=== PATIENT | male | born 1960 ===

== ENCOUNTER 2020-02-25 09:11 | Outpatient (REF) | payer MEDICARE, SELFPAY ==
[2020-02-25 11:54] LABS: Alanine Aminotransferase 30 U/L (0-40); Albumin Level 4.5 g/dL (3.5-5.0); Alkaline Phosphatase 77 U/L (39-117); Anion Gap 12 (12-20); Aspartate Amino Transferase 28 U/L (5-37); Bilirubin Total 1.5 mg/dL (0.0-1.0); Blood Urea Nitrogen 15 mg/dL (9-16); Calcium 9.4 mg/dL (8.4-10.2); Carbon Dioxide 33 mmol/L (22-29); Chloride 100 mmol/L (96-108); Cholesterol 175 mg/dL; Estimated Glomerular Filt Rate 57; Glucose Fasting 87 mg/dL (60-99); HDL Cholesterol 39 mg/dL; LDL Cholesterol Calculated 95 mg/dl; Potassium 4.2 mmol/l (3.3-5.1); Sodium 141 mmol/L (135-145); Total Protein 7.5 g/dL (6.5-8.0); Triglycerides 205 mg/dL
[2020-02-25 12:05] LABS: Thyroid Stimulating Hormone 1.49 uIU/mL (0.32-4.0)
== END 2020-02-25 09:12 | disposition home or self-care (01) ==
LOC: HO.HMGCLDS 09:11
PROVIDERS: PCP Internal Medicine; Visit Provider Internal Medicine
DX: E78.2 Mixed hyperlipidemia (principal); I10 Essential (primary) hypertension; N40.0 Benign prostatic hyperplasia without lower urinary tract symptoms
CPT/HCPCS: 36415; 80053; 80061; 84443

== ENCOUNTER 2020-08-13 06:52 | Outpatient (REF) | payer MEDICARE, SELFPAY ==
[2020-08-13 11:52] LABS: Alanine Aminotransferase 20 U/L (0-40); Albumin Level 4.6 g/dL (3.5-5.0); Alkaline Phosphatase 73 U/L (39-117); Anion Gap 12 (12-20); Aspartate Amino Transferase 22 U/L (5-37); Bilirubin Total 1.4 mg/dL (0.0-1.0); Blood Urea Nitrogen 11 mg/dL (9-16); Calcium 9.5 mg/dL (8.4-10.2); Carbon Dioxide 33 mmol/L (22-29); Chloride 102 mmol/L (96-108); Estimated Glomerular Filt Rate > 60; Glucose Random 90 mg/dL (60-115); Potassium 4.5 mmol/L (3.3-5.1); Sodium 142 mmol/L (135-145); Total Protein 7.3 g/dL (6.5-8.0)
[2020-08-13 12:05] LABS: Prostate Specific Antigen 0.52 ng/mL (<0.05-4.0)
== END 2020-08-13 06:53 | disposition home or self-care (01) ==
LOC: HO.HMGCLDS 06:52
PROVIDERS: PCP Internal Medicine; Visit Provider Internal Medicine
DX: E78.2 Mixed hyperlipidemia (principal); I10 Essential (primary) hypertension; N40.0 Benign prostatic hyperplasia without lower urinary tract symptoms; Z00.00 Encounter for general adult medical examination without abnormal findings
CPT/HCPCS: 36415; 80053; 84153

== ENCOUNTER 2020-12-07 10:43 | Emergency (ER) | payer MEDICARE, SELFPAY ==
--- NOTE | ~2020-12-07 | XR_ITS ---
EXAMINATION: XR LUMBOSACRAL SPINE CLINICAL INFORMATION: Atraumatic low back pain. COMPARISON: 11/02/2017. TECHNIQUE: Three views of the lumbosacral spine. FINDINGS: Moderate to severe degenerative disc disease is seen at L5-S1. Mild degenerative disc disease is seen at the remainder of the lumbar levels with marginal osteophyte formation. There is no acute fracture. The soft tissues are unremarkable. XR/XR lumbar spine 2-3V IMPRESSION: Multilevel spondylosis, most pronounced at L5-S1 without significant interval change.
[2020-12-07 11:37] VITALS: BP 167/107; PULSE 89; RESP 16; TEMP 36.6; O2SAT 96; BMI 26.6
--- NOTE | 2020-12-07 11:56 | ED_ITS ---
HPI - Back Pain/Injury General Chief Complaint: Back Pain/Injury Stated Complaint: left side pain Time Seen by Provider: 12/07/20 11:46 Source: patient Mode of arrival: ambulatory Limitations: no limitations History of Present Illness HPI Narrative: 60-year-old male with a past medical history of hypertension, hyperlipidemia, BPH, RA on enbrel here with complaints of left leg pain and numbness for 2 weeks. Patient tells me he has pain which radiates from his back down his leg. It is worsened with ambulation. There is no saddle anesthesia, bowel or bladder incontinence, fevers, chills, injury or trauma. Related Data Previous Rx's Medication Instructions Recorded cyclobenzaprine 10 mg tablet 10 mg PO TID PRN #10 tab 12/07/20 lidocaine 5 % topical patch 1 patch TOPICAL DAILY #15 ea 12/07/20 (Lidoderm) naproxen 500 mg tablet,delayed 500 mg PO BID PRN #15 tab 12/07/20 release Allergies Allergy/AdvReac Type Severity Reaction Status Date / Time No Known Allergies Allergy Unverified 11/07/19 17:05 [No Known Allergies*] Review of Systems Review of Systems: Yes all other systems are reviewed and are negative Constitutional: Constitutional: Reports no additional constitutional complaints, Denies body ache(s), Denies chills, Denies fever(s), Denies headache(s) and Denies weakness Eyes: Eyes: Reports no additional eye complaints and Denies change in vision ENT: Reports system reviewed and no additional complaints, except as documented, Denies dizziness, Denies headache(s), Denies nasal congestion, Denies nasal discharge and Denies neck pain Cardiovascular: Cardiovascular: Reports no additional cardiovascular compl aints, Denies chest pain, Denies leg edema and Denies dyspnea Respiratory: Respiratory: Reports no additional respiratory complaints, Denies cough and Denies dyspnea Gastrointestinal: Gastrointestinal: Reports no additional gastrointestinal complaints, Denies abdominal pain, Denies diarrhea, Denies nausea and Denies vomiting Genitourinary: Genitourinary: Denies urinary incontinence Musculoskeletal: Musculoskeletal: Reports no additional musculoskeletal complaints, Reports back pain, Denies arthralgias, Denies joint swelling, Denies neck pain, Reports numbness and Denies tingling Integumentary/Breasts: Skin/Breast: Reports system reviewed and no additional complaints, except as docu and Denies rash Neurologic: Reports system reviewed and no additional complaints, except as documented, Denies Abnormal speech present, Denies dizziness, Denies headache(s), Reports numbness, Denies tingling and Denies weakness PMFSH Past Medical History Attestation statement: The following information was validated with the patient. Source: old records reviewed and nursing notes reviewed Medical History HTN (hypertension) Social History Social History Advance Directives: No Advance Directives Information Provided: No Physical Exam Vital Signs: Vital Signs: Last Vital Signs Temp 97.8 F 12/07/20 11:37 Pulse 89 12/07/20 11:37 Resp 16 12/07/20 11:37 BP 167/107 H 12/07/20 11:37 Pulse Ox 96 12/07/20 11:37 Body Mass Index 26.6 Const: General: cooperative, healthy appearing, comfortable and no acute distress Orientation/consciousness: patient oriented x3 Limitations: no limitations HENMT: Head: Yes normal to inspection Ears: hearing grossly normal bilaterally General nose exam: Normal external nose present Face and sinus: Yes normal facial exam Mouth: Normal oral and palatal mucosa present Throat: Yes posterior oropharynx normal Eyes: General: appearance normal, both eyes and all related structures Pup ils: Equal, round and reactive pupils present Neck: Neck: Yes normal visual inspection Chest: Chest palpation & inspection: normal inspection of the chest Resp: Effort & Inspection: normal respiratory effort Auscultation: clear to auscultation bilaterally Cardio: Rate: regular rate Rhythm: regular rhythm Peripheral pulses: Peripheral pulses 2+ throughout GI: Inspection: Yes normal to inspection Palpation (GI): Soft to palpation and nontender Auscultation: normal bowel sounds Back/Spine/Pelvis: Other: Midline lumbar tenderness No step-offs deformities Tenderness in the left buttocks and down the posterior left leg Thoracic/Lumbar Spine: thoracic and lumbar spine normal to inspection Skin: General skin exam: no rashes or lesions noted Neuro: General: patient oriented x3, no focal motor deficits and normal sensation to monofilament Cranial nerves: Yes CN's II-XII intact bilaterally, Yes Equal, round and reactive pupils present, Yes Bilaterally intact EOM present, Yes Nystagmus not present, Yes Normal facial strength present and Yes Midline tongue present Cognition (Neuro): normal cognition Speech: No Abnormal speech present Gait exam (Neuro): Normal gait present Motor exam (neuro): 5/5 motor strength present throughout Sensory Exam: Normal double simultaneous stimulation for sensation Deep tendon reflexes (DTR's): Right patellar reflex intensity grade: 2+ and Left patellar reflex intensity grade: 2+ Extrem: General: Yes normal to inspection Course Course Course Narrative: Exam is consistent with sciatica Patient does have midline tenderness and so I will check a lumbar x-ray. Give Toradol and reassess 1300-Xray shows some spondylosis of the lumbar/sacral spine. Patient imroved after toradol. No neuro deficits or red flag symptoms,. Reviewed worrisome signs.symptoms with patient and when to retutn to ED. Com fortable with discharge home. MDM - Back Pain/Injury Medical Records Attestation: I reviewed the patient's medical records. Lab Data Attestation: I reviewed the patient's lab results. Discharge Plan Discharge Clinical Impression: Sciatica Patient Disposition: Home, Self-Care Instructions: Sciatica (ED) Additional Instructions: heat or ice Gentle stretching follow-up with pcp Prescriptions: New naproxen 500 mg tablet,delayed release (DR/EC) 500 mg PO BID PRN (Reason: pain) Qty: 15 RF: 0 cyclobenzaprine 10 mg tablet 10 mg PO TID PRN (Reason: muscle spasm) Qty: 10 RF: 0 lidocaine [Lidoderm] 5 % adhesive patch,medicated 1 patch topical DAILY Qty: 15 RF: 0 Referrals: Alivia Pat MD [Primary Care Provider] - 2 days
[2020-12-07] MEDS: Ketorolac Tromethamine 60 MG/2 ML VIAL IM (12:03)
== END 2020-12-07 13:18 | disposition home or self-care (01) ==
PROVIDERS: Emergency Provider Student in an Organized Health Care Education/Training Program; PCP Internal Medicine
DX: M54.42 Lumbago with sciatica, left side (principal); M54.41 Lumbago with sciatica, right side; Z79.899 Other long term (current) drug therapy
CPT/HCPCS: 72100; 96372; 99284; J1885

== ENCOUNTER 2021-04-21 08:17 | Outpatient (REF) | payer MEDICARE, SELFPAY ==
[2021-04-21 11:03] LABS: MANUAL DIFF FLAG NO
[2021-04-21 11:10] LABS: Basophils Absolute Auto 0.1 X10*3/uL (0.0-0.2); Basophils Percent Auto 0.6 % (0-2); Eosinophils Absolute Auto 0.1 X10*3/uL (0.0-0.4); Eosinophils Percent Auto 1.6 % (0-4); Hematocrit 46.8 % (42.0-52.0); Hemoglobin 16.2 g/dl (14.0-18.0); Imm Gran Abs Auto 0.03 X10*3/uL (0.00-0.03); Imm Gran Pct Auto 0.4 % (0.0-0.4); Lymphocytes Absolute Auto 3.1 X10*3/uL (1.2-4.9); Lymphocytes Percent Auto 36.6 % (20-40); Mean Corpuscular HGB Conc 34.6 g/dl (31.0-36.0); Mean Corpuscular Hemoglobin 34.8 pg (27.0-33.0); Mean Corpuscular Volume 100.6 fL (80.0-98.0); Monocytes Absolute Auto 0.8 X10*3/uL (0.1-1.2); Monocytes Percent Auto 9.1 % (2-11); Neutrophils Absolute Auto 4.3 x10*3/uL (2.0-8.3); Neutrophils Percent Auto 51.7 % (45-73); Platelet Count 170 X10*3/uL (160-400); Red Blood Count 4.65 X10*6/uL (4.60-5.80); Red Cell Distribution Width 13.2 % (11.0-16.0); White Blood Count 8.3 X10*3/uL (4.8-10.8)
[2021-04-21 12:08] LABS: Alanine Aminotransferase 25 U/L (0-40); Albumin Level 4.2 g/dL (3.5-5.0); Alkaline Phosphatase 72 U/L (39-117); Anion Gap 10 (12-20); Aspartate Amino Transferase 25 U/L (5-37); Bilirubin Total 1.7 mg/dL (0.0-1.0); Blood Urea Nitrogen 11 mg/dL (9-16); Calcium 9.2 mg/dL (8.4-10.2); Carbon Dioxide 32 mmol/L (22-29); Chloride 103 mmol/L (96-108); Cholesterol 207 mg/dL; Estimated Glomerular Filt Rate > 60; Glucose Random 103 mg/dL (60-115); HDL Cholesterol 41 mg/dL; LDL Cholesterol Calculated 120 mg/dl; Potassium 3.7 mmol/L (3.3-5.1); Sodium 141 mmol/L (135-145); Total Protein 7.2 g/dL (6.5-8.0); Triglycerides 234 mg/dL
== END 2021-04-21 08:18 | disposition home or self-care (01) ==
LOC: HO.HMGCLDS 08:17
PROVIDERS: Visit Provider Internal Medicine
DX: E78.2 Mixed hyperlipidemia (principal); I10 Essential (primary) hypertension; M79.652 Pain in left thigh
CPT/HCPCS: 36415; 80053; 80061; 85025

== ENCOUNTER 2021-08-24 08:43 | Outpatient (REF) | payer MEDICARE, SELFPAY ==
[2021-08-24 12:15] LABS: Alanine Aminotransferase 24 U/L (0-40); Albumin Level 4.4 g/dL (3.5-5.0); Alkaline Phosphatase 84 U/L (39-117); Anion Gap 13 (12-20); Aspartate Amino Transferase 24 U/L (5-37); Bilirubin Total 1.9 mg/dL (0.0-1.0); Blood Urea Nitrogen 12 mg/dL (9-16); Calcium 8.9 mg/dL (8.4-10.2); Carbon Dioxide 29 mmol/L (22-29); Chloride 102 mmol/L (96-108); Cholesterol 205 mg/dL; Estimated Glomerular Filt Rate > 60; Glucose Random 104 mg/dL (60-115); HDL Cholesterol 44 mg/dL; LDL Cholesterol Calculated 119 mg/dl; Potassium 3.7 mmol/L (3.3-5.1); Sodium 140 mmol/L (135-145); Total Protein 7.4 g/dL (6.5-8.0); Triglycerides 213 mg/dL
[2021-08-24 12:39] LABS: Vitamin B12 666 pg/mL (200-900)
[2021-08-24 14:24] LABS: Creatinine Urine 84.22 mg/dL; Microalbum/Creatinine Ratio Ur 64.1 ug/mg cr
== END 2021-08-24 08:44 | disposition home or self-care (01) ==
LOC: HO.HMGCLDS 08:43
PROVIDERS: PCP Internal Medicine; Visit Provider Internal Medicine
DX: Z00.00 Encounter for general adult medical examination without abnormal findings (principal); E78.2 Mixed hyperlipidemia; I10 Essential (primary) hypertension; N40.1 Benign prostatic hyperplasia with lower urinary tract symptoms
CPT/HCPCS: 36415; 80053; 80061; 82043; 82607

== ENCOUNTER 2021-11-02 08:11 | Day surgery (SDC) | payer MEDICARE, SELFPAY ==
[2021-10-28 10:06] VITALS: BMI 26.9
--- NOTE | 2021-11-01 09:09 | HO.ANESPROP2 ---
Documented by User: Dayan Downing NP 11/01/21 09:09 HPI - Anesthesia Eval Consult details Narrative: 61yo M for Colonoscopy FORMERLY [facility], 1928–1983 Past Medical History Medical History BPH (benign prostatic hyperplasia) Depression Elevated cholesterol HTN (hypertension) Psoriatic arthritis Surgical History Surgical History H/O colonoscopy Hx of hernia repair Social History Social History Patient Tobacco Use Status: Former Tobacco user Quit Date: >10 years ago Tobacco use type: Cigarette Are you DNR?: No Advance Directives: No Advance Directives Information Provided: Yes Meds Allergies Allergy/AdvReac Type Severity Reaction Status Date / Time No Known Allergies Allergy Unverified 11/07/19 17:05 [No Known Allergies*] Home Medications Medication Instructions Recorded Confirmed Last Taken Type amlodipine 10 mg tablet 1 tab PO DAILY 10/28/21 10/28/21 11/02/21 History aspirin 81 mg tablet,delayed 81 mg PO DAILY 10/28/21 10/28/21 10/26/21 History release atorvastatin 80 mg tablet 1 tab PO BEDTIME 10/28/21 10/28/21 10/30/21 History chlorthalidone 50 mg tablet 1 tab PO DAILY 10/28/21 10/28/21 10/30/21 History etanercept 50 mg/mL (1 mL) 50 mg subcut QWEEK 10/28/21 10/28/21 10/27/21 History subcutaneous pen injector (Enbrel SureSantiagoick) finasteride 5 mg tablet 1 tab PO DAILY 10/28/21 10/28/21 10/30/21 History metoprolol succinate 100 mg 1 tab PO DAILY 10/28/21 10/28/21 11/02/21 History tablet,extended release 24 hr sertraline 100 mg tablet 100 mg PO DAILY 10/28/21 10/28/21 11/02/21 History tamsulosin 0.4 mg capsule 1 cap PO DAILY 10/28/21 10/28/21 10/30/21 History Exam Exam Date and Time: November 01, [id number] Height,Weight and Vital Signs: Height 5 ft 9 in Weight 82.554 kg Pertinent Lab Results Pertinent Lab Results: Laboratory Tests 04/21/21 08/24/21 08:26 08:57 WBC 8.3 Hgb 16.2 Hct 46.8 Plt Count 170 Sodium 140 Potassium 3.7 Chloride 102 Carbon Dioxide 29 BUN 12 Creatinine 1.11 Assessment and Plan Assessment Anesthesia Assessment: Chart Reviewed Documented by User: Malou Norwood MD 11/02/21 10:00 PMFSH Active Problems Active Problems: Denies DEA Past Medical History Medical History BPH (benign prostatic hyperplasia) Depression Elevated cholesterol HTN (hypertension) Psoriatic arthritis Family History Family history of problems with anesthesia: No Surgical History Surgical History H/O colonoscopy Hx of hernia repair History of Problems with Anesthesia: No Social History Social History Patient Tobacco Use Status: Former Tobacco user Quit Date: >10 years ago Tobacco use type: Cigarette Are you DNR?: No Advance Directives: No Advance Directives Information Provided: Yes Meds Allergies Allergy/AdvReac Type Severity Reaction Status Date / Time No Known Allergies Allergy Unverified 11/07/19 17:05 [No Known Allergies*] Home Medications Medication Instructions Recorded Confirmed Last Taken Type amlodipine 10 mg tablet 1 tab PO DAILY 10/28/21 10/28/21 11/02/21 History aspirin 81 mg tablet,delayed 81 mg PO DAILY 10/28/21 10/28/21 10/26/21 History release atorvastatin 80 mg tablet 1 tab PO BEDTIME 10/28/21 10/28/21 10/30/21 History chlorthalidone 50 mg tablet 1 tab PO DAILY 10/28/21 10/28/21 10/30/21 History etanercept 50 mg/mL (1 mL) 50 mg subcut QWEEK 10/28/21 10/28/21 10/27/21 History subcutaneous pen injector (Enbrel SureClick) finasteride 5 mg tablet 1 tab PO DAILY 10/28/21 10/28/21 10/30/21 History metoprolol succinate 100 mg 1 tab PO DAILY 10/28/21 10/28/21 11/02/21 History tablet,extended release 24 hr sertraline 100 mg tablet 100 mg PO DAILY 10/28/21 10/28/21 11/02/21 History tamsulosin 0.4 mg capsule 1 cap PO DAILY 10/28/21 10/28/21 10/30/21 History Exam Height,Weight and Vital Signs: Height 5 ft 9 in Weight 82.554 kg Vital Signs Temp Pulse Resp BP Pulse Ox O2 Del Method 11/02/21 08:34 97.5 F 79 16 169/70 H 99 Room Air Airway Mallampati Class: II TM Dist: >3cm Neck ROM: Full Loose/Missing/Broken Teeth: No Heart: RRR Lungs: CTAB Assessment and Plan Assessment Anesthesia Assessment: Anesthesia Plan Discussed Final Anesthetic Review Family History of Problems with Anesthesia: No History of Problems with Anesthesia: No NPO: Yes ASA Class: II Final Preanesthetic Review: No Changes in Pt Med Stat, Meds/Allgs Chart Reviewed, Consent Obtained/Reviewed and Anes Risks/Benef Reviewed Patient Risk: Low Procedure Risk: Low Assessment/Block/Sedation in SS: Assess/Block/Sedation-SS Anesthetic Plan Anesthetic Plan: MAC:
[2021-11-02 08:34] VITALS: BP 169/70; PULSE 79; RESP 16; TEMP 36.4; O2SAT 99
[2021-11-02] MEDS: Lactated Ringers 1,000 ML 100 ML IVCONT (08:46)
--- NOTE | 2021-11-02 09:59 | MHC.SHP ---
Pre-Procedural Eval Section A Date of Service: 11/02/21 Section B Chief Complaint: screening,hx colonic polyps Details of Present Illness: see H&P no changes Relevant Family History (Specify if Yes): No Relevant Social History: None Present Medications: see Short Stay Collaborative assessment Medical History: No relevant PMH History of Previous Operations: No relevant previous surgery Allergies: Allergies Allergy/AdvReac Type Severity Reaction Status Date / Time No Known Allergies Allergy Unverified 11/07/19 17:05 [No Known Allergies*] Review of Systems Sugical H&P ROS: Negative: Constitution, Cardiovascular, Respiratory, Neurological, Psychiatric, Hem-Onc, Allergic/Immunologic, Gastrointestinal, Genitourinary, Musculoskeletal, Integumentary, Endocrine and Eyes/Ears/Nose/Throat Exam Surgical H&P Exam: Normal: HEENT, Normal: Heart, Normal: Lungs, Normal: Extremities, Normal: Abdomen, Normal: Skin and Normal: Neurological Plan Diagnosis/Plan: Unchanged I have reviewed the history and physical and performed a pertinent physical examination on my patient. No changes have occurred unless specified.
--- NOTE | 2021-11-02 10:26 | PM.OP ---
Brief Operative Note Date of Service: 11/02/21 Pre-op diagnosis: colonoscopy Post-op diagnosis: same Procedure: colon polyps Surgeon: Bob Markham Anesthesia: MAC Was an Executive [employer] Workshop used for this Procedure?: No Estimated blood loss (mL): 0 Pathology: other Condition: stable Disposition: PACU
[2021-11-02 10:30] VITALS: BP 110/60; PULSE 69; RESP 14; TEMP 36.5; O2SAT 96
[2021-11-02 10:45] VITALS: BP 121/67; PULSE 67; RESP 20; TEMP 36.5; O2SAT 97
--- NOTE | 2021-11-02 21:19 | OP_ITS ---
SURGEON: Bob Markham MD INDICATIONS: Colon cancer screening and prior history of colon polyps. PREOPERATIVE DIAGNOSIS: POSTOPERATIVE DIAGNOSIS: PROCEDURE PERFORMED: ESTIMATED BLOOD LOSS: COMPLICATIONS: ANESTHESIA: ASSISTANTS: SPECIMENS: PROCEDURES: Colonoscopy to the terminal ileum with snare polypectomy and biopsy as well as cauterization of colon polyp on 11/02/21. MEDICATIONS: Monitored anesthesia care. DESCRIPTION OF PROCEDURE: History and physical performed. The risks and benefits of the procedure were explained to the patient. Informed consent was obtained. The patient was placed in the left lateral decubitus position. A digital rectal exam was performed and was found to be normal. The Olympus pediatric video colonoscope was introduced in the rectum and advanced to the cecum without difficulty. The cecum was identified by transillumination, palpation, and identification of ileocecal valve. Examination was performed and the scope was removed. He tolerated the procedure well, returned to recovery in stable condition. FINDINGS: The terminal ileum was normal. The visualized colonic mucosa was normal. In the cecum, was less than 5 mm polyp, which was removed with biopsy forceps. There was some stool coating mucosa which was washed and suctioned. In the rectum, 8 mm polyp, which was removed with a snare and recovered via suction. A 2nd polyp in the rectum measuring less than 5 mm was cauterized using the tip of the snare. Retroflexed examination showed small internal hemorrhoids. IMPRESSION: Colon polyps. RECOMMENDATION: Follow up the biopsy results. MD FANY Berry/PADMINI / [id number] MTDD
== END 2021-11-02 11:13 | disposition home or self-care (01) ==
PROVIDERS: PCP Internal Medicine; Visit Provider Internal Medicine Gastroenterology
PROC: 0DJD8ZZ Inspection of Lower Intestinal Tract, Via Natural or Artificial Opening Endoscopic (ICD-10-PCS; CPT 45378; principal; 2021-11-02 09:50)
DX: Z12.11 Encounter for screening for malignant neoplasm of colon (principal); Z83.71 Family history of colonic polyps; D12.0 Benign neoplasm of cecum; D12.8 Benign neoplasm of rectum; N40.0 Benign prostatic hyperplasia without lower urinary tract symptoms; I10 Essential (primary) hypertension; E78.5 Hyperlipidemia, unspecified; L40.50 Arthropathic psoriasis, unspecified; F32.A Depression, unspecified; Z79.82 Long term (current) use of aspirin; Z79.899 Other long term (current) drug therapy; Z87.891 Personal history of nicotine dependence
CPT/HCPCS: 45385; 45380; 88305

== ENCOUNTER 2021-12-21 08:27 | Outpatient (REF) | payer MEDICARE, SELFPAY ==
[2021-12-21 12:22] LABS: Alanine Aminotransferase 25 U/L (0-40); Albumin Level 4.3 g/dL (3.5-5.0); Alkaline Phosphatase 86 U/L (39-117); Anion Gap 13 (12-20); Aspartate Amino Transferase 27 U/L (5-37); Bilirubin Total 2.1 mg/dL (0.0-1.0); Blood Urea Nitrogen 10 mg/dL (9-16); Calcium 9.3 mg/dL (8.4-10.2); Carbon Dioxide 32 mmol/L (22-29); Chloride 101 mmol/L (96-108); Estimated Glomerular Filt Rate > 60; Glucose Random 107 mg/dL (60-115); Potassium 3.6 mmol/L (3.3-5.1); Sodium 142 mmol/L (135-145); Total Protein 7.2 g/dL (6.5-8.0)
== END 2021-12-21 08:28 | disposition home or self-care (01) ==
LOC: HO.HMGCLDS 08:27
PROVIDERS: PCP Internal Medicine; Visit Provider Internal Medicine
DX: E78.2 Mixed hyperlipidemia (principal); I10 Essential (primary) hypertension; R80.8 Other proteinuria
CPT/HCPCS: 36415; 80053

== ENCOUNTER → 2022-02-17 13:47 | Outpatient (BNVA) | payer MEDICARE, SELFPAY | PROVIDERS: PCP Internal Medicine; Visit Provider Urology | DX: Z13.9 Encounter for screening, unspecified (principal); N40.1 Benign prostatic hyperplasia with lower urinary tract symptoms; R31.9 Hematuria, unspecified; N28.89 Other specified disorders of kidney and ureter | CPT/HCPCS: 51798; 99202 ==

== ENCOUNTER 2022-03-07 09:33 | Outpatient (REF) | payer MEDICARE, MEDICAID, SELFPAY ==
--- NOTE | ~2022-03-07 | CT_ITS ---
EXAMINATION: CT ABDOMEN WITHOUT AND WITH CONTRAST CLINICAL INFORMATION: Solid upper pole right renal mass seen on prior CT. COMPARISON: 01/05/2022 TECHNIQUE: Contiguous axial thin section helical images of the abdomen were performed before and after the administration of 85 mL of Omnipaque 350 intravenous contrast. The data set was reformatted in the coronal and sagittal planes and reviewed on an independent workstation. This CT examination was performed using dose optimization techniques as appropriate, variously including the following: *Automated exposure control *Adjustment of mA and/or kV according to patient size (this includes techniques or standardized protocols for targeted exams where dose is matched to indication/reason for exam; i.e. extremities or head) *Use of iterative reconstruction technique DLP: 484 mGy-cm FINDINGS: LUNG BASES: Multiple pulmonary nodules, solid in appearance measuring up to 1.0 cm in the right lung and 1.2 cm in the left lung. LIVER, GALLBLADDER, AND BILIARY TREE: Unremarkable. PANCREAS: Unremarkable. SPLEEN: Unremarkable. ADRENAL GLANDS AND KIDNEYS: Heterogeneously enhancing right adrenal gland 1.7 x 1.9 cm nodule (8:65). Left adrenal gland 1.3 x 1.6 cm homogenously enhancing nodule. Again seen arising from the right kidney is a heterogeneously enhancing upper pole renal mass extending to and possibly invading the right ureteropelvic junction measuring 5.8 x 4.5 cm (4:58). Left kidney is unremarkable. BOWEL LOOPS: Visualized portions of the small and large bowel are unremarkable. LYMPH NODES: Normal. VASCULAR: There is heterogeneously enhancing material within the IVC with an associated filling defect at the right renal vein concerning for extension and invasion of the right renal vein into the IVC. BONES: Degenerative changes of the spine. CT/CT abdomen wo/w IV con IMPRESSION: 1. Heterogeneously enhancing right upper pole renal mass extending to and possibly invading the right ureteropelvic junction measuring up to 5.8 cm. This is concerning for renal cell carcinoma. Recommend urology consult. 2. There is heterogeneously enhancing material within the IVC with an associated filling defect at the right renal vein concerning for extension and invasion of the right renal vein into the IVC. 3. Multiple pulmonary nodules measuring up to 1.2 cm in the visualized lung bases, concerning for metastatic disease. Recommend further evaluation with chest CT with contrast. 4. Bilateral adrenal gland nodules measuring up to 1.9 cm, concerning for metastatic disease. The report will be called to the ordering clinician by a [facility] Physician Private Advisor.
[2022-03-07] MEDS: iohexoL 350 MG/ML 100 ML INFUS..BTL IV (10:55)
[2022-03-07 13:29] LABS: Creatinine POC 0.8 mg/dL (0.5-1.4); GFR POC > 60
== END 2022-03-07 09:34 | disposition home or self-care (01) ==
LOC: HO.CT 09:33
PROVIDERS: PCP Internal Medicine; Visit Provider Urology
DX: N28.89 Other specified disorders of kidney and ureter (principal)
CPT/HCPCS: 74170; 82565; Q9967

== ENCOUNTER → 2022-03-17 11:14 | Outpatient (BNVA) | payer MEDICARE, MEDICAID, SELFPAY | PROVIDERS: PCP Internal Medicine; Visit Provider Urology | DX: C64.9 Malignant neoplasm of unspecified kidney, except renal pelvis (principal) | CPT/HCPCS: 99212 ==

== ENCOUNTER → 2022-03-23 08:42 | Outpatient (BNV) | payer MEDICARE, MEDICAID, SELFPAY | PROVIDERS: PCP Internal Medicine; Visit Provider Internal Medicine | DX: C64.1 Malignant neoplasm of right kidney, except renal pelvis (principal) | CPT/HCPCS: 99204; 99212; 99213; 99214; 99215; G2211 ==

== ENCOUNTER → 2022-03-25 10:39 | Outpatient (REF) | payer MEDICARE, MEDICAID, SELFPAY ==
--- NOTE | ~2022-03-25 | NM_ITS ---
EXAMINATION: NM BONE SCAN OF THE WHOLE BODY CLINICAL INFORMATION: Malignant neoplasm of unspecified kidney. Staging. COMPARISON: No previous bone scan or recent radiographs are available for comparison. CT scan of the abdomen and pelvis dated 03/07/[address] scan of the chest dated 03/30/2022, subsequent to this current study, are available for comparison. TECHNIQUE: Multiple gamma scintillation camera images of the whole body were performed 2.75 hours following the intravenous administration of 27 mCi Tc-99m MDP. FINDINGS: In the head, no significant abnormalities are present. In the thoracic cage and upper extremities, there is minimally increased activity in the acromioclavicular and sternoclavicular joints bilaterally and along the inferior margins of the sternum. The sternal and sternoclavicular joint abnormalities correspond to degenerative changes on the 03/30/2022 CT scan but the acromioclavicular joints are outside the [id number] of that CT but the latter bone scan abnormalities are also likely due to mild degenerative changes. In the spine, mild foci are present in the left side of the mid cervical spine and the right side of the lower cervical spine, both in the posterior elements and likely due to facet arthropathy. In the pelvis, no significant abnormalities are present. In the lower extremities, there is a small focus of mildly increased activity present in the medial aspect of the intercondylar notch region or possibly the overlying patella. Very faint foci of increased activity just barely perceptible are present in the mid feet bilaterally. No other definite bony abnormalities are noted. The urinary bladder and faint visualization of both kidneys are noted. There is some blunting of the superior pole of the right kidney in the region of the mass visualized on 03/07/2022 CT scan. NM/NM bone scan whole body IMPRESSION: A few mild nonspecific abnormalities are noted as described above and these are all likely arthritic or traumatic in etiology. None of these abnormalities is strongly suspicious for metastatic disease.
== END ==
LOC: HO.NUCMED 10:39
PROVIDERS: PCP Internal Medicine; Visit Provider Internal Medicine
DX: C64.9 Malignant neoplasm of unspecified kidney, except renal pelvis (principal)
CPT/HCPCS: 78306; A9503

== ENCOUNTER 2022-03-30 13:41 | Outpatient (REF) | payer MEDICARE, MEDICAID, SELFPAY ==
--- NOTE | ~2022-03-30 | CT_ITS ---
EXAMINATION: CT CHEST WITH CONTRAST CLINICAL INFORMATION: Kidney cancer. COMPARISON: CT abdomen and pelvis February 2022. TECHNIQUE: Multidetector volumetric CT imaging of the chest was obtained after the administration of 85 mL of Omnipaque 350 intravenous contrast without immediate adverse reactions. Axial MIP volume rendering provided. Sagittal and coronal reformatted images were obtained. This CT examination was performed using dose optimization techniques as appropriate, variously including the following: *Automated exposure control *Adjustment of mA and/or kV according to patient size (this includes techniques or standardized protocols for targeted exams where dose is matched to indication/reason for exam; i.e. extremities or head) *Use of iterative reconstruction technique DLP: 158 mGy-cm. FINDINGS: LUNGS: There are multiple bilateral pulmonary nodules. Largest right pulmonary nodule measures 1.1 cm in the right lower lobe axial image 113 and 118 series 5. Largest left pulmonary nodule measures 1.2 cm in the left lower lobe axial image 118 series 5. MEDIASTINUM: Moderate coronary artery calcification. The mediastinum is otherwise normal. PLEURA: There is no pleural effusion. No pleural mass or thickening. AXILLA: Small bilateral axillary lymph nodes. UPPER ABDOMEN: Stable right adrenal nodule. Renal mass not visualized. There is heterogeneous enhancement of the IVC. Appearance is questionable for thrombus. OSSEOUS STRUCTURES: Unremarkable. CT/CT chest w IV con IMPRESSION: Multiple bilateral pulmonary nodules worrisome for metastatic disease. Stable right adrenal nodule. Right renal mass not clearly visualized. Heterogeneous enhancement of the IVC questionable for thrombus. Fleischner guidelines were followed.
[2022-03-30] MEDS: iohexoL 350 MG/ML 100 ML INFUS..BTL 65 ML IV (14:24)
== END 2022-03-30 13:42 | disposition home or self-care (01) ==
LOC: HO.CT 13:41
PROVIDERS: PCP Internal Medicine; Visit Provider Internal Medicine
DX: C64.9 Malignant neoplasm of unspecified kidney, except renal pelvis (principal)
CPT/HCPCS: 71260; Q9967

== ENCOUNTER 2022-04-21 11:54 | Day surgery (SDC) | payer MEDICARE, MEDICAID, SELFPAY ==
[2022-04-21] VITALS (9 sets, daily range): BP systolic 129–152; BP diastolic 67–88; PULSE 61–75; RESP 14–18; TEMP 36.5–36.6; O2SAT 96–99; BMI 27.3
--- NOTE | ~2022-04-21 | CT_ITS ---
PROCEDURE: CT-GUIDED BIOPSY, KIDNEY CLINICAL INFORMATION: Right renal mass. COMPARISON: CT scan of 03/07/2022 TECHNIQUE: CT fluoroscopic-guided right renal upper pole mass. CONSCIOUS SEDATION: The patient received intravenous conscious sedation under my direct supervision. A registered nurse monitored the patient and the patient's vital signs throughout the procedure. The total sedation time was 30 minutes. A total of 1 mg of Versed and 50 mcg fentanyl was given for good effect. This CT examination was performed using dose optimization techniques as appropriate, variously including the following: *Automated exposure control *Adjustment of mA and/or kV according to patient size (this includes techniques or standardized protocols for targeted exams where dose is matched to indication/reason for exam; i.e. extremities or head) *Use of iterative reconstruction technique DLP: 397 mGy-cm FINDINGS: Informed consent was obtained from the patient prior to the procedure. During this process, the procedure and potential alternatives were explained, along with the intended outcome and benefits. The risks of the procedure, as well as the risk of not doing the procedure, were discussed. The patient was given the opportunity to ask questions regarding the procedure and appeared competent to make medical decisions. A signed consent form which documents this discussion was placed in the medical record. Using CT fluoroscopic guidance and sterile technique a 17-gauge guiding needle was placed via a right posterolateral approach into the upper pole mass with three 18-gauge core samples being obtained. Preliminary cytology report is of an adequate specimen. Patient tolerated the procedure without difficulty. No significant bleeding or pneumothorax identified. CT/CT biopsy renal RT IMPRESSION: Successful right renal core biopsy.
[2022-04-21 13:06] LABS: MANUAL DIFF FLAG NO
[2022-04-21 13:10] LABS: Basophils Absolute Auto 0.1 X10*3/uL (0.0-0.2); Basophils Percent Auto 0.6 % (0-2); Eosinophils Percent Auto 0.5 % (0-4); Hematocrit 46.8 % (42.0-52.0); Hemoglobin 15.9 g/dl (14.0-18.0); Imm Gran Abs Auto 0.03 X10*3/uL (0.00-0.03); Imm Gran Pct Auto 0.4 % (0.0-0.4); Lymphocytes Percent Auto 24.3 % (20-40); Mean Corpuscular Hemoglobin 33.9 pg (27.0-33.0); Mean Corpuscular Volume 99.8 fL (80.0-98.0); Mean Platelet Volume 12.3 fL (9.4-12.4); Monocytes Absolute Auto 0.8 X10*3/uL (0.1-1.2); Neutrophils Absolute Auto 5.5 x10*3/uL (2.0-8.3); Neutrophils Percent Auto 65.2 % (45-73); Platelet Count 155 X10*3/uL (160-400); Red Blood Count 4.69 X10*6/uL (4.60-5.80); Red Cell Distribution Width 13.1 % (11.0-16.0); White Blood Count 8.4 X10*3/uL (4.8-10.8)
[2022-04-21 13:16] LABS: Prothrombin Time 11.6 SEC (10.0-13.1)
[2022-04-21 13:19] LABS: Partial Thromboplastin Time 34.3 SEC (26.0-36.4)
[2022-04-21 13:26] LABS: Anion Gap 11 (12-20); Blood Urea Nitrogen 14 mg/dL (9-16); Carbon Dioxide 30 mmol/L (22-29); Chloride 105 mmol/L (96-108); Estimated Glomerular Filt Rate > 60; Potassium 4.3 mmol/L (3.3-5.1); Sodium 142 mmol/L (135-145)
== END 2022-04-21 18:28 | disposition home or self-care (01) ==
PROVIDERS: Radiology Diagnostic Radiology; PCP Internal Medicine; Visit Provider Internal Medicine
DX: C64.1 Malignant neoplasm of right kidney, except renal pelvis (principal); N40.0 Benign prostatic hyperplasia without lower urinary tract symptoms; I10 Essential (primary) hypertension; E78.00 Pure hypercholesterolemia, unspecified; L40.50 Arthropathic psoriasis, unspecified; Z79.82 Long term (current) use of aspirin; Z79.899 Other long term (current) drug therapy; Z80.42 Family history of malignant neoplasm of prostate; Z80.0 Family history of malignant neoplasm of digestive organs; Z87.891 Personal history of nicotine dependence
CPT/HCPCS: 36415; 50200; 77012; 80051; 82565; 84520; 85025; 85610; 85730; 88305; 88333; 99152; 99153; J2250; J3010

== ENCOUNTER → 2022-04-27 10:44 | Outpatient (BNVA) | payer MEDICARE, SELFPAY | PROVIDERS: PCP Internal Medicine; Visit Provider Urology | DX: C64.9 Malignant neoplasm of unspecified kidney, except renal pelvis (principal) | CPT/HCPCS: 51798; 99212 ==

== ENCOUNTER 2022-05-24 08:17 | Outpatient (REF) | payer MEDICARE, MEDICAID, SELFPAY ==
[2022-05-24 09:32] LABS: Prostate Specific Antigen 0.91 ng/mL (<0.05-4.0)
== END 2022-05-24 08:18 | disposition home or self-care (01) ==
LOC: HO.LAB 08:17
PROVIDERS: Urology; Visit Provider Internal Medicine
DX: N40.1 Benign prostatic hyperplasia with lower urinary tract symptoms (principal); C64.9 Malignant neoplasm of unspecified kidney, except renal pelvis; Z12.5 Encounter for screening for malignant neoplasm of prostate
CPT/HCPCS: 36415; 84153

== ENCOUNTER 2022-06-07 08:33 | Outpatient (REF) | payer MEDICARE, MEDICAID, SELFPAY ==
[2022-06-07 09:21] LABS: Cholesterol 173 mg/dL; HDL Cholesterol 30 mg/dL; LDL Cholesterol Calculated 108 mg/dl; Triglycerides 178 mg/dL
[2022-06-07 09:35] LABS: Prostate Specific Antigen Scr 1.59 ng/mL (<0.05-4.0)
== END 2022-06-07 08:34 | disposition home or self-care (01) ==
LOC: HO.LAB 08:33
PROVIDERS: PCP Internal Medicine; Visit Provider Internal Medicine
DX: Z00.01 Encounter for general adult medical examination with abnormal findings (principal); Z12.5 Encounter for screening for malignant neoplasm of prostate; C64.1 Malignant neoplasm of right kidney, except renal pelvis; C79.89 Secondary malignant neoplasm of other specified sites; E78.00 Pure hypercholesterolemia, unspecified; I10 Essential (primary) hypertension; N40.1 Benign prostatic hyperplasia with lower urinary tract symptoms
CPT/HCPCS: 36415; 80061; 84153

== ENCOUNTER 2022-06-15 09:07 | Outpatient (REF) | payer MEDICARE, MEDICAID, SELFPAY ==
[2022-06-15 16:33] LABS: Urine Cytology See Pathology rpt
== END 2022-06-15 09:08 | disposition home or self-care (01) ==
LOC: HO.LNP 09:07
PROVIDERS: PCP Internal Medicine; Visit Provider Urology
DX: C64.9 Malignant neoplasm of unspecified kidney, except renal pelvis (principal); N40.1 Benign prostatic hyperplasia with lower urinary tract symptoms
CPT/HCPCS: 88112; 99212

== ENCOUNTER 2022-08-05 09:07 | Outpatient (REF) | payer MEDICARE, MEDICAID, SELFPAY ==
--- NOTE | ~2022-08-05 | CT_ITS ---
EXAMINATION: CT chest, abdomen and pelvis with IV contrast CLINICAL INFORMATION: Renal cell cancer. Check response to treatment. COMPARISON: Previous chest CT most recent March 2022 and abdominal and pelvic CT most recent February 2022 TECHNIQUE: Axial images through the chest, abdomen and pelvis following oral and 85 mL Omnipaque 350 intravenous contrast. Sagittal and coronal reconstructions on the technologist workstation were performed. This CT examination was performed using dose optimization techniques as appropriate, variously including the following: *Automated exposure control *Adjustment of mA and/or kV according to patient size (this includes techniques or standardized protocols for targeted exams where dose is matched to indication/reason for exam; i.e. extremities or head) *Use of iterative reconstruction technique DLP 514+1 2 5 mg/cm. FINDINGS: Chest: There is interval decrease in size and number of bilateral pulmonary nodules. Largest right pulmonary nodule measures 5 x 6 mm axial image 30 series 3 compared to 9 x 10 mm March 2022. Largest left pulmonary nodule measures 4 x 6 mm axial image 34 compared to 8 x 10 mm on previous exam. No new pulmonary nodule. The mediastinum is normal. There is mild coronary artery calcification. No pleural effusion or pleural thickening. No chest wall mass or enlarged axillary lymph nodes. Degenerative changes of the spine. No fracture or bone lesion. Abdomen and pelvis: The liver is an gallbladder are normal. The spleen and pancreas are normal. There is interval decrease in size in the right adrenal nodule. This measures 1.2 x 1.8 cm compared to 1.6 x 2.8 cm February 2022. There is interval decrease in size in the right renal mass in the upper pole. Exophytic component measures 2.6 cm compared to 3 cm on previous exam. There is a more ill-defined central component extending toward the right renal hilum. Some of this may represent thrombus in the right renal vein. This appears decreased in size and enhancement as well. There is residual thrombus seen in the IVC. This appears slightly decreased in size and enhancement. The left kidney is normal. The bladder is normal. The prostate gland is slightly enlarged. Small and large bowel is unremarkable. The appendix is unremarkable. The stomach is unremarkable. There is a small left inguinal hernia containing fat. There is evidence of atherosclerotic disease. There aren't no enlarged lymph nodes. There is no ascites. There are degenerative changes of the spine. Small sclerotic focus in the right sacrum. No previous pelvic CT available for comparison. CT/CT abdomen pelvis w IV con IMPRESSION: Chest: Interval decrease in size and number of pulmonary nodules. Abdomen and pelvis: Interval decrease in right adrenal mass and right renal mass. Interval decrease in right renal vein and IVC thrombus in and enhancement.
[2022-08-05] MEDS: iohexoL 350 MG/ML 100 ML INFUS..BTL IV (11:00)
== END 2022-08-05 09:08 | disposition home or self-care (01) ==
LOC: HO.CT 09:07
PROVIDERS: PCP Internal Medicine; Visit Provider Internal Medicine
DX: C64.9 Malignant neoplasm of unspecified kidney, except renal pelvis (principal)
CPT/HCPCS: 71260; 74177; Q9967

== ENCOUNTER 2022-08-10 10:13 | Outpatient (REF) | payer MEDICARE, MEDICAID, SELFPAY ==
--- NOTE | ~2022-08-10 | XR_ITS ---
EXAMINATION: XR ABDOMEN COMPLETE CLINICAL INDICATION: Abdominal distention and diarrhea. COMPARISON: Previous CT of the abdomen and pelvis from earlier this month TECHNIQUE: 2 views of the abdomen. FINDINGS: There are no dilated loops of bowel or air-fluid levels. There is a small amount of stool in the colon. No free air. No calcifications. Mild degenerative changes of the spine. XR/XR abdomen 3V IMPRESSION: No evidence of obstruction or free air.
== END 2022-08-10 10:14 | disposition home or self-care (01) ==
LOC: HO.XRAY 10:13
PROVIDERS: PCP Internal Medicine; Visit Provider Internal Medicine
DX: R14.0 Abdominal distension (gaseous) (principal); R19.7 Diarrhea, unspecified
CPT/HCPCS: 74021

== ENCOUNTER 2022-09-01 09:01 | Outpatient (AMB) | payer MEDICARE, MEDICAID, SELFPAY ==
--- NOTE | 2022-09-01 09:01 | A.OFFVIS_ITS ---
Intake Intake Visit Reasons: Follow up Intake Note: Patient is present for Telephone Follow up Urology Med: Finasteride, Tamsulosin Antibiotic Allergy: None Blood Thinner: Aspirin Allergies No Known Allergies [No Known Allergies*] Allergy (Verified 09/01/22 09:02) HPI HPI Comments History of Present Illness Details Dick is a pleasant male. He is a patient of Dr. Pat. He seen for the following urologic conditions - hematuria - renal cancer Telemedicine Evaluation 15 min Consultation [employer] Video attempted 09/11 - good response to chemotherapy on initial restaging Chest: Interval decrease in size and number of pulmonary nodules. - Abdomen and pelvis: Interval decrease in right adrenal mass and right renal mass. Interval decrease in right renal vein and IVC thrombus in and enhancement. Continue chemotherapy for 3 months with repeat staging and may be able to reassess for debulking nephrectomy Renal cancer with IVC extension Initial presentation with gross hematuria to primary care Imaging - 03/13 CT right kidney is a heterogeneously enhancing upper pole renal mass extending to and possibly invading the right ureteropelvic junction measuring 5.8 x 4.5 cm heterogeneously enhancing material within the IVC with an associated filling defect at the right renal vein concerning for extension and invasion of the right renal vein into the IVC Staging 05/12 Right kidney biopsy - clear cell carcinoma, WHO grade 1-2. 04/14 CT chest - bilateral multiple pulmonary nodules largest measuring 1.1 cm in the right lower lobe, suspicious for metastatic disease.? Heterogenous enhancement of IVC, questionable for thrombus.? 04/14 Bone scan negative for metastatic disease. Chemotherapy initiated with Dr. Acosta - 06/12 - on combination regimen with cabozantinib and nivolumab Background of immune disease of psoriasis in had been on immune modifying med ications [facility] Medical History BPH (benign prostatic hyperplasia) Depression Elevated cholesterol HTN (hypertension) Psoriatic arthritis Surgical History H/O colonoscopy Hx of hernia repair Family History Mother Colon cancer Father Prostate cancer Social History Household Members: Spouse and Family Housing: House Are you a primary interior plant caretaker to a significant other at home: No Do you presently have visiting nurse or other home services: No Patient Tobacco Use Status: Former Tobacco user Quit Date: >10 years ago Tobacco use type: Cigarette service: No Current occupational status: retired Assessment & Plan Assessment & Plan (1) Kidney cancer, primary, with metastasis from kidney to other site: Code(s): C64.9 - Malignant neoplasm of unspecified kidney, except renal pelvis Plan Continue chemotherapy with Dr. Acosta Restaging 3 months for possible debulking nephrectomy Orders: Orders Creatinine 3 Months C64.9 - Malignant neoplasm of unspecified kidney, except renal pelvis CT abdomen wo/w IV con 3 Months C64.9 - Malignant neoplasm of unspecified kidney, except renal pelvis CT chest wo/w IV con 3 Months C64.9 - Malignant neoplasm of unspecified kidney, except renal pelvis Complete Blood Count no Diff 3 Months C64.9 - Malignant neoplasm of unspecified kidney, except renal pelvis Medications: Discontinued prednisone take 3 tabs daily for 1 week, then 2 tabs for 1 week, 1 tab for 1 week, half tab for 1 week 20 mg PO DAILY 100 tabs 3RF Patient Instructions: Imaging studies, laboratory and physical exam results were discussed and reviewed in detail. No major barriers to patient understanding were identified. An opportunity to ask questions regarding the treatment plan was provided. All questions were answered. The patient expressed understanding and agreement with the above treatment plan. The patient is aware they should contact our office by phone for worsening of their current condition or the appearance of new urologic symptoms. Compliance is encouraged with any medications and followup testing that is ordered. It is a privilege to participate in the urologic care of your patient. If you have any questions or concerns regarding treatment for the above conditions, or other urologic issues, please do not hesitate to contact me. The office telephone contact is [phone]. This note is constructed using voice recognition software. While every effort has been made to ensure accuracy weight loss consultant errors may have been included. Yours sincerely, Dr Darius Mccartney MD, [facility] - Urology Providers of Expert, Compassionate Care for the Genitourinary System Telehealth Telehealth Location of provider rendering services: practice address Location of patient: address on file Patient Identification confirmed using: Name, : Yes Telehealth method: video Patient verbally consented to treatment: Yes Patient verbally consented to billing insurance company: Yes Patient informed of any privacy concerns related to visit: Yes Coding Level of Care Code Tele Est Pt Level 3 (34776) Diagnoses Kidney cancer, primary, with metastasis from kidney to other site C64.9
== END 2022-09-01 09:59 | disposition home or self-care (01) ==
LOC: HO.HUSH 09:01
PROVIDERS: PCP Internal Medicine; Visit Provider Urology
DX: C64.1 Malignant neoplasm of right kidney, except renal pelvis (principal)
CPT/HCPCS: 99213

== ENCOUNTER → 2022-09-01 09:01 | Outpatient (BNVA) | payer MEDICARE, MEDICAID, SELFPAY | PROVIDERS: PCP Internal Medicine; Visit Provider Urology | DX: C64.9 Malignant neoplasm of unspecified kidney, except renal pelvis (principal) | CPT/HCPCS: Q3014 ==

== ENCOUNTER 2022-11-08 11:34 | Outpatient (REF) | payer MEDICARE, MEDICAID, SELFPAY ==
--- NOTE | ~2022-11-08 | PE_ITS ---
EXAMINATION: Fluorine-18 FDG PET/CT Scan CLINICAL INDICATION: Subsequent treatment management. Right-sided renal stent cancer. Restaging. To assess response to therapy. PROCEDURE: 60 minutes following the intravenous administration of 16.2 mCi of fluorine 18 FDG, images from the base of the skull to the mid thighs were obtained using a combined PET/CT scanner with CT scan based attenuation correction. No intravenous contrast was administered. Transverse, coronal, sagittal, and volume reconstruction projections were obtained. The patient's blood glucose as determined by a finger stick, was 88 mg/dl immediately prior to injection. The radiotracer was injected intravenously through the left antecubital superficial vein, without any complications. Total CT exam dose-length product 793.94 mGy-cm * These CT images were obtained using dose optimization techniques as appropriate, variously including the following: Automated exposure control * Adjustment of mA and/or kV according to patient size (this includes techniques or standardized protocols for targeted exams where dose is matched to indication/reason for exam; i.e. extremities or head) * Use of iterative reconstruction technique COMPARISON: CT of the abdomen and pelvis done on 01/05/2022, 03/07/2022, CT-guided biopsy done on 04/21/2022 and most recent prior CT of the chest abdomen and pelvis done on 08/05/2022. CT of the chest done on 03/30/2022 is also reviewed during interpretation of the current study. Please note that there are no prior baseline pretreatment PET CT study available for comparison. FINDINGS: SUV max REFERENCE: Blood: 2.7. Liver: 2.9. NECK AND VISUALIZED HEAD: No tracer avid cervical lymphadenopathy or soft tissue mass. THORAX: No tracer avid lung nodule on either side. Note is made of a subcentimeter noncalcified subpleural nodule at right lower lobe of the lung laterally (124:349), appear decreased in size since the prior study dated 08/05/2022. No evidence of tracer avid mediastinal, hilar or axillary or internal mammary lymphadenopathy or pleural or pericardial effusion. ABDOMEN AND PELVIS: No tracer avid focal disease within the liver, spleen or within the adrenal glands. The gallbladder, pancreas appear unremarkable. Previously documented right renal mass as well as local disease extension into the right renal vein and inferior vena cava shows interval improvement on this nondiagnostic noncontrast CT study. There is no evidence of any tracer avid disease identified within the right kidney. The left kidney appears unremarkable, unchanged. There are no tracer avid retroperitoneal, mesenteric, pelvic and/or inguinal/groin lymphadenopathy. Note is made of heterogeneous abnormal enlarged prostate, without any radiotracer avidity, measures 4.2 x 5.0 cm (303/349). MUSCULOSKELETAL: Subcentimeter focal area of sclerosis involving the right-sided S2 vertebral body (273/349) without any tracer avidity is indeterminate, unchanged. VASCULAR: Calcific atherosclerotic disease of the aorta including coronary arterial calcifications. THE SITE(S) OF MOST INTENSE FDG AVIDITY AND SUV MAX: No focal tracer avid disease. PET/PET CT fusion skull to thigh IMPRESSION: 1. No tracer avid focal disease is identified. There are no prior baseline pretreatment PET CT study available for comparison. 2. Specifically, no tracer avid disease is identified involving the right kidney. Residual soft tissue thickening however is present at the site of the previously documented biopsy proved malignancy. Follow-up diagnostic CT scan with intravenous contrast may be considered for further clarification, if clinically appropriate. 3. Solitary subcentimeter non-tracer avid right lower lobar subpleural lung nodule. 4. Abnormal heterogeneous enlarged prostate.
== END 2022-11-08 11:35 | disposition home or self-care (01) ==
LOC: HO.PET 11:34
PROVIDERS: PCP Internal Medicine; Visit Provider Internal Medicine
DX: Z13.89 Encounter for screening for other disorder (principal)

== ENCOUNTER 2022-11-23 08:46 | Outpatient (REF) | payer MEDICARE, MEDICAID, SELFPAY ==
[2022-11-23] MEDS: iohexoL 350 MG/ML 100 ML INFUS..BTL IV (09:32)
[2022-11-23 10:03] LABS: Creatinine POC 0.7 mg/dL (0.5-1.4); GFR POC > 60
== END 2022-11-23 08:47 | disposition home or self-care (01) ==
LOC: HO.CT 08:46
PROVIDERS: PCP Internal Medicine; Visit Provider Urology
DX: C64.9 Malignant neoplasm of unspecified kidney, except renal pelvis (principal)
CPT/HCPCS: 74170; 82565; Q9967

== ENCOUNTER 2022-12-01 10:43 | Outpatient (AMB) | payer MEDICARE, MEDICAID, SELFPAY ==
--- NOTE | 2022-12-01 11:23 | MHC.OFFVIS ---
Intake Intake Visit Reasons: 3m/labs/CT(PET CT Done) Intake Note: Patient is Present for Follow Up Urology Medication: Finasteride, Tamuslosin Antibiotic Allergies: None Blood Thinners: Aspirin Pharmacy: [facility] PVR: Allergies No Known Allergies [No Known Allergies*] Allergy (Verified 12/01/22 11:29) HPI HPI Comments History of Present Illness Details Dick is a pleasant male. He is a patient of Dr. Pat. 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 Significant improvement on chemotherapy IVC thrombus below liver Chest nodules have significantly decreased by over 50% Is feeling moderately functional Recommend assessment with Dr. Ortiz for debulking Renal cancer restaging 12/12: CT ADRENAL GLANDS AND KIDNEYS: There is interval decrease in size in the right adrenal nodule. This measures 5 x 10 mm axial image 70 series 4 compared to 1.2 x 1.8 cm most recent July 2022 exam. Low-attenuation or cystic mass in the upper pole of the right kidney not appreciably changed in size measuring 2.5 cm. This extends centrally into the right renal collecting system which does not appear appreciably changed. There is still of thrombus in the right renal vein extending into the IVC 11/[address] : THORAX: No tracer avid lung nodule on either side, Previously documented right renal mass as well as local disease extension into the right renal vein and inferior vena cava shows interval improvement on this nondiagnostic noncontrast CT study 08/12 - good response to chemotherapy on initial restaging Chest: Interval decrease in size and number of pulmonary nodules 50% reduction. - Abdomen and pelvis: Interval decrease in right adrenal mass and right renal mass. Interval decrease in right renal vein and IVC thrombus in and enhancement. 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 04/14 CT chest - bilateral multiple pulmonary nodules largest measuring 1.1 cm in the right lower lobe, suspicious for metastatic disease.? Heterogenous enhancement of IVC, questionable for thrombus.? 04/14 Bone scan negative for metastatic disease. Chemotherapy initiated with Dr. Acosta - 06/12 - on combination regimen with cabozantinib and nivolumab Background of immune disease of psoriasis in had been on immune modifying medications PFSH Medical History Depression Psoriatic arthritis BPH (benign prostatic hyperplasia) Elevated cholesterol HTN (hypertension) Surgical History H/O colonoscopy Hx of hernia repair Family History Mother Colon cancer Father Prostate cancer Social History Household Members: Spouse and Family Housing: House Are you a primary home care manager to a significant other at home: No Do you presently have visiting nurse or other home services: No Patient Tobacco Use Status: Former Tobacco user Quit Date: >10 years ago Tobacco use type: Cigarette service: No Current occupational status: retired Review of Systems Const Denies chills and Denies fever(s) Card Reports no additional complaints and Denies syncope Resp Denies cough GI Denies abdominal pain and Denies heartburn Reports as per HPI and Denies change in libido Neuro Denies syncope Psych Denies change in libido Endo Denies change in libido Physical Exam Const General: cooperative, healthy appearing, comfortable and no acute distress Orientation/consciousness: patient oriented x3 HEENT Face and sinus: Yes normal facial exam Mouth: moist mucous membranes Neck Neck: Yes normal visual inspection, Yes full ROM and Yes trachea midline Chest Chest palpation & inspection: normal inspection of the chest Resp Effort & Inspection: normal respiratory effort, able to speak in complete sentences and no respiratory distress GI Inspection: Yes normal to inspection Back/Spine/Pelvis Cervical Spine: normal cervical lordosis Thoracic/Lumbar Spine: thoracic and lumbar spine normal to inspection Skin General skin exam: no rashes or lesions noted Neuro General: patient oriented x3, gait normal, tone normal and moves all extremities Extrem General: Yes normal to inspection and Yes capillary refill normal Assessment & Plan Assessment & Plan (1) Renal cancer: Comment: Right upper pole extension into IVC Code(s): C64.9 - Malignant neoplasm of unspecified kidney, except renal pelvis Plan Referral to Dr. Ortiz for evaluation debulking nephrectomy Orders: Referrals Urology Referral C64.9 - Malignant neoplasm of unspecified kidney, except renal pelvis Patient Instructions: Imaging studies, laboratory and physical exam results were discussed and reviewed in detail. No major barriers to patient understanding were identified. An opportunity to ask questions regarding the treatment plan was provided. All questions were answered. The patient expressed understanding and agreement with the above treatment plan. The patient is aware they should contact our office by phone for worsening of their current condition or the appearance of new urologic symptoms. Compliance is encouraged with any medications and followup testing that is ordered. It is a privilege to participate in the urologic care of your patient. If you have any questions or concerns regarding treatment for the above conditions, or other urologic issues, please do not hesitate to contact me. The office telephone contact is [phone]. This note is constructed using voice recognition software. While every effort has been made to ensure accuracy enterprise application architect errors may have been included. Yours sincerely, Dr Darius Mccartney MD, [facility] - Urology Providers of Expert, Compassionate Care for the Genitourinary System Coding Level of Care Code Est Pt Level 3 (68791) Diagnoses Renal cancer C64.9
== END 2022-12-01 11:52 | disposition home or self-care (01) ==
PROVIDERS: PCP Internal Medicine; Visit Provider Urology
DX: C64.9 Malignant neoplasm of unspecified kidney, except renal pelvis (principal)
CPT/HCPCS: 99213

== ENCOUNTER → 2022-12-01 10:43 | Outpatient (BNVA) | payer MEDICARE, MEDICAID, SELFPAY | PROVIDERS: PCP Internal Medicine; Visit Provider Urology | DX: C64.1 Malignant neoplasm of right kidney, except renal pelvis (principal) | CPT/HCPCS: 99212 ==

== ENCOUNTER 2023-01-06 11:15 | Outpatient (REF) | payer MEDICARE, MEDICAID, SELFPAY ==
[2023-01-06 11:24] LABS: MANUAL DIFF FLAG NO
[2023-01-06 11:28] LABS: Basophils Percent Auto 0.4 % (0-2); Eosinophils Absolute Auto 0.1 X10*3/uL (0.0-0.4); Eosinophils Percent Auto 0.4 % (0-4); Hematocrit 40.7 % (42.0-52.0); Hemoglobin 14.2 g/dl (14.0-18.0); Imm Gran Abs Auto 0.05 X10*3/uL (0.00-0.03); Imm Gran Pct Auto 0.4 % (0.0-0.4); Lymphocytes Absolute Auto 1.4 X10*3/uL (1.2-4.9); Lymphocytes Percent Auto 12.8 % (20-40); Mean Corpuscular HGB Conc 34.9 g/dl (31.0-36.0); Mean Corpuscular Hemoglobin 37.3 pg (27.0-33.0); Mean Corpuscular Volume 106.8 fL (80.0-98.0); Mean Platelet Volume 11.4 fL (9.4-12.4); Monocytes Absolute Auto 1.1 X10*3/uL (0.1-1.2); Neutrophils Absolute Auto 8.5 x10*3/uL (2.0-8.3); Platelet Count 236 X10*3/uL (160-400); Red Blood Count 3.81 X10*6/uL (4.60-5.80); Red Cell Distribution Width 12.3 % (11.0-16.0); White Blood Count 11.1 X10*3/uL (4.8-10.8)
[2023-01-06 12:00] LABS: Alanine Aminotransferase 13 U/L (0-40); Alkaline Phosphatase 73 U/L (39-117); Anion Gap 11 (12-20); Aspartate Amino Transferase 19 U/L (5-37); Bilirubin Total 0.6 mg/dL (0.0-1.0); Blood Urea Nitrogen 13 mg/dL (9-16); Calcium 9.6 mg/dL (8.4-10.2); Carbon Dioxide 29 mmol/L (22-29); Chloride 101 mmol/L (96-108); Estimated Glomerular Filt Rate > 60; Glucose Random 251 mg/dL (60-115); Potassium 3.8 mmol/L (3.3-5.1); Sodium 137 mmol/L (135-145); Total Protein 7.2 g/dL (6.5-8.0)
[2023-01-06 12:11] LABS: Thyroid Stimulating Hormone 0.87 uIU/mL (0.32-4.0)
== END 2023-01-06 11:16 | disposition home or self-care (01) ==
LOC: HO.LAB 11:15
PROVIDERS: PCP Internal Medicine; Visit Provider Internal Medicine
DX: C64.9 Malignant neoplasm of unspecified kidney, except renal pelvis (principal); R31.9 Hematuria, unspecified; E03.9 Hypothyroidism, unspecified
CPT/HCPCS: 36415; 80053; 84443; 85025

== ENCOUNTER 2023-01-07 14:08 | Inpatient (IN) | payer MEDICARE, MEDICAID, SELFPAY ==
--- NOTE | ~2023-01-07 | CT_ITS ---
EXAMINATION: CT ABDOMEN AND PELVIS WITH CONTRAST CLINICAL INFORMATION: Right-sided pain, known renal mass COMPARISON: CT abdomen 11/23/2022, CT abdomen and pelvis 08/05/2022 TECHNIQUE: Multidetector volumetric images were obtained from the superior aspect of the liver through the pubic symphysis following administration 85 mL of Omnipaque 350 intravenous contrast. Sagittal and coronal reformatted images were obtained on the technologist's workstation. Oral contrast: No This CT examination was performed using dose optimization techniques as appropriate, variously including the following: *Automated exposure control *Adjustment of mA and/or kV according to patient size (this includes techniques or standardized protocols for targeted exams where dose is matched to indication/reason for exam; i.e. extremities or head) *Use of iterative reconstruction technique DLP: 593 mGy-cm FINDINGS: LUNG BASES: Evaluation of the lung bases is limited despite repeat attempts due to motion. Multiple solid pulmonary nodules in the bilateral lung bases appear similar to recent prior for example measuring up to 6 cm in the right lower lobe, 10:26 previously 6 mm. ABDOMINAL AND PELVIC WALL: Unremarkable. LIVER AND BILIARY TREE: Unremarkable. GALLBLADDER: The evaluation of the gallbladder is limited by motion there may be some equivocal mild pericholecystic fat stranding versus motion artifact. No radiopaque cholelithiasis. PANCREAS: Unremarkable. SPLEEN: Unremarkable. ADRENAL GLANDS: Evaluation of the previously seen small right adrenal nodule is limited by motion on today's exam and difficult to accurately measure. KIDNEYS AND URETERS: Heterogeneous right upper pole renal mass measuring 3 cm, not significantly changed from prior is again seen extending into the renal sinus with thrombus within the right renal vein and inferior vena cava, grossly similar to prior. GASTROINTESTINAL TRACT: Small hiatal hernia. Colonic diverticulosis without evidence of diverticulitis. Normal appendix. VASCULAR: Unremarkable. LYMPH NODES/PERITONEUM: No lymphadenopathy. FREE FLUID: None. BLADDER: Unremarkable. PELVIC VISCERA: Unremarkable. OSSEOUS STRUCTURES: Stable dense sclerotic lesion in the pelvis with some solid units suggesting a bone island. Multilevel Schmorl's nodes unchanged. CT/CT abdomen pelvis w IV con IMPRESSION: 1. The evaluation of the gallbladder is limited by motion there may be some equivocal mild pericholecystic fat stranding versus motion artifact. No radiopaque cholelithiasis. Recommend correlation with right upper quadrant ultrasound if any clinical concern for acute cholecystitis. 2. Heterogeneous right upper pole renal mass measuring 3 cm, not significantly changed from prior is again seen extending into the renal sinus with thrombus within the right renal vein and inferior vena cava, grossly similar to prior. 3. Evaluation of the previously seen small right adrenal nodule is limited by motion on today's exam and difficult to accurately measure. 4. Multiple solid pulmonary nodules in the bilateral lung bases appear similar to recent prior.
--- NOTE | ~2023-01-07 | US_ITS ---
EXAMINATION: US ABDOMEN LIMITED CLINICAL INFORMATION: Right upper quadrant pain. COMPARISON: CT scan today TECHNIQUE: Real-time imaging of the right upper quadrant abdominal viscera. FINDINGS: PANCREAS: Obscured by overlying bowel gas LIVER: Normal. The liver is normal in size. The liver contour is normal. Parenchymal echogenicity is normal. No focal hepatic lesion. There is no intrahepatic biliary duct dilatation seen. GALLBLADDER: Echogenic bile seen within the gallbladder. No gallbladder wall thickening. Trace pericholecystic fluid. Patient was tender on scanning of the gallbladder COMMON BILE DUCT: Not able to be visualized RIGHT KIDNEY: The upper pole mass was much better delineated on the CT scan this mass measures approximately 3.2 cm maximally by ultrasound. The renal vein and inferior vena caval thrombus is not able to be delineated on this ultrasound. No hydronephrosis. No renal calculi. The kidney measures 10.9 cm in maximum dimension. FREE FLUID: None. US/US abdomen limited IMPRESSION: 1. Echogenic bile seen within the gallbladder. Patient was tender on scanning of the gallbladder but there is no significant gallbladder wall thickening. There is trace pericholecystic fluid. 2. The right upper pole renal mass was much better delineated on the CT scan this mass measures approximately 3.2 cm maximally by ultrasound. The renal vein and inferior vena caval thrombus is not able to be delineated on this ultrasound.
[2023-01-07 14:52] VITALS: BP 170/88; PULSE 93; RESP 20; TEMP 37; O2SAT 98; BMI 24.5
--- NOTE | 2023-01-07 14:52 | ED_ITS ---
HPI - General Adult General Chief complaint: Abdominal Pain Stated complaint: abd pain/ back pain, cancer pt Time Seen by Provider: 01/07/23 15:54 Source: patient and family Mode of arrival: ambulatory History of Present Illness HPI narrative: 62-year-old male who is currently undergoing chemotherapy for renal cancer that also involves lungs and presents with 1 week of worsening right upper quadrant pain with nausea but no vomiting and also reports chills but denies any dysuria. Patient states that he did have diarrhea earlier in the 1st part of the week but now is had constipation and now has been experiencing blood with defecation for the past 3 days. Related Data Home Medications Medication Instructions Recorded Confirmed amlodipine 10 mg tablet 1 tab PO DAILY 10/28/21 09/01/22 aspirin 81 mg tablet,delayed 81 mg PO DAILY 10/28/21 09/01/22 release chlorthalidone 50 mg tablet 1 tab PO DAILY 10/28/21 09/01/22 finasteride 5 mg tablet 1 tab PO DAILY 10/28/21 09/01/22 metoprolol succinate 100 mg 1 tab PO DAILY 10/28/21 09/01/22 tablet,extended release 24 hr tamsulosin 0.4 mg capsule 1 cap PO DAILY 10/28/21 09/01/22 lisinopril 40 mg tablet 40 mg PO DAILY 02/17/22 09/01/22 rosuvastatin 40 mg tablet 40 mg PO DAILY 02/17/22 09/01/22 benzonatate 100 mg capsule 100 mg PO TID 03/17/22 09/01/22 Previous Rx's Medication Instructions Recorded ondansetron 8 mg disintegrating 8 mg PO Q8H PRN Nausea #30 tabs 04/29/22 tablet prednisone 20 mg tablet 20 mg PO DAILY #100 tabs 07/26/22 nystatin 100,000 unit/gram topical 1 appl topical BID #200 grams 08/03/22 powder (Nystop) zinc oxide 13 % topical cream 1 appl topical QID #60 grams 08/10/22 (Desitin Rapid Relief) cabozantinib 20 mg tablet 40 mg (2 x 20 mg) PO DAILY #60 tabs 09/19/22 prednisone 10 mg tablet 10 mg PO DIRECTED #100 tabs 10/19/22 loperamide 2 mg capsule (Imodium 2 mg PO Q4H PRN Diarrhea #30 caps 11/11/22 A-D) food supplemt, lactose-reduced 60 ea PO 4-5XD #60 kits 11/30/22 0.04 gram-1 kcal/mL oral liquid (Boost) cephalexin 500 mg tablet 500 mg PO Q12H #20 tabs 01/06/23 metformin 500 mg tablet 500 mg PO BID #60 tabs 01/06/23 Allergies Allergy/AdvReac Type Severity Reaction Status Date / Time No Known Allergies Allergy Verified 01/07/23 14:56 [No Known Allergies*] Review of Systems 2 Review of Systems: Pertinent positives and negatives as stated in [facility] [place] Past Medical History Source: nursing notes reviewed Medical History Depression Psoriatic arthritis BPH (benign prostatic hyperplasia) Elevated cholesterol HTN (hypertension) Surgical History H/O colonoscopy Hx of hernia repair Family History Family History Mother Colon cancer Father Prostate cancer Social History Social History Household Members: Spouse and Family Housing: House Are you a primary rn home care to a significant other at home: No Do you presently have visiting nurse or other home services: No Alcohol intake: former Patient Tobacco Use Status: Former Tobacco user Quit Date: >10 years ago Tobacco use type: Cigarette Smoked in Last 30 Days: No Use of substances other than those prescribed or required for medical reasons: No Advance Directives: No Advance Directives Information Provided: No service: No Current occupational status: retired Physical Exam ED Vital Signs: Vital Signs - 24 hr 01/07/23 14:52 01/07/23 15:31 01/07/23 18:52 Temperature 98.6 F 98.6 F 99.3 F Pulse Rate 93 85 89 Respiratory Rate 20 15 18 Blood Pressure 170/88 H 163/92 H 195/100 H Pulse Oximetry 98 98 98 Oxygen Delivery Method Room Air Room Air Room Air 01/07/23 19:09 Temperature 98.7 F Pulse Rate 90 Respiratory Rate 15 Blood Pressure 162/100 H Pulse Oximetry 98 Oxygen Delivery Method Room Air BMI result Body Mass Index 24.5 VITAL SIGNS: Reviewed. GENERAL: Well developed, well nourished, in no acute distress. HEAD: Normocephalic/atraumatic EYES: PERRLA, EOMI EARS: Ext canals without abnormality NOSE: Nares patent bilateral OROPHARYNX: no oral lesions noted, posterior pharynx clear NECK: Supple, no adenopathy LUNGS: Normal breath sounds. No adventitious sounds or accessory muscle use. SpO2<98> CARDIOVASCULAR: Regular rate and rhythm without noted murmurs ABDOMEN: Soft, significant tenderness from the right periumbilical extending right word without rebound, non-distended with bowel sounds. 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 EXTREMITIES: No cyanosis, clubbing or edema. SKIN: Inspection of the skin reveals as chronic rash from the chemotherapy NEUROLOGIC: Alert and oriented x 4. Strength and sensation to light touch were grossly intact x 4. Course Course Course Narrative: This is an RME: Additional HPI, ROS, PE not included below will be deferred to primary provider. This is a [id number]-male, with a history of renal cancer, arthritis, BPH, HTN, HLD, presenting to the ER with complaints of right sided abdominal pain x 2 weeks. Patient reports that he has had mid right-sided abdominal pain. Patient also was seen by primary care was started on antibiotics for urinary tract infection. Endorses nausea. Has been constipated, but also endorses rectal bleeding for the last week. Patient mildly hypertensive at 170/88, other vitals within normal limits. He is not on blood thinners Plan: Further ER evaluation needed Medications Administered Discontinued Medications Generic Name Dose Route Start Last Admin Trade Name Freq PRN Reason Stop Dose Admin Piperacillin Sod/Tazobactam 50 mls @ 100 mls/hr 01/07/23 17:30 01/07/23 19:22 Sod 3.375 gm/ Sodium Chloride IV 01/07/23 17:59 Infused ONCE ONE Infusion Iohexol 100 ml 01/07/23 17:45 01/07/23 17:46 Iohexol 350 Mg/Ml 100 Ml Infus..Btl IV 01/07/23 17:46 85 ml ONCE ONE Administration Medical Decision Making Medical Decision Making [facility] Narrative: 1645: 62-year-old male with history and clinical presentation of apparent renal cancer and I did review the CT scan from November of this year which identifies reduction in size of adrenal mass but no change in renal mass or 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 DDX: IVC thrombus, cholecystitis, increasing right renal mass. 1653: No intervening for thrombus because suspected to be tumor and not acute thrombus 1729: I reviewed all investigations and I suspect infection and gave patient a dose of Zosyn. Review of hematologic indices demonstrates a leukocytosis with a left shift, there is no anemia or thrombocytopenia. Chemistry indices are negative for ALIYA and there is no electrolyte abnormalities and transaminases are within normal limits but there is a noted elevation of T bili. Urinalysis demonstrates some hematuria but otherwise no evidence to suggest infection. Performed a fecal occult study due to patient reports blood in his stool but guaiac is negative. CT scan does not show any acute changes when compared to prior from 11/2022 again, radiology reading equivocal findings. So pursued ultrasound which did not show any gallbladder wall thickening but states that there is trace pericholecystic fluid. 2116: I discussed with on-call general surgeon, Dr. Gayle who recommends medical management with continued antibiotics, consultation for IR drain on Monday morning, he will see the patient. 2133: I discussed case with inpatient hospitalist who accepts admission. Differential Diagnosis Differential Diagnoses: The differential diagnosis associated with the presentation includes Please see the discussion above Admission/Observation Consideration of admission/observation: Escalation of care including admission/observation considered Please see the discussion above Consult Healthcare Provider Management of the patient was discussed with: Table Setter Lab Data [facility] Lab Attestation statement: I reviewed the patient's lab results. Please see the discussion above 01/07/23 15:11 01/07/23 15:11 Labs: Lab Results 01/07/23 01/07/23 Range/Units 15:11 16:25 WBC 14.6 H (4.8-10.8) X10*3/uL RBC 4.00 L (4.60-5.80) X10*6/uL Hgb 14.5 (14.0-18.0) g/dl Hct 42.4 (42.0-52.0) % MCV 106.0 H (80.0-98.0) fL MCH 36.3 H (27.0-33.0) pg MCHC 34.2 (31.0-36.0) g/dl RDW 12.4 (11.0-16.0) % Plt Count 244 (160-400) X10*3/uL MPV 11.6 (9.4-12.4) fL Immature Gran % (Auto) 0.5 H (0.0-0.4) % Neut % (Auto) 78.5 H (45-73) % Lymph % (Auto) 8.8 L (20-40) % [place] % (Auto) 11.8 H (2-11) % Eos % (Auto) 0.1 (0-4) % Baso % (Auto) 0.3 (0-2) % Lymph # (Auto) 1.3 (1.2-4.9) X10*3/uL [place] # (Auto) 1.7 H (0.1-1.2) X10*3/uL Eos # (Auto) 0.0 (0.0-0.4) X10*3/uL Baso # (Auto) 0.0 (0.0-0.2) X10*3/uL Abs Immat Gran (auto) 0.07 H (0.00-0.03) X10*3/uL Absolute Neuts (auto) 11.5 H (2.0-8.3) x10*3/uL Absolute Nucleated RBC 0.000 (0.0-0.012) X10*3/uL Nucleated RBC % (auto) 0.0 (0.0-0.2) /100WBC Smear Tech's Comments VERIFIED Sodium 135 (135-145) mmol/L Potassium 3.7 (3.3-5.1) mmol/L Chloride 100 (96-108) mmol/L Carbon Dioxide 27 (22-29) mmol/L Anion Gap 12 (12-20) BUN 17 H (9-16) mg/dL Creatinine 0.96 (0.5-1.4) mg/dL Estim Creat Clear Calc 77.7 Estimated GFR > 60 Random Glucose 277 H (60-115) mg/dL Calcium 9.8 (8.4-10.2) mg/dL Total Bilirubin 1.4 H (0.0-1.0) mg/dL Direct Bilirubin 0.4 (0.0-0.5) mg/dL AST 16 (5-37) U/L ALT 12 (0-40) U/L Alkaline Phosphatase 75 (39-117) U/L Total Protein 7.7 (6.5-8.0) g/dL Albumin 4.2 (3.5-5.0) g/dL Lipase 27 (8-78) U/L Urine Color Yellow Urine Appearance Clear Urine pH 5.5 (5.0-9.0) Ur Specific [place] 1.025 (1.005-1.025) Urine Protein Trace (Neg-Trace) mg/dL Urine Glucose (UA) >=1000 H (Negative) mg/dL Urine Ketones Trace (Negative) mg/dL Urine Blood Trace H (Negative) Urine Nitrite Negative (Negative) Ur Leukocyte Esterase Negative (Negative) Urine RBC 3-5 H (0-2) /HPF Urine WBC 0-5 (0-5) /HPF Ur Squamous Epith Cells 0-2 (0-2) /HPF Urine Bacteria None Seen (None Seen) Hyaline Casts 0-2 (0-2) /LPF Stool Occult Blood NEGATIVE (NEGATIVE) Radiology Impression Discussion of test interpretation with radiology: I have reviewed the radiologist's reading. Radiologist Impression: Please see the discussion above External Record Review External record reviewed: Office record, Outpatient record, Prior outpatient labs and Prior outpatient radiology Chronic Conditions Patient?s care impacted by: Diabetes, Hypertension and Other Renal cell cancer Critical Care Time Critical Care Time Critical Care Time: Yes Total Critical Care Time: 45 Attestation: I personally attest to this time spent taking care of the patient. Discharge Plan Discharge Clinical Impression: Acute cholecystitis Patient Disposition: Admitted As Inpatient Prescriptions: No Action ondansetron 8 mg Tablet,Disintegrating 8 mg PO Q8H PRN (Reason: Nausea) Qty: 30 2RF prednisone 20 mg Tablet 20 mg PO DAILY Qty: 100 3RF Rx Instructions: take 3 tabs daily for 1 week, then 2 tabs for 1 week, 1 tab for 1 week, half tab for 1 week nystatin [Nystop] 100,000 unit/gram Powder 1 appl TOPICAL BID Qty: 200 0RF Desitin Rapid Relief 13 % Cream 1 appl TOPICAL QID Qty: 60 2RF cabozantinib 20 mg Tablet 40 mg PO DAILY Qty: 60 3RF prednisone 10 mg Tablet 10 mg PO DIRECTED Qty: 100 3RF Rx Instructions: Take 4 tablets for 1 week, 3 tablets for 5 days, 2 tablets for 5 days, 1 tablets for 5 days and stop. loperamide [Imodium A-D] 2 mg Capsule 2 mg PO Q4H PRN (Reason: Diarrhea) Qty: 30 2RF Rx Instructions: administer after each loose stool until symptoms controlled; do not exceed 8 mg per 24 hrs Boost 0.04 gram- 1 kcal/mL Liquid 60 ea PO 4-5XD Qty: 60 3RF cephalexin 500 mg Tablet 500 mg PO Q12H Qty: 20 0RF metformin 500 mg Tablet 500 mg PO BID Qty: 60 2RF metoprolol succinate 100 mg tablet extended release 24 hr 1 tab PO DAILY chlorthalidone 50 mg tablet 1 tab PO DAILY aspirin [Aspirin Low-Strength] 81 mg Tablet,Delayed Release (Dr/Ec) 81 mg PO DAILY tamsulosin 0.4 mg capsule 1 cap PO DAILY amlodipine 10 mg tablet 1 tab PO DAILY finasteride 5 mg tablet 1 tab PO DAILY rosuvastatin 40 mg tablet 40 mg PO DAILY lisinopril 40 mg tablet 40 mg PO DAILY lidocaine HCl 2 % jelly in applicator 10 ml intra-urethral ONCE Qty: 10 0RF benzonatate 100 mg capsule 100 mg PO TID
[2023-01-07 15:18] LABS: Appearance Urine Clear; Color Urine Yellow; Glucose Urine UA >=1000 mg/dL (Negative); Leukocyte Esterase Urine Negative (Negative); Nitrite Urine Negative (Negative); PH 5.5 (5.0-9.0); Specific Gravity - Urine 1.025 (1.005-1.025); UMIC TRIGGER UACC YES; Urine Blood Trace (Negative); Urine Ketones Trace mg/dL (Negative); Urine Protein Trace mg/dL (Neg-Trace)
[2023-01-07 15:19] LABS: Basophils Percent Auto 0.3 % (0-2); Eosinophils Percent Auto 0.1 % (0-4); Hematocrit 42.4 % (42.0-52.0); Hemoglobin 14.5 g/dl (14.0-18.0); Imm Gran Abs Auto 0.07 X10*3/uL (0.00-0.03); Imm Gran Pct Auto 0.5 % (0.0-0.4); Lymphocytes Absolute Auto 1.3 X10*3/uL (1.2-4.9); Lymphocytes Percent Auto 8.8 % (20-40); MANUAL DIFF FLAG SCAN; Mean Corpuscular HGB Conc 34.2 g/dl (31.0-36.0); Mean Corpuscular Hemoglobin 36.3 pg (27.0-33.0); Mean Platelet Volume 11.6 fL (9.4-12.4); Monocytes Absolute Auto 1.7 X10*3/uL (0.1-1.2); Monocytes Percent Auto 11.8 % (2-11); Neutrophils Absolute Auto 11.5 x10*3/uL (2.0-8.3); Neutrophils Percent Auto 78.5 % (45-73); Platelet Count 244 X10*3/uL (160-400); Red Cell Distribution Width 12.4 % (11.0-16.0); SCAN SMEAR FLAG 1; White Blood Count 14.6 X10*3/uL (4.8-10.8)
[2023-01-07 15:21] LABS: Bacteria Urine None Seen (None Seen); Hyaline Casts Urine 0-2 /LPF (0-2); Squamous Epithelial Cell Urine 0-2 /HPF (0-2); WBC Urine 0-5 /HPF (0-5)
--- NOTE | 2023-01-07 15:26 | PC.NURSE ---
Patient reports right sided abdominal, flank and back pain that started on . Reports pain has gotten worse and is a 8/10. Patient reports has been constipated but was able to go a small amount this morning. Patient reports was straning and noticied bleeding after having a small BM. Denies vomiting, but states has felt nasous. Denies chest pain but reports headache and sob.
[2023-01-07 15:31] VITALS: BP 163/92; PULSE 85; RESP 15; TEMP 37; O2SAT 98
[2023-01-07 15:32] LABS: Alanine Aminotransferase 12 U/L (0-40); Albumin Level 4.2 g/dL (3.5-5.0); Alkaline Phosphatase 75 U/L (39-117); Anion Gap 12 (12-20); Aspartate Amino Transferase 16 U/L (5-37); Bilirubin Direct 0.4 mg/dL (0.0-0.5); Bilirubin Total 1.4 mg/dL (0.0-1.0); Blood Urea Nitrogen 17 mg/dL (9-16); Calcium 9.8 mg/dL (8.4-10.2); Carbon Dioxide 27 mmol/L (22-29); Chloride 100 mmol/L (96-108); Creatinine Clr Calc Pharmacy 77.7; Estimated Glomerular Filt Rate > 60; Glucose Random 277 mg/dL (60-115); Lipase 27 U/L (8-78); Potassium 3.7 mmol/L (3.3-5.1); Sodium 135 mmol/L (135-145); Total Protein 7.7 g/dL (6.5-8.0)
[2023-01-07 15:51] LABS: SLIDE REVIEW VERIFIED
[2023-01-07 16:31] LABS: OBS1 NEGATIVE (NEGATIVE)
[2023-01-07 16:32] LABS: OBS Int Ctl Valid YES
[2023-01-07] MEDS: iohexoL 350 MG/ML 100 ML INFUS..BTL IV (17:46)
[2023-01-07] MEDS: Piperacillin Sodium/Tazobactam 3.375 GM in 0.9 % Sodium Chloride 50 ML IV (18:51)
[2023-01-07 18:52] VITALS: BP 195/100; PULSE 89; RESP 18; TEMP 37.4; O2SAT 98
[2023-01-07 19:09] VITALS: BP 162/100; PULSE 90; RESP 15; TEMP 37.1; O2SAT 98
--- NOTE | 2023-01-07 22:13 | PM.IMHP ---
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 Patient states it started about 4 days prior to presentation. It has been intermittent, progressive over the last 4 days, without any relieving factors. No change of pain with p.o. intake. Admits nausea but denies vomiting. No fever but has chills. States he has been having minimal blood in stools and constipation over the last 3 days. No chest discomfort, palpitations, shortness of breath, changes in urinary habits. In the emergency department, imaging with trace pericholecystic fluid. General surgery was consulted who requested admission. Review of Systems Constitutional: Constitutional: Reports chills Cardiovascular: Cardiovascular: Reports no additional cardiovascular complaints Respiratory: Respiratory: Reports no additional respiratory complaints Gastrointestinal: Gastrointestinal: Reports abdominal pain and Reports nausea Genitourinary: Genitourinary: Reports no additional male genitourinary complaints [facility] Medical History Depression Psoriatic arthritis BPH (benign prostatic hyperplasia) Elevated cholesterol HTN (hypertension) Family History Mother Colon cancer Father Prostate cancer Surgical History H/O colonoscopy Hx of hernia repair Social History Household Members: Spouse and Family Housing: House Are you a primary memory care program resident to a significant other at home: No Do you presently have visiting nurse or other home services: No Alcohol intake: former Patient Tobacco Use Status: Former Tobacco user Quit Date: >10 years ago Tobacco use type: Cigarette Smoked in Last 30 Days: No Use of substances other than those prescribed or required for medical reasons: No Advance Directives: No Advance Directives Information Provided: No service: No Current occupational status: retired Meds Allergies Allergy/AdvReac Type Severity Reaction Status Date / Time No Known Allergies Allergy Verified 01/07/23 14:56 [No Known Allergies*] Home Medications Medication Instructions Recorded Confirmed Last Taken Type amlodipine 10 mg tablet 1 tab PO DAILY 10/28/21 01/07/23 01/07/23 History 10 aspirin 81 mg tablet,delayed 81 mg PO DAILY 10/28/21 01/07/23 10/26/21 History release chlorthalidone 50 mg tablet 1 tab PO DAILY 10/28/21 01/07/23 10/30/21 History finasteride 5 mg tablet 1 tab PO DAILY 10/28/21 01/07/23 10/30/21 History metoprolol succinate 100 mg 1 tab PO DAILY 10/28/21 01/07/23 11/02/21 History tablet,extended release 24 hr tamsulosin 0.4 mg capsule 1 cap PO DAILY 10/28/21 01/07/23 10/30/21 History lisinopril 40 mg tablet 40 mg PO DAILY 02/17/22 01/07/23 Unknown History rosuvastatin 40 mg tablet 40 mg PO DAILY 02/17/22 01/07/23 Unknown History Physical Exam Vital Signs and Narrative: Vital Signs: Last Vital Signs Temp 98.7 F 01/07/23 19:09 Pulse 90 01/07/23 19:09 Resp 15 01/07/23 19:09 BP 162/100 H 01/07/23 19:09 Pulse Ox 98 01/07/23 19:09 O2 Del Method Room Air 01/07/23 19:09 BMI result Body Mass Index 24.5 Middle-aged male lying in bed in no distress Neck supple, no JVD Regular rate and rhythm, S1-S2 heard Regular breath sounds bilaterally, no wheezing or crackles appreciated Abdomen with right upper quadrant tenderness, no guarding, no rigidity, no rebound tenderness Patient is awake, alert and oriented to self, place, time and person ; no focal motor deficit Psych: Normal mood No pedal edema Results Labs 01/07/23 15:11 01/07/23 15:11 Labs: Laboratory Results - last 24 hr 01/07/23 01/07/23 15:11 16:25 MCV 106.0 H MCH 36.3 H MCHC 34.2 RDW 12.4 Plt Count 244 MPV 11.6 Immature Gran % (Auto) 0.5 H Neut % (Auto) 78.5 H Lymph % (Auto) 8.8 L [place] % (Auto) 11.8 H Eos % (Auto) 0.1 Baso % (Auto) 0.3 Lymph # (Auto) 1.3 [place] # (Auto) 1.7 H Eos # (Auto) 0.0 Baso # (Auto) 0.0 Abs Immat Gran (auto) 0.07 H Absolute Neuts (auto) 11.5 H Absolute Nucleated RBC 0.000 Nucleated RBC % (auto) 0.0 Smear Tech's Comments VERIFIED Anion Gap 12 Estim Creat Clear Calc 77.7 Estimated GFR > 60 Random Glucose 277 H Calcium 9.8 Total Bilirubin 1.4 H Direct Bilirubin 0.4 AST 16 ALT 12 Alkaline Phosphatase 75 Total Protein 7.7 Albumin 4.2 Lipase 27 Urine Color Yellow Urine Appearance Clear Urine pH 5.5 Ur Specific [place] 1.025 Urine Protein Trace Urine Glucose (UA) >=1000 H Urine Ketones Trace Urine Blood Trace H Urine Nitrite Negative Ur Leukocyte Esterase Negative Urine RBC 3-5 H Urine WBC 0-5 Ur Squamous Epith Cells 0-2 Urine Bacteria None Seen Hyaline Casts 0-2 Stool Occult Blood NEGATIVE Imaging Radiologist's Impressions: Impressions Abdomen/Pelvis CT 01/07/23 17:46 IMPRESSION: 1. The evaluation of the gallbladder is limited by motion there may be some equivocal mild pericholecystic fat stranding versus motion artifact. No radiopaque cholelithiasis. Recommend correlation with right upper quadrant ultrasound if any clinical concern for acute cholecystitis. 2. Heterogeneous right upper pole renal mass measuring 3 cm, not significantly changed from prior is again seen extending into the renal sinus with thrombus within the right renal vein and inferior vena cava, grossly similar to prior. 3. Evaluation of the previously seen small right adrenal nodule is limited by motion on today's exam and difficult to accurately measure. 4. Multiple solid pulmonary nodules in the bilateral lung bases appear similar to recent prior. Abdomen Ultrasound 01/07/23 20:09 IMPRESSION: 1. Echogenic bile seen within the gallbladder. Patient was tender on scanning of the gallbladder but there is no significant gallbladder wall thickening. There is trace pericholecystic fluid. 2. The right upper pole renal mass was much better delineated on the CT scan this mass measures approximately 3.2 cm maximally by ultrasound. The renal vein and inferior vena caval thrombus is not able to be delineated on this ultrasound. 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 #. Right upper quadrant abdominal pain: Concerning for acute cholecystitis. Imaging with trace pericholecystic fluid. General surgery was consulted who requested admission for IR drain of gallbladder on Monday(01/09). Will continue empiric IV antibiotics. #. Sepsis due to above: Resuscitated with IV crystalloids. Empiric antibiotics as above. Lactic acid and blood culture obtained #. Hyperglycemia: Initiating Accu-Cheks with sliding scale insulin. Obtaining A1c #. ?Hematochezia: Consider GI consult if additional blood through stools. Follow H&H #. Essential hypertension: Hold MATTHIEU-inhibitor for possible surgery #. BPH: Flomax and finasteride #. Metastatic right renal clear cell carcinoma: On chemotherapy. Followed by Dr. Acosta as an outpatient DVT prophylaxis: Mechanical Admit as inpatient and will require two night minimum hospital stay for IV antibiotics (as above), which is not possible in a lesser acute setting. Specialist consult pending Quality Stroke Does the patient have a stroke diagnosis?: No VTE Prior VTE?: No VTE Risk Level:: Medical - moderate - high VTE Device Contraindication: N/A - Device Ordered VTE Drug Contraindication: Treatment Not Indicated
[2023-01-07 22:51] VITALS: BP 146/90; PULSE 85; RESP 15; TEMP 37.1; O2SAT 97
[2023-01-07] MEDS: Acetaminophen 325 MG TABLET 650 MG PO (23:41)
[2023-01-07] MEDS: Melatonin 3 MG TABLET 6 MG PO (23:41)
[2023-01-07] MEDS: Piperacillin Sodium/Tazobactam 4.5 GM in 0.9 % Sodium Chloride 100 ML IV (23:42)
[2023-01-07] MEDS: 0.9 % Sodium Chloride 1,000 ML 999 ML IV (23:42)
[2023-01-07 23:58] LABS: Lactic Acid 0.8 mmol/L (0.5-2.0)
[2023-01-08] VITALS: BP 179/81; PULSE 86; RESP 18; TEMP 37.6; O2SAT 98
[2023-01-08] MEDS: Morphine Sulfate 4 MG/ML CARTRIDGE 2 MG IVPUSH (03:17)
[2023-01-08 03:58] VITALS: BP 168/76; PULSE 81; RESP 18; TEMP 37.5; O2SAT 96
[2023-01-08 05:35] LABS: Basophils Absolute Auto 0.1 X10*3/uL (0.0-0.2); Basophils Percent Auto 0.3 % (0-2); Eosinophils Percent Auto 0.2 % (0-4); Hematocrit 41.3 % (42.0-52.0); Hemoglobin 14.3 g/dl (14.0-18.0); Imm Gran Abs Auto 0.07 X10*3/uL (0.00-0.03); Imm Gran Pct Auto 0.4 % (0.0-0.4); Lymphocytes Absolute Auto 1.6 X10*3/uL (1.2-4.9); Lymphocytes Percent Auto 9.9 % (20-40); MANUAL DIFF FLAG SCAN; Mean Corpuscular HGB Conc 34.6 g/dl (31.0-36.0); Mean Corpuscular Hemoglobin 36.8 pg (27.0-33.0); Mean Corpuscular Volume 106.2 fL (80.0-98.0); Mean Platelet Volume 11.2 fL (9.4-12.4); Monocytes Absolute Auto 2.1 X10*3/uL (0.1-1.2); Monocytes Percent Auto 12.6 % (2-11); Neutrophils Absolute Auto 12.6 x10*3/uL (2.0-8.3); Neutrophils Percent Auto 76.6 % (45-73); Platelet Count 226 X10*3/uL (160-400); Red Blood Count 3.89 X10*6/uL (4.60-5.80); Red Cell Distribution Width 12.4 % (11.0-16.0); SCAN SMEAR FLAG 1; White Blood Count 16.4 X10*3/uL (4.8-10.8)
[2023-01-08 05:46] LABS: Anion Gap 13 (12-20); Blood Urea Nitrogen 11 mg/dL (9-16); Calcium 9.5 mg/dL (8.4-10.2); Carbon Dioxide 27 mmol/L (22-29); Chloride 102 mmol/L (96-108); Estimated Glomerular Filt Rate > 60; Glucose Random 126 mg/dL (60-115); Potassium 3.9 mmol/L (3.3-5.1); Sodium 138 mmol/L (135-145)
[2023-01-08] MEDS: amLODIPine Besylate 10 MG TABLET PO ×2 (05:51→09:05)
[2023-01-08] MEDS: Piperacillin Sodium/Tazobactam 4.5 GM in 0.9 % Sodium Chloride 100 ML IV ×3 (06:11→17:33)
[2023-01-08 06:15] LABS: SLIDE REVIEW VERIFIED
[2023-01-08 06:56] LABS: Estimated Average Glucose 100 mg/dL; Hemoglobin A1c % 5.1 % (<6.0)
[2023-01-08 07:12] VITALS: BP 147/87; PULSE 90; RESP 18; TEMP 37.6; O2SAT 98
[2023-01-08 07:28] LABS: Glucose, Whole Blood 113 mg/dL (60-115)
[2023-01-08 07:35] LABS: Alanine Aminotransferase 14 U/L (0-40); Alkaline Phosphatase 64 U/L (39-117); Aspartate Amino Transferase 18 U/L (5-37); Bilirubin Direct 0.7 mg/dL (0.0-0.5); Bilirubin Total 1.7 mg/dL (0.0-1.0); Total Protein 7.3 g/dL (6.5-8.0)
--- NOTE | 2023-01-08 08:32 | PHA.MEDREC ---
Pharmacy Consult ? Medication Reconciliation Pharmacy has completed the medication reconciliation. Spoke to patient to confirm meds. Speaks belarusian.
[2023-01-08 08:55] VITALS: TEMP 37.3
[2023-01-08] MEDS: 0.9 % Sodium Chloride Flush 3 ML SYRINGE IVFLUSH ×2 (09:04→17:33)
[2023-01-08] MEDS: Tamsulosin HCL 0.4 MG CAPSULE PO (09:04)
[2023-01-08] MEDS: Finasteride 5 MG TABLET PO (09:05)
[2023-01-08] MEDS: Metoprolol Succinate ER 100 MG TAB.ER.24H PO (09:05)
[2023-01-08] MEDS: lisinopriL 40 MG TABLET PO (09:05)
[2023-01-08] MEDS: Aspirin Enteric Coated 81 MG TABLET.DR PO (09:05)
--- NOTE | 2023-01-08 09:37 | MHC.CM.PN ---
PT REPORTS HE LIVES AT HOME WITH HIS AND IS INDEPENDENT WITH CARE HE DENIES USE OF DME OR HOME SERVICES PT SAYS HE HAS A HCP NAMING HIS HIS AGENT, COPY REQUESTED PCP: TRUONG SMITH IMM DELIVERED DCP: HOME NO SERVICES TO TRANSPORT
--- NOTE | 2023-01-08 10:25 | HO.PM.IMPN ---
Subjective Subjective Date of Service: 01/08/23 Interval History: Seen and evaluated this morning Feels little better RUQ pain tolerating diet No fever or chills Review of Systems Review of Systems: Yes all other systems are reviewed and are negative Physical Exam Vital Signs: Vital Signs: Last Vital Signs Temp 99.2 F 01/08/23 08:55 Pulse 90 01/08/23 07:12 Resp 18 01/08/23 07:12 BP 147/87 H 01/08/23 07:12 Pulse Ox 98 01/08/23 07:12 O2 Del Method Room Air 01/08/23 07:12 BMI result Body Mass Index 24.5 Const: Other: Constitutional : Awake, interactive, not in distress Neck : Normal inspection, Supple Cardiovascular : RRR, no JVP, no lower extremity edema Respiratory : good bilateral air entry, no crackles, wheezes or rhonchi Gastrointestinal: soft, lax, Normal bowel sounds, mild RUQ tenderness Skin : Warm, Dry Neurological : Alert & oriented x3, No focal deficit Objective Data Active Medications Acetaminophen (Acetaminophen 325 Mg Tablet) 650 mg PO Q6H PRN PRN Reason: Pain, Mild (Pain Scale 1-3) Last Admin: 01/07/23 23:41 Dose: 650 mg Documented By: SAGAR Amlodipine Besylate (Amlodipine Besylate 10 Mg Tablet) 10 mg PO DAILY [facility]; Protocol Last Admin: 01/08/23 09:05 Dose: 10 mg Documented By: KALPANA Aspirin (Aspirin Enteric Coated 81 Mg Tablet.) 81 mg PO DAILY [facility] Last Admin: 01/08/23 09:05 Dose: 81 mg Documented By: KALPANA Atorvastatin Calcium (Atorvastatin Calcium 80 Mg Tablet) 80 mg PO BEDTIME [facility] Dextrose (Dextrose 50 % 25 Gm/50 Ml Syringe) 25 gm IVPUSH Q15M PRN; Protocol PRN Reason: per Hypoglycemia Standing Ord. Finasteride (Finasteride 5 Mg Tablet) 5 mg PO DAILY [facility] Last Admin: 01/08/23 09:05 Dose: 5 mg Documented By: KALPANA Glucose (Glucose Gel 15 Gm Gel..Gram.) 15 gm PO Q15M PRN; Protocol PRN Reason: per Hypoglycemia Standing Ord. Piperacillin Sod/Tazobactam (Sod 4.5 gm/ Sodium Chloride) 100 mls @ 200 mls/hr IV Q6H [facility] Last Infusion: 01/08/23 07:17 Dose: Infused Documented By: TIMMY Insulin Human Lispro (Insulin Lispro 100 Unit/Ml 3 Ml Vial) 0 unit SUBCUT QIDACHS [facility]; Protocol Last Admin: 01/08/23 08:08 Dose: Not Given Documented By: TIMMY Non-Admin Reason: No Insulin Coverage Lisinopril (Lisinopril 40 Mg Tablet) 40 mg PO DAILY [facility]; Protocol Last Admin: 01/08/23 09:05 Dose: 40 mg Documented By: KALPANA Melatonin (Melatonin 3 Mg Tablet) 6 mg PO BEDTIME PRN PRN Reason: Insomnia Last Admin: 01/07/23 23:41 Dose: 6 mg Documented By: SAGAR Metoprolol Succinate (Metoprolol Succinate Er 100 Mg Tab.Er.24h) 100 mg PO DAILY [facility]; Protocol Last Admin: 01/08/23 09:05 Dose: 100 mg Documented By: KALPANA Morphine Sulfate (Morphine Sulfate 4 Mg/Ml Cartridge) 2 mg IVPUSH Q4H PRN; Protocol PRN Reason: Pain, Severe (Pain Scale 7-10) Last Admin: 01/08/23 03:17 Dose: 2 mg Documented By: SHAKA Non-Formulary Medication (Cabozantinib [Cabometyx]) 40 mg PO DAILY [facility] Ondansetron HCl (Ondansetron Hcl 4 Mg/2 Ml Vial) 4 mg IVPUSH Q8H PRN PRN Reason: Nausea and Vomiting Sodium Chloride (0.9 % Sodium Chloride Flush 3 Ml Syringe) 3 ml IVFLUSH QSHIFT [facility] Last Admin: 01/08/23 09:04 Dose: 3 ml Documented By: KALPANA Tamsulosin HCl (Tamsulosin Hcl 0.4 Mg Capsule) 0.4 mg PO DAILY [facility] Last Admin: 01/08/23 09:04 Dose: 0.4 mg Documented By: KALPANA Labs 01/08/23 05:24 01/08/23 05:24 Labs: Laboratory Results - last 24 hr 01/07/23 01/07/23 01/07/23 15:11 16:25 23:33 MCV 106.0 H MCH 36.3 H MCHC 34.2 RDW 12.4 Plt Count 244 MPV 11.6 Immature Gran % (Auto) 0.5 H Neut % (Auto) 78.5 H Lymph % (Auto) 8.8 L [place] % (Auto) 11.8 H Eos % (Auto) 0.1 Baso % (Auto) 0.3 Lymph # (Auto) 1.3 [place] # (Auto) 1.7 H Eos # (Auto) 0.0 Baso # (Auto) 0.0 Abs Immat Gran (auto) 0.07 H Absolute Neuts (auto) 11.5 H Absolute Nucleated RBC 0.000 Nucleated RBC % (auto) 0.0 Smear Tech's Comments VERIFIED Anion Gap 12 Estim Creat Clear Calc 77.7 Estimated GFR > 60 POC Glucose Random Glucose 277 H Estimat Average Glucose Hemoglobin A1c % Lactic Acid 0.8 Calcium 9.8 Total Bilirubin 1.4 H Direct Bilirubin 0.4 AST 16 ALT 12 Alkaline Phosphatase 75 Total Protein 7.7 Albumin 4.2 Lipase 27 Urine Color Yellow Urine Appearance Clear Urine pH 5.5 Ur Specific [place] 1.025 Urine Protein Trace Urine Glucose (UA) >=1000 H Urine Ketones Trace Urine Blood Trace H Urine Nitrite Negative Ur Leukocyte Esterase Negative Urine RBC 3-5 H Urine WBC 0-5 Ur Squamous Epith Cells 0-2 Urine Bacteria None Seen Hyaline Casts 0-2 Stool Occult Blood NEGATIVE 01/07/23 01/08/23 01/08/23 Unknown 05:24 07:14 MCV 106.2 H MCH 36.8 H MCHC 34.6 RDW 12.4 Plt Count 226 MPV 11.2 Immature Gran % (Auto) 0.4 Neut % (Auto) 76.6 H Lymph % (Auto) 9.9 L [place] % (Auto) 12.6 H Eos % (Auto) 0.2 Baso % (Auto) 0.3 Lymph # (Auto) 1.6 [place] # (Auto) 2.1 H Eos # (Auto) 0.0 Baso # (Auto) 0.1 Abs Immat Gran (auto) 0.07 H Absolute Neuts (auto) 12.6 H Absolute Nucleated RBC 0.000 Nucleated RBC % (auto) 0.0 Smear Tech's Comments VERIFIED Anion Gap 13 Estim Creat Clear Calc 91.0 Estimated GFR > 60 POC Glucose 113 Random Glucose 126 H Estimat Average Glucose 100 Hemoglobin A1c % 5.1 Lactic Acid Calcium 9.5 Total Bilirubin 1.7 H Direct Bilirubin 0.7 H AST 18 ALT 14 Alkaline Phosphatase 64 Total Protein 7.3 Albumin 4.0 Lipase Urine Color Urine Appearance Urine pH Ur Specific [place] Urine Protein Urine Glucose (UA) Urine Ketones Urine Blood Urine Nitrite Ur Leukocyte Esterase Urine RBC Urine WBC Ur Squamous Epith Cells Urine Bacteria Hyaline Casts Stool Occult Blood Assessment and Plan (1) Acute cholecystitis: Status: Acute (2) Sepsis: Status: Acute (3) Kidney cancer, primary, with metastasis from kidney to other site: Status: Acute (4) Renal cancer: Status: Chronic Plan This is a 62-year-old male with pertinent history of 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 # Sepsis 2/2 acute cholecystitis Imaging with trace pericholecystic fluid General surgery requested IR drain of gallbladder on Monday continue empiric IV antibiotics. Pending blood cultures # Hyperglycemia: HbA1c of 5.1, no diabetes DC insulin # Hematochezia Stable H&H outpatient eval, if bleeds consider GI eval # Essential hypertension Hold Amlodipine, continue rest of home meds # BPH Flomax and finasteride # Metastatic right renal clear cell carcinoma On chemotherapy. Followed by Dr. Acosta as an outpatient DVT prophylaxis: Mechanical Admit as inpatient and will require overnight hospital stay for IV antibiotics (as above), which is not possible in a lesser acute setting. Quality Stroke Does the patient have a stroke diagnosis?: No VTE Prior VTE?: No VTE Risk Level:: Medical - moderate - high VTE Device Contraindication: N/A - Device Ordered VTE Drug Contraindication: Treatment Not Indicated
--- NOTE | 2023-01-08 10:53 | PM.CNGS ---
History of Present Illness Consult details Consult date: 01/08/23 Narrative: Patient is unfortunate very pleasant 62-year-old male with a plethora of medical problems including metastatic renal cell carcinoma. He presents with a several-day history of progressive worsening right upper quadrant abdominal pain. Workup in the ER demonstrated findings clinically as well as radiographically consistent with acute cholecystitis. Patient also significant CT scan findings of widespread metastatic renal cell carcinoma. Chart was reviewed and patient evaluated PMF Past Medical History Medical History Depression Psoriatic arthritis BPH (benign prostatic hyperplasia) Elevated cholesterol HTN (hypertension) Family History Family History Mother Colon cancer Father Prostate cancer Surgical History Surgical History H/O colonoscopy Hx of hernia repair Social History Social History Household Members: Family Housing: House Are you a primary rn complex care to a significant other at home: No Do you presently have visiting nurse or other home services: No Alcohol intake: former Patient Tobacco Use Status: Former Tobacco user Quit Date: >10 years ago Tobacco use type: Cigarette service: Yes Current occupational status: retired [employer] Allergies Allergy/AdvReac Type Severity Reaction Status Date / Time No Known Allergies Allergy Verified 01/07/23 14:56 [No Known Allergies*] Active Medications: Current Medications Acetaminophen (Acetaminophen 325 Mg Tablet) 650 mg PO Q6H PRN PRN Reason: Pain, Mild (Pain Scale 1-3) Last Admin: 01/07/23 23:41 Dose: 650 mg Amlodipine Besylate (Amlodipine Besylate 10 Mg Tablet) 10 mg PO DAILY [facility]; Protocol Last Admin: 01/08/23 09:05 Dose: 10 mg Aspirin (Aspirin Enteric Coated 81 Mg Tablet.) 81 mg PO DAILY [facility] Last Admin: 01/08/23 09:05 Dose: 81 mg Atorvastatin Calcium (Atorvastatin Calcium 80 Mg Tablet) 80 mg PO BEDTIME RADU Finasteride (Finasteride 5 Mg Tablet) 5 mg PO DAILY [facility] Last Admin: 01/08/23 09:05 Dose: 5 mg Piperacillin Sod/Tazobactam (Sod 4.5 gm/ Sodium Chloride) 100 mls @ 200 mls/hr IV Q6H [facility] Last Infusion: 01/08/23 07:17 Dose: Infused Lisinopril (Lisinopril 40 Mg Tablet) 40 mg PO DAILY [facility]; Protocol Last Admin: 01/08/23 09:05 Dose: 40 mg Melatonin (Melatonin 3 Mg Tablet) 6 mg PO BEDTIME PRN PRN Reason: Insomnia Last Admin: 01/07/23 23:41 Dose: 6 mg Metoprolol Succinate (Metoprolol Succinate Er 100 Mg Tab.Er.24h) 100 mg PO DAILY [facility]; Protocol Last Admin: 01/08/23 09:05 Dose: 100 mg Morphine Sulfate (Morphine Sulfate 4 Mg/Ml Cartridge) 2 mg IVPUSH Q4H PRN; Protocol PRN Reason: Pain, Severe (Pain Scale 7-10) Last Admin: 01/08/23 03:17 Dose: 2 mg Non-Formulary Medication (Cabozantinib [Cabometyx]) 40 mg PO DAILY [facility] Ondansetron HCl (Ondansetron Hcl 4 Mg/2 Ml Vial) 4 mg IVPUSH Q8H PRN PRN Reason: Nausea and Vomiting Sodium Chloride (0.9 % Sodium Chloride Flush 3 Ml Syringe) 3 ml IVFLUSH QSHIFT [facility] Last Admin: 01/08/23 09:04 Dose: 3 ml Tamsulosin HCl (Tamsulosin Hcl 0.4 Mg Capsule) 0.4 mg PO DAILY [facility] Last Admin: 01/08/23 09:04 Dose: 0.4 mg Home Medications Medication Instructions Recorded Confirmed Last Taken Type amlodipine 10 mg tablet 1 tab PO DAILY 10/28/21 01/08/23 01/07/23 History 10 chlorthalidone 50 mg tablet 1 tab PO DAILY 10/28/21 01/08/23 01/07/23 History finasteride 5 mg tablet 1 tab PO DAILY 10/28/21 01/08/23 01/07/23 History metoprolol succinate 100 mg 1 tab PO DAILY 10/28/21 01/08/23 01/07/23 History tablet,extended release 24 hr tamsulosin 0.4 mg capsule 1 cap PO DAILY 10/28/21 01/08/23 01/07/23 History lisinopril 40 mg tablet 40 mg PO DAILY 02/17/22 01/08/23 01/07/23 History rosuvastatin 40 mg tablet 40 mg PO DAILY 02/17/22 01/08/23 01/07/23 History cabozantinib 20 mg tablet 40 mg PO DAILY 01/08/23 01/08/23 01/07/23 History (Cabometyx) cephalexin 500 mg tablet See Rx Instructions .Route .COMPLEX 01/08/23 01/08/23 01/07/23 History multivitamin 1 tab PO DAILY 01/08/23 01/08/23 01/07/23 History Physical Exam Vital Signs: Vital Signs: Last Vital Signs Temp 99.2 F 01/08/23 08:55 Pulse 90 01/08/23 07:12 Resp 18 01/08/23 07:12 BP 147/87 H 01/08/23 07:12 Pulse Ox 98 01/08/23 07:12 O2 Del Method Room Air 01/08/23 07:12 BMI result Body Mass Index 24.5 GI: Other: Modestly corpulent abdomen. Marked right upper quadrant localized rebound tenderness, and positive Handley sign. Results Labs 01/08/23 05:24 01/08/23 05:24 Labs: Abnormal lab results 01/07/23 01/08/23 Range/Units 15:11 05:24 WBC 14.6 H 16.4 H (4.8-10.8) X10*3/uL RBC 4.00 L 3.89 L (4.60-5.80) X10*6/uL Hct 41.3 L (42.0-52.0) % MCV 106.0 H 106.2 H (80.0-98.0) fL MCH 36.3 H 36.8 H (27.0-33.0) pg Immature Gran % (Auto) 0.5 H (0.0-0.4) % Neut % (Auto) 78.5 H 76.6 H (45-73) % Lymph % (Auto) 8.8 L 9.9 L (20-40) % [place] % (Auto) 11.8 H 12.6 H (2-11) % [place] # (Auto) 1.7 H 2.1 H (0.1-1.2) X10*3/uL Abs Immat Gran (auto) 0.07 H 0.07 H (0.00-0.03) X10*3/uL Absolute Neuts (auto) 11.5 H 12.6 H (2.0-8.3) x10*3/uL BUN 17 H (9-16) mg/dL Random Glucose 277 H 126 H (60-115) mg/dL Total Bilirubin 1.4 H 1.7 H (0.0-1.0) mg/dL Direct Bilirubin 0.7 H (0.0-0.5) mg/dL Urine Glucose (UA) >=1000 H (Negative) mg/dL Urine Blood Trace H (Negative) Urine RBC 3-5 H (0-2) /HPF Short CBC 01/07/23 01/08/23 Range/Units 15:11 05:24 WBC 14.6 H 16.4 H (4.8-10.8) X10*3/uL Hgb 14.5 14.3 (14.0-18.0) g/dl Hct 42.4 41.3 L (42.0-52.0) % Plt Count 244 226 (160-400) X10*3/uL BMP 01/07/23 01/08/23 15:11 05:24 Sodium 135 138 Potassium 3.7 3.9 Chloride 100 102 Carbon Dioxide 27 27 BUN 17 H 11 Creatinine 0.96 0.82 Calcium 9.8 9.5 Liver Function 01/07/23 01/08/23 Range/Units 15:11 05:24 Total Bilirubin 1.4 H 1.7 H (0.0-1.0) mg/dL Direct Bilirubin 0.4 0.7 H (0.0-0.5) mg/dL AST 16 18 (5-37) U/L ALT 12 14 (0-40) U/L Alkaline Phosphatase 75 64 (39-117) U/L Albumin 4.2 4.0 (3.5-5.0) g/dL Urine 01/07/23 Range/Units 15:11 Urine Color Yellow Urine Appearance Clear Urine pH 5.5 (5.0-9.0) Ur Specific [place] 1.025 (1.005-1.025) Urine Protein Trace (Neg-Trace) mg/dL Urine Glucose (UA) >=1000 H (Negative) mg/dL All other labs normal. Assessment and Plan (1) Acute cholecystitis: Status: Acute (2) Sepsis: Status: Acute Plan Patient is a very suboptimal surgical candidate. Current plan is to arrange for IR gallbladder drainage tentatively for tomorrow/Monday. In the meantime, continue IV antibiotics Procedures Date of Service Date of Service: 01/08/23
[2023-01-08 11:20] LABS: Glucose, Whole Blood 138 mg/dL (60-115)
[2023-01-08 15:29] VITALS: BP 94/55; PULSE 80; RESP 18; TEMP 36.6; O2SAT 98
--- NOTE | 2023-01-08 18:34 | PC.NURSE ---
Patient reports voiding bloody urine on and off,urinated jasper color urine without difficulty,Dr. Mcdonald made aware
[2023-01-08 19:18] VITALS: BP 120/68; PULSE 83; RESP 16; TEMP 37; O2SAT 96
[2023-01-08] MEDS: Atorvastatin Calcium 80 MG TABLET PO (19:45)
[2023-01-09] VITALS (15 sets, daily range): BP systolic 114–143; BP diastolic 71–87; PULSE 67–90; RESP 12–20; TEMP 36.2–37.4; O2SAT 92–99; BMI 24.5
[2023-01-09] MEDS: Piperacillin Sodium/Tazobactam 4.5 GM in 0.9 % Sodium Chloride 100 ML IV ×3 (00:22→18:36)
[2023-01-09] MEDS: 0.9 % Sodium Chloride Flush 3 ML SYRINGE IVFLUSH ×3 (00:22→16:11)
[2023-01-09 07:43] LABS: Anion Gap 12 (12-20); Blood Urea Nitrogen 13 mg/dL (9-16); Calcium 8.9 mg/dL (8.4-10.2); Carbon Dioxide 28 mmol/L (22-29); Chloride 101 mmol/L (96-108); Creatinine Clr Calc Pharmacy 84.8; Estimated Glomerular Filt Rate > 60; Glucose Random 124 mg/dL (60-115); Potassium 3.6 mmol/L (3.3-5.1); Sodium 137 mmol/L (135-145)
[2023-01-09] MEDS: Finasteride 5 MG TABLET PO (07:51)
[2023-01-09] MEDS: Metoprolol Succinate ER 100 MG TAB.ER.24H PO (07:51)
[2023-01-09] MEDS: Acetaminophen 325 MG TABLET 650 MG PO (07:51)
[2023-01-09] MEDS: Tamsulosin HCL 0.4 MG CAPSULE PO (07:51)
[2023-01-09] MEDS: lisinopriL 40 MG TABLET PO (07:51)
[2023-01-09 09:54] LABS: INTERNATIONAL NORM RATIO 1.1 (0.9-1.1); Prothrombin Time 13.7 SEC (11.1-13.3)
--- NOTE | 2023-01-09 10:17 | P.PNIM_ITS ---
Subjective Subjective Date of Service: 01/09/23 Interval History: Seen and evaluated this morning Feels little better still reporting RUQ pain npo No fever or chills Review of Systems Review of Systems: Yes all other systems are reviewed and are negative Physical Exam 2 Vital Signs: Vital Signs: Last Vital Signs Temp 99.3 F 01/09/23 07:31 Pulse 84 01/09/23 07:31 Resp 18 01/09/23 07:31 BP 127/77 01/09/23 07:31 Pulse Ox 95 01/09/23 07:31 O2 Del Method Room Air 01/09/23 07:31 BMI result Body Mass Index 24.5 Const: Other: Constitutional : Awake, interactive, not in distress Neck : Normal inspection, Supple Cardiovascular : RRR, no JVP, no lower extremity edema Respiratory : good bilateral air entry, no crackles, wheezes or rhonchi Gastrointestinal: soft, lax, Normal bowel sounds, mild RUQ tenderness Skin : Warm, Dry Neurological : Alert & oriented x3, No focal deficit Objective Data Active Medications Acetaminophen (Acetaminophen 325 Mg Tablet) 650 mg PO Q6H PRN PRN Reason: Pain, Mild (Pain Scale 1-3) Last Admin: 01/09/23 07:51 Dose: 650 mg Documented By: SERGIO Amlodipine Besylate (Amlodipine Besylate 10 Mg Tablet) 10 mg PO DAILY [facility]; Protocol Last Admin: 01/08/23 09:05 Dose: 10 mg Documented By: KALPANA Aspirin (Aspirin Enteric Coated 81 Mg Tablet.) 81 mg PO DAILY [facility] Last Admin: 01/08/23 09:05 Dose: 81 mg Documented By: KALPANA Atorvastatin Calcium (Atorvastatin Calcium 80 Mg Tablet) 80 mg PO BEDTIME [facility] Last Admin: 01/08/23 19:45 Dose: 80 mg Documented By: PHUONG Finasteride (Finasteride 5 Mg Tablet) 5 mg PO DAILY [facility] Last Admin: 01/09/23 07:51 Dose: 5 mg Documented By: SERGIO Piperacillin Sod/Tazobactam (Sod 4.5 gm/ Sodium Chloride) 100 mls @ 200 mls/hr IV Q6H [facility] Last Infusion: 01/09/23 06:44 Dose: Infused Documented By: DIONNA Lisinopril (Lisinopril 40 Mg Tablet) 40 mg PO DAILY [facility]; Protocol Last Admin: 01/09/23 07:51 Dose: 40 mg Documented By: SERGIO Melatonin (Melatonin 3 Mg Tablet) 6 mg PO BEDTIME PRN PRN Reason: Insomnia Last Admin: 01/07/23 23:41 Dose: 6 mg Documented By: SAGAR Metoprolol Succinate (Metoprolol Succinate Er 100 Mg Tab.Er.24h) 100 mg PO DAILY [facility]; Protocol Last Admin: 01/09/23 07:51 Dose: 100 mg Documented By: SERGIO Morphine Sulfate (Morphine Sulfate 4 Mg/Ml Cartridge) 2 mg IVPUSH Q4H PRN; Protocol PRN Reason: Pain, Severe (Pain Scale 7-10) Last Admin: 01/08/23 03:17 Dose: 2 mg Documented By: SHAKA Pt Own (Cabozantinib [Cabometyx] 20 Mg Tablet) 40 mg PO BEDTIME [facility] Ondansetron HCl (Ondansetron Hcl 4 Mg/2 Ml Vial) 4 mg IVPUSH Q8H PRN PRN Reason: Nausea and Vomiting Sodium Chloride (0.9 % Sodium Chloride Flush 3 Ml Syringe) 3 ml IVFLUSH QSHIFT [facility] Last Admin: 01/09/23 07:51 Dose: 3 ml Documented By: SERGIO Tamsulosin HCl (Tamsulosin Hcl 0.4 Mg Capsule) 0.4 mg PO DAILY [facility] Last Admin: 01/09/23 07:51 Dose: 0.4 mg Documented By: SERGIO Labs 01/08/23 05:24 01/09/23 05:54 Labs: Laboratory Results - last 24 hr 01/08/23 01/09/23 01/09/23 11:14 05:54 06:28 Hold Purple Top SEE NOTE PT INR Anion Gap 12 Estim Creat Clear Calc 84.8 Estimated GFR > 60 POC Glucose 138 H Random Glucose 124 H Calcium 8.9 D 01/09/23 08:55 Hold Purple Top PT 13.7 H INR 1.1 Anion Gap Estim Creat Clear Calc Estimated GFR POC Glucose Random Glucose Calcium Microbiology Microbiology Results: Microbiology 01/07/23 23:33 Blood Culture - Preliminary Blood - Venous No growth after 24 hours. 01/07/23 23:33 Blood Culture - Preliminary Blood - Venous No growth after 24 hours. 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 # Sepsis 2/2 acute cholecystitis Imaging with trace pericholecystic fluid General surgery to do CCY continue IV antibiotics. Pending blood cultures # Hyperglycemia: HbA1c of 5.1, no diabetes DC insulin # Hematochezia Stable H&H outpatient eval, if bleeds consider GI eval # Essential hypertension Hold Amlodipine, continue rest of home meds # BPH Flomax and finasteride # Metastatic right renal clear cell carcinoma On chemotherapy. Followed by Dr. Acosta as an outpatient DVT prophylaxis: Mechanical Admit as inpatient and will require overnight hospital stay for IV antibiotics (as above) and surgical intervention which is not possible in a lesser acute setting. Quality Stroke Does the patient have a stroke diagnosis?: No VTE Prior VTE?: No VTE Risk Level:: Medical - moderate - high VTE Device Contraindication: N/A - Device Ordered VTE Drug Contraindication: Treatment Not Indicated
--- NOTE | 2023-01-09 11:27 | HO.ANESPROP2 ---
HPI - Anesthesia Eval Consult details Narrative: for melissa sanchez , full code , metastatic cancer kidney PMFSH Active Problems All Active Problems Sepsis (Acute) Acute cholecystitis (Acute) Kidney cancer, primary, with metastasis from kidney to other site (Acute) Renal cancer (Chronic) Hematuria (Acute) Renal mass (Acute) BPH loc w urin obs/LUTS (Acute) Past Medical History Medical History Depression Psoriatic arthritis BPH (benign prostatic hyperplasia) Elevated cholesterol HTN (hypertension) Family History Family History Mother Colon cancer Father Prostate cancer Family history of problems with anesthesia: No Surgical History Surgical History H/O colonoscopy Hx of hernia repair History of Problems with Anesthesia: No Social History Social History Household Members: Family Housing: House Are you a primary careers counsellor to a significant other at home: No Do you presently have visiting nurse or other home services: No Alcohol intake: former Patient Tobacco Use Status: Former Tobacco user Quit Date: 40 years ago Tobacco use type: Cigarette service: Yes Current occupational status: retired Meds Allergies Allergy/AdvReac Type Severity Reaction Status Date / Time No Known Allergies Allergy Verified 01/07/23 14:56 [No Known Allergies*] Active Medications: Current Medications Acetaminophen (Acetaminophen 325 Mg Tablet) 650 mg PO Q6H PRN PRN Reason: Pain, Mild (Pain Scale 1-3) Last Admin: 01/09/23 07:51 Dose: 650 mg Amlodipine Besylate (Amlodipine Besylate 10 Mg Tablet) 10 mg PO DAILY [facility]; Protocol Last Admin: 01/08/23 09:05 Dose: 10 mg Aspirin (Aspirin Enteric Coated 81 Mg Tablet.) 81 mg PO DAILY [facility] Last Admin: 01/08/23 09:05 Dose: 81 mg Atorvastatin Calcium (Atorvastatin Calcium 80 Mg Tablet) 80 mg PO BEDTIME [facility] Last Admin: 01/08/23 19:45 Dose: 80 mg Finasteride (Finasteride 5 Mg Tablet) 5 mg PO DAILY [facility] Last Admin: 01/09/23 07:51 Dose: 5 mg Piperacillin Sod/Tazobactam (Sod 4.5 gm/ Sodium Chloride) 100 mls @ 200 mls/hr IV Q6H [facility] Last Infusion: 01/09/23 06:44 Dose: Infused Lisinopril (Lisinopril 40 Mg Tablet) 40 mg PO DAILY [facility]; Protocol Last Admin: 01/09/23 07:51 Dose: 40 mg Melatonin (Melatonin 3 Mg Tablet) 6 mg PO BEDTIME PRN PRN Reason: Insomnia Last Admin: 01/07/23 23:41 Dose: 6 mg Metoprolol Succinate (Metoprolol Succinate Er 100 Mg Tab.Er.24h) 100 mg PO DAILY [facility]; Protocol Last Admin: 01/09/23 07:51 Dose: 100 mg Morphine Sulfate (Morphine Sulfate 4 Mg/Ml Cartridge) 2 mg IVPUSH Q4H PRN; Protocol PRN Reason: Pain, Severe (Pain Scale 7-10) Last Admin: 01/08/23 03:17 Dose: 2 mg Pt Own (Cabozantinib [Cabometyx] 20 Mg Tablet) 40 mg PO BEDTIME [facility] Ondansetron HCl (Ondansetron Hcl 4 Mg/2 Ml Vial) 4 mg IVPUSH Q8H PRN PRN Reason: Nausea and Vomiting Sodium Chloride (0.9 % Sodium Chloride Flush 3 Ml Syringe) 3 ml IVFLUSH QSHIFT [facility] Last Admin: 01/09/23 07:51 Dose: 3 ml Tamsulosin HCl (Tamsulosin Hcl 0.4 Mg Capsule) 0.4 mg PO DAILY [facility] Last Admin: 01/09/23 07:51 Dose: 0.4 mg Home Medications Medication Instructions Recorded Confirmed Last Taken Type amlodipine 10 mg tablet 1 tab PO DAILY 10/28/21 01/08/23 01/07/23 History 10 chlorthalidone 50 mg tablet 1 tab PO DAILY 10/28/21 01/08/23 01/07/23 History finasteride 5 mg tablet 1 tab PO DAILY 10/28/21 01/08/23 01/07/23 History metoprolol succinate 100 mg 1 tab PO DAILY 10/28/21 01/08/23 01/07/23 History tablet,extended release 24 hr tamsulosin 0.4 mg capsule 1 cap PO DAILY 10/28/21 01/08/23 01/07/23 History lisinopril 40 mg tablet 40 mg PO DAILY 02/17/22 01/08/23 01/07/23 History rosuvastatin 40 mg tablet 40 mg PO DAILY 02/17/22 01/08/23 01/07/23 History cabozantinib 20 mg tablet 40 mg PO DAILY 01/08/23 01/08/23 01/07/23 History (Cabometyx) cephalexin 500 mg tablet See Rx Instructions .Route .COMPLEX 01/08/23 01/08/23 01/07/23 History multivitamin 1 tab PO DAILY 01/08/23 01/08/23 01/07/23 History Exam Height,Weight and Vital Signs: Height 5 ft 9 in Weight 75.4 kg Last Vital Signs Temp 97.2 F 01/09/23 10:32 Pulse 67 01/09/23 10:32 Resp 16 01/09/23 10:32 BP 121/72 01/09/23 10:32 Pulse Ox 96 01/09/23 10:32 O2 Del Method Room Air 01/09/23 10:32 Pertinent Lab Results Pertinent Lab Results: Laboratory Tests 01/07/23 01/07/23 01/07/23 15:11 16:25 23:33 WBC 14.6 H RBC 4.00 L Hgb 14.5 Hct 42.4 MCV 106.0 H MCH 36.3 H MCHC 34.2 RDW 12.4 Plt Count 244 MPV 11.6 Immature Gran % (Auto) 0.5 H Neut % (Auto) 78.5 H Lymph % (Auto) 8.8 L [place] % (Auto) 11.8 H Eos % (Auto) 0.1 Baso % (Auto) 0.3 Lymph # (Auto) 1.3 [place] # (Auto) 1.7 H Eos # (Auto) 0.0 Baso # (Auto) 0.0 Abs Immat Gran (auto) 0.07 H Absolute Neuts (auto) 11.5 H Absolute Nucleated RBC 0.000 Nucleated RBC % (auto) 0.0 Smear Tech's Comments VERIFIED Hold Purple Top PT INR Sodium 135 Potassium 3.7 Chloride 100 Carbon Dioxide 27 Anion Gap 12 BUN 17 H Creatinine 0.96 Estim Creat Clear Calc 77.7 Estimated GFR > 60 POC Glucose Random Glucose 277 H Estimat Average Glucose Hemoglobin A1c % Lactic Acid 0.8 Calcium 9.8 Total Bilirubin 1.4 H Direct Bilirubin 0.4 AST 16 ALT 12 Alkaline Phosphatase 75 Total Protein 7.7 Albumin 4.2 Lipase 27 Urine Color Yellow Urine Appearance Clear Urine pH 5.5 Ur Specific [place] 1.025 Urine Protein Trace Urine Glucose (UA) >=1000 H Urine Ketones Trace Urine Blood Trace H Urine Nitrite Negative Ur Leukocyte Esterase Negative Urine RBC 3-5 H Urine WBC 0-5 Ur Squamous Epith Cells 0-2 Urine Bacteria None Seen Hyaline Casts 0-2 Stool Occult Blood NEGATIVE 01/07/23 01/08/23 01/08/23 Unknown 05:24 07:14 WBC 16.4 H RBC 3.89 L Hgb 14.3 Hct 41.3 L MCV 106.2 H MCH 36.8 H MCHC 34.6 RDW 12.4 Plt Count 226 MPV 11.2 Immature Gran % (Auto) 0.4 Neut % (Auto) 76.6 H Lymph % (Auto) 9.9 L [place] % (Auto) 12.6 H Eos % (Auto) 0.2 Baso % (Auto) 0.3 Lymph # (Auto) 1.6 [place] # (Auto) 2.1 H Eos # (Auto) 0.0 Baso # (Auto) 0.1 Abs Immat Gran (auto) 0.07 H Absolute Neuts (auto) 12.6 H Absolute Nucleated RBC 0.000 Nucleated RBC % (auto) 0.0 Smear Tech's Comments VERIFIED Hold Purple Top PT INR Sodium 138 Potassium 3.9 Chloride 102 Carbon Dioxide 27 Anion Gap 13 BUN 11 Creatinine 0.82 Estim Creat Clear Calc 91.0 Estimated GFR > 60 POC Glucose 113 Random Glucose 126 H Estimat Average Glucose 100 Hemoglobin A1c % 5.1 Lactic Acid Calcium 9.5 Total Bilirubin 1.7 H Direct Bilirubin 0.7 H AST 18 ALT 14 Alkaline Phosphatase 64 Total Protein 7.3 Albumin 4.0 Lipase Urine Color Urine Appearance Urine pH Ur Specific [place] Urine Protein Urine Glucose (UA) Urine Ketones Urine Blood Urine Nitrite Ur Leukocyte Esterase Urine RBC Urine WBC Ur Squamous Epith Cells Urine Bacteria Hyaline Casts Stool Occult Blood 01/08/23 01/09/23 01/09/23 11:14 05:54 06:28 WBC RBC Hgb Hct MCV MCH MCHC RDW Plt Count MPV Immature Gran % (Auto) Neut % (Auto) Lymph % (Auto) [place] % (Auto) Eos % (Auto) Baso % (Auto) Lymph # (Auto) [place] # (Auto) Eos # (Auto) Baso # (Auto) Abs Immat Gran (auto) Absolute Neuts (auto) Absolute Nucleated RBC Nucleated RBC % (auto) Smear Tech's Comments Hold Purple Top SEE NOTE PT INR Sodium 137 Potassium 3.6 Chloride 101 Carbon Dioxide 28 Anion Gap 12 BUN 13 Creatinine 0.88 Estim Creat Clear Calc 84.8 Estimated GFR > 60 POC Glucose 138 H Random Glucose 124 H Estimat Average Glucose Hemoglobin A1c % Lactic Acid Calcium 8.9 D Total Bilirubin Direct Bilirubin AST ALT Alkaline Phosphatase Total Protein Albumin Lipase Urine Color Urine Appearance Urine pH Ur Specific [place] Urine Protein Urine Glucose (UA) Urine Ketones Urine Blood Urine Nitrite Ur Leukocyte Esterase Urine RBC Urine WBC Ur Squamous Epith Cells Urine Bacteria Hyaline Casts Stool Occult Blood 01/09/23 08:55 WBC RBC Hgb Hct MCV MCH MCHC RDW Plt Count MPV Immature Gran % (Auto) Neut % (Auto) Lymph % (Auto) [place] % (Auto) Eos % (Auto) Baso % (Auto) Lymph # (Auto) [place] # (Auto) Eos # (Auto) Baso # (Auto) Abs Immat Gran (auto) Absolute Neuts (auto) Absolute Nucleated RBC Nucleated RBC % (auto) Smear Tech's Comments Hold Purple Top PT 13.7 H INR 1.1 Sodium Potassium Chloride Carbon Dioxide Anion Gap BUN Creatinine Estim Creat Clear Calc Estimated GFR POC Glucose Random Glucose Estimat Average Glucose Hemoglobin A1c % Lactic Acid Calcium Total Bilirubin Direct Bilirubin AST ALT Alkaline Phosphatase Total Protein Albumin Lipase Urine Color Urine Appearance Urine pH Ur Specific [place] Urine Protein Urine Glucose (UA) Urine Ketones Urine Blood Urine Nitrite Ur Leukocyte Esterase Urine RBC Urine WBC Ur Squamous Epith Cells Urine Bacteria Hyaline Casts Stool Occult Blood Airway Mallampati Class: II TM Dist: >3cm Neck ROM: Full Heart: rrr Lungs: cta Assessment and Plan Assessment Anesthesia Assessment: Anesthesia Plan Discussed, Smoking Cess. Discussed and Chart Reviewed Final Anesthetic Review Family History of Problems with Anesthesia: No History of Problems with Anesthesia: No NPO: Yes ASA Class: III and Emergency Final Preanesthetic Review: No Changes in Pt Med Stat, Meds/Allgs Chart Reviewed, Consent Obtained/Reviewed and Anes Risks/Benef Reviewed Patient Risk: Intermediate Procedure Risk: Intermediate Anesthetic Plan Anesthetic Plan: GA Disposition: Standard PACU
--- NOTE | 2023-01-09 12:23 | MHC.CM.PN ---
per rounds pt not medically clear for dc plan remains home no servies
--- NOTE | 2023-01-09 13:22 | P.OP_ITS ---
Operative Note Operative Note Date of Service: 01/09/23 Narrative: Preoperative diagnosis: [] Acute cholecystitis, incarcerated umbilical hernia Postop diagnosis: [] Acute phlegmonous cholecystitis, incarcerated umbilical hernia Procedure [] laparoscopic cholecystectomy, primary repair incarcerated umbilical hernia approximately 2 cm in size Surgeon: [] Irwin Brine Tank Separator Operator: [] Héctor Type of Anesthesia: [] General Indication for surgery: [] A markedly edematous phlegmonous intrahepatic gallbladder with dense omental and colon adhesions to it.Incidental 2cm incarcerated umbilical hernia Findings: [] Patient brought to the operating room, placed on operative table in supine position, after adequate level of general anesthesia was induced, the patient's abdomen which was moderately corpulent and had an incarcerated umbilical hernia which served as the umbilical port site ,was prepped and draped in usual sterile fashion. Using a supraumbilical curvilinear incision, Noel technique through the incarcerated umbilical hernia which measured approximately 2 cm with incarcerated omentum which was reduced , and the abdominal cavity insufflated to 15 mm of CO2. Upper midline and right subcostal ports were placed under direct laparoscopic view, and the patient placed in reverse Trendelenburg position, and tilted to the left. Findings were as noted above. Initially, meticulous dissection was undertaken of the intimately adhered omentum and colon,which were swept off the gallbladder. Because of its marked turgidity, gallbladder was decompressed with an aspirating device, and then grasped with laparoscopic graspers, and retracted superiorly and the laterally. Hilum was approached where both the cystic artery and cystic duct were each identified, circumferentially skeletonized, traced directly into the gallbladder, and critical view obtained. Each was clipped proximally x2, distally x1, and transected. Gallbladder which was markedly intrahepatic was then cauterized from the gallbladder fossa using Bovie. Specimen was placed in an Endo-Catch bag, and retrieved through the umbilical port. The abdominal cavity was very copiously irrigated and secured hemostasis. All ports were removed under direct laparoscopic view. Wounds were closed in the following manner; umbilical wound , which was the site of the umbilical hernia, was closed primarily using interrupted 0 Vicryl sutures. Skin wounds were all closed using running subcuticular 4-0 Vicryl sutures followed by Steri-Strips and sterile dressings. Wounds were infiltrated 0.5% Marcaine at completion. Sponge, needle, and instrument counts reported correct. Patient tolerated the procedure well and emerged anesthesia in stable condition. EBL minimal
[2023-01-09] MEDS: Albuterol/Iprat 2.5/0.5MG 3 ML AMPUL.NEB INHALE (14:46)
[2023-01-09] MEDS: Lactated Ringers 1,000 ML 80 ML IVCONT (17:07)
[2023-01-09] MEDS: oxyCODONE HCl Immed Release 5 MG TABLET PO (17:55)
[2023-01-09] MEDS: Atorvastatin Calcium 80 MG TABLET PO (19:25)
[2023-01-09] MEDS: Morphine Sulfate 4 MG/ML CARTRIDGE 2 MG IVPUSH (21:39)
--- NOTE | 2023-01-09 23:07 | PC.NURSE ---
14 beats of VTach noticed by [facility]MO[facility] MACHINE TENDER,Dr. Fontana notified,patient has no complaints,comfortable
[2023-01-10] MEDS: Piperacillin Sodium/Tazobactam 4.5 GM in 0.9 % Sodium Chloride 100 ML IV ×4 (01:00→17:28)
[2023-01-10] MEDS: 0.9 % Sodium Chloride Flush 3 ML SYRINGE IVFLUSH ×2 (01:01→09:19)
[2023-01-10] MEDS: Morphine Sulfate 4 MG/ML CARTRIDGE 2 MG IVPUSH ×3 (01:39→17:27)
[2023-01-10 03:39] VITALS: BP 130/93; PULSE 90; RESP 17; TEMP 36.8; O2SAT 93
[2023-01-10] MEDS: Lactated Ringers 1,000 ML 80 ML IVCONT ×2 (05:05→16:08)
[2023-01-10 06:45] LABS: Hemoglobin 11.7 g/dl (14.0-18.0); Mean Corpuscular HGB Conc 33.4 g/dl (31.0-36.0); Mean Corpuscular Hemoglobin 36.6 pg (27.0-33.0); Mean Corpuscular Volume 109.4 fL (80.0-98.0); Mean Platelet Volume 11.8 fL (9.4-12.4); Platelet Count 214 X10*3/uL (160-400); Red Cell Distribution Width 12.1 % (11.0-16.0); White Blood Count 13.5 X10*3/uL (4.8-10.8)
[2023-01-10 06:57] LABS: Alanine Aminotransferase 54 U/L (0-40); Albumin Level 3.4 g/dL (3.5-5.0); Alkaline Phosphatase 66 U/L (39-117); Anion Gap 11 (12-20); Aspartate Amino Transferase 77 U/L (5-37); Bilirubin Direct 0.4 mg/dL (0.0-0.5); Bilirubin Total 0.8 mg/dL (0.0-1.0); Blood Urea Nitrogen 13 mg/dL (9-16); Calcium 9.1 mg/dL (8.4-10.2); Carbon Dioxide 29 mmol/L (22-29); Chloride 103 mmol/L (96-108); Creatinine Clr Calc Pharmacy 96.9; Estimated Glomerular Filt Rate > 60; Glucose Random 144 mg/dL (60-115); Potassium 4.2 mmol/L (3.3-5.1); Sodium 139 mmol/L (135-145); Total Protein 6.5 g/dL (6.5-8.0)
--- NOTE | 2023-01-10 07:31 | HO.POSTANES ---
Post Anesthesia Evaluation Post Anesthesia Evaluation Date of Service: 01/10/23 Vital Signs: Vital Signs Temp Pulse Resp BP Pulse Ox O2 Del Method O2 Flow Rate 01/10/23 03:39 98.2 F 90 17 130/93 H 93 Nasal Cannula 2 01/09/23 23:10 98.3 F 88 18 129/73 97 Nasal Cannula 2 01/09/23 21:47 97.6 F 89 20 143/87 H 94 Nasal Cannula 2 Anesthesia: General Endotracheal-GETA and General Mental Status: Awake Pain Control: Satisfactory Nausea/Vomiting: None Hydration: Adequate Anesthesia-Related Issues: No Anes. Related Issues Comments: on 2L NC , wean as tolerated as per primary team .
[2023-01-10 07:35] VITALS: BP 149/89; PULSE 92; RESP 20; TEMP 37.1; O2SAT 91
[2023-01-10 07:51] LABS: Glucose, Whole Blood 139 mg/dL (60-115)
--- NOTE | 2023-01-10 08:06 | P.PNGS_ITS ---
Subjective Subjective Date of Service: 01/10/23 Interval history: C/o incisional pain but overall better. Having difficulty taking deep breaths due to pain. Was not given dinner last night. Physical Exam 2 Vital Signs: Vital Signs: Last Vital Signs Temp 98.8 F 01/10/23 07:35 Pulse 92 01/10/23 07:35 Resp 20 01/10/23 07:35 BP 149/89 H 01/10/23 07:35 Pulse Ox 91 L 01/10/23 07:35 O2 Del Method Room Air 01/10/23 07:35 O2 Flow Rate 2 01/10/23 03:39 BMI result Body Mass Index 24.5 Const: General: comfortable, no acute distress and alert O rientation/consciousness: patient oriented x3 Resp: Effort & Inspection: normal respiratory effort Cardio: Rate: regular rate GI: Inspection: Yes distended and Yes incision (dressings c/d/i) Palpation (GI): Soft to palpation, Tenderness to palpation present (GI) (mild incisional), no guarding and not rigid Percussion: Yes tympanic to percussion Skin: General skin exam: no rashes or lesions noted Neuro: General: patient oriented x3 and moves all extremities Objective Data Active Medications Acetaminophen (Acetaminophen 325 Mg Tablet) 650 mg PO Q6H PRN PRN Reason: Pain, Mild (Pain Scale 1-3) Last Admin: 01/09/23 07:51 Dose: 650 mg Documented By: SERGIO Amlodipine Besylate (Amlodipine Besylate 10 Mg Tablet) 10 mg PO DAILY [facility]; Protocol Last Admin: 01/08/23 09:05 Dose: 10 mg Documented By: KALPANA Aspirin (Aspirin Enteric Coated 81 Mg Tablet.) 81 mg PO DAILY [facility] Last Admin: 01/08/23 09:05 Dose: 81 mg Documented By: KALPANA Atorvastatin Calcium (Atorvastatin Calcium 80 Mg Tablet) 80 mg PO BEDTIME [facility] Last Admin: 01/09/23 19:25 Dose: 80 mg Documented By: PHUONG Finasteride (Finasteride 5 Mg Tablet) 5 mg PO DAILY [facility] Last Admin: 01/09/23 07:51 Dose: 5 mg Documented By: SERGIO Piperacillin Sod/Tazobactam (Sod 4.5 gm/ Sodium Chloride) 100 mls @ 200 mls/hr IV Q6H [facility] Last Infusion: 01/10/23 06:34 Dose: Infused Documented By: DIONNA Lactated Ringer's (Lr) 1,000 mls @ 80 mls/hr IVCONT .[id number] [facility] Last Admin: 01/10/23 05:05 Dose: 80 mls/hr Documented By: DIONNA Lisinopril (Lisinopril 40 Mg Tablet) 40 mg PO DAILY [facility]; Protocol Last Admin: 01/09/23 07:51 Dose: 40 mg Documented By: SERGIO Melatonin (Melatonin 3 Mg Tablet) 6 mg PO BEDTIME PRN PRN Reason: Insomnia Last Admin: 01/07/23 23:41 Dose: 6 mg Documented By: SAGAR Metoprolol Succinate (Metoprolol Succinate Er 100 Mg Tab.Er.24h) 100 mg PO DAILY [facility]; Protocol Last Admin: 01/09/23 07:51 Dose: 100 mg Documented By: SERGIO Morphine Sulfate (Morphine Sulfate 4 Mg/Ml Cartridge) 2 mg IVPUSH Q4H PRN; Protocol PRN Reason: Pain, Severe (Pain Scale 7-10) Last Admin: 01/10/23 01:39 Dose: 2 mg Documented By: DIONNA Pt Own (Cabozantinib [Cabometyx] 20 Mg Tablet) 40 mg PO BEDTIME [facility] Last Admin: 01/09/23 19:25 Dose: 40 mg Documented By: PHUONG Ondansetron HCl (Ondansetron Hcl 4 Mg/2 Ml Vial) 4 mg IVPUSH Q8H PRN PRN Reason: Nausea and Vomiting Oxycodone HCl (Oxycodone Hcl Immed Release 5 Mg Tablet) 5 mg PO Q4H PRN PRN Reason: Pain, Moderate(Pain Scale 4-6) Last Admin: 01/09/23 17:55 Dose: 5 mg Documented By: PHUONG Sodium Chloride (0.9 % Sodium Chloride Flush 3 Ml Syringe) 3 ml IVFLUSH QSHIFT [facility] Last Admin: 01/10/23 01:01 Dose: 3 ml Documented By: DIONNA Tamsulosin HCl (Tamsulosin Hcl 0.4 Mg Capsule) 0.4 mg PO DAILY [facility] Last Admin: 01/09/23 07:51 Dose: 0.4 mg Documented By: SERGIO Labs 01/10/23 06:29 01/10/23 06:29 Labs: Laboratory Results - last 24 hr 01/09/23 01/10/23 01/10/23 08:55 06:29 07:40 MCV 109.4 H MCH 36.6 H MCHC 33.4 RDW 12.1 Plt Count 214 MPV 11.8 Absolute Nucleated RBC 0.000 Nucleated RBC % (auto) 0.0 PT 13.7 H INR 1.1 Anion Gap 11 L Estim Creat Clear Calc 96.9 Estimated GFR > 60 POC Glucose 139 H Random Glucose 144 H Calcium 9.1 Total Bilirubin 0.8 Direct Bilirubin 0.4 AST 77 H ALT 54 H Alkaline Phosphatase 66 Total Protein 6.5 Albumin 3.4 L Microbiology Microbiology Results: Microbiology 01/07/23 23:33 Blood Culture - Preliminary Blood - Venous No growth after 48 hours. 01/07/23 23:33 Blood Culture - Preliminary Blood - Venous No growth after 48 hours. Procedures Date of Service Date of Service: 01/10/23 Progress Note: A&P Assessment and plan (1) Acute cholecystitis: Status: Acute (2) S/P laparoscopic cholecystectomy: Status: Acute Plan 62 year old male admitted with acute cholecystitis now POD #1 s/p lap CCY. Gallbladder gangrenous and phlegmonous intra op. Doing fairly well post op, hemodynamically stable. Abd benign with clean dressings. Solid diet as tolerated. Encouraged OOB/ambulation of halls today and incentive spirometer 10x/hr. Will add bowel regimen. Time Spent With Patient Time: Total time managing care of this patient today ____ minutes. Quality Stroke Does the patient have a stroke diagnosis?: No VTE Prior VTE?: No VTE Risk Level:: Medical - moderate - high VTE Device Contraindication: N/A - Device Ordered VTE Drug Contraindication: Treatment Not Indicated
[2023-01-10] MEDS: Sennosides/Docusate Sodium TABLET 1 TAB PO ×2 (09:18→19:49)
[2023-01-10] MEDS: Tamsulosin HCL 0.4 MG CAPSULE PO (09:18)
[2023-01-10] MEDS: Metoprolol Succinate ER 100 MG TAB.ER.24H PO (09:18)
[2023-01-10] MEDS: Finasteride 5 MG TABLET PO (09:18)
[2023-01-10] MEDS: lisinopriL 40 MG TABLET PO (09:19)
--- NOTE | 2023-01-10 11:06 | P.PNIM_ITS ---
Subjective Subjective Date of Service: 01/10/23 Interval History: Seen and evaluated this morning Feels little better after surgery yesterday tolerating diet No fever or chills Review of Systems Review of Systems: Yes all other systems are reviewed and are negative Physical Exam 2 Vital Signs: Vital Signs: Last Vital Signs Temp 98.8 F 01/10/23 07:35 Pulse 92 01/10/23 07:35 Resp 20 01/10/23 07:35 BP 149/89 H 01/10/23 07:35 Pulse Ox 91 L 01/10/23 07:35 O2 Del Method Room Air 01/10/23 07:35 O2 Flow Rate 2 01/10/23 03:39 BMI result Body Mass Index 24.5 Const: Other: Constitutional : Awake, interactive, not in distress Neck : Normal inspection, Supple Cardiovascular : RRR, no JVP, no lower extremity edema Respiratory : good bilateral air entry, no crackles, wheezes or rhonchi Gastrointestinal: soft, lax, Normal bowel sounds, no significant tenderness Skin : Warm, Dry Neurological : Alert & oriented x3, No focal deficit Objective Data Active Medications Acetaminophen (Acetaminophen 325 Mg Tablet) 650 mg PO Q6H PRN PRN Reason: Pain, Mild (Pain Scale 1-3) Last Admin: 01/09/23 07:51 Dose: 650 mg Documented By: SERGIO Amlodipine Besylate (Amlodipine Besylate 10 Mg Tablet) 10 mg PO DAILY [facility]; Protocol Last Admin: 01/08/23 09:05 Dose: 10 mg Documented By: KALPANA Aspirin (Aspirin Enteric Coated 81 Mg Tablet.) 81 mg PO DAILY [facility] Last Admin: 01/08/23 09:05 Dose: 81 mg Documented By: KALPANA Atorvastatin Calcium (Atorvastatin Calcium 80 Mg Tablet) 80 mg PO BEDTIME [facility] Last Admin: 01/09/23 19:25 Dose: 80 mg Documented By: PHUONG Finasteride (Finasteride 5 Mg Tablet) 5 mg PO DAILY [facility] Last Admin: 01/10/23 09:18 Dose: 5 mg Documented By: HOLLY Piperacillin Sod/Tazobactam (Sod 4.5 gm/ Sodium Chloride) 100 mls @ 200 mls/hr IV Q6H [facility] Last Infusion: 01/10/23 06:34 Dose: Infused Documented By: DIONNA Lactated Ringer's (Lr) 1,000 mls @ 80 mls/hr IVCONT .[id number] [facility] Last Admin: 01/10/23 05:05 Dose: 80 mls/hr Documented By: DIONNA Lisinopril (Lisinopril 40 Mg Tablet) 40 mg PO DAILY [facility]; Protocol Last Admin: 01/10/23 09:19 Dose: 40 mg Documented By: HOLLY Melatonin (Melatonin 3 Mg Tablet) 6 mg PO BEDTIME PRN PRN Reason: Insomnia Last Admin: 01/07/23 23:41 Dose: 6 mg Documented By: SAGAR Metoprolol Succinate (Metoprolol Succinate Er 100 Mg Tab.Er.24h) 100 mg PO DAILY [facility]; Protocol Last Admin: 01/10/23 09:18 Dose: 100 mg Documented By: HOLLY Morphine Sulfate (Morphine Sulfate 4 Mg/Ml Cartridge) 2 mg IVPUSH Q4H PRN; Protocol PRN Reason: Pain, Severe (Pain Scale 7-10) Last Admin: 01/10/23 09:18 Dose: 2 mg Documented By: HOLLY Pt Own (Cabozantinib [Cabometyx] 20 Mg Tablet) 40 mg PO BEDTIME [facility] Last Admin: 01/09/23 19:25 Dose: 40 mg Documented By: PHUONG Ondansetron HCl (Ondansetron Hcl 4 Mg/2 Ml Vial) 4 mg IVPUSH Q8H PRN PRN Reason: Nausea and Vomiting Oxycodone HCl (Oxycodone Hcl Immed Release 5 Mg Tablet) 5 mg PO Q4H PRN PRN Reason: Pain, Moderate(Pain Scale 4-6) Last Admin: 01/09/23 17:55 Dose: 5 mg Documented By: PHUONG Senna/Docusate Sodium (Sennosides/Docusate Sodium Tablet) 1 tab PO BID [facility] Last Admin: 01/10/23 09:18 Dose: 1 tab Documented By: HOLLY Sodium Chloride (0.9 % Sodium Chloride Flush 3 Ml Syringe) 3 ml IVFLUSH QSHIFT [facility] Last Admin: 01/10/23 09:19 Dose: 3 ml Documented By: HOLLY Tamsulosin HCl (Tamsulosin Hcl 0.4 Mg Capsule) 0.4 mg PO DAILY [facility] Last Admin: 01/10/23 09:18 Dose: 0.4 mg Documented By: HOLLY Labs 01/10/23 06:29 01/10/23 06:29 Labs: Laboratory Results - last 24 hr 01/10/23 01/10/23 06:29 07:40 MCV 109.4 H MCH 36.6 H MCHC 33.4 RDW 12.1 Plt Count 214 MPV 11.8 Absolute Nucleated RBC 0.000 Nucleated RBC % (auto) 0.0 Anion Gap 11 L Estim Creat Clear Calc 96.9 Estimated GFR > 60 POC Glucose 139 H Random Glucose 144 H Calcium 9.1 Total Bilirubin 0.8 Direct Bilirubin 0.4 AST 77 H ALT 54 H Alkaline Phosphatase 66 Total Protein 6.5 Albumin 3.4 L Microbiology Microbiology Results: Microbiology 01/07/23 23:33 Blood Culture - Preliminary Blood - Venous No growth after 48 hours. 01/07/23 23:33 Blood Culture - Preliminary Blood - Venous No growth after 48 hours. 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 # Sepsis 2/2 acute cholecystitis POC 1 General surgery following continue IV antibiotics. Negative blood cultures # Hyperglycemia: HbA1c of 5.1, no diabetes DC insulin # Hematochezia Stable H&H outpatient eval, if bleeds consider GI eval # Essential hypertension Hold Amlodipine, continue rest of home meds # BPH Flomax and finasteride # Metastatic right renal clear cell carcinoma On chemotherapy. Followed by Dr. Acosta as an outpatient DVT prophylaxis Mechanical Admit as inpatient and will require overnight hospital stay for IV antibiotics (as above) and surgical intervention which is not possible in a lesser acute setting Quality Stroke Does the patient have a stroke diagnosis?: No VTE Prior VTE?: No VTE Risk Level:: Medical - moderate - high VTE Device Contraindication: N/A - Device Ordered VTE Drug Contraindication: Treatment Not Indicated
[2023-01-10] MEDS: oxyCODONE HCl Immed Release 5 MG TABLET PO (11:58)
[2023-01-10 15:43] VITALS: BP 168/91; PULSE 90; RESP 20; TEMP 36.7; O2SAT 93
[2023-01-10] MEDS: Atorvastatin Calcium 80 MG TABLET PO (19:49)
[2023-01-10 20:00] VITALS: BP 141/88; PULSE 82; RESP 18; TEMP 36.7; O2SAT 94
[2023-01-10 23:56] VITALS: BP 155/88; PULSE 90; RESP 16; TEMP 36.4; O2SAT 92
[2023-01-11] MEDS: Piperacillin Sodium/Tazobactam 4.5 GM in 0.9 % Sodium Chloride 100 ML IV ×2 (00:36→05:47)
[2023-01-11] MEDS: Morphine Sulfate 4 MG/ML CARTRIDGE 2 MG IVPUSH ×2 (00:42→06:30)
[2023-01-11 04:00] VITALS: BP 173/89; PULSE 89; RESP 16; TEMP 36.7; O2SAT 93
[2023-01-11] MEDS: Lactated Ringers 1,000 ML 80 ML IVCONT (05:47)
[2023-01-11 07:56] VITALS: BP 150/88; PULSE 88; RESP 18; TEMP 36.3; O2SAT 93
--- NOTE | 2023-01-11 09:09 | PM.PNGS ---
Subjective Subjective Date of Service: 01/11/23 Interval history: PT in seeing patient this morning, OOB to recliner. Reports improvement in incisional abd pain. Feels bloated and has not passed flatus or BM in multiple days. Tolerating solid diet without N/V. Physical Exam Vital Signs: Vital Signs: Last Vital Signs Temp 97.4 F 01/11/23 07:56 Pulse 88 01/11/23 07:56 Resp 18 01/11/23 07:56 BP 150/88 H 01/11/23 07:56 Pulse Ox 93 01/11/23 07:56 O2 Del Method Nasal Cannula 01/11/23 07:56 O2 Flow Rate 2 01/11/23 07:56 BMI result Body Mass Index 24.5 Const: General: comfortable, no acute distress and alert Orientation/consciousness: patient oriented x3 Resp: Effort & Inspection: normal respiratory effort GI: Inspection: Yes distended and Yes incision (clean) Palpation (GI): Soft to palpation, Tenderness to palpation present (GI) (mild incisional), no guarding and not rigid Percussion: Yes normal to percussion Skin: General skin exam: no rashes or lesions noted Neuro: General: patient oriented x3 and moves all extremities Objective Data Active Medications Acetaminophen (Acetaminophen 325 Mg Tablet) 650 mg PO Q6H PRN PRN Reason: Pain, Mild (Pain Scale 1-3) Last Admin: 01/09/23 07:51 Dose: 650 mg Documented By: SERGIO Amlodipine Besylate (Amlodipine Besylate 10 Mg Tablet) 10 mg PO DAILY [facility]; Protocol Last Admin: 01/08/23 09:05 Dose: 10 mg Documented By: KALPANA Aspirin (Aspirin Enteric Coated 81 Mg Tablet.) 81 mg PO DAILY [facility] Last Admin: 01/08/23 09:05 Dose: 81 mg Documented By: KALPANA Atorvastatin Calcium (Atorvastatin Calcium 80 Mg Tablet) 80 mg PO BEDTIME [facility] Last Admin: 01/10/23 19:49 Dose: 80 mg Documented By: MELISSA Finasteride (Finasteride 5 Mg Tablet) 5 mg PO DAILY [facility] Last Admin: 01/10/23 09:18 Dose: 5 mg Documented By: HOLLY Piperacillin Sod/Tazobactam (Sod 4.5 gm/ Sodium Chloride) 100 mls @ 200 mls/hr IV Q6H [facility] Last Infusion: 01/11/23 06:34 Dose: Infused Documented By: SHAKA Lisinopril (Lisinopril 40 Mg Tablet) 40 mg PO DAILY [facility]; Protocol Last Admin: 01/10/23 09:19 Dose: 40 mg Documented By: HOLLY Melatonin (Melatonin 3 Mg Tablet) 6 mg PO BEDTIME PRN PRN Reason: Insomnia Last Admin: 01/07/23 23:41 Dose: 6 mg Documented By: SAGAR Metoprolol Succinate (Metoprolol Succinate Er 100 Mg Tab.Er.24h) 100 mg PO DAILY [facility]; Protocol Last Admin: 01/10/23 09:18 Dose: 100 mg Documented By: HOLLY Morphine Sulfate (Morphine Sulfate 4 Mg/Ml Cartridge) 2 mg IVPUSH Q4H PRN; Protocol PRN Reason: Pain, Severe (Pain Scale 7-10) Last Admin: 01/11/23 06:30 Dose: 2 mg Documented By: SHAKA Pt Own (Cabozantinib [Cabometyx] 20 Mg Tablet) 40 mg PO BEDTIME [facility] Last Admin: 01/10/23 19:49 Dose: 40 mg Documented By: MELISSA Ondansetron HCl (Ondansetron Hcl 4 Mg/2 Ml Vial) 4 mg IVPUSH Q8H PRN PRN Reason: Nausea and Vomiting Oxycodone HCl (Oxycodone Hcl Immed Release 5 Mg Tablet) 5 mg PO Q4H PRN PRN Reason: Pain, Moderate(Pain Scale 4-6) Last Admin: 01/10/23 11:58 Dose: 5 mg Documented By: HOLLY Senna/Docusate Sodium (Sennosides/Docusate Sodium Tablet) 1 tab PO BID [facility] Last Admin: 01/10/23 19:49 Dose: 1 tab Documented By: MELISSA Sodium Chloride (0.9 % Sodium Chloride Flush 3 Ml Syringe) 3 ml IVFLUSH QSHIFT [facility] Last Admin: 01/11/23 00:44 Dose: Not Given Documented By: SHAKA Non-Admin Reason: IV Running Tamsulosin HCl (Tamsulosin Hcl 0.4 Mg Capsule) 0.4 mg PO DAILY [facility] Last Admin: 01/10/23 09:18 Dose: 0.4 mg Documented By: HOLLY Labs 01/10/23 06:29 01/10/23 06:29 Procedures Date of Service Date of Service: 01/11/23 Progress Note: A&P Assessment and plan (1) S/P laparoscopic cholecystectomy: Status: Acute (2) Acute cholecystitis: Status: Acute Plan 62 year old male admitted with acute cholecystitis now POD #2 s/p lap CCY. Gallbladder gangrenous and phlegmonous intra op. Doing fairly well post op, hemodynamically stable. Incisions clean- remains distended this am. Increase activity, bowel regimen- added miralax. Time Spent With Patient Time: Total time managing care of this patient today ____ minutes. Quality Stroke Does the patient have a stroke diagnosis?: No VTE Prior VTE?: No VTE Risk Level:: Medical - moderate - high VTE Device Contraindication: N/A - Device Ordered VTE Drug Contraindication: Treatment Not Indicated
[2023-01-11] MEDS: lisinopriL 40 MG TABLET PO (09:17)
[2023-01-11] MEDS: Finasteride 5 MG TABLET PO (09:17)
[2023-01-11] MEDS: 0.9 % Sodium Chloride Flush 3 ML SYRINGE IVFLUSH (09:18)
[2023-01-11] MEDS: Tamsulosin HCL 0.4 MG CAPSULE PO (09:18)
[2023-01-11] MEDS: polyethylene glycoL 3350 17 GM POWD.PACK PO (09:18)
[2023-01-11] MEDS: Sennosides/Docusate Sodium TABLET 1 TAB PO (09:18)
[2023-01-11] MEDS: Metoprolol Succinate ER 100 MG TAB.ER.24H PO (09:18)
[2023-01-11 10:15] LABS: COVID-19 Test Negative (Negative); IDNOW Serial# 08D9AD1C
[2023-01-11 12:00] VITALS: BP 131/84; PULSE 85; RESP 18; TEMP 36.2; O2SAT 93
--- NOTE | 2023-01-11 12:02 | P.DS_ITS ---
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 Patient states it started about 4 days prior to presentation. It has been intermittent, progressive over the last 4 days, without any relieving factors. No change of pain with p.o. intake. Admits nausea but denies vomiting. No fever but has chills. States he has been having minimal blood in stools and constipation over the last 3 days. No chest d iscomfort, palpitations, shortness of breath, changes in urinary habits. In the emergency department, imaging with trace pericholecystic fluid. General surgery was consulted who requested admission. Hospital course The paitent was admitted for acute cholecystitis complicated by sepsis. treated with IV antibiotics as blood cultures remained negative. Seen by surgery team who did a Lap Cholecystectomy withh good response as he was able to tolerate diet. will follow up as outpatient with surgery. Continue Antibiotic as prescribed Oxycodone for pain as needed Follow with surgery as outpatient Time Attestation Discharge coordination time: Greater than 30 minutes Quality: Safe Use of Opioids Does Pt have an Active Cancer Diagnosis on the Problem List?: Yes Opioid Measure Date for [facility] Report: 12/13/22 Opioid Measure Time for [facility] Report: 12:12 Quality: Stroke Does the patient have a stroke diagnosis?: No Physical Exam Vital Signs: Vital Signs: Last Vital Signs Temp 97.4 F 01/11/23 07:56 Pulse 88 01/11/23 07:56 Resp 18 01/11/23 07:56 BP 150/88 H 01/11/23 07:56 Pulse Ox 93 01/11/23 07:56 O2 Del Method Nasal Cannula 01/11/23 07:56 O2 Flow Rate 2 01/11/23 07:56 BMI result Body Mass Index 24.5 Const: Other: Constitutional : Awake, interactive, not in distress Neck : Normal inspection, Supple Cardiovascular : RRR, no JVP, no lower extremity edema Respiratory : good bilateral air entry, no crackles, wheezes or rhonchi Gastrointestinal: soft, lax, Normal bowel sounds, no significant tenderness Skin : Warm, Dry Neurological : Alert & oriented x3, No focal deficit DS: Data Data Completed and Pending Completed studies during hospitalization [Text1]: Pending at discharge 01/09/23 12:18 Surgical [PTH] Routine Labs on day of discharge: Laboratory Results - last 24 hr 01/11/23 09:50 COVID-19 ([facility]) Negative COVID-19 Clin Com See Note Preliminary micro results at discharge 01/07/23 23:33 Blood Culture - Preliminary Blood - Venous No growth after 48 hours. 01/07/23 23:33 Blood Culture - Preliminary Blood - Venous No growth after 48 hours. Imaging Chest x-ray: Radiologist's impression: ITS Impressions Abdomen/Pelvis CT 01/07/23 17:46 IMPRESSION: 1. The evaluation of the gallbladder is limited by motion there may be some equivocal mild pericholecystic fat stranding versus motion artifact. No radiopaque cholelithiasis. Recommend correlation with right upper quadrant ultrasound if any clinical concern for acute cholecystitis. 2. Heterogeneous right upper pole renal mass measuring 3 cm, not significantly changed from prior is again seen extending into the renal sinus with thrombus within the right renal vein and inferior vena cava, grossly similar to prior. 3. Evaluation of the previously seen small right adrenal nodule is limited by motion on today's exam and difficult to accurately measure. 4. Multiple solid pulmonary nodules in the bilateral lung bases appear similar to recent prior. Abdomen Ultrasound 01/07/23 20:09 IMPRESSION: 1. Echogenic bile seen within the gallbladder. Patient was tender on scanning of the gallbladder but there is no significant gallbladder wall thickening. There is trace pericholecystic fluid. 2. The right upper pole renal mass was much better delineated on the CT scan this mass measures approximately 3.2 cm maximally by ultrasound. The renal vein and inferior vena caval thrombus is not able to be delineated on this ultrasound. Discharge Plan Discharge Anticipated Discharge Date/Time: 01/11/23 11:59 Patient Disposition: Home, Self-Care Discharge Diagnosis: Acute cholecystitis Referrals: Alivia Pat MD [Primary Care Provider] - 1 Week Filiberto Gayle MD [Physician] - 1 Week Discharge Medications: New oxycodone 5 mg Tablet 5 mg PO Q4H PRN (Reason: Pain, Moderate(Pain Scale 4-6)) Qty: 12 0RF Rx Instructions: Partial Fill upon patient request. amoxicillin-pot clavulanate 875-125 mg tablet 1 tab PO BID Qty: 14 0RF Continued metoprolol succinate 100 mg tablet extended release 24 hr 1 tab PO DAILY chlorthalidone 50 mg tablet 1 tab PO DAILY tamsulosin 0.4 mg capsule 1 cap PO DAILY amlodipine 10 mg tablet 1 tab PO DAILY finasteride 5 mg tablet 1 tab PO DAILY Cabometyx 20 mg tablet 40 mg PO DAILY multivitamin Tablet 1 tab PO DAILY rosuvastatin 40 mg tablet 40 mg PO DAILY lisinopril 40 mg tablet 40 mg PO DAILY Discontinued cephalexin 500 mg tablet See Rx Instructions .ROUTE .COMPLEX Rx Instructions: 500 mg orally Q12H ; END DATE: 01/15/23 Discharge Orders: Discharge Order (Routine); Ordered 01/11/23 Ordered By: Halima Mcdonald Diet: Advance to usual diet Activity on Discharge: No heavy lifting Stand Alone Forms: Patient Portal Discharge page Activity Restrictions/Additional Instructions: Apply an ice pack for short intervals (20 minutes on, followed by at least 20 minutes off) for the first 2 days. Do not apply heat. Do not use creams, lotions, or topical antibiotics. These can cause infection or allergic reaction. Ok to shower 48 hours after your surgery. You have steri strips (small white cloth strips) covering your incision- these will fall off ~1 week. Follow up in office with Dr. Gayle in 1 week. ([phone]) No heavy lifting (>10lbs) or strenuous activity! Call Your Doctor If: -Your temperature exceeds 101.5? F -You experience excessive pain or swelling -You have an unexpected reaction to medication -You have excessive bleeding -You experience continued vomiting/nausea -Your incision begins to separate -Your incision shows signs of infection such as increased redness, swelling, excessive pain, drainage (light blood or clear fluid is normal) or heat Care Plan Goals: Read below Health Concerns: Read below Plan of Treatment: Read below Assessment: Continue Antibiotic as prescribed Oxycodone for pain as needed Follow with surgery as outpatient Discharge Date/Time: 01/11/23 12:59
--- NOTE | 2023-01-11 12:55 | MHC.CM.PN ---
PT MEDICALLY CLEARED FOR DC HOME SELF-CARE, FAMILY FOR TRANSPORT
== END 2023-01-11 12:59 | disposition home or self-care (01) | DRG 854 ==
LOC: HO.ED 21:38 → HO.EDOVER 22:16 → HO.S3 23:30
PROVIDERS: Physician Assistant Medical; Physician Assistant Surgical; Surgery; Admitting Provider Student in an Organized Health Care Education/Training Program; Emergency Provider Student in an Organized Health Care Education/Training Program; PCP Internal Medicine; Visit Provider Student in an Organized Health Care Education/Training Program
PROC: 0FT44ZZ Resection of Gallbladder, Percutaneous Endoscopic Approach (ICD-10-PCS; CPT 47562; principal; 2023-01-09 11:00)
DX: A41.9 Sepsis, unspecified organism (principal); C64.1 Malignant neoplasm of right kidney, except renal pelvis; K81.0 Acute cholecystitis; K92.1 Melena; C78.00 Secondary malignant neoplasm of unspecified lung; K42.0 Umbilical hernia with obstruction, without gangrene; K82.A1 Gangrene of gallbladder in cholecystitis; K82.8 Other specified diseases of gallbladder; R73.9 Hyperglycemia, unspecified; I10 Essential (primary) hypertension; N40.0 Benign prostatic hyperplasia without lower urinary tract symptoms; Z20.822 Contact with and (suspected) exposure to COVID-19; Z87.891 Personal history of nicotine dependence; Z79.899 Other long term (current) drug therapy
CPT/HCPCS: 36415; 74177; 76705; 80048; 80076; 81001; 82272; 82947; 83036; 83605; 83690; 85025; 85027; 85610; 87040; 87635; 88304; 94640; 97161; 99285; J0131; J0665; J1170; J2250; J2270; J2543; J2704; J3010; J7120; Q9967

== ENCOUNTER → 2023-01-07 22:12 | Outpatient (BNV) | payer MEDICARE, MEDICAID, SELFPAY | PROVIDERS: Admitting Provider Student in an Organized Health Care Education/Training Program; Emergency Provider Student in an Organized Health Care Education/Training Program; PCP Internal Medicine; Visit Provider Surgery | DX: Z90.49 Acquired absence of other specified parts of digestive tract (principal); K81.0 Acute cholecystitis | CPT/HCPCS: 47562; 99024; 99222 ==

== ENCOUNTER → 2023-01-07 22:12 | Outpatient (BNV) | payer MEDICARE, MEDICAID, SELFPAY | PROVIDERS: Admitting Provider Student in an Organized Health Care Education/Training Program; Emergency Provider Student in an Organized Health Care Education/Training Program; PCP Internal Medicine; Visit Provider Student in an Organized Health Care Education/Training Program | DX: A41.9 Sepsis, unspecified organism (principal); K81.0 Acute cholecystitis; Z90.49 Acquired absence of other specified parts of digestive tract | CPT/HCPCS: 99223; 99232; 99233; 99239 ==

== ENCOUNTER 2023-01-17 14:17 | Outpatient (AMB) | payer MEDICARE, MEDICAID, SELFPAY ==
--- NOTE | 2023-01-17 14:19 | A.OFFVIS_ITS ---
Intake Vital Signs 01/17/23 14:24 Weight 165 lb BP 145/78 H Blood Pressure Location Rt brachial Position Sitting Pulse 80 Intake Visit Reasons: s/p lap daniel, repair incarc umbilical hernia Intake Note: Patient here s/p lap daniel, incarcerated umbilical hernia repair. Reports incisions healing well. Taking rx pain meds. 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 He has no incisional issues or complaints. He is slowly but steadily increase his activity level. He is having bowel movements. Appetite is somewhat marginal secondary to his chemotherapy. [facility] Medical History Incarcerated umbilical hernia (01/09/23) Kidney cancer, primary, with metastasis from kidney to other site Renal cancer Depression Psoriatic arthritis BPH (benign prostatic hyperplasia) Elevated cholesterol HTN (hypertension) Surgical History (Updated 01/17/23 @ 14:32 by Filiberto Gayle MD) S/P laparoscopic cholecystectomy History of laparoscopic cholecystectomy (01/09/23) H/O colonoscopy Hx of hernia repair Family History Mother Colon cancer Father Prostate cancer Social History Household Members: Family Housing: House Are you a primary rn intensive care unit to a significant other at home: No Do you presently have visiting nurse or other home services: No Alcohol intake: former Patient Tobacco Use Status: Former Tobacco user Quit Date: 40 years ago Tobacco use type: Cigarette service: Yes Current occupational status: retired Physical Exam Vital Signs: Last Vital Signs Pulse 80 01/17/23 14:24 BP 145/78 H 01/17/23 14:24 Eyes Other: Anicteric GI Other: Abdomen soft. All wounds clean dry and intact. Assessment & Plan Assessment & Plan (1) S/P laparoscopic cholecystectomy: Code(s): Z90.49 - Acquired absence of other specified parts of digestive tract Plan Patient has been given local instructions, 40 strenuous activities for next 2 weeks time, and will follow-up p.r.n.. Coding Level of Care Code Global (57261) Diagnoses S/P laparoscopic cholecystectomy Z90.49
[2023-01-17 14:24] VITALS: BP 145/78; PULSE 80
== END 2023-01-17 14:31 | disposition home or self-care (01) ==
PROVIDERS: PCP Internal Medicine; Visit Provider Surgery
DX: Z90.49 Acquired absence of other specified parts of digestive tract (principal)
CPT/HCPCS: 99024

== ENCOUNTER → 2023-01-17 14:17 | Outpatient (BNVA) | payer MEDICARE, MEDICAID, SELFPAY | PROVIDERS: PCP Internal Medicine; Visit Provider Surgery ==

== ENCOUNTER 2023-02-28 08:15 | Outpatient (AMB) | payer MEDICARE, MEDICAID, SELFPAY ==
--- NOTE | 2023-02-28 08:15 | A.OFFVIS_ITS ---
Intake Intake Visit Reasons: 6w follow up(Dr Ortiz) Intake Note: Patient is Present via telephone for Follow Up Urology Medication: Finasteride, Tamuslosin Antibiotic Allergies: None Blood Thinners: Aspirin Pharmacy: [facility] Required: No Accompanied by: Self / Same As Patient Allergies No Known Allergies [No Known Allergies*] Allergy (Verified 02/28/23 08:16) Medication List - Last Reconciled 02/28/23 by Darius Mccartney MD amlodipine 1 tab PO DAILY cabozantinib (Cabometyx) 40 mg (2 x 20 mg) PO DAILY chlorthalidone 1 tab PO DAILY finasteride 1 tab PO DAILY lisinopril 40 mg PO DAILY metoprolol succinate ER 1 tab PO DAILY multivitamin 1 tab PO DAILY oxycodone 5 mg PO Q4H PRN rosuvastatin 40 mg PO DAILY tamsulosin 1 cap PO DAILY HPI HPI Comments History of Present Illness Details Dick is a pleasant male. He is a patient of Dr. Pat. 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 Ortiz Ordered MRI Renal, and chest CT in order to re-stage They will call by end of week if not organized Significant improvement on chemotherapy IVC thrombus below liver Chest nodules have significantly decreased by over 50% Recommend assessment with Dr. Ortiz for debulking Renal cancer restaging 12/12: CT ADRENAL GLANDS AND KIDNEYS: Th ere is interval decrease in size in the right adrenal nodule. This measures 5 x 10 mm axial image 70 series 4 compared to 1.2 x 1.8 cm most recent July 2022 exam. Low-attenuation or cystic mass in the upper pole of the right kidney not appreciably changed in size measuring 2.5 cm. This extends centrally into the right renal collecting system which does not appear appreciably changed. There is still of thrombus in the right renal vein extending into the IVC 11/[address] : THORAX: No tracer avid onel g nodule on either side, Previously documented right renal mass as well as local disease extension into the right renal vein and inferior vena cava shows interval improvement on this nondiagnostic noncontrast CT study 08/12 - good response to chemotherapy on initial restaging Chest: Interval decrease in size and number of pulmonary nodules 50% reduction. - Abdomen and pelvis: Interval decrease in right adrenal mass and right renal mass. Interval decrease in right renal vein and IVC thrombus in and enhancement. 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 04/14 CT chest - bilateral multiple pulm onary nodules largest measuring 1.1 cm in the right lower lobe, suspicious for metastatic disease.? Heterogenous enhancement of IVC, questionable for thrombus.? 04/14 Bone scan negative for metastatic d isease. Chemotherapy initiated with Dr. Acosta - 06/12 - on combination regimen with cabozantinib and nivolumab Background of immune disease of psoriasis in had been on immune modifying medications [facility] Medical History (Updated 02/28/23 @ 08:56 by Darius Mccartney MD) Renal cancer Incarcerated umbilical hernia (01/09/23) Kidney cancer, primary, with metastasis from kidney to other site Depression Psoriatic arthritis BPH (benign prostatic hyperplasia) Elevated cholesterol HTN (hypertension) Surgical History S/P laparoscopic cholecystectomy History of laparoscopic cholecystectomy (01/09/23) H/O colonoscopy Hx of hernia repair Family History Mother Colon cancer Father Prostate cancer Social History Household Members: Family Housing: House Are you a primary primary care nurse to a significant other at home: No Do you presently have visiting nurse or other home services: No Alcohol intake: former Patient Tobacco Use Status: Former Tobacco user Quit Date: 40 years ago Tobacco use type: Cigarette service: Yes Current occupational status: retired Review of Systems Const All systems reviewed & are unremarkable except as noted in HPI and below Reports no additional complaints Resp Reports no additional complaints GI Reports no additional complaints Reports as per HPI Musc Reports no additional complaints Physical Exam Telemedicine evaluation Appropriate responses Regular breathing rate and rhythm HEENT Head: Yes normal to inspection Ears: hearing grossly normal bilaterally Eyes General: appearance normal, both eyes and all related structures Neck Neck: Yes normal visual inspection Chest Chest palpation & inspection: normal inspection of the chest Resp Effort & Inspection: normal respiratory effort and able to speak in complete sentences Assessment & Plan Assessment & Plan (1) Renal cancer: Comment: Right upper pole extension into IVC Code(s): C64.9 - Malignant neoplasm of unspecified kidney, except renal pelvis (2) Lesion of lung: Code(s): R91.1 - Solitary pulmonary nodule Plan Chest CT, MRI kidney now Six week follow-up Orders: Orders MR kidney wo/w con Today C64.9 - Malignant neoplasm of unspecified kidney, except renal pelvis CT chest wo/w IV con Today R91.1 - Solitary pulmonary nodule Patient Instructions: Imaging studies, laboratory and physical exam results were discussed and reviewed in detail. No major barriers to patient understanding were identified. An opportunity to ask questions regarding the treatment plan was provided. All questions were answered. The patient expressed understanding and agreement with the above treatment plan. The patient is aware they should contact our office by phone for worsening of their current condition or the appearance of new urologic symptoms. Compliance is encouraged with any medications and followup testing that is ordered. It is a privilege to participate in the urologic care of your patient. If you have any questions or concerns regarding treatment for the above conditions, or other urologic issues, please do not hesitate to contact me. The office telephone contact is [phone]. This note is constructed using voice recognition software. While every effort has been made to ensure accuracy sash maker errors may have been included. Yours sincerely, Dr Darius Mccartney MD, [facility] - Urology Providers of Expert, Compassionate Care for the Genitourinary System Telehealth Telehealth Location of provider rendering services: practice address Location of patient: address on file Patient Identification confirmed using: Name, : Yes Telehealth method: video Patient verbally consented to treatment: Yes Patient verbally consented to billing insurance company: Yes Patient informed of any privacy concerns related to visit: Yes Coding Level of Care Code Tele Est Pt Level 4 (26127) Diagnoses Renal cancer C64.9 Lesion of lung R91.1
== END 2023-02-28 09:26 | disposition home or self-care (01) ==
LOC: HO.HUSH 08:15
PROVIDERS: PCP Internal Medicine; Visit Provider Urology
DX: C64.9 Malignant neoplasm of unspecified kidney, except renal pelvis (principal); R91.1 Solitary pulmonary nodule
CPT/HCPCS: 99214

== ENCOUNTER → 2023-02-28 08:15 | Outpatient (BNVA) | payer MEDICARE, MEDICAID, SELFPAY | PROVIDERS: PCP Internal Medicine; Visit Provider Urology ==

== ENCOUNTER 2023-03-02 13:23 | Outpatient (REF) | payer MEDICARE, MEDICAID, SELFPAY ==
--- NOTE | ~2023-03-02 | CT_ITS ---
EXAMINATION: CT CHEST WITHOUT AND WITH CONTRAST CLINICAL INFORMATION: Solitary pulmonary nodule. COMPARISON: 08/05/2022 TECHNIQUE: Multidetector volumetric CT imaging of the chest was obtained before and after the administration of 85 mL of Omnipaque 350 intravenous contrast without immediate adverse reactions. Axial MIP volume rendering provided. Sagittal and coronal reformatted images were obtained. This CT examination was performed using dose optimization techniques as appropriate, variously including the following: *Automated exposure control *Adjustment of mA and/or kV according to patient size (this includes techniques or standardized protocols for targeted exams where dose is matched to indication/reason for exam; i.e. extremities or head) *Use of iterative reconstruction technique DLP: 235 mGy-cm FINDINGS: LUNGS: 2 mm nodule in the lingula on image 268 of series 10. 5 mm subpleural nodules right lower lobe on images 334 and 335 of series 10. 4 mm nodule right lower lobe on image 371 of series 10. No new or enlarging pulmonary nodules. No focal consolidation. Central airways are patent. MEDIASTINUM: No bulky axillary, hilar or mediastinal lymphadenopathy. Ascending thoracic aorta measures 3.9 x 4.0 cm in transverse dimension. Heart is enlarged. No pericardial effusion. CORONARY ARTERY CALCIFICATION: Marked. PLEURA: There is no pleural effusion. No pleural mass or thickening. UPPER ABDOMEN: Small hiatal hernia. There is a collection measuring 6.9 x 3.9 x 3.9 cm surrounding surgical clips in the gallbladder fossa. No internal foci of gas. The liver is diffusely decreased in attenuation. OSSEOUS STRUCTURES: No destructive bone lesions. CT/CT chest wo/w IV con IMPRESSION: Somewhat ill-defined collection surrounding surgical clips in the gallbladder fossa. This collection measures 6.9 x 3.9 x 3.9 cm. No internal foci of gas. Advise correlation with recent surgical history. Scattered pulmonary nodules measuring up to 5 mm. These nodules are stable relative to 08/05/2022.
[2023-03-02] MEDS: iohexoL 350 MG/ML 100 ML INFUS..BTL 85 ML IV (14:14)
== END 2023-03-02 13:24 | disposition home or self-care (01) ==
LOC: HO.CT 13:23
PROVIDERS: PCP Internal Medicine; Visit Provider Urology
DX: R91.1 Solitary pulmonary nodule (principal)
CPT/HCPCS: 71270; Q9967

== ENCOUNTER 2023-03-21 11:05 | Day surgery (SDC) | payer MEDICARE, MEDICAID, SELFPAY ==
--- NOTE | ~2023-03-21 | IR_ITS ---
CLINICAL HISTORY: Metastatic renal cell carcinoma. The patient presents to interventional radiology for placement of a port for chemotherapy. PROCEDURES: 1. Real-time ultrasound-guided access into the right internal jugular vein after documentation of selected vessel patency, and permanent image storing in the patient records. 2. Placement of a 6.6 Bhutanese single-lumen power port. CLINICIAN: Abhay Martinez PA-C MEDICATIONS: - Versed 1 mg, Fentanyl 50mcg, Lidocaine 1% 10 mL SQ -Antibiotics: Ancef 2g -For additional details, please see nursing flowsheet. Complications: None. Estimated blood loss: <5 ml Specimens: None. Contrast: None. Fluoroscopy time: 0.9in MODERATE SEDATION TIME: 27min PROCEDURE NOTE: The procedure, risks, benefits, and alternatives were carefully explained to the patient and written informed consent was obtained. The patient was placed supine on the fluoroscopy table. A timeout was performed. The right neck and chest was prepped and draped in usual sterile fashion. Maximum barrier technique was utilized. Local anesthesia was administered to the access site with 1% lidocaine. Under ultrasound guidance, the right internal jugular vein was accessed with a 5 fr micropuncture set. A 0.035 in wire was advanced into the IVC. A peel-away sheath was advanced over the wire and into the SVC, and the wire was removed. Next, subcutaneous lidocaine was administered to the chest. The port pocket was created after the skin incision, utilizing blunt dissection. Using blunt dissection, a subcutaneous tunnel was created that connects from the port pocket to the venotomy site. Through the peel-away sheath, the 6.6 Bhutanese port catheter was placed. The catheter position was verified with fluoroscopy to be at the superior vena cava/right atrial junction. The port was connected to the catheter and was placed in the pocket. The venotomy site was closed with a 3-0 Vicryl subcutaneous suture. The port incision site was closed with interrupted 3-0 Vicryl subcutaneous sutures and surgical glue. Prior to closing the skin, 1 g of Ancef solution was placed in the pocket. The port was tested, flushed, and packed with heparin per routine protocol. The patient tolerated the procedure well. The patient was stable after the procedure and was transferred to the PACU. The procedure was performed under moderate sedation and with a dedicated nurse with continuous monitoring of vital signs. A permanent image of the ultrasound the neck and fluoroscopic image of the chest was saved and sent to PACS. FINDINGS: 1. Patent right internal jugular vein 2. Placement of a 6.6 Bhutanese single lumen power port. 3. Port flushes and aspirates very well with a 10 mL syringe. No pneumothorax. IR/IR cvc insert tunnel w prt/consumer safety inspector IMPRESSION: Placement of a 6.6 Bhutanese single-lumen power port. PLAN: - The patient will be discharged home when stable by sedation protocol. - Port may be used immediately. This procedure was performed by Abhay Martinez PA-C, and directly supervised by Dr. Pleitez
[2023-03-21 12:18] VITALS: BMI 24.9
[2023-03-21 12:19] VITALS: BP 132/83; PULSE 72; RESP 16; TEMP 36.2; O2SAT 99
[2023-03-21 14:10] VITALS: BP 131/75; PULSE 72; RESP 16; TEMP 36.6; O2SAT 97
--- NOTE | 2023-03-21 14:23 | PM.EVENT ---
Event Note Date of Service: 03/21/23 Event Note: Procedure Note: Right SL Port Needs access for chemotherapy, RCC Right IJ SL Port placed using US and Fluoro. Tip at cavoatrial junction. Ok for immediate use. Galindo MARTINEZ Interventional Radiology Time Spent With Patient Time: Total time managing care of this patient today ____ minutes.
[2023-03-21 14:25] VITALS: BP 137/82; PULSE 75; RESP 14; O2SAT 98
[2023-03-21 14:40] VITALS: BP 136/82; PULSE 43; RESP 16; TEMP 36.3; O2SAT 99
== END 2023-03-21 14:45 | disposition home or self-care (01) ==
PROVIDERS: Radiology Vascular & Interventional Radiology; PCP Internal Medicine; Visit Provider Internal Medicine
DX: Z45.2 Encounter for adjustment and management of vascular access device (principal); C64.1 Malignant neoplasm of right kidney, except renal pelvis; N40.0 Benign prostatic hyperplasia without lower urinary tract symptoms; I10 Essential (primary) hypertension; E78.00 Pure hypercholesterolemia, unspecified; Z79.899 Other long term (current) drug therapy; Z98.890 Other specified postprocedural states; Z87.891 Personal history of nicotine dependence
CPT/HCPCS: 36561; 99152; 99153; C1769; C1788; J0690; J1642; J1644; J2250; J2310; J3010

== ENCOUNTER → 2023-03-21 11:05 | Outpatient (BNV) | payer MEDICARE, MEDICAID, SELFPAY | PROVIDERS: PCP Internal Medicine; Visit Provider Physician Assistant Surgical | DX: C64.9 Malignant neoplasm of unspecified kidney, except renal pelvis (principal) | CPT/HCPCS: 36561; 77001; 99499 ==

== ENCOUNTER 2023-04-13 10:13 | Outpatient (AMB) | payer MEDICARE, MEDICAID, SELFPAY ==
--- NOTE | 2023-04-13 10:14 | A.OFFVIS_ITS ---
Intake Intake Visit Reasons: 6w/CT Chest(Set) Intake Note: Patient presents today for a follow-up Meds- Finasteride, Tamsulosin Allergies to Antibiotic- No Known Allergies Blood Thinner- None Farmworker Fur Required: Yes Allergies No Known Allergies [No Known Allergies*] Allergy (Verified 04/13/23 10:16) Medication List - Last Reconciled 04/13/23 by Darius Mccartney MD amlodipine 1 tab PO DAILY cabozantinib (Cabometyx) 40 mg (2 x 20 mg) PO DAILY chlorthalidone 1 tab PO DAILY diphenhydramine HCl 25 mg PO TID PRN finasteride 1 tab PO DAILY lisinopril 40 mg PO DAILY metoprolol succinate ER 1 tab PO DAILY multivitamin 1 tab PO DAILY rosuvastatin 40 mg PO DAILY tamsulosin 1 cap PO DAILY HPI HPI Comments History of Present Illness Details Dick is a pleasant male. He is a patient of Dr. Pat. 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 Telemedicine Evaluation 15 min Consultation [employer] Video attempted Had episode of acute cholecystitis Underwent laparoscopic cholecystectomy in December Follow-up chest CT did show resolving collection in gallbladder fossa Discussed with general surgery who recommended waiting for approximately 3 months before attempting debulking nephrectomy Has continued to have good response to chemotherapy Has plan to see [facility] coming up this month for anesthesia assessment We can do lab work here at [facility] however will need to have type and screen done through [facility] Significant improvement on chemotherapy IVC thrombus below liver Chest nodules have significantly decreased by over 50% Recommend assessment with Dr. Ortiz for debulking Renal cancer restaging 12/12: CT ADRENAL GLANDS AND KIDNEYS: ere is interval decrease in size in the right adrenal nodule. This measures 5 x 10 mm axial image 70 series 4 compared to 1.2 x 1.8 cm most recent July 2022 exam. Low-attenuation or cystic mass in the upper pole of the right kidney not appreciably changed in size measuring 2.5 cm. This extends centrally into the right renal collecting system which does not appear appreciably changed. There is still of thrombus in the right renal vein extending into the IVC 11/[address] : THORAX: No tracer avid onel g nodule on either side, Previously documented right renal mass as well as local disease extension into the right renal vein and inferior vena cava shows interval improvement on this nondiagnostic noncontrast CT study 08/12 - good response to chemotherapy on initial restaging Chest: Interval decrease in size and number of pulmonary nodules 50% reduction. - Abdomen and pelvis: Interval decrease in right adrenal mass and right renal mass. Interval decrease in right renal vein and IVC thrombus in and enhancement. 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 04/14 CT chest - bilateral multiple pulm onary nodules largest measuring 1.1 cm in the right lower lobe, suspicious for metastatic disease.? Heterogenous enhancement of IVC, questionable for thrombus.? 04/14 Bone scan negative for metastatic d isease. Chemotherapy initiated with Dr. Acosta - 06/12 - on combination regimen with cabozantinib and nivolumab Background of immune disease of psoriasis in had been on immune modifying medications PFSH Medical History Renal cancer Incarcerated umbilical hernia (01/09/23) Kidney cancer, primary, with metastasis from kidney to other site Depression Psoriatic arthritis BPH (benign prostatic hyperplasia) Elevated cholesterol HTN (hypertension) Surgical History S/P laparoscopic cholecystectomy History of laparoscopic cholecystectomy (01/09/23) H/O colonoscopy Hx of hernia repair Family History Mother Colon cancer Father Prostate cancer Social History (Reviewed 04/13/23 @ 10:17 by TIFFANIE De La O Household Members: Family Housing: House Are you a primary hospice home care coordinator to a significant other at home: No Do you presently have visiting nurse or other home services: No Alcohol intake: former Patient Tobacco Use Status: Former Tobacco user Quit Date: 40 years ago Tobacco use type: Cigarette service: Yes Current occupational status: retired Review of Systems Const All systems reviewed & are unremarkable except as noted in HPI and below Reports no additional complaints Resp Reports no additional complaints GI Reports no additional complaints Reports as per HPI Musc Reports no additional complaints Physical Exam Telemedicine evaluation Appropriate responses Regular breathing rate and rhythm HEENT Head: Yes normal to inspection Ears: hearing grossly normal bilaterally Eyes General: appearance normal, both eyes and all related structures Neck Neck: Yes normal visual inspection Chest Chest palpation & inspection: normal inspection of the chest Resp Effort & Inspection: normal respiratory effort and able to speak in complete sentences Assessment & Plan Assessment & Plan (1) Renal cancer: Comment: Right upper pole extension into IVC Code(s): C64.9 - Malignant neoplasm of unspecified kidney, except renal pelvis Plan Three-month follow-up Orders: Orders UA CC w/rflx Micro + Cult 04/13/23 C64.9 - Malignant neoplasm of unspecified kidney, except renal pelvis Patient Instructions: Imaging studies, laboratory and physical exam results were discussed and reviewed in detail. No major barriers to patient understanding were identified. An opportunity to ask questions regarding the treatment plan was provided. All questions were answered. The patient expressed understanding and agreement with the above treatment plan. The patient is aware they should contact our office by phone for worsening of their current condition or the appearance of new urologic symptoms. Compliance is encouraged with any medications and followup testing that is ordered. It is a privilege to participate in the urologic care of your patient. If you have any questions or concerns regarding treatment for the above conditions, or other urologic issues, please do not hesitate to contact me. The office telephone contact is [phone]. This note is constructed using voice recognition software. While every effort has been made to ensure accuracy primary care provider errors may have been included. Yours sincerely, Dr Darius Mccartney MD, [facility] - Urology Providers of Expert, Compassionate Care for the Genitourinary System Telehealth Telehealth Location of provider rendering services: practice address Location of patient: address on file Patient Identification confirmed using: Name, : Yes Telehealth method: video Patient verbally consented to treatment: Yes Patient verbally consented to billing insurance company: Yes Patient informed of any privacy concerns related to visit: Yes Coding Level of Care Code Tele Est Pt Level 3 (98188) Diagnoses Renal cancer C64.9
== END 2023-04-13 13:08 | disposition home or self-care (01) ==
LOC: HO.HUSH 10:13
PROVIDERS: PCP Internal Medicine; Visit Provider Urology
DX: C64.9 Malignant neoplasm of unspecified kidney, except renal pelvis (principal)
CPT/HCPCS: 99213

== ENCOUNTER → 2023-04-13 10:13 | Outpatient (BNVA) | payer MEDICARE, MEDICAID, SELFPAY | PROVIDERS: PCP Internal Medicine; Visit Provider Urology ==

== ENCOUNTER 2023-04-27 16:49 | Outpatient (REF) | payer MEDICARE, MEDICAID, SELFPAY | END 2023-04-27 16:50 | disposition home or self-care (01) | LOC: HO.LAB 16:49 | PROVIDERS: PCP Internal Medicine; Visit Provider Internal Medicine | DX: Z13.89 Encounter for screening for other disorder (principal) ==

== ENCOUNTER 2023-05-01 08:39 | Outpatient (REF) | payer MEDICARE, MEDICAID, SELFPAY ==
[2023-05-01 09:39] LABS: Appearance Urine Clear; Color Urine Yellow; Glucose Urine UA Negative (Negative); Leukocyte Esterase Urine Small (1+) (Negative); Nitrite Urine Negative (Negative); UMIC TRIGGER UA YES; Urine Blood Moderate (2+) (Negative); Urine Ketones Trace mg/dL (Negative); Urine Protein Trace mg/dL (Neg-Trace)
[2023-05-01 09:41] LABS: Bacteria Urine None Seen (None Seen); Hyaline Casts Urine 0-2 /LPF (0-2); RBC Urine >20 /HPF (0-2); Squamous Epithelial Cell Urine 0-2 /HPF (0-2)
[2023-05-01 09:57] LABS: Cholesterol 195 mg/dL (<200); HDL Cholesterol 40 mg/dL (>40); LDL Cholesterol Calculated 112 mg/dL (<100); Triglycerides 216 mg/dL (<150)
== END 2023-05-01 08:40 | disposition home or self-care (01) ==
LOC: HO.LAB 08:39
PROVIDERS: PCP Internal Medicine; Visit Provider Internal Medicine
DX: C64.1 Malignant neoplasm of right kidney, except renal pelvis (principal); I10 Essential (primary) hypertension; R94.31 Abnormal electrocardiogram [ECG] [EKG]; E78.00 Pure hypercholesterolemia, unspecified
CPT/HCPCS: 36415; 80061; 81001; 87086

== ENCOUNTER 2023-07-14 08:53 | Outpatient (AMB) | payer MEDICARE, MEDICAID, SELFPAY ==
--- NOTE | 2023-07-14 09:18 | MHC.OFFVIS ---
Intake Visit Reasons: 2m/Follow up Intake Note: Patient is Present for Follow Up Urology Medication: Finasteride, Tamsulosin Antibiotic Allergies:None Blood Thinners:None Allergies No Known Allergies [No Known Allergies*] Allergy (Verified 04/13/23 10:16) HPI Comments Details: Dick is a pleasant male. He is a patient of Dr. Pat. 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 Acosta Plan for repeat staging CT chest and abdomen in 2 months Recommend use of binder during activity 05/13 Debulking nephrectomy Renal cancer restaging 12/12: CT ADRENAL GLANDS AND KIDNEYS: There is interval decrease in size in the right adrenal nodule. This measures 5 x 10 mm axial image 70 series 4 compared to 1.2 x 1.8 cm most recent July 2022 exam. Low-attenuation or cystic mass in the upper pole of the right kidney not appreciably changed in size measuring 2.5 cm. This extends centrally into the right renal collecting system which does not appear appreciably changed. There is still of thrombus in the right renal vein extending into the IVC 11/[address] : THORAX: No tracer avid lung nodule on either side, Previously documented right renal mass as well as local disease extension into the right renal vein and inferior vena cava shows interval improvement on this nondiagnostic noncontrast CT study 08/12 - good response to chemotherapy on initial restaging Chest: Interval decrease in size and number of pulmonary nodules 50% reduction. - Abdomen and pelvis: Interval decrease in right adrenal mass and right renal mass. Interval decrease in right renal vein and IVC thrombus in and enhancement. 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 04/14 CT chest - bilateral multiple pulmonary nodules largest measuring 1.1 cm in the right lower lobe, suspicious for metastatic disease.? Heterogenous enhancement of IVC, questionable for thrombus.? 04/14 Bone scan negative for metastatic disease. Chemotherapy initiated with Dr. Acosta - 06/12 - on combination regimen with cabozantinib and nivolumab Background of immune disease of psoriasis in had been on immune modifying medications PFSH Medical History Renal cancer Incarcerated umbilical hernia (01/09/23) Kidney cancer, primary, with metastasis from kidney to other site Depression Psoriatic arthritis BPH (benign prostatic hyperplasia) Elevated cholesterol HTN (hypertension) Surgical History S/P laparoscopic cholecystectomy History of laparoscopic cholecystectomy (01/09/23) H/O colonoscopy Hx of hernia repair Family History Mother Colon cancer Father Prostate cancer Social History Household Members: Family Housing: House Are you a primary progressive care manager to a significant other at home: No Do you presently have visiting nurse or other home services: No Alcohol intake: former Patient Tobacco Use Status: Former Tobacco user Quit Date: 40 years ago Tobacco use type: Cigarette service: Yes Current occupational status: retired Review of Systems Const Denies chills and Denies fever(s) Card Reports no additional complaints and Denies syncope Resp Denies cough GI Denies abdominal pain and Denies heartburn Reports as per HPI and Denies change in libido Neuro Denies syncope Psych Denies change in libido Endo Denies change in libido Physical Exam Const General: cooperative, healthy appearing, comfortable and no acute distress Orientation/consciousness: patient oriented x3 HEENT Face and sinus: Yes normal facial exam Mouth: moist mucous membranes Neck Neck: Yes normal visual inspection, Yes full ROM and Yes trachea midline Chest Chest palpation & inspection: normal inspection of the chest Resp Effort & Inspection: normal respiratory effort, able to speak in complete sentences and no respiratory distress GI Inspection: Yes normal to inspection Back/Spine/Pelvis Cervical Spine: normal cervical lordosis Thoracic/Lumbar Spine: thoracic and lumbar spine normal to inspection Skin General skin exam: no rashes or lesions noted Neuro General: patient oriented x3, gait normal, tone normal and moves all extremities Extrem General: Yes normal to inspection and Yes capillary refill normal Assessment & Plan Assessment & Plan (1) Renal cancer: Comment: Right upper pole extension into IVC Code(s): C64.9 - Malignant neoplasm of unspecified kidney, except renal pelvis Category: Medical Plan Two month follow-up imaging Orders: Orders CT abdomen wo/w IV con 2 Months C64.9 - Malignant neoplasm of unspecified kidney, except renal pelvis Basic Metabolic Panel 2 Months C64.9 - Malignant neoplasm of unspecified kidney, except renal pelvis, N20.0 - Calculus of kidney CT chest wo IV con 2 Months C64.9 - Malignant neoplasm of unspecified kidney, except renal pelvis Patient Instructions: Imaging studies, laboratory and physical exam results were discussed and reviewed in detail. No major barriers to patient understanding were identified. An opportunity to ask questions regarding the treatment plan was provided. All questions were answered. The patient expressed understanding and agreement with the above treatment plan. The patient is aware they should contact our office by phone for worsening of their current condition or the appearance of new urologic symptoms. Compliance is encouraged with any medications and followup testing that is ordered. It is a privilege to participate in the urologic care of your patient. If you have any questions or concerns regarding treatment for the above conditions, or other urologic issues, please do not hesitate to contact me. The office telephone contact is [phone]. This note is constructed using voice recognition software. While every effort has been made to ensure accuracy hardware supplies sales representative errors may have been included. Yours sincerely, Dr Darius Mccartney MD, [facility] - Urology Providers of Expert, Compassionate Care for the Genitourinary System Coding Level of Care Code Est Pt Level 3 (60836) Complex EM visit Add On G2211 Diagnoses Renal cancer C64.9
== END 2023-07-14 09:36 | disposition home or self-care (01) ==
PROVIDERS: PCP Internal Medicine; Visit Provider Urology
DX: C64.9 Malignant neoplasm of unspecified kidney, except renal pelvis (principal)
CPT/HCPCS: 99213; G2211

== ENCOUNTER → 2023-07-14 08:53 | Outpatient (BNVA) | payer MEDICARE, MEDICAID, SELFPAY | PROVIDERS: PCP Internal Medicine; Visit Provider Urology | DX: C64.9 Malignant neoplasm of unspecified kidney, except renal pelvis (principal) | CPT/HCPCS: 99212 ==

== ENCOUNTER 2023-08-07 09:34 | Outpatient (REF) | payer MEDICARE, MEDICAID, SELFPAY | END 2023-08-07 09:35 | disposition home or self-care (01) | LOC: HO.SH 09:34 | PROVIDERS: Visit Provider Internal Medicine | DX: Z01.118 Encounter for examination of ears and hearing with other abnormal findings (principal); H90.3 Sensorineural hearing loss, bilateral | CPT/HCPCS: 92557 ==

== ENCOUNTER 2023-09-02 08:25 | Outpatient (REF) | payer MEDICARE, SELFPAY ==
[2023-09-02 08:41] LABS: MANUAL DIFF FLAG NO
[2023-09-02 09:13] LABS: Basophils Percent Auto 0.4 % (0-2); Eosinophils Absolute Auto 0.1 X10*3/uL (0.0-0.4); Eosinophils Percent Auto 2.2 % (0-4); Hematocrit 43.2 % (42.0-52.0); Hemoglobin 14.6 g/dl (14.0-18.0); Imm Gran Abs Auto 0.01 X10*3/uL (0.00-0.03); Imm Gran Pct Auto 0.2 % (0.0-0.4); Lymphocytes Absolute Auto 1.5 X10*3/uL (1.2-4.9); Lymphocytes Percent Auto 29.9 % (20-40); Mean Corpuscular HGB Conc 33.8 g/dl (31.0-36.0); Mean Corpuscular Hemoglobin 33.5 pg (27.0-33.0); Mean Corpuscular Volume 99.1 fL (80.0-98.0); Monocytes Absolute Auto 0.5 X10*3/uL (0.1-1.2); Monocytes Percent Auto 9.4 % (2-11); Neutrophils Absolute Auto 2.8 x10*3/uL (2.0-8.3); Neutrophils Percent Auto 57.9 % (45-73); Platelet Count 141 X10*3/uL (160-400); Red Blood Count 4.36 X10*6/uL (4.60-5.80); White Blood Count 4.9 X10*3/uL (4.8-10.8)
[2023-09-02 10:26] LABS: Alanine Aminotransferase 29 U/L (0-40); Albumin Level 4.2 g/dL (3.5-5.0); Alkaline Phosphatase 84 U/L (39-117); Anion Gap 13 (12-20); Aspartate Amino Transferase 25 U/L (5-37); Bilirubin Total 1.5 mg/dL (0.0-1.0); Blood Urea Nitrogen 21 mg/dL (9-16); Calcium 9.2 mg/dL (8.4-10.2); Carbon Dioxide 27 mmol/L (22-29); Chloride 103 mmol/L (96-108); Estimated Glomerular Filt Rate 50; Glucose Random 102 mg/dL (60-115); Potassium 4.1 mmol/L (3.3-5.1); Sodium 139 mmol/L (135-145); Total Protein 7.3 g/dL (6.5-8.0)
== END 2023-09-02 08:26 | disposition home or self-care (01) ==
LOC: HO.LAB 08:25
PROVIDERS: PCP Internal Medicine; Visit Provider Internal Medicine
DX: C64.1 Malignant neoplasm of right kidney, except renal pelvis (principal); E78.00 Pure hypercholesterolemia, unspecified; I10 Essential (primary) hypertension; R63.4 Abnormal weight loss
CPT/HCPCS: 36415; 80053; 85025

== ENCOUNTER 2023-09-12 08:43 | Outpatient (REF) | payer MEDICARE, MEDICAID, SELFPAY ==
--- NOTE | ~2023-09-12 | CT_ITS ---
EXAMINATION: CT CHEST WITHOUT CONTRAST CT ABDOMEN WITH AND WITHOUT CONTRAST CLINICAL INFORMATION: Malignant neoplasm of the kidney, worsening respiratory symptoms. COMPARISON: CT chest 03/02/2023. CT abdomen/pelvis 01/07/2023. TECHNIQUE: Multidetector volumetric imaging was performed of the chest and abdomen without intravenous contrast. Followed by images of the abdomen after the intravenous administration of 85 cc of Omnipaque 350. Sagittal and coronal reformatted images were obtained on the technologist's workstation. This CT examination was performed using dose optimization techniques as appropriate, variously including the following: *Automated exposure control *Adjustment of mA and/or kV according to patient size (this includes techniques or standardized protocols for targeted exams where dose is matched to indication/reason for exam; i.e. extremities or head) *Use of iterative reconstruction technique DLP: 601 mGy-cm FINDINGS: CHEST: Limited noncontrast examination. Lung: No focal consolidation or significant ground-glass disease. Central airways are patent. Multiple bilateral solid pulmonary nodules are increased in size, for example a 0.7 cm nodule in the right lung base (5:338), previously 0.4 cm and a 1 cm nodule in the right lower lobe (5:298), previously 0.7 cm. Mediastinum: Stable cardiomegaly. Unchanged aneurysmal dilatation of the ascending thoracic aorta measuring 4.3 cm in diameter. Severe multivessel coronary artery calcifications. No mediastinal lymphadenopathy. Limited evaluation of the hilar structures in the absence of intravenous contrast. Stable coarse calcification in the right lobe of the thyroid. Pleura: No pleural effusion or pneumothorax. Chest Wall/Axilla: Right-sided chest port tip terminates at the level of the superior cavoatrial junction. No axillary lymphadenopathy. Stable nonaggressive-appearing focal sclerosis on the left lateral third rib (5:88). ABDOMEN: Liver, Gallbladder, Biliary Tree: The liver is normal in size, shape, and attenuation. No focal hepatic lesion or biliary ductal dilatation is present. Cholecystectomy. A previously described collection surrounding surgical clips in the gallbladder fossa is decreased in size now measuring 3.6 x 1.4 cm (3:36), previously 6.9 x 3.9 cm. This collection measures simple fluid in attenuation. Pancreas: Limited noncontrast examination. No main ductal dilatation. No peripancreatic inflammatory changes. Spleen: Unremarkable. Adrenal Glands: The right adrenal gland is not seen, possibly surgically removed. Normal appearance of the left adrenal gland. Kidneys and Ureters: Baseline postoperative examination following total right-sided nephrectomy. There is an intermediate density collection in the postsurgical space abutting the right posterior hepatic surface and paraspinal space measuring 4.2 x 1.9 cm, and up to 40 Hounsfield units (3:56). There are new coarse calcifications associated with endoscopic surgical clips posterior to the inferior vena cava (3:70). There is a flattened 0.7 x 0.2 cm calcification in the anterior interpolar left kidney (3:63), most likely a nonobstructive calculus. Otherwise, normal left kidney. Gastrointestinal Tract: Included portions of the bowel without significant abnormality. No evidence of bowel obstruction. No significant pericolonic inflammatory changes. Abdominal Wall: Tiny fat-containing periumbilical hernia (8:60). Lymphovascular Structures: Stable prominent periportal lymph node measuring 0.9 cm in short axis (3:49). Scattered atherosclerotic disease. Normal caliber of the abdominal aorta. Osseous Structures: No acute or aggressive osseous findings. Degenerative changes of the spine. CT/CT abdomen wo/w IV con IMPRESSION: 1. Increased size of multiple bilateral pulmonary nodules, concerning for metastatic disease. 2. Intermediate density collection in the postsurgical space abutting the right posterior hepatic surface and paraspinal space measuring up to 4.2 cm, possibly representing a hematoma. Recommend clinical correlation and short-term follow-up. 3. New coarse calcifications associated with endoscopic surgical clips posterior to the inferior vena cava, most likely postoperative in etiology. 4. Decreased size of a simple fluid collection in the gallbladder fossa, suggestive of a postoperative seroma. 5. Nonobstructive left renal calculus. 6. Stable aneurysmal dilatation of the ascending thoracic aorta measuring 4.3 cm in diameter. Based on published guidelines in J Am Magi Radiol 2013; 10(10):789-794 and J Vasc Surg. 2018; 67:2-77, the recommendation for an abdominal aortic aneurysm with diameter 4.0-4.4 cm is vascular consultation and subsequent follow-up every 12 months.
[2023-09-12] MEDS: iohexoL 350 MG/ML 100 ML INFUS..BTL 85 ML IV (09:46)
== END 2023-09-12 08:44 | disposition home or self-care (01) ==
LOC: HO.CT 08:43
PROVIDERS: PCP Internal Medicine; Visit Provider Urology
DX: C64.9 Malignant neoplasm of unspecified kidney, except renal pelvis (principal)
CPT/HCPCS: 71250; 74170; Q9967

== ENCOUNTER 2023-09-15 13:00 | Outpatient (AMB) | payer MEDICARE, MEDICAID, SELFPAY ==
--- NOTE | 2023-09-15 12:56 | MHC.OFFVIS ---
Intake Visit Reasons: 2m/CT Intake Note: Patient is Present for 2m Follow Up/CT Urology Medication: Finasteride, Tamsulosin, SILDENAFIL Antibiotic Allergies:None Blood Thinners:None [employer]der Required: No Allergies No Known Allergies [No Known Allergies*] Allergy (Verified 09/15/23 12:57) Medication List - Last Reconciled 09/15/23 by Darius Mccartney MD amlodipine 1 tab PO DAILY cabozantinib (Cabometyx) 20 mg PO DAILY chlorthalidone 1 tab PO DAILY clotrimazole-betamethasone 1-0.05 % 1 appl topical BID 4 weeks diphenhydramine HCl 25 mg PO TID PRN finasteride 1 tab PO DAILY lisinopril 40 mg PO DAILY metoprolol succinate ER 1 tab PO DAILY multivitamin 1 tab PO DAILY rosuvastatin 40 mg PO DAILY sildenafil 50 mg PO 2XW tamsulosin 1 cap PO DAILY HPI Comments Details: Dick is a pleasant male. He is a patient of Dr. Pat. 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 Initial evaluation of imaging normal Six month follow-up repeat imaging 07/13 continues with adjuvant chemotherapy with Dr. Acosta Plan for repeat staging CT chest and abdomen in 2 months Recommend use of binder during activity 05/13 Debulking nephrectomy - after neoadjuvant chemotherapy and down staging Renal cancer restaging 12/12: CT ADRENAL GLANDS AND KIDNEYS: There is interval decrease in size in the right adrenal nodule. This measures 5 x 10 mm axial image 70 series 4 compared to 1.2 x 1.8 cm most recent July 2022 exam. Low-attenuation or cystic mass in the upper pole of the right kidney not appreciably changed in size measuring 2.5 cm. This extends centrally into the right renal collecting system which does not appear appreciably changed. There is still of thrombus in the right renal vein extending into the IVC 11/[address] : THORAX: No tracer avid lung nodule on either side, Previously documented right renal mass as well as local disease extension into the right renal vein and inferior vena cava shows interval improvement on this nondiagnostic noncontrast CT study 08/12 - good response to chemotherapy on initial restaging Chest: Interval decrease in size and number of pulmonary nodules 50% reduction. - Abdomen and pelvis: Interval decrease in right adrenal mass and right renal mass. Interval decrease in right renal vein and IVC thrombus in and enhancement. 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 04/14 CT chest - bilateral multiple pulmonary nodules largest measuring 1.1 cm in the right lower lobe, suspicious for metastatic disease.? Heterogenous enhancement of IVC, questionable for thrombus.? 04/14 Bone scan negative for metastatic disease. Chemotherapy initiated with Dr. Acosta - 06/12 - on combination regimen with cabozantinib and nivolumab Background of immune disease of psoriasis in had been on immune modifying medications PFSH Medical History Renal cancer Incarcerated umbilical hernia (01/09/23) Kidney cancer, primary, with metastasis from kidney to other site Depression Psoriatic arthritis BPH (benign prostatic hyperplasia) Elevated cholesterol HTN (hypertension) Surgical History S/P laparoscopic cholecystectomy History of laparoscopic cholecystectomy (01/09/23) H/O colonoscopy Hx of hernia repair Family History Mother Colon cancer Father Prostate cancer Social History Household Members: Family Housing: House Are you a primary certified social workers in health care to a significant other at home: No Do you presently have visiting nurse or other home services: No Alcohol intake: former Patient Tobacco Use Status: Former Tobacco user Tobacco use type: Cigarette service: Yes Current occupational status: retired Review of Systems Const All systems reviewed & are unremarkable except as noted in HPI and below Reports no additional complaints Resp Reports no additional complaints GI Reports no additional complaints Reports as per HPI Musc Reports no additional complaints Physical Exam Telemedicine evaluation Appropriate responses Regular breathing rate and rhythm HEENT Head: Yes normal to inspection Ears: hearing grossly normal bilaterally Eyes General: appearance normal, both eyes and all related structures Neck Neck: Yes normal visual inspection Chest Chest palpation & inspection: normal inspection of the chest Resp Effort & Inspection: normal respiratory effort and able to speak in complete sentences Telehealth Telehealth Telehealth Platform: [employer] Location of provider rendering services: practice address Location of patient: address on file Patient Identification confirmed using: Name, : Yes Telehealth method: video Patient verbally consented to treatment: Yes Patient verbally consented to billing insurance company: Yes Patient informed of any privacy concerns related to visit: Yes Minutes spent on Phone/Video with Pt.: 15 Assessment & Plan Assessment & Plan (1) Renal cancer: Comment: Right upper pole extension into IVC Code(s): C64.9 - Malignant neoplasm of unspecified kidney, except renal pelvis Category: Medical Plan Six month follow-up repeat imaging Orders: Orders CT abdomen pelvis wo IV con 6 Months C64.9 - Malignant neoplasm of unspecified kidney, except renal pelvis CT chest wo IV con 6 Months C64.9 - Malignant neoplasm of unspecified kidney, except renal pelvis Patient Instructions: Imaging studies, laboratory and physical exam results were discussed and reviewed in detail. No major barriers to patient understanding were identified. An opportunity to ask questions regarding the treatment plan was provided. All questions were answered. The patient expressed understanding and agreement with the above treatment plan. The patient is aware they should contact our office by phone for worsening of their current condition or the appearance of new urologic symptoms. Compliance is encouraged with any medications and followup testing that is ordered. It is a privilege to participate in the urologic care of your patient. If you have any questions or concerns regarding treatment for the above conditions, or other urologic issues, please do not hesitate to contact me. The office telephone contact is [phone]. This note is constructed using voice recognition software. While every effort has been made to ensure accuracy loft rigger errors may have been included. Yours sincerely, Dr Darius Mccartney MD, [facility] - Urology Providers of Expert, Compassionate Care for the Genitourinary System Coding Level of Care Code Tele Est Pt Level 3 (58807) Diagnoses Renal cancer C64.9
== END 2023-09-15 13:41 | disposition home or self-care (01) ==
LOC: HO.HUSH 13:00
PROVIDERS: PCP Internal Medicine; Visit Provider Urology
DX: C64.9 Malignant neoplasm of unspecified kidney, except renal pelvis (principal)
CPT/HCPCS: 99213

== ENCOUNTER → 2023-09-15 13:00 | Outpatient (BNVA) | payer MEDICARE, MEDICAID, SELFPAY | PROVIDERS: PCP Internal Medicine; Visit Provider Urology ==

== ENCOUNTER 2023-09-18 11:36 | Outpatient (AMB) | payer MEDICARE, MEDICAID, SELFPAY ==
[2023-09-18 12:55] VITALS: BP 126/74; PULSE 72; TEMP 36.9; O2SAT 98; BMI 26.1
--- NOTE | 2023-09-18 12:55 | MHC.OFFWIV ---
Intake Vital Signs 09/18/23 12:55 Height 5 ft 9 in Weight 177 lb BMI 26.1 BP 126/74 Blood Pressure Location Lt brachial Position Sitting Pulse 72 Pulse Source Pulse Oximeter Temp 98.4 F Temp Source Oral Pulse Oximetry (%) 98 Oxygen Delivery Method Room Air Intake Visit Reasons: possible pneumonia Intake Note: pt c/o cough and Shortness of breath. Chest tightness. Wheezing. Pt also reports 104.7 fever 09/16, 9:00 PM. Took Tylenol. Started 3 days ago Patient Tobacco Use Status: Former Tobacco user Allergies No Known Allergies [No Known Allergies*] Allergy (Verified 09/18/23 12:55) Medication List - Last Reconciled 09/18/23 by Ximena Ray NP amlodipine 1 tab PO DAILY cabozantinib (Cabometyx) 20 mg PO DAILY chlorthalidone 1 tab PO DAILY clotrimazole-betamethasone 1-0.05 % 1 appl topical BID 4 weeks diphenhydramine HCl 25 mg PO TID PRN finasteride 1 tab PO DAILY lisinopril 40 mg PO DAILY metoprolol succinate ER 1 tab PO DAILY multivitamin 1 tab PO DAILY rosuvastatin 40 mg PO DAILY sildenafil 50 mg PO 2XW tamsulosin 1 cap PO DAILY Do you need a note to return to daycare/school/sports/work: No HPI possible pneumonia HPI Details This note is constructed using voice recognition software. While every effort has been made to ensure accuracy, remnant sorter errors may have been included. The patient is a 63 year old male who presents to the clinic today with personal concern for pneumonia with his . He notes that he is being treated for kidney cancer, with Mets to the lung. He started symptoms a week and a half ago with a cough which seems to have progressed. On Monday he developed a fever, which continues daily. He has been treating with acetaminophen to help the fever. He is having a cough that is nonproductive, no shortness of breath beyond his normal baseline. His has been testing him for COVID at home and it has remained largely negative. He continues to visit friends that are sick and in the hospital but has had no known sick contacts. His has had no symptoms the entire time. COUNT INCLUDES THE [facility] Medical History Renal cancer Incarcerated umbilical hernia (01/09/23) Kidney cancer, primary, with metastasis from kidney to other site Depression Psoriatic arthritis BPH (benign prostatic hyperplasia) Elevated cholesterol HTN (hypertension) Surgical History S/P laparoscopic cholecystectomy History of laparoscopic cholecystectomy (01/09/23) H/O colonoscopy Hx of hernia repair Family History Mother Colon cancer Father Prostate cancer Social History Household Members: Family Housing: House Are you a primary nurse wound care to a significant other at home: No Do you presently have visiting nurse or other home services: No Alcohol intake: former Patient Tobacco Use Status: Former Tobacco user Tobacco use type: Cigarette service: Yes Current occupational status: retired Review of Systems Const All systems reviewed & are unremarkable except as noted in HPI and below Physical Exam Vital Signs: Last Vital Signs Temp 98.4 F 09/18/23 12:55 Pulse 72 09/18/23 12:55 BP 126/74 09/18/23 12:55 Pulse Ox 98 09/18/23 12:55 Oxygen Delivery Method Room Air 09/18/23 12:55 BMI result Body Mass Index 26.1 Const General: cooperative, healthy appearing, comfortable and no acute distress Orientation/consciousness: patient oriented x3 Limitations: no limitations HEENT Head: Yes normal to inspection Ears: hearing grossly normal bilaterally, external ears normal and TM's normal bilaterally General nose exam: Normal external nose present, Normal nares present and No nasal discharge present Face and sinus: Yes normal facial exam and Yes sinuses nontender Mouth: Normal oral and palatal mucosa present and moist mucous membranes Throat: Yes posterior oropharynx normal, Yes tonsils normal and Yes uvula midline Eyes General: appearance normal, both eyes and all related structures Neck Neck: Yes normal visual inspection Resp Effort & Inspection: normal respiratory effort, able to speak in complete sentences, Actively coughing, no respiratory distress, not tachypneic, no tripod positioning and no use of accessory muscles Auscultation: clear to auscultation bilaterally Cardio Jugular venous distension: no JVD Rate: regular rate Rhythm: regular rhythm Heart sounds: S1 normal heart sound present, S2 normal heart sound present, no click, no gallops, no murmurs and no rubs Skin General skin exam: no rashes or lesions noted, elasticity normal and turgor normal Neuro General: patient oriented x3 Extrem General: Yes normal to inspection and Yes no clubbing, cyanosis or edema Assessment & Plan Assessment & Plan (1) URI (upper respiratory infection): Code(s): J06.9 - Acute upper respiratory infection, unspecified Qualifiers: URI type: unspecified URI Qualified Code(s): J06.9 - Acute upper respiratory infection, unspecified Plan: Etiology unclear, viral swab obtained today to rule out influenza, COVID, RSV. Additionally given long-term symptoms and high fevers chest x-ray obtained today to rule out pneumonia though based on physical examination alone today source is not obvious. Initial wet read of chest x-ray not revealing of pneumonia, will await official Radiology read. Plan See above for full details and plan. Orders: Orders SARS-CoV2/FLU/RSV Today J06.9 - Acute upper respiratory infection, unspecified XR chest 2V Today J06.9 - Acute upper respiratory infection, unspecified Coding Level of Care Code Est Pt Level 4 (96477) Diagnoses Upper respiratory tract infection, unspecified type J06.9 URI type: unspecified URI
== END 2023-09-18 13:46 | disposition home or self-care (01) ==
PROVIDERS: PCP Internal Medicine; Visit Provider Registered Nurse
DX: J06.9 Acute upper respiratory infection, unspecified (principal)
CPT/HCPCS: 99214

== ENCOUNTER 2023-09-18 13:09 | Outpatient (REF) | payer MEDICARE, MEDICAID, SELFPAY ==
[2023-09-18 17:44] LABS: Influenza A PCR NEGATIVE (Negative); Influenza B PCR NEGATIVE (Negative); Resp Syncy Virus RNA Qual PCR NEGATIVE (Negative); SARS COV2 PCR INHOUSE NEGATIVE (Negative)
== END 2023-09-18 13:10 | disposition home or self-care (01) ==
LOC: HO.LNP 13:09
PROVIDERS: Visit Provider Registered Nurse
DX: J06.9 Acute upper respiratory infection, unspecified (principal)
CPT/HCPCS: 0241U; 71046

== ENCOUNTER 2023-09-18 13:26 | Outpatient (REF) | payer MEDICARE, MEDICAID, SELFPAY ==
--- NOTE | ~2023-09-18 | XR_ITS ---
EXAMINATION: XR CHEST CLINICAL INFORMATION: Acute upper respiratory infection, unspecified COMPARISON: Chest radiograph 02/27/2018, chest CT 09/12/2023 TECHNIQUE: 2 views of the chest were obtained. FINDINGS: Known pulmonary nodules such as seen in the right lateral lung base. No focal consolidation, interstitial pulmonary edema or pneumothorax. The cardiomediastinal silhouette is within normal limits. There are no pleural effusions. The tip of a right subclavian Port-A-Cath is in the distal superior vena cava. No acute osseous abnormality. XR/XR chest 2V IMPRESSION: No acute cardiopulmonary disease.
== END 2023-09-18 13:27 | disposition home or self-care (01) ==
LOC: HO.HMGCX 13:26
PROVIDERS: PCP Internal Medicine; Visit Provider Registered Nurse
DX: Z13.89 Encounter for screening for other disorder (principal)
CPT/HCPCS: 71046

== ENCOUNTER 2023-10-10 08:46 | Outpatient (AMB) | payer MEDICARE, MEDICAID, SELFPAY ==
--- NOTE | 2023-10-10 08:53 | MHC.OFFVIS ---
Intake Visit Reasons: Cystoscopy/Hematuria(Per Dave) Intake Note: Patient is Present for Cystoscopy Urology Med: Tamsulosin, Finasteride Antibiotic Allergy:None Blood Thinner: None stopped Chemotherapy due to hematuria. Patient was triage by Nurse and ER was recommended but patient refused at that time. Patient today states that there is no more blood in his urine but does state that he is having a lot of pelvic pain. URO- G Disposable Cystoscope lot:[id number] exp:04/06/26 Supervisor Filling And Packing Required: No Bulk Pallet Builder: Bulk Pallet Builder Present Accompanied by: Spouse Allergies No Known Allergies [No Known Allergies*] Allergy (Verified 09/18/23 12:55) HPI Comments Details: Dick is a pleasant male. He is a patient of Dr. Pat. 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 - has autoimmune disease with psoriatic arthritis Cystoscopy shows neoadjuvant vessels around the bladder neck. No lesions within the bladder. 09/12 recent imaging with known positive nodularity. Initial evaluation of imaging normal Six month follow-up repeat imaging 07/13 continues with adjuvant chemotherapy with Dr. Acosta Plan for repeat staging CT chest and abdomen in 2 months Recommend use of binder during activity 05/13 Debulking nephrectomy - after neoadjuvant chemotherapy and down staging Renal cancer restaging 12/12: CT ADRENAL GLANDS AND KIDNEYS: There is interval decrease in size in the right adrenal nodule. This measures 5 x 10 mm axial image 70 series 4 compared to 1.2 x 1.8 cm most recent July 2022 exam. Low-attenuation or cystic mass in the upper pole of the right kidney not appreciably changed in size measuring 2.5 cm. This extends centrally into the right renal collecting system which does not appear appreciably changed. There is still of thrombus in the right renal vein extending into the IVC 11/[address] : THORAX: No tracer avid lung nodule on either side, Previously documented right renal mass as well as local disease extension into the right renal vein and inferior vena cava shows interval improvement on this nondiagnostic noncontrast CT study 08/12 - good response to chemotherapy on initial restaging Chest: Interval decrease in size and number of pulmonary nodules 50% reduction. - Abdomen and pelvis: Interval decrease in right adrenal mass and right renal mass. Interval decrease in right renal vein and IVC thrombus in and enhancement. 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 04/14 CT chest - bilateral multiple pulmonary nodules largest measuring 1.1 cm in the right lower lobe, suspicious for metastatic disease.? Heterogenous enhancement of IVC, questionable for thrombus.? 04/14 Bone scan negative for metastatic disease. Chemotherapy initiated with Dr. Acosta - 06/12 - on combination regimen with cabozantinib and nivolumab Background of immune disease of psoriasis in had been on immune modifying medications PFSH Medical History Renal cancer Incarcerated umbilical hernia (01/09/23) Kidney cancer, primary, with metastasis from kidney to other site Depression Psoriatic arthritis BPH (benign prostatic hyperplasia) Elevated cholesterol HTN (hypertension) Surgical History S/P laparoscopic cholecystectomy History of laparoscopic cholecystectomy (01/09/23) H/O colonoscopy Hx of hernia repair Family History Mother Colon cancer Father Prostate cancer Social History Household Members: Family Housing: House Are you a primary managed care coordinator to a significant other at home: No Do you presently have visiting nurse or other home services: No Alcohol intake: former Patient Tobacco Use Status: Former Tobacco user Tobacco use type: Cigarette service: Yes Current occupational status: retired Review of Systems Const Denies chills and Denies fever(s) Card Reports no additional complaints and Denies syncope Resp Denies cough GI Denies abdominal pain and Denies heartburn Reports as per HPI and Denies change in libido Neuro Denies syncope Psych Denies change in libido Endo Denies change in libido Physical Exam Const General: cooperative, healthy appearing, comfortable and no acute distress Orientation/consciousness: patient oriented x3 HEENT Face and sinus: Yes normal facial exam Mouth: moist mucous membranes Neck Neck: Yes normal visual inspection, Yes full ROM and Yes trachea midline Chest Chest palpation & inspection: normal inspection of the chest Resp Effort & Inspection: normal respiratory effort, able to speak in complete sentences and no respiratory distress GI Inspection: Yes normal to inspection Back/Spine/Pelvis Cervical Spine: normal cervical lordosis Thoracic/Lumbar Spine: thoracic and lumbar spine normal to inspection Skin General skin exam: no rashes or lesions noted Neuro General: patient oriented x3, gait normal, tone normal and moves all extremities Extrem General: Yes normal to inspection and Yes capillary refill normal Office Procedures Cystoscopy Consent Discussed risk and benefit or proposed procedure with the patient. Information consent for procedure given to the patient. Discussed technical aspects, risks, benefits and alternatives in full. Addressed all of the patient's questions and concerns regarding the procedure. The patient demonstrated knowledge and understanding. They wish to proceed with this procedure. Preparation The patient was prepped in the usual manner. A tufting machine operator single needle was present and in the room. Genitalia was prepped with betadine solution in a sterile manner. Lidocaine Jelly 2% was placed into the urethra and 16Fr flexible Olympus cystoscope was inserted into the meatus after adequate lubrication. Procedure Cystoscopy performed using a disposable Urovue digital 16 Yi cystoscope. Meatus normal position Urethra entering posterior urethra normal Prostatic Urethra unremarkable with neoadjuvant vessels around bladder neck Bladder examination with retroflexion of cystoscope Bladder Orifices normal shape and position Bladder Capacity medium Trabeculations grade 1 Cellule Formation Diverticulum Formation - Mucosal Erythema mucosal erythema diffuse, patchy, mild, moderate, marked Bladder Tumor - 90566-[id number] DISPOSABLE SCOPE URO-G FLEXIBLE SCOPE Procedure code (CPT) selection complete Office Meds lidocaine HCl 2 % mucosal jelly in applicator Performing Provider: Darius Mccartney MD Performing Location: [facility] [place] [facility] Administered by: Christiano Thorpe LPN on 10/10/23 09:23 Dose Route Admin Location Dispensed Lot Number Expiration Date [facility] Transitional Care Nurse 10 mL intra-urethral 10 mL nitrofurantoin monohydrate/macrocrystals 100 mg capsule Performing Provider: Darius Mccartney MD Performing Location: [facility] [place] [facility] Administered by: Christiano Thorpe LPN on 10/10/23 09:23 Dose Route Admin Location Dispensed Lot Number Expiration Date [facility] Transitional Care Nurse 100 mg PO 1 cap naproxen 500 mg tablet Performing Provider: Darius Mccartney MD Performing Location: [facility] [place] [facility] Administered by: Christiano Thorpe LPN on 10/10/23 09:23 Dose Route Admin Location Dispensed Lot Number Expiration Date [facility] Transitional Care Nurse 500 mg PO 1 tab Results AMB Urinalysis, Automated UA Leukoctes 0 Diane/uL Last Edit by UMBERTO Hou on 10/10/23 09:06 UA Nitrite Negative Last Edit by Enedelia Gaona Linda on 10/10/23 09:06 UA Urobilinogen 0.2 mg/dL Last Edit by Enedelia Gaona A on 10/10/23 09:06 UA Protein 30 mg/dL Last Edit by Enedelia Gaona Linda on 10/10/23 09:06 UA pH 6.0 Last Edit by Enedelia Gaona Linda on 10/10/23 09:06 UA Blood 0 Prabhjot/uL Last Edit by Enedelia Gaona [facility] on 10/10/23 09:06 UA Specific [place] 1.015 Last Edit by UMBERTO Hou on 10/10/23 09:06 UA Ketone Negative Last Edit by ANN HouA on 10/10/23 09:06 UA Bilirubin 0 mg/dL Last Edit by Enedelia Gaona Linda on 10/10/23 09:06 UA Glucose 0 mg/dL Last Edit by Enedelia Gaona [facility] on 10/10/23 09:06 Results Reviewed Results Reviewed: Laboratory Last Values Urine pH (Auto) 6.0 10/10/23 08:58 Specific [place] (Auto) 1.015 10/10/23 08:58 Urine Protein (Auto) 30 mg/dL 10/10/23 08:58 Glucose (UA)(Auto) 0 mg/dL 10/10/23 08:58 Urine Ketones (Auto) Negative 10/10/23 08:58 Urine Blood (Auto) 0 Prabhjot/uL 10/10/23 08:58 Urine Nitrite (Auto) Negative 10/10/23 08:58 Urine Bilirubin (Auto) 0 mg/dL 10/10/23 08:58 Urine Urobilinogen (Auto) 0.2 mg/dL 10/10/23 08:58 Leukocyte Esterase (Auto) 0 Diane/uL 10/10/23 08:58 Assessment & Plan Assessment & Plan (1) Renal cancer: Comment: Right upper pole extension into IVC Code(s): C64.9 - Malignant neoplasm of unspecified kidney, except renal pelvis Category: Medical (2) Hematuria: Code(s): R31.9 - Hematuria, unspecified Category: Medical Plan Six-month follow-up imaging Orders: Orders AMB Urinalysis Automated Today Z13.9 - Encounter for screening, unspecified AMB Cystoscopy Today R31.9 - Hematuria, unspecified Patient Instructions: Imaging studies, laboratory and physical exam results were discussed and reviewed in detail. No major barriers to patient understanding were identified. An opportunity to ask questions regarding the treatment plan was provided. All questions were answered. The patient expressed understanding and agreement with the above treatment plan. The patient is aware they should contact our office by phone for worsening of their current condition or the appearance of new urologic symptoms. Compliance is encouraged with any medications and followup testing that is ordered. It is a privilege to participate in the urologic care of your patient. If you have any questions or concerns regarding treatment for the above conditions, or other urologic issues, please do not hesitate to contact me. The office telephone contact is [phone]. This note is constructed using voice recognition software. While every effort has been made to ensure accuracy r d internship errors may have been included. Yours sincerely, Dr Darius Mccartney MD, [facility] - Urology Providers of Expert, Compassionate Care for the Genitourinary System Coding Level of Care Code Est Pt Level 3 (56415) Diagnoses Renal cancer C64.9 Hematuria R31.9 CPT Codes Cystoscopy - CPT: 23242-[id number] ([id number])
== END 2023-10-10 10:22 | disposition home or self-care (01) ==
PROVIDERS: PCP Internal Medicine; Visit Provider Urology
DX: C64.9 Malignant neoplasm of unspecified kidney, except renal pelvis (principal); R31.9 Hematuria, unspecified; Z13.9 Encounter for screening, unspecified
CPT/HCPCS: 52000; 99213

== ENCOUNTER → 2023-10-10 08:46 | Outpatient (BNVA) | payer MEDICARE, MEDICAID, SELFPAY | PROVIDERS: PCP Internal Medicine; Visit Provider Urology | DX: R31.9 Hematuria, unspecified (principal); C64.1 Malignant neoplasm of right kidney, except renal pelvis | CPT/HCPCS: 52000; 81003; 99212 ==

== ENCOUNTER 2023-12-26 08:46 | Outpatient (REF) | payer MEDICARE, OTHER, SELFPAY ==
[2023-12-26 09:29] LABS: MANUAL DIFF FLAG NO
[2023-12-26 09:32] LABS: Basophils Percent Auto 0.3 % (0-2); Eosinophils Absolute Auto 0.1 X10*3/uL (0.0-0.4); Eosinophils Percent Auto 0.8 % (0-4); Hematocrit 41.8 % (42.0-52.0); Imm Gran Abs Auto 0.01 X10*3/uL (0.00-0.03); Imm Gran Pct Auto 0.2 % (0.0-0.4); Lymphocytes Percent Auto 30.2 % (20-40); Mean Corpuscular HGB Conc 35.9 g/dl (31.0-36.0); Mean Corpuscular Volume 100.2 fL (80.0-98.0); Mean Platelet Volume 11.2 fL (9.4-12.4); Monocytes Absolute Auto 0.7 X10*3/uL (0.1-1.2); Monocytes Percent Auto 10.6 % (2-11); Neutrophils Absolute Auto 3.8 x10*3/uL (2.0-8.3); Neutrophils Percent Auto 57.9 % (45-73); Platelet Count 155 X10*3/uL (160-400); Red Blood Count 4.17 X10*6/uL (4.60-5.80); Red Cell Distribution Width 14.2 % (11.0-16.0); White Blood Count 6.5 X10*3/uL (4.8-10.8)
[2023-12-26 09:54] LABS: Alanine Aminotransferase 56 U/L (0-40); Albumin Level 4.1 g/dL (3.5-5.0); Alkaline Phosphatase 88 U/L (39-117); Anion Gap 10 (12-20); Aspartate Amino Transferase 46 U/L (5-37); Blood Urea Nitrogen 13 mg/dL (9-16); Calcium 9.3 mg/dL (8.4-10.2); Carbon Dioxide 29 mmol/L (22-29); Chloride 104 mmol/L (96-108); Cholesterol 190 mg/dL (<200); Estimated Glomerular Filt Rate 46; Glucose Random 103 mg/dL (60-115); HDL Cholesterol 41 mg/dL (>40); LDL Cholesterol Calculated 101 mg/dL (<100); Potassium 4.3 mmol/L (3.3-5.1); Sodium 139 mmol/L (135-145); Total Protein 7.2 g/dL (6.5-8.0); Triglycerides 241 mg/dL (<150)
[2023-12-26 10:16] LABS: Vitamin B12 701 pg/mL (200-900)
[2023-12-26 10:35] LABS: Bilirubin Total 1.1 mg/dL (0.0-1.0); Thyroid Stimulating Hormone 1.33 uIU/mL (0.32-4.0)
[2023-12-26 13:10] LABS: Creatinine Urine 359.64 mg/dL; Microalbum/Creatinine Ratio Ur 22.8 ug/mg cr (<30)
== END 2023-12-26 08:47 | disposition home or self-care (01) ==
LOC: HO.LAB 08:46
PROVIDERS: Absent Provider Internal Medicine; PCP Internal Medicine; Visit Provider Internal Medicine
DX: Z00.00 Encounter for general adult medical examination without abnormal findings (principal); C64.9 Malignant neoplasm of unspecified kidney, except renal pelvis; E78.2 Mixed hyperlipidemia; I10 Essential (primary) hypertension; N40.1 Benign prostatic hyperplasia with lower urinary tract symptoms
CPT/HCPCS: 36415; 80053; 80061; 82043; 82570; 82607; 84443; 85025

== ENCOUNTER 2024-01-09 10:40 | Outpatient (REF) | payer MEDICARE, OTHER, SELFPAY ==
--- NOTE | ~2024-01-09 | PE_ITS ---
EXAMINATION: Fluorine-18 FDG PET/CT Scan CLINICAL INDICATION: Subsequent treatment management. Malignant neoplasm right kidney, assess response to treatment. PROCEDURE: 66 minutes following the intravenous administration of 19.2 mCi of fluorine 18 FDG, images from the base of the skull to the mid thighs were obtained using a combined PET/CT scanner with CT scan based attenuation correction. No oral contrast was administered. No intravenous contrast was administered. Transverse, coronal, sagittal, and volume reconstruction projections were obtained. The patient's blood glucose as determined by a finger stick, was 107 mg/dl immediately prior to injection. Total CT exam dose-length product 762.90 mGy-cm * These CT images were obtained using dose optimization techniques as appropriate, variously including the following: Automated exposure control * Adjustment of mA and/or kV according to patient size (this includes techniques or standardized protocols for targeted exams where dose is matched to indication/reason for exam; i.e. extremities or head) * Use of iterative reconstruction technique COMPARISON: The previous PET/CT scan dated 11/08/2022 is available for comparison. The diagnostic CT scan of the chest, abdomen, and pelvis, dated 09/12/2023, is available for comparison. FINDINGS: (Slice numbers described in this report are numbered superiorly to inferiorly with slice #1 in the head) NECK AND VISUALIZED HEAD: No foci of abnormal FDG activity are noted. The distribution of FDG activity is physiological. There is no cervical lymphadenopathy. THORAX: There is a 0.9 x 0.5 cm nodule visualized laterally in the right lower lobe, slice 109/349, too small to be characterized on the FDG PET images. This appeared larger and better delineated on the 09/12/[address] scan. Additional nodules visualized on 09/12/2023 are not definitely apparent on these nondiagnostic CT images. There are no foci of abnormal FDG activity in the chest there is no mediastinal, supraclavicular, or axillary lymphadenopathy. There is no pleural or pericardial fluid, or pneumothorax. A right-sided chest port with internal jugular catheter terminating in the superior vena cava is noted. ABDOMEN AND PELVIS: There is FDG activity of varying intensities present throughout the gastrointestinal tract without a suspicious focal component. This is most prominent in the right colon but no corresponding CT abnormalities are present. There is diverticulosis without evidence of diverticulitis. The hollow viscera are otherwise unremarkable. The liver and spleen are unremarkable. The gallbladder has been resected since the 2022 prior PET/CT scan and there are metallic surgical clips in the gallbladder bed. The right kidney has also been resected since the 11/08/2022 PET/CT scan and there are metallic surgical clips in the right renal bed. The left kidney there is a 0.6 x 0.3 cm calcification that is unchanged from prior studies and likely represents a nonobstructing calculus. Left kidney is otherwise unremarkable. The right adrenal gland is not visualized, and presumed resected. It appeared unremarkable on the 11/08/2022 PET/CT scan.. The left adrenal gland appears unremarkable. The pancreas is unremarkable. The prostate is enlarged measuring 5.2 cm in largest transverse dimension. There is no abnormal FDG activity in the prostate. The pelvic organs are otherwise unremarkable. There is no retroperitoneal, mesenteric, pelvic or inguinal lymphadenopathy. MUSCULOSKELETAL: There are no foci of abnormal FDG activity in the osseous structures. There are degenerative changes in the spine which are most severe in the mid and lower thoracic spine. No suspicious sclerotic or lytic lesions are visualized. VASCULAR: Vascular calcifications including coronary are noted. Reference SUVmax Levels: Mediastinal Blood Pool: 2.6, Slice 69/267 Liver: 4.8, Slice 101/267 PET/PET CT fusion skull to thigh IMPRESSION: 1. No abnormalities suspicious for metastatic or recurrent malignancy are present. 2. Since the prior PET/CT scan dated 11/08/2022, the right kidney, right adrenal, and gallbladder have been resected. 3. Nonobstructing subcentimeter left nephrolithiasis. 4. Prostatomegaly. 5. Vascular calcifications including coronary. Electronically signed by: Cale Fernandez MD 01/10/2024 10:09 AM JERAMIE
== END 2024-01-09 10:41 | disposition home or self-care (01) ==
LOC: HO.PET 10:40
PROVIDERS: PCP Internal Medicine; Visit Provider Internal Medicine
DX: Z13.89 Encounter for screening for other disorder (principal)

== ENCOUNTER 2024-01-09 12:44 | Outpatient (REF) | payer MEDICARE, OTHER, SELFPAY ==
[2024-01-09 12:54] LABS: MANUAL DIFF FLAG NO
[2024-01-09 12:58] LABS: Basophils Percent Auto 0.5 % (0-2); Eosinophils Absolute Auto 0.1 X10*3/uL (0.0-0.4); Eosinophils Percent Auto 1.3 % (0-4); Hematocrit 42.9 % (42.0-52.0); Hemoglobin 15.3 g/dl (14.0-18.0); Imm Gran Abs Auto 0.01 X10*3/uL (0.00-0.03); Imm Gran Pct Auto 0.2 % (0.0-0.4); Lymphocytes Absolute Auto 1.7 X10*3/uL (1.2-4.9); Lymphocytes Percent Auto 30.4 % (20-40); Mean Corpuscular HGB Conc 35.7 g/dl (31.0-36.0); Mean Corpuscular Hemoglobin 35.8 pg (27.0-33.0); Mean Corpuscular Volume 100.5 fL (80.0-98.0); Mean Platelet Volume 10.9 fL (9.4-12.4); Monocytes Absolute Auto 0.5 X10*3/uL (0.1-1.2); Monocytes Percent Auto 8.2 % (2-11); Neutrophils Absolute Auto 3.3 x10*3/uL (2.0-8.3); Neutrophils Percent Auto 59.4 % (45-73); Platelet Count 154 X10*3/uL (160-400); Red Blood Count 4.27 X10*6/uL (4.60-5.80); Red Cell Distribution Width 14.6 % (11.0-16.0); White Blood Count 5.5 X10*3/uL (4.8-10.8)
[2024-01-09 13:19] LABS: Alanine Aminotransferase 56 U/L (0-40); Albumin Level 4.2 g/dL (3.5-5.0); Anion Gap 12 (12-20); Aspartate Amino Transferase 53 U/L (5-37); Bilirubin Total 1.1 mg/dL (0.0-1.0); Blood Urea Nitrogen 12 mg/dL (9-16); Calcium 9.2 mg/dL (8.4-10.2); Carbon Dioxide 26 mmol/L (22-29); Chloride 106 mmol/L (96-108); Estimated Glomerular Filt Rate 54; Glucose Random 99 mg/dL (60-115); Potassium 4.3 mmol/L (3.3-5.1); Sodium 140 mmol/L (135-145); Total Protein 7.3 g/dL (6.5-8.0)
[2024-01-09 13:27] LABS: Alkaline Phosphatase 94 U/L (39-117)
[2024-01-09 13:33] LABS: Thyroid Stimulating Hormone 2.38 uIU/mL (0.32-4.0)
== END 2024-01-09 12:45 | disposition home or self-care (01) ==
LOC: HO.LAB 12:44
PROVIDERS: PCP Internal Medicine; Visit Provider Internal Medicine
DX: C64.9 Malignant neoplasm of unspecified kidney, except renal pelvis (principal)
CPT/HCPCS: 36415; 80053; 84443; 85025

== ENCOUNTER 2024-03-11 08:38 | Outpatient (REF) | payer MEDICARE, SELFPAY ==
--- NOTE | ~2024-03-11 | CT_ITS ---
CLINICAL HISTORY: C64.9 - Malignant neoplasm of unspecified kidney, except renal pelvis CT chest without contrast Comparison: 09/12/2023 Findings: Right-sided Port-A-Cath with distal tip in the cavoatrial junction. Coronary artery calcifications. No cardiomegaly. Ectatic ascending thoracic aorta measuring up to 41 mm in AP dimension versus 42 mm previously No evidence of enlarged lymphadenopathy. Four right lower lobe along with a single right perifissural nodules. The largest right lower lobe nodule measures 11 x 7 mm versus 9 x 7 mm previously. Of the 2 smaller right lower lobe nodules, the smaller 1 measures up to 4 mm (series 604, image 221 ) versus 1 mm previously, while the larger 1 measures up 8 mm versus 7 mm previously. Perifissural right-sided nodule measures up to 3 mm as before. No definite evidence of new lung nodule. Multilevel ossification of the anterior longitudinal ligament. No suspicious bony lesion seen. For the upper abdominal findings please refer to the same-day abdomen CT report. IMPRESSION: 1. Small number of right-sided lung nodules, 1 or 2 of which have mildly increased in size from the prior exam. No new lung nodule identified. This document has been electronically signed by: Larissa Bhandari MD on 03/11/2024 11:33:48
--- NOTE | ~2024-03-11 | CT_ITS ---
CLINICAL HISTORY: C64.9 - Malignant neoplasm of unspecified kidney, except renal pelvis CT abdomen and pelvis without contrast Comparison: 09/12/2023 Findings: For the lower lung findings please refer to the same-day chest CT report. Cholecystectomy and right nephrectomy/adrenalectomy are redemonstrated. 16 x 10 mm (versus 12 x 32 mm previously ) postoperative right posterior perihepatic fluid collection is less conspicuous than the prior exam. Small calcified hepatic granuloma. Nonobstructive small left renal stone. No bowel obstruction, pneumoperitoneum, or pneumatosis. Small uncomplicated fat containing umbilical and left inguinal hernias. Focal ectasia of the infrarenal abdominal aorta measuring up to 25 mm in AP dimension as before. Enlarged prostate measuring 51 mm in width. Normal appendix. No evidence of enlarged lymphadenopathy. Rest of the abdominopelvic viscera are unremarkable. Small nonprogressive sclerotic focus within the right aspect of the sacrum as before. IMPRESSION: No evidence of new or progressive disease in the abdomen and pelvis. This document has been electronically signed by: Larissa Bhandari MD on 03/11/2024 11:46:33
== END 2024-03-11 08:39 | disposition home or self-care (01) ==
LOC: HO.CT 08:38
PROVIDERS: PCP Internal Medicine; Visit Provider Urology
DX: C64.9 Malignant neoplasm of unspecified kidney, except renal pelvis (principal)
CPT/HCPCS: 71250; 74176

== ENCOUNTER → 2024-03-11 08:40 | Outpatient (BNV) | payer MEDICARE, SELFPAY | PROVIDERS: PCP Internal Medicine; Visit Provider Radiology Diagnostic Radiology | DX: C64.9 Malignant neoplasm of unspecified kidney, except renal pelvis (principal); R91.1 Solitary pulmonary nodule | CPT/HCPCS: 71250; 74176 ==

== ENCOUNTER 2024-03-15 15:52 | Outpatient (AMB) | payer MEDICARE, SELFPAY ==
--- NOTE | 2024-03-15 15:55 | MHC.OFFVIS ---
Intake Visit Reasons: 6m/CT(set) Intake Note: Patient is present for 6M/CT Urology Medication:TAMSULOSIN,FINASTERIDE,SILDENAFIL Antibiotic Allergy:NONE Blood Thinner:NONE Stock Control Clerk Required: No Allergies No Known Allergies [No Known Allergies*] Allergy (Verified 05/03/24 09:21) HPI Comments Details: Dick is a pleasant male. He is a patient of Dr. Pat. 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 - has autoimmune disease with psoriatic arthritis Cystoscopy shows neoadjuvant vessels around the bladder neck. No lesions within the bladder. 09/12 recent imaging with known positive nodularity. Initial evaluation of imaging normal Six month follow-up repeat imaging 07/13 continues with adjuvant chemotherapy with Dr. Acosta Plan for repeat staging CT chest and abdomen in 2 months Recommend use of binder during activity 05/13 Debulking nephrectomy - after neoadjuvant chemotherapy and down staging Renal cancer restaging 12/12: CT ADRENAL GLANDS AND KIDNEYS: There is interval decrease in size in the right adrenal nodule. This measures 5 x 10 mm axial image 70 series 4 compared to 1.2 x 1.8 cm most recent July 2022 exam. Low-attenuation or cystic mass in the upper pole of the right kidney not appreciably changed in size measuring 2.5 cm. This extends centrally into the right renal collecting system which does not appear appreciably changed. There is still of thrombus in the right renal vein extending into the IVC 11/[address] : THORAX: No tracer avid lung nodule on either side, Previously documented right renal mass as well as local disease extension into the right renal vein and inferior vena cava shows interval improvement on this nondiagnostic noncontrast CT study 08/12 - good response to chemotherapy on initial restaging Chest: Interval decrease in size and number of pulmonary nodules 50% reduction. - Abdomen and pelvis: Interval decrease in right adrenal mass and right renal mass. Interval decrease in right renal vein and IVC thrombus in and enhancement. 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 04/14 CT chest - bilateral multiple pulmonary nodules largest measuring 1.1 cm in the right lower lobe, suspicious for metastatic disease.? Heterogenous enhancement of IVC, questionable for thrombus.? 04/14 Bone scan negative for metastatic disease. Chemotherapy initiated with Dr. Acosta - 06/12 - on combination regimen with cabozantinib and nivolumab Background of immune disease of psoriasis in had been on immune modifying medications [facility] Medical History (Updated 05/07/24 @ 09:58 by Darius Mccartney MD) Kidney cancer, primary, with metastasis from kidney to other site Renal cancer Incarcerated umbilical hernia (01/09/23) Depression Psoriatic arthritis BPH (benign prostatic hyperplasia) Elevated cholesterol HTN (hypertension) Surgical History S/P laparoscopic cholecystectomy History of laparoscopic cholecystectomy (01/09/23) H/O colonoscopy Hx of hernia repair Family History Mother Colon cancer Father Prostate cancer Social History Household Members: Family Housing: House Are you a primary vocational childcare teacher to a significant other at home: No Do you presently have visiting nurse or other home services: No Alcohol intake: former Patient Tobacco Use Status: Former Tobacco user Tobacco use type: Cigarette service: Yes Current occupational status: retired Review of Systems Const Denies chills and Denies fever(s) Card Reports no additional complaints and Denies syncope Resp Denies cough GI Denies abdominal pain and Denies heartburn Reports as per HPI and Denies change in libido Neuro Denies syncope Psych Denies change in libido Endo Denies change in libido Physical Exam Const General: cooperative, healthy appearing, comfortable and no acute distress Orientation/consciousness: patient oriented x3 HEENT Face and sinus: Yes normal facial exam Mouth: moist mucous membranes Neck Neck: Yes normal visual inspection, Yes full ROM and Yes trachea midline Chest Chest palpation & inspection: normal inspection of the chest Resp Effort & Inspection: normal respiratory effort, able to speak in complete sentences and no respiratory distress GI Inspection: Yes normal to inspection Back/Spine/Pelvis Cervical Spine: normal cervical lordosis Thoracic/Lumbar Spine: thoracic and lumbar spine normal to inspection Skin General skin exam: no rashes or lesions noted Neuro General: patient oriented x3, gait normal, tone normal and moves all extremities Extrem General: Yes normal to inspection and Yes capillary refill normal Assessment & Plan Assessment & Plan (1) Renal cancer: Comment: Right upper pole extension into IVC Code(s): C64.9 - Malignant neoplasm of unspecified kidney, except renal pelvis Category: Medical (2) Kidney cancer, primary, with metastasis from kidney to other site: Code(s): C64.9 - Malignant neoplasm of unspecified kidney, except renal pelvis Category: Medical Plan six-month follow-up Patient Instructions: This note is constructed using voice recognition software. While every effort has been made to ensure accuracy special weapons unit officer errors may have been included. Imaging studies, laboratory and physical exam results were discussed and reviewed in detail. No major barriers to patient understanding were identified. An opportunity to ask questions regarding the treatment plan was provided. All questions were answered. The patient expressed understanding and agreement with the above treatment plan. The patient is aware they should contact our office by phone for worsening of their current condition or the appearance of new urologic symptoms. Compliance is encouraged with any medications and followup testing that is ordered. It is a privilege to participate in the urologic care of your patient. If you have any questions or concerns regarding treatment for the above conditions, or other urologic issues, please do not hesitate to contact me. The office telephone contact is [phone]. Sincerely, Dr Darius Mccartney MD, [facility] [place] - Urology Compassionate Specialist Care for the Genitourinary System Coding Level of Care Code Est Pt Level 3 (41480) Diagnoses Renal cancer C64.9 Kidney cancer, primary, with metastasis from kidney to other site C64.9
--- OUTSIDE RECORDS SUMMARY | 2024-03-15 16:37 | XMS_ITS | Patient Health Record ---
[facility] Organization [facility] Address [address] [place] [address] Care Team Providers Care Liability Claims Adjuster Name Role Phone Alivia Pat Primary Care Provider Unavailab Kimberli Cordova Unavailable [phone] Allergies No Known Allergies Reason For Referral No Information Medications Medication SIG (Take, Route, Frequency, Duration) Notes Start Date End Date Status Cabometyx 20 MG Oral for 30 No t-Taking amLODIPine Besylate 10 MG Oral for 90 Active Lisinopril 40 MG Oral for 90 A ctive Metoprolol Succinate ER 100 MG Oral for 90 Active Ciclopirox Olamine 0.77 % 1 application Externally Twice a day for 30 days Active Chemo-therapy Active Social History Tobacco Use: Social History Observation Description Date Details (start date - stop date) Former Smoker NA - NA Tobacco Use/Smoking Question Answer Notes Are you a: former smoker Additional Findings: Tobacco Non-User Current no n-smoker Alcohol Screen Question Answer Notes Did you have a drink containing alcohol in the p ast year? No Points 0 Interpretation Negative Tobacco use other than smoking: Question Answer Notes Are you an other tobacco user? No Vital Signs Blood pressure diastolic 85 mm Hg 01/09/2024 Height 5ft9in in 01/09/2024 Blood pressure systolic 137 mm Hg 01/09/2024 Weight 180 lbs 01/09/2024 BMI 26.58 kg/m2 01/09/2024 Encounters Encounter Location Date [facility] [address] [place] [address] 03/24/2023 Kimberli Perica Tinea pedis of both feet B35.3 ; Pain in left toe(s) M79.675 ; Pain in right toe(s) M79.674 and Tinea unguium B35.[address] [address] 07/04/2023 Kimberli Perica Tinea unguium B35.1 ; Pain in right toe(s) M79.674 and Pain in left toe(s) M79.[address] [address] 10/10/2023 Kimberli Perica Tinea unguium B35.1 ; Pain in right toe(s) M79.674 and Pain in left toe(s) M79.[address] [address] 01/09/2024 Kimberli Perica Tinea unguium B35.1 ; Tinea pedis of both feet B35.3 ; Pain in right toe(s) M79.674 and Pain in left toe(s) M79.[address] [address] 06/23/2023 Kimberli Perica [address] [address] 06/23/2023 Kimberli Perica Assessments Encounter Date Diagnosis (ICD Code) Assessment Notes Treatment Notes Treatment Clinical Notes Section Notes 03/24/2023 Pain in left toe(s) (ICD-10 - M79.675) 03/24/2023 Tinea pedis of both feet (ICD-10 - B35.3) 07/04/2023 Tinea unguium (ICD-10 - B35.1) 07/04/2023 Pain in right toe(s) (ICD-10 - M79.674) 10/10/2023 Tinea unguium (ICD-10 - B35.1) 01/09/2024 Tinea unguium (ICD-10 - B35.1) 01/09/2024 Tinea pedis of both feet (ICD-10 - B35.3) 01/09/2024 Pain in right toe(s) (ICD-10 - M79.674) 10/10/2023 Pain in right toe(s) (ICD-10 - M79.674) 07/04/2023 Pain in left toe(s) (ICD-10 - M79.675) 03/24/2023 Pain in right toe(s) (ICD-10 - M79.674) 03/24/2023 Tinea unguium (ICD-10 - B35.1) 10/10/2023 Pain in left toe(s) (ICD-10 - M79.675) 01/09/2024 Pain in left toe(s) (ICD-10 - M79.675) Plan Of Treatment Next Appt Details Provider Name:Kimberli neville, 04/19/2024 12:45:00 PM, [address] [place] [address], [phone], Insurance Providers Payer Name Payer Address Payer Phone Subscriber Number Group Number Insured Name Patient Relationship to Insured Coverage Start Date Coverage End Date [employer] Medicare Open [address] [place] [address] [id number] Colon, Dick Self - patient is the insured Medical (General) History Medical History History ICD Code Arthritis Cancer High blood pressure Psoriasis/eczema Surgical History Surgery Date(Month/Year) Gall bladder removal 03/15 kidney surgery 05/10
--- OUTSIDE RECORDS SUMMARY | 2024-03-15 16:37 | XMS_ITS | Clinical Summary ---
Author Organization [email or web address] Address [address] [place] [address] Care Team Providers Care Plant Custodian Name Role Phone Cynthia Greenberg MD Primary Care Provider Allergies No known active allergies Medications Medication Sig Dispensed Refills Start Date End Date Status miconazole (MICATIN) 2 % cream Apply topically 2 (two) times a day. 0 Active betamethasone, augmented, (DIPROLENE) 0.05 % cream Apply topically 2 (two) times a day. 0 Active lisinopril (PRINIVIL,ZESTRIL) tablet 40 mg Take 40 mg by mouth daily. 0 Active aspirin 81 MG chewable tablet Chew 81 mg by mouth daily. 0 Active metoprolol tartrate (LOPRESSOR) 25 MG tablet Take by mouth 2 (two) times a day. 0 Active nystatin-triamcinolon e (MYCOLOG) ointment Apply to affected area 2 times daily 30 g 1 06/09/2017 Active Active Problems Problem Noted Date Diagnosed Date Dysuria 06/09/2017 Urinary frequency 06/09/2017 Balanitis 06/09/2017 Prostate hyperplasia, benign localized, without urinary obstruction 06/09/2017 Nocturia 06/09/2017 Erectile dysfunction 06/09/2017 Family History Medical History Relation Name Comments Alzheimer's disease Father Dementia Father Hyperlipidemia Father Alzheimer's disease Mother Colon cancer Mother Relation Name Status Comments Father Mother Social History Tobacco Use Types Packs/Day Years Used Date Smoking Tobacco: Former Cigarettes 0.3 5 Q uit: 02/20/1995 Alcohol Use Standard Drinks/Week Comments Yes 0 (1 standard drink = 0.6 oz pur e alcohol) Sex and Gender Information Value Date Recorded Sex Assigned at Not on file Gender Identity Not on file Sexual Orientation Not on file Last Filed Vital Signs Vital Sign Reading Time Taken Comments Blood Pressure - - Pulse - - Temperature - - Respiratory Rate - - Oxygen Saturation - - Inhaled Oxygen Concentration - - Weight 81.8 kg (180 lb 6.4 oz) 06/09/2017 3:46 P M EDT Height 175.3 cm (5' 9 ) 06/09/2017 3:46 PM EDT Body Mass Index 26.64 06/09/2017 3:46 PM EDT Plan of Treatment Health Maintenance Due Date Last Done Comments Hepatitis C Screening 1960 COVID-19 Vaccine (#1) 1958 Depression Screening 1970 Preventative Health Evaluation 1976 DTap / Tdap / Td (1 - Tdap) 1977 Colon Cancer Screening (Colonoscopy) 2003 Shingrix-Zoster Vaccine (1 of 2) 2008 Fall Risk Assessment 2023 Pneumococcal Vaccine (1 of 1 - PCV) 2023 Influenza Vaccine (#1) 2023 RSV Adult > 60+ Yrs or Pregn ant (1 - 1-dose 75+ series) 2033 Hepatitis B Vaccines Aged Out No long er eligible based on patient's age to complete this topic Pneumococcal Vaccine Aged Out No long er eligible based on patient's age to complete this topic RSV Ped < 20 months Aged Out No longe r eligible based on patient's age to complete this topic Care Teams Plant Custodian Relationship Specialty Start Date End Date Cynthia Greenberg MD PCP - General Internal Medicine 06/09/17
--- OUTSIDE RECORDS SUMMARY | 2024-03-15 16:37 | XMS_ITS ---
Author Organization [facility] Address [address] [place] [address] Care Team Providers Care Asphalt Patcher Name Role Phone Azalia Alivia Primary Care Provider [phone] Active Problems Problem Noted Date Diagnosed Date Aftercare following surgery of the circulatory s ystem 05/19/2023 Renal cell cancer, right 05/10/2023 Gross hematuria 01/24/2023 History of kidney cancer 01/24/2023 Prostate hyperplasia, benign localized, without urinary obstruction 06/09/2017 Current Oncology Plans No current plan information found. Past Plans No past plan information found. Radiation Treatments * No radiation treatments are documented for this patient in [facility]. Treatments may have been administered in another system. Lifetime Dose Tracking * Chemical Lifetime Dose Automatic Entry Manual Entr y TotalDLP 247 mGy 247 mGy 0 mGy [id number] 4.2 mSv 4.2 mSv 0 mSv CTDIvol Max 8 mGy 8 mGy 0 mGy CTDIvol Min 8 mGy 8 mGy 0 mGy Radiation - mGy 93.1 mGy 0 mGy 93.1 mGy
--- OUTSIDE RECORDS SUMMARY | 2024-03-15 16:37 | XMS_ITS | Encounter Summary ---
Author Organization [facility] Address [address] [place] [address] Care Team Providers Care Banking Officer Name Role Phone Alivia Vieyra Primary Care Provider [phone] Encounter Details Date Type Department Care Team (Late st Contact Info) Description 04/14/2023 Orders Only [facility] Interventional Radiology [address] [place], [place] [phone] Jose Alejandro Perez MD [address] [place], [place] [phone] Social History Tobacco Use Types Packs/Day Years Used Date Smoking Tobacco: Never Assessed Sex and Gender Information Value Date Recorded Sex Assigned at Male 01/04/2023 3:04 PM EST Legal Sex Male 8:44 AM EST Gender Identity Male 01/04/2023 3:04 PM EST Sexual Orientation Choose not to disclose 2022 3:04 PM EST documented as of this encounter Plan of Treatment Not on file documented as of this encounter Visit Diagnoses Not on filedocumented in this encounter Care Teams Banking Officer Relationship Specialty Start Date End Date Alivia Vieyra [address] [place] [address] [place] [phone] PCP - General Internal Medicine 01/02/23 documented as of this encounter
--- OUTSIDE RECORDS SUMMARY | 2024-03-15 16:37 | XMS_ITS ---
Author Organization [facility] Address [address] [place] [address] Care Team Providers Care Bend Sorter Name Role Phone Diegoradu Alivia Primary Care Provider Unavailab Kimberli Cordova Unavailable [phone] Allergies No Known Allergies REASON FOR VISIT Painful nail(s) aggrevated by shoes causing difficulty standing/walking, Skin Problem Medications Medication SIG (Take, Route, Frequency, Duration) [...] Additional Findings: Tobacco Non-User Current no n-smoker Tobacco use other than smoking: Question Answer Notes Are you an other tobacco user? No Vital Signs Height 5ft9in in 01/09/2024 Weight 180 lbs 01/09/2024 BMI 26.58 kg/m2 01/09/2024 Blood pressure systolic 137 mm Hg 01/09/20 24 Blood pressure diastolic 85 mm Hg 024 Encounters Encounter Location Date Provider Diagnosis [facility] [address] [place] [address] 01/09/2024 Kimberli Yancey Tinea unguium B35.1 ; Tinea pedis of both feet B35.3 ; Pain in right toe(s) M79.674 and Pain in left toe(s) M79.675 Assessments Encounter Date Diagnosis (ICD Code) Assessment Notes Treatment Notes Treatment Clinical Notes Section Notes 01/09/2024 Tinea unguium (ICD-10 - B35.1) 01/09/2024 Tinea pedis of both feet (ICD-10 - B35.3) 01/09/2024 Pain in right toe(s) (ICD-10 - M79.674) 01/09/2024 Pain in left toe(s) (ICD-10 - M79.675) Plan Of Treatment Next Appt Details Follow Up: 3 Months, Reason: Provider Name:Kimberli neville, 04/19/2024 12:45:00 PM, [address] [place] [address], [phone], Procedure Notes * Category Sub-Category Detail Notes Debride Nail 6-10 Nail debridement Nail debridem ent performed extensively to reduce/remove overall nail length, girth, thickness, subungual debris, and necrotic tissue, by manual and electrical means through the use of a nail nipper and/or dremel, to more viable healthy nail plate or bed tissue 1-5. Silver nitrate used for any petechial bleeding as necessary. Patient chooses, no pharmaceutical tx (92157) Progress Notes * Dick COFFEYDOB:1960 (63 yo M)Acc No.[id number]:01/09/2024 Progress Note Patient:?Kimberly COFFEYezer Provider:?Kimberli Yancey DPM :1960???Age:63 Y???Sex:Male Constantine e:01/09/2024 Address:[address] [place], [place] [id number] Pcp:Alivia Pat Subjective: * Chief Complaints: * ???Painful nail(s) aggrevate d by shoes causing difficulty standing/walkingSkin Problem * HPI: ???Painful Nails:?Pt States Last PCP Visit:?Date:?04/25/2023 ???Skin problems:?Nature:?scaling , redness.?Location:?B/L .?Duration:?several days.?Course:?worse.? * ROS:?General/Constitutional:?Nausea?denies.?Vomiting?denies.?Hunger Thirst?denies.?Loss appetite?denies.?Chills?denies.?Fatigue?denies.?Fever?denies.?Night Sweats?denies.?Unexplained weight loss?denies.?Unexplained weight gain?denies.?HEENTM:?Dentures?denies.?Dizziness?denies.?Glasses/contacts?admits.?Retinopathy?de nies.?Blurred/double vision?denies.?TMJ?denies.?Discharge/drainage?denies.?Implants?denies.?Sore throat?denies.?Dental implants?denies.?Hard of hearing ?denies.?Difficulty chewing/swallowing/speaking?denies.?Nose bleeds?denies.?Sore mouth?denies.?Respiratory:?On Oxygen?denies.?Pneumonia/pleurisy?denies.?Bronchitis?denies.?Emphysema?denies.?C oughing?denies.?Cough blood?denies.?Shortness of breath?denies.?Wheezing?denies.?Cardiovascular:?Pacemaker?denies.?MVP?denies.?WPW?denies.?CHF?denies.?Heart attack?denies.?Septal defect?denies.?Rapid beat?denies.?Chest pain ?denies.?Atrial Fib.?denies.?Murmur/Palpitations?denies.?Gastrointestinal:?Hemorrhoids?denies.?Stomach/Abdominal pain?denies.?Dark blood stool?denies.?Irritable bowel ?denies.?Constipation?denies.?Diarrhea?denies.?Hematology:?Swelling?denies.?Clots?denies.?Varicose Veins?denies.?Bruising?denies.?Bleeding problem?denies.?Genitourinary:?Blood urine?denies.?Frequent/Painfu/urination/bladder control?denies.?Kidney stones?denies.?Infection (UTI)?denies.?Nephropathy?denies.?sex trans dis (STD)?denies.?Prostate?admits.?Musculoskeletal:?Hammertoes?denies.?Bunions?denies.?Back Pain?denies.?Muscle Cramps/ Resting?denies.?Muscle cramps / walking?denies.?Generalized aches and pains?denies.?Weakness?denies.?Integ.:?Baker?denies.?Scars?denies.?Corns/calluses?denies.?Ingrown nails?denies.?Painful nails?denies.?Open Sores?denies.?Rashes?denies.?Neurologic:?Difficulty sleeping?denies.?Brain disorder?denies.?Numbness?denies.?Balance trouble?denies.?Confusion?denies.?Fainting/blackouts?denies.?Tingling?denies.?Tr emors?denies.? * Medical History:? * Surgical History:?Gall bladd er removal 03/15kidney surgery 05/10 * Hospitalization/Major Diagno stic Procedure:?Denies Past Hospitalization * Family History:?Mother: dece ased, diagnosed with Family history of arthritis, Other malignant neoplasm of unspecified site.?Father: , foot problems, diagnosed with Unspecified essential hypertension, Unspecified heart disease, Unspecified cerebral artery occlusion with cerebral infarction, Family history of arthritis, Diabetic - NIDDM.? * Social History:?Tobacco Use:?Tobacco Use/Smoking?Are you a:?former smoker ?Additional Findings: Tobacco Non-User?Current non-smoker ?Tobacco use other than smoking?Are you an other tobacco user??No * Medications:?TakingChemo-the rapy amLODIPine Besylate 10 MG Tablet Oral Lisinopril 40 MG Tablet Oral Metoprolol Succinate ER 100 MG Tablet Extended Release 24 Hour Oral Ciclopirox Olamine 0.77 % Cream 1 application Externally Twice a day Taking Chemo-therapy Taking amLODIPine Besylate 10 MG Tablet Oral Taking Lisinopril 40 MG Tablet Oral Taking Metoprolol Succinate ER 100 MG Tablet Extended Release 24 Hour Oral Taking Ciclopirox Olamine 0.77 % Cream 1 application Externally Twice a day Not-Taking/PRNCabometyx 20 MG Tablet Oral Medication List reviewed and reconciled with the patientNot-Taking/PRN Cabometyx 20 MG Tablet Oral Medication List reviewed and reconciled with the patient * Allergies:?N.K.D.A.yes[Aller gies Verified] Objective: * Vitals:?Ht: 5ft9in, Wt:180, BMI:26.58, Shoe size: 8-9, BP:137/85mm Hg, Ht-cm: 175.26 cm, Wt-k.65 kg. * Examination: ???Nails: ?NAILS are:?Elongated, overgrown, dystrophic, lytic, greater than 3mm thick, discolored and friable with crumbly malodorous subungual debris, with pain on palpation 1-5 B/L.?Dermatologic: ?SKIN FINDINGS:? Skin shows sign(s) of, erythema, scaling, in a moccasin fashion, no fissure(s) present, B/L.? Assessment: * Assessment: 1.?Tinea unguium - B35.1???2 .?Tinea pedis of both feet - B35.3 (Primary)???Specify :Acute problem, Uncomplicated (3),Rx drug management (4)???3.?Pain in right toe(s) - M79.674???4.?Pain in left toe(s) - M79.675??? Plan: * Treatment: * Procedures:?Debride Nail 6-10:?Nail debridement?Nail debridement performed extensively to reduce/remove overall nail length, girth, thickness, subungual debris, and necrotic tissue, by manual and electrical means through the use of a nail nipper and/or dremel, to more viable healthy nail plate or bed tissue 1-5. Silver nitrate used for any petechial bleeding as necessary. Patient chooses, no pharmaceutical tx (83901).? * Procedure Codes:?73555 DEBRI DE NAIL, 6 OR MORE, Modifiers: XS * Preventive Medicine:? ??Counseling:?Discussion:?-13: Office or other outpatient visit for the evaluation and management of an established patient, which required a medically appropriate history and/or examination and LOW level of DECISION MAKING for: 1 STABLE ACUTE UNCOMPLICATED PROBLEM, 2 OR MORE MINOR PROBLEMS, OR 1 STABLE CHRONIC PROBLEM, THAT POSE(S) A LOW RISK FOR MORBIDITY/MORTALITY. The visit on the day of the encounter encompassed interpreting the data and educating the patient as to the nature of their condition, treatment options available according to their individual PMH, meds, allergies, and overall health/living conditions, as well as any potential risks or complications that may occur from a failure to adhere to, and participate in, the recommended course of therapy. The discussion included a complete verbal, and/or written explanation of the examination results, any x-rays taken, the proposed diagnosis, and outline of the treatment plan. A schedule for future care needs was also explained. The patient verbalized an understanding of the instructions at this time and agreed to be an active participant in their treatment. If the patient should think of any questions or concerns after the visit, I have encouraged the patient to call the office.?Tinea Pedis:?The patient was counseled on the diagnosis, potential etiologies, and treatment options for their skin condition. We discussed the risks and benefits of each option from performing no treatment, to utilizing OTC topical skin creams, prescription topical creams, customized compounded topical medications, and, if necessary, to utilize oral antifungal therapy. We discussed the advantages and disadvantages of each possible treatment and importance for adherence to all the recommended therapies for optimum success and avoid potential complications such as open sore/infection/possible hospitalization. We discussed the potential effectiveness of each topical preparation as well as each ones possible side effects and/or patient medication interactions if oral therapy is selected. Patient questions re: the advantages and disadvantages of each treatment choice, medication use/dosage, successful outcomes, and application consistency were reviewed and the patient verbalized that all answers were clearly understood. The patient was told they can help alleviate symptoms by utilizing moisture absorbant innersoles with activated charcoal and baking soda, applying antifungal sprays daily, aerating toe web spaces at night by putting cotton or lambs wool between the toes, alternating shoe gear daily if possible so they can dry out, changing socks at least once during the day, wearing well-ventilated shoes or sandals. The patient has decided to apply antifungal skin creams to their feet as directed.? * Follow Up:?3 Months * Images: * Sign off status: Completed true * Provider:?Kimberli Yancey DPM Date:? Generated for Josie swain/Demetris/Alconitting on:?03/15/2024 04:37 PM EST History and Physical Notes * HPI (History of Present Illness) Category Sub-Category Detail Notes Category Not es Painful Nails Pt States Last PCP Visit: Date:: 04/25/2023 Skin problems Nature: scaling , redness Location: B/L Duration: several days Course: worse Examination Category Sub-Category Detail Notes Category Not es Dermatologic SKIN FINDINGS: Skin shows sign( s) of, erythema, scaling, in a moccasin fashion, no fissure(s) present, B/L Nails NAILS are: Elongated, overg rown, dystrophic, lytic, greater than 3mm thick, discolored and friable with crumbly malodorous subungual debris, with pain on palpation 1-5 B/L
--- OUTSIDE RECORDS SUMMARY | 2024-03-15 16:37 | XMS_ITS | Referral Summary ---
Author Organization [facility] Address [address] [place] [address] Care Team Providers Care Engraver Pantograph Name Role Phone Alivia Vieyra Primary Care Provider [phone] Allergies No known active allergies Medications chlorthalidone (HYGROTEN) 50 mg tablet Take 50 mg by mouth once a day. Active amLODIPine (NORVASC) 10 mg tablet Take 10 mg by mouth once a day. Active lisinopriL (PRINIVIL,ZESTRI L) 40 mg tablet Take 40 mg by mouth once a day. Active metoprolol succinate XL (TOPROL XL) 100 mg tablet Take 100 mg by mouth once a day. Active finasteride (PROSCAR) 5 mg tablet Take 5 mg by mouth once a day. Active tamsulosin (FLOMAX) 0.4 mg capsule Take 0.4 mg by mouth once a day. Active betamethasone dipropionate (DIPROSONE) 0.05 % cream Active aspirin chewable tablet 81 mg Chew and swallow 1 tablet (81 mg total) by mouth once a day. Please follow up with PCP to determine if this medication is still required. Active Additional Information Patient not taking.Reported on 05/19/2023 acetaminophen (TYLENOL) 325 mg tablet Take 2 tablets (650 mg total) by mouth every 6 hours. Active docusate sodium (COLACE) 100 mg capsule Take 1 capsule (100 mg total) by mouth 2 times a day. 60 capsule 05/15/2023 3:31 PM EDT Active gabapentin (NEURONTIN) 100 mg capsule Take 1 capsule (100 mg total) by mouth every 8 hours. 30 capsule 05/15/2023 3:31 PM EDT Active lidocaine (LIDODERM) 5% patch Apply 1 patch topically to the affected area 1 (one) time each day at the same time. Remove and discard patch within 12 hours or as directed. Active oxyCODONE IR (ROXICODONE) 5 mg tablet Take 1 tablet (5 mg total) by mouth every 4 hours as needed for breakthrough pain. Max Daily Amount: 30 mg 12 tablet 05/15/2023 3:31 PM EDT Active polyethylene glycol 3350 (MIRALAX) 17 gram packet Take 1 packet (17 g total) by mouth once a day. Mix powder in 4 to 8 oz of water, juice, coffee, or tea prior to administration. Active senna (SENOKOT) 8.6 mg tablet Take 2 tablets (17.2 mg total) by mouth nightly. 60 tablet 05/15/2023 3:31 PM EDT Active cyclobenzaprine (FLEXERIL) 10 mg tablet Take 1 tablet (10 mg total) by mouth 3 times a day as needed for muscle spasms for up to 10 days. 30 tablet 05/15/2023 3:31 PM EDT Active fish oil 340-1,000 mg capsule Take 1,000 mg by mouth once a day. Active Vitamin D3 25 mcg (1,000 unit) capsule Take 1 capsule by mouth once a day. Active calcium acetate,phosphat bind, (PHOSLO) 667 mg capsule Take 1,334 mg by mouth 3 times a day with meals. Active multivitamin (THERAGRAN) tablet Take 1 tablet by mouth once a day. MENS 50+ Active Active Problems Problem Noted Date Diagnosed Date Aftercare following surgery of the circulatory s ystem 05/19/2023 Renal cell cancer, right 05/10/2023 Gross hematuria 01/24/2023 History of kidney cancer 01/24/2023 Prostate hyperplasia, benign localized, without urinary obstruction 06/09/2017 Social History Tobacco Use Types Packs/Day Years Used Date Smoking Tobacco: Former Cigarettes 0 02/1971 - 02/1992 Smokeless Tobacco: Never Tobacco Cessation:Counseling Given: Not Answered Alcohol Use Standard Drinks/Week Comments Not Currently 0 (1 standard drink = 0.6 oz pur e alcohol) Sex and Gender Information Value Date Recorded Sex Assigned at Male 01/04/2023 3:04 PM EST Legal Sex Male 8:44 AM EST Gender Identity Male 01/04/2023 3:04 PM EST Sexual Orientation Choose not to disclose 2022 3:04 PM EST Last Filed Vital Signs Vital Sign Reading Time Taken Comments Blood Pressure 127/80 05/23/2023 9:54 AM EDT Pulse 74 05/23/2023 9:54 AM EDT Temperature 37 ??C (98.6 ??F) 05/19/2023 2:49 PM EDT Respiratory Rate 16 05/19/2023 2:49 PM EDT Oxygen Saturation 96% 05/19/2023 2:49 PM EDT Inhaled Oxygen Concentration - - Weight 74.4 kg (164 lb) 05/19/2023 2:49 PM EDT Height 175.3 cm (5' 9 ) 05/19/2023 2:49 PM EDT Body Mass Index 24.22 05/19/2023 2:49 PM EDT Plan of Treatment Not on file Medical Devices Implanted Type Area Small Electric Engine Technician Device Identifier Shelf Expiration Date Model / Serial / Lot System Closure And Repair Suture-Mediat ed Perclose Prostyle - S0 - [id number] Implanted:Qty : 1 on 05/10/2023 by Xena Estrada MD MPH at [facility] Implant Right: Groin [employer] [id number] 01/19/2025 [id number] Vascular Plug For Peripheral Vascular Occlusion 8mm - S0 - [id number] Implanted:Qty : 1 on 05/10/2023 by Xena Estrada MD MPH at [facility] Implant Right: Arterial [address] [id number] 01/20/2028 [id number] Insurance [employer] [facility] Advance Directives * Full Code (Latest Code Status on File) Date Activated Date Inactivated Comments 05/10/2023 12:13 PM 05/15/2023 6:14 PM Care Teams Engraver Pantograph Relationship Specialty Start Date End Date Alivia Vieyra [address] [place] [address] [place] [phone] PCP - General Internal Medicine 01/02/23
--- OUTSIDE RECORDS SUMMARY | 2024-03-15 16:37 | XMS_ITS | Encounter Summary ---
Author Organization [facility] Address [address] [place] [address] Care Team Providers Care Corporate Concierge Name Role Phone Alivia Vieyra Primary Care Provider [phone] Encounter Details Date Type Department Care Team (Late st Contact Info) Description 02/23/2023 Orders Only [facility] Nuclear Medicine [address] [place] [address] [phone] Jayme Ga MD [address] [place] [address] [phone] Social History Tobacco Use Types Packs/Day Years [...] on filedocumented in this encounter Care Teams Corporate Concierge Relationship Specialty Start Date End Date Alivia Vieyra [address] [place] [address] [place] [address] PCP - General Internal Medicine 01/02/23 documented as of this encounter
--- OUTSIDE RECORDS SUMMARY | 2024-03-15 16:37 | XMS_ITS | Encounter Summary ---
Author Organization [facility] Address [address] [place] [address] Care Team Providers Care Curing Finisher Name Role Phone Alivia Vieyra Primary Care Provider Encounter Details Date Type Department Care Team (Late st Contact Info) Description 01/24/2023 Orders Only [facility] Interventional Radiology [address] [place] [address] [phone] Jayme Ga MD [address], [place] [phone] Social History Tobacco Use Types Packs/Day Years [...] on filedocumented in this encounter Care Teams Curing Finisher Relationship Specialty Start Date End Date Alivia Vieyra [address] [place] [address] [place] [phone] PCP - General Internal Medicine 01/02/23 documented as of this encounter
--- OUTSIDE RECORDS SUMMARY | 2024-03-15 16:37 | XMS_ITS ---
Author Organization [facility] Address [address] [place] [address] Care Team Providers Care Powder Operator Name Role Phone Diegoradu Alivia Primary Care Provider Unavailab Kimberli Cordova Unavailable [phone] Allergies No Known Allergies REASON FOR VISIT Pcp- 05/13, Painful nail(s) aggrevated by shoes causing difficulty standing/walking Medications Medication SIG (Take, Route, Frequency, Duration) Notes Start Date End Date Status Metoprolol Succinate ER 100 MG Oral for 90 Active Lisinopril 40 MG Oral for 90 A ctive Ciclopirox Olamine 0.77 % 1 application Externally Twice a day for 30 days Active amLODIPine Besylate 10 MG Oral for 90 Active Cabometyx 20 MG Oral for 30 No t-Taking Chemo-therapy Active Social History Tobacco Use: Social [...] other tobacco user? No Vital Signs Height 5ft 9in in 07/04/2023 Weight 164 lbs 07/04/2023 BMI 24.22 kg/m2 07/04/2023 Encounters Encounter Location Date Provider Diagnosis [facility] [address] [place] [address] 07/04/2023 Kimberli Perica Tinea unguium B35.1 ; Pain in right toe(s) M79.674 and Pain in left toe(s) M79.675 Assessments Encounter Date Diagnosis (ICD Code) Assessment Notes Treatment Notes Treatment Clinical Notes Section Notes 07/04/2023 Tinea unguium (ICD-10 - B35.1) 07/04/2023 Pain in right toe(s) (ICD-10 - M79.674) 07/04/2023 Pain in left toe(s) (ICD-10 - M79.675) Plan Of Treatment Next Appt Details Follow Up: 3 Months, Reason: Provider Name:Kimberli neville, 04/19/2024 12:45:00 PM, [address] [place] [address], [phone], Procedure Notes * Category Sub-Category Detail Notes [...] as necessary. Patient chooses, no pharmaceutical tx (97190) Progress Notes * Dick COFFEYDOB:1960 (63 yo M)Acc No.[id number]:07/04/2023 Progress Note Patient:?Dick Coffey Provider:?Kimberli Yancey DPM :1960???Age:63 Y???Sex:Male Constantine e:07/04/2023 Address:[address] [place], [place] [phone] Pcp:Alivia Pat Subjective: * Chief Complaints: * ???Pcp- 05/13Painful nail(s) aggrevated by shoes causing difficulty standing/walking * HPI: ???Painful Nails:?Pt States Last PCP Visit:?Date:?04/25/2023 * ROS:?General/Constitutional:?Nausea?denies.?Vomiting?denies.?Hunger Thirst?denies.?Loss appetite?denies.?Chills?denies.?Fatigue?denies.?Fever?denies.?Night Sweats?denies.?Unexplained weight loss?denies.?Unexplained [...] trouble?denies.?Confusion?denies.?Fainting/blackouts?denies.?Tingling?denies.?Tr emors?denies.? * Medical History:? * Surgical History:?Sandra bladd er removal 03/15kidney surgery 05/10 * Hospitalization/Major Diagno stic Procedure:?Denies Past Hospitalization * Family History:?Mother: dece ased, diagnosed with Family history of arthritis, Other malignant neoplasm of unspecified site.?Father: , foot problems, diagnosed with Family history of arthritis, Diabetic - NIDDM, Unspecified essential hypertension, Unspecified heart disease, Unspecified cerebral artery occlusion with cerebral infarction.? * Social History:?Tobacco Use:?Tobacco Use/Smoking?Are you a:?former smoker ?Additional Findings: Tobacco Non-User?Current non-smoker ?Tobacco use other than smoking?Are you an other tobacco user??No ???Drugs/Alcohol:?Drugs?Have you used drugs other than those for medical reasons in the past 12 months??No ?Alcohol Screen?Did you have a drink containing alcohol in the past year??No ?Points?0 ?Interpretation?Negative ???Miscellaneous:?Caffeine: yes, frequency:, 1-2 cups per day. ?Children: yes, 3. ?no Exercise. ?Marital status: single, partner. ?Occupation: retired. * Medications:?TakingChemo-the rapy amLODIPine Besylate 10 MG Tablet Oral Lisinopril 40 MG Tablet Oral Metoprolol Succinate ER 100 MG Tablet Extended Release 24 Hour Oral Ciclopirox Olamine 0.77 % Cream 1 application Externally Twice a dayTaking Chemo-therapy Taking amLODIPine Besylate 10 MG Tablet Oral Taking Lisinopril 40 MG Tablet Oral Taking Metoprolol Succinate ER 100 MG Tablet Extended Release 24 Hour Oral Taking Ciclopirox Olamine 0.77 % Cream 1 application Externally Twice a dayNot-Taking/PRNCabometyx 20 MG Tablet Oral Medication List reviewed and reconciled with the patientNot-Taking/PRN Cabometyx 20 MG Tablet Oral Medication List reviewed and reconciled with the patient * Allergies:?N.K.D.A.yes[Aller gies Verified] Objective: * Vitals:?Ht: 5ft 9in, Wt:164, BMI:24.22, Shoe size: 8-9, Ht-cm: 175.26 cm, Wt-k.39 kg. * Examination: ???Nails: ?NAILS are:?Elongated, overgrown, dystrophic, lytic, greater than 3mm thick, discolored and friable with crumbly malodorous subungual debris, with pain on palpation 1-5 B/L.? Assessment: * Assessment: 1.?Tinea unguium - B35.1 (Pr imary)?2.?Pain in right toe(s) - M79.674?3.?Pain in left toe(s) - M79.675? Plan: * Treatment: * Procedures:?Debride Nail 6-10:?Nail debridement?Nail debridement performed extensively to reduce/remove overall nail length, girth, thickness, subungual debris, and necrotic tissue, by manual and electrical means through the use of a nail nipper and/or dremel, to more viable healthy nail plate or bed tissue 1-5. Silver nitrate used for any petechial bleeding as necessary. Patient chooses, no pharmaceutical tx (33858).? * Procedure Codes:?14186 DEBRI DE NAIL, 6 OR MORE, Modifiers: XS * Follow Up:?3 Months * Images: * Sign off status: Completed true * Provider:?Kimberli Yancey, TATE Date:? Generated for Josie swain/Demetris/Maria Del Carmen on:?03/15/2024 04:37 PM EST History and Physical Notes * HPI (History of Present Illness) Category Sub-Category Detail Notes Category Not es Painful Nails Pt States Last PCP Visit: Date:: 04/25/2023 Examination Category Sub-Category Detail Notes Category Not es Nails NAILS are: Elongated, overg rown, dystrophic, lytic, greater than 3mm thick, discolored and friable with crumbly malodorous subungual debris, with pain on palpation 1-5 B/L
--- OUTSIDE RECORDS SUMMARY | 2024-03-15 16:37 | XMS_ITS | Encounter Summary ---
Author Organization [facility] Address [address] [place] [address] Care Team Providers Care Obstetric Anaesthetist Name Role Phone Alivia Vieyra Primary Care Provider [phone] Encounter Details Date Type Department Care Team (Late st Contact Info) Description 01/27/2023 Lab Requisition [facility] [address] [place] [address] Enedelia Ortiz MD [address] [place] [address] Social History Tobacco Use Types Packs/Day Years [...] on file documented as of this encounter Procedures * Due to [place] law, this organization might not be sharing negative HIV tests. Procedure Name Priority Date/Time Associated Diagnosis Comments TISSUE EXAM Routine 01/27/2023 2:06 PM EST documented in this encounter Results * Due to [place] law, this organization might not be sharing negative HIV tests. 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 [facility] MANUAL 01/30/2023 9:22 AM EST [facility] Clinical History RIght renal upper pole mass [facility] MAN[facility] 01/30/2023 9:22 AM EST [facility] Gross Consult Client Facility: [facility] Slide Identificatio n: [id number] Number of Glass Slides Received: 3 Number of Blocks Received: 0 Client Pathologist: Susanne Hogan Accompanying Report Received: Yes [facility] MANUAL 01/30/2023 9:22 AM EST [facility] Embedded Images [facility] MANUAL 01/30/2023 9:22 AM EST [facility] Resulting Agency Case was signed out at [facility], Department of Pathology, [facility] [id number] [facility] MANUAL 01/30/2023 9:22 AM EST [facility] Report Header Surgical Pathology Report ? Case: [id number] ? Authorizing Provider: ??Enedelia Ortiz MD ?Collected: ? 01/27/2023 1406 ? Ordering Location: ? [facility] ? Received: ?01/27/2023 1407 ? [facility] ? Pathologist: ? Enedelia Pop MD ? Specimen: ?Kidney, Right, Upper Pole Mass ? 01/30/2023 9:22 AM EST [facility] Tissue Entire right kidney / Unknown 01/27/2023 2:06 PM EST 01/27/2023 2:07 PM EST us Enedelia Ortiz MD LAB PATHOLOGY/CYTOLOGY [place] Final Result [facility] [address] [place] [address], documented in this encounter Visit Diagnoses Not on filedocumented in this encounter Care Teams Obstetric Anaesthetist Relationship Specialty Start Date End Date Alivia Vieyra [address] [place] [address] [place] [address] PCP - General Internal Medicine 01/02/23 documented as of this encounter
--- OUTSIDE RECORDS SUMMARY | 2024-03-15 16:37 | XMS_ITS | Clinical Summary ---
Author Organization [facility] Address [address] [place] [address] Care Team Providers Care Primer Inserting Machine Operator Name Role Phone Alivia Vieyra Primary Care Provider [phone] Allergies No known active allergies Medications chlorthalidone [...] hyperplasia, benign localized, without urinary obstruction 06/09/2017 Family History Medical History Relation Name Comments Prostate cancer Father Colon cancer Mother Relation Name Status Comments [...] 05/19/2023 2:49 PM EDT Plan of Treatment Health Maintenance Due Date Last Done Comments Cologuard 1960 Colon Cancer Screening 1960 Colonoscopy 1960 FOBT / Fit Test 1960 HIV Screening 1960 Hepatitis C Screening 1960 Sigmoidoscopy 1960 Abdominal Aortic Aneurysm (AAA) Screening 2023 COVID-19 Vaccine ( season) 2023 12/06/2022, 01/27/2022, 08/31/2021, Additional history exists Influenza Vaccine (#1) 2023 , 01/27/2022, 12/23/2020, Additional history exists Alcohol/Substance Use Screening 02/21/2024 Depression Screening and Follow-Up 02/21/2024 Health Care Proxy Review 02/21/2024 Social Drivers of Health Annual Screening 02/21/2024 Pneumococcal Vaccine: 65+ Years (3 of 3 - PPSV23 or PCV20) 06/03/2027 06/02/2022, 02/15/2019 DTaP,Tdap,and Td Vaccines (3 - Td or Tdap) 12/06/2032 12/06/2022, 12/20/2013 Zoster Vaccines Completed 08/26/2021, 0607/2021, 05/27/2021 RSV Vaccine (60+ years old and patients) Completed 12/06/2022 Hepatitis B Vaccines Aged Out No long er eligible based on patient's age to complete this topic Medical Devices Implanted Type Area Health Data Analyst Device Identifier Shelf Expiration Date Model / Serial / Lot System Closure And Repair Suture-Mediat ed Perclose Prostyle - S0 - [id number] Implanted:Qty : 1 on 05/10/2023 by Xena Estrada MD MPH at [facility] Implant Right: Groin [employer] [id number] 01/19/2025 [id number] / [id number] Vascular Plug For Peripheral Vascular Occlusion 8mm - S0 - [id number] Implanted:Qty : 1 on 05/10/2023 by Xena Estrada MD MPH at [facility] Implant Right: Arterial [employer] [id number] 01/20/2028 [id number] Insurance [employer] [facility] Advance Directives * Full Code (Latest Code Status on File) Date Activated Date Inactivated Comments 05/10/2023 12:13 PM 05/15/2023 6:14 PM Care Teams Primer Inserting Machine Operator Relationship Specialty Start Date End Date Alivia Vieyra [address] [place] [address] [place] [address] PCP - General Internal Medicine 01/02/23
--- OUTSIDE RECORDS SUMMARY | 2024-03-15 16:37 | XMS_ITS | Patient Health Record ---
Author Organization [facility] Address [address] [place] [address] Care Team Providers Care Coal Weigher Name Role Phone Alivia Pat Primary Care Provider Unavailab Bob Yu Jr ALLERGIES No Known Allergies REASON FOR REFERRAL No Information MEDICATIONS Medication SIG (Take, Route, Frequency, Duration) Notes Start Date End Date Status Sertraline HCl 100 MG 1 tablet Orally On ce a day for 30 day(s) Active Aspirin 81 81 MG 1 tablet Orally Once a day for 30 day(s) Active Atorvastatin Calcium 80 MG TAKE 1 TABLET BY MOUTH AT BEDTIME Oral for 90 Active Chlorthalidone 50 MG Oral for 90 Active Metoprolol Succinate ER 100 MG TAKE 1 TABLET BY MOUTH DAILY Oral for 90 Active amLODIPine Besylate 10 MG Oral for 90 Active MiraLax (colon prep) 17 GM/SCOOP mixed with Gatorade or Crystal Light Orally begin at 5:00 p.m. the day before the procedure for 1 day 09/02/2021 Active Betamethasone Dipropionate 0.05 % APPLY TOPICALLY TO THE AFFECTED AREA TWICE DAILY NEEDED External for 80 Active Lisinopril 40 MG Oral for 90 A ctive Tamsulosin HCl 0.4 MG Oral for 90 Active Finasteride 5 MG TAKE 1 TABLET BY ALMA TH EVERY DAY Oral for 90 Active Enbrel SureClick 50 MG/ML Subcutaneous for 28 Active IMMUNIZATIONS Vaccine Route Administration Date Status Comme nts Influenza Unknown 10/21/2020 Administered SOCIAL HISTORY Tobacco Use: Social History Observation Description Date Details (start date - stop date) Former Smoker NA - NA Sex Assigned At : Social History Observation Description Sex Assigned At Unknown Tobacco Use/Smoking Question Answer Notes Patient is a former smoker How long has it been since you last smoked? > 10 years Alcohol Screen Question Answer Notes Did you have a drink contain ing alcohol in the past year? Yes How often did you have a dri nk containing alcohol in the past year? 2 to 4 times a month (2 points) How many drinks did you have on a typical day when you were drinking in the past year? 3 or 4 drinks (1 point) Points 3 Interpretation Negative PROBLEMS Problem Type ICD Code Onset Dates Problem Status W/U Status Risk SNOMED Code Notes Problem Colon cancer screening (Z12.11) Active confirmed 069596247 Problem FH: colon polyps (Z83.71) Active confirmed 584496503 Problem Encounter for other preprocedural examination (Z01.818) Active confirmed 296582901 Problem Long-term use of aspirin therapy (Z79.82) Active confirmed 874580964 PLAN OF TREATMENT Future Test Test Name Order Date COLONOSCOPY 09/02/2021 Insurance Providers Payer Name Payer Address Payer Phone Subscriber Number Group Number Insured Name Patient Relationship to Insured Coverage Start Date Coverage End Date [facility] [address] [place], [place] [id number] COLON COLON, JOSÉ Self - patient is the insured MEDICAL (GENERAL) HISTORY Medical History History ICD Code hypertension hyperlipidemia benign prostatic hyperplasia without low er urinary tract symptoms Psoriatic arthritis Depression Surgical History Surgery Date(Month/Year) hernia
--- OUTSIDE RECORDS SUMMARY | 2024-03-15 16:37 | XMS_ITS ---
Author Organization [facility] Address [address] [place] [address] Care Team Providers Care Freelance Court Stenographer Name Role Phone Diegoradu Alivia Primary Care Provider Unavailab Kimberli Cordova Unavailable [phone] Allergies No Known Allergies REASON FOR VISIT Pcp- 05/13, Painful nail(s) aggrevated by shoes causing difficulty standing/walking Medications Medication SIG (Take, Route, Frequency, Duration) Notes Start Date End Date Status Chemo-therapy Active Lisinopril 40 MG Oral for 90 A ctive amLODIPine Besylate 10 MG Oral for 90 Active Ciclopirox Olamine 0.77 % 1 application Externally Twice a day for 30 days Active Metoprolol Succinate ER 100 MG Oral for 90 Active Cabometyx 20 MG Oral for 30 No t-Taking Social History Tobacco Use: Social History Observation Description Date Details (start date - stop date) Former Smoker NA - NA Tobacco Use/Smoking Question Answer Notes Are you a: former smoker Additional Findings: Tobacco Non-User Current no n-smoker Tobacco use other than smoking: Question Answer Notes Are you an other tobacco user? No Vital Signs Height 5ft9in in 10/10/2023 Weight 158 lbs 10/10/2023 BMI 23.33 kg/m2 10/10/2023 Blood pressure systolic 137 mm Hg 10/10/19 Blood pressure diastolic 60 mm Hg 024 Encounters Encounter Location Date Provider Diagnosis [facility] [address] [place] [address] 10/10/2023 Kimberli Perica Tinea unguium B35.1 ; Pain in right toe(s) M79.674 and Pain in left toe(s) M79.675 Assessments Encounter Date Diagnosis (ICD Code) Assessment Notes Treatment Notes Treatment Clinical Notes Section Notes 10/10/2023 Tinea unguium (ICD-10 - B35.1) 10/10/2023 Pain in right toe(s) (ICD-10 - M79.674) 10/10/2023 Pain in left toe(s) (ICD-10 - M79.675) Plan Of Treatment Next Appt Details Follow Up: 3 Months, Reason: Provider Name:Kimberli neville, 04/19/2024 12:45:00 PM, [address] [place] [address], [phone], Procedure Notes * Category Sub-Category Detail Notes [...] as necessary. Patient chooses, no pharmaceutical tx (48698) Progress Notes * Dick COFFEYDOB:1960 (63 yo M)Acc No.[id number]:10/10/2023 Progress Note Patient:?Dick Coffey Provider:?Kimberli Yancey DPM :1960???Age:63 Y???Sex:Male Constantine e:10/10/2023 Address:[address] [place], [place] [address] Pcp:Alivia Pat Subjective: * Chief Complaints: * ???Pcp- 05/13Painful nail(s) aggrevated by shoes causing difficulty standing/walking * HPI: ???Painful Nails:?Pt States Last PCP Visit:?Date:?04/25/2023 * ROS:?General/Constitutional:?Nausea?denies, denies.?Vomiting?denies, denies.?Hunger Thirst?denies, denies.?Loss appetite?denies, denies.?Chills?denies, denies.?Fatigue?denies, denies.?Fever?denies, denies.?Night Sweats denies, denies.?Unexplained weight loss?denies, denies.?Unexplained weight gain?denies, denies.?HEENTM:?Dentures?denies, denies.?Dizziness?denies, denies.?Glasses/contacts?admits, admits.?Retinopathy?denies, denies.?Blurred/double vision?denies, denies.?TMJ?denies, denies.?Discharge/drainage?denies, denies.?Implants?denies, denies.?Sore throat?denies, denies.?Dental implants?denies, denies.?Hard of hearing ?denies, denies.?Difficulty chewing/swallowing/speaking?denies, denies.?Nose bleeds?denies, denies.?Sore mouth?denies, denies.?Respiratory:?On Oxygen?denies, denies.?Pneumonia/pleurisy?denies, denies.?Bronchitis?denies, denies.?Emphysema?denies, denies.?Coughing?denies, denies.?Cough blood?denies, denies.?Shortness of breath?denies, denies.?Wheezing?denies, denies.?Cardiovascular:?Pacemaker?denies, denies.?MVP?denies, denies.?WPW?denies, denies.?CHF?denies, denies.?Heart attack?denies, denies.?Septal defect?denies, denies.?Rapid beat?denies, denies.?Chest pain ?denies, denies.?Atrial Fib.?denies, denies.?Murmur/Palpitations?denies, denies.?Gastrointestinal:?Hemorrhoids?denies, denies.?Stomach/Abdominal pain?denies, denies.?Dark blood stool?denies, denies.?Irritable bowel ?denies, denies.?Constipation?denies, denies.?Diarrhea?denies, denies.?Hematology:?Swelling?denies, denies.?Clots?denies, denies.?Varicose Veins?denies, denies.?Bruising?denies, denies.?Bleeding problem?denies, denies.?Genitourinary:?Blood urine?denies, denies.?Frequent/Painfu/urination/bladder control?denies, denies.?Kidney stones?denies, denies.?Infection (UTI)?denies, denies.?Nephropathy?denies, denies.?sex trans dis (STD)?denies, denies.?Prostate?admits, admits.?Musculoskeletal:?Hammertoes?denies, denies.?Bunions?denies, denies.?Back Pain?denies, denies.?Muscle Cramps/ Resting?denies, denies.?Muscle cramps / walking?denies, denies.?Generalized aches and pains?denies, denies.?Weakness?denies, denies.?Integ.:?Baker?denies, denies.?Scars?denies, denies.?Corns/calluses?denies, denies.?Ingrown nails?denies, denies.?Painful nails?denies, denies.?Open Sores?denies, denies.?Rashes?denies, denies.?Neurologic:?Difficulty sleeping?denies, denies.?Brain disorder?denies, denies.?Numbness?denies, denies.?Balance trouble?denies, denies.?Confusion?denies, denies.?Fainting/blackouts?denies, denies.?Tingling?denies, denies.?Tremors?denies, denies.? * Medical History:? * Surgical History:?Gall bladd [...] than smoking?Are you an other tobacco user??No ???Miscellaneous:?Caffeine: yes, frequency:, 1-2 cups per day. [...] Allergies:?N.K.D.A.yes[Aller gies Verified] Objective: * Vitals:?Ht: 5ft9in, Wt:158, BMI:23.33, Shoe size: 8-9, BP:137/60 mm Hg, Ht-cm: 175.26 cm, Wt-k.67 kg. * Examination: ???Nails: ?NAILS are:?Elongated, overgrown, [...] as necessary. Patient chooses, no pharmaceutical tx (56225).? * Procedure Codes:?28386 DEBRI DE NAIL, 6 OR MORE, Modifiers: XS * Follow Up:?3 Months * Images: * Sign off status: Completed true * Provider:?Kimberli Yancey DPM Date:? Generated for Josie swain/Demetris/eTcarleneitting on:?03/15/2024 04:37 PM EST History and Physical [...]
== END 2024-03-15 16:48 | disposition home or self-care (01) ==
LOC: HO.HUSH 15:52
PROVIDERS: PCP Internal Medicine; Visit Provider Urology
DX: C64.9 Malignant neoplasm of unspecified kidney, except renal pelvis (principal)
CPT/HCPCS: 99213

== ENCOUNTER → 2024-03-15 15:52 | Outpatient (BNVA) | payer MEDICARE, SELFPAY | PROVIDERS: PCP Internal Medicine; Visit Provider Urology | DX: C64.1 Malignant neoplasm of right kidney, except renal pelvis (principal) | CPT/HCPCS: 99212 ==

== ENCOUNTER 2024-05-03 09:17 | Outpatient (REF) | payer MEDICARE, MEDICAID, SELFPAY ==
--- OUTSIDE RECORDS SUMMARY | 2024-05-03 12:22 | XMS_ITS ---
Author Organization [facility] Address [address] [place] [address] Care Team Providers Care Program Manager Name Role Phone Alivia Vieyra Primary Care Provider [phone] Active Problems Problem Noted Date Diagnosed Date [...] TotalDLP 247 mGy 247 mGy 0 mGy WESL109 4.2 mSv 4.2 mSv 0 mSv CTDIvol Max 8 mGy 8 mGy 0 mGy CTDIvol Min 8 mGy 8 mGy 0 mGy Radiation - mGy 93.1 mGy 0 mGy 93.1 mGy
--- OUTSIDE RECORDS SUMMARY | 2024-05-03 12:22 | XMS_ITS | Referral Summary ---
Author Organization [facility] Address [address] [place] [address] Care Team Providers Care Xerox Machine Mechanic Name Role Phone Alivia Vieyra Primary Care Provider [phone] Allergies No known active allergies Medications chlorthalidone [...] on file Medical Devices Implanted Type Area Shoe Dresser Device Identifier Shelf Expiration Date Model / Serial / Lot System Closure And Repair Suture-Mediat ed Perclose Prostyle - S0 - [id number] Implanted:Qty : 1 on 05/10/2023 by Xena Estrada MD MPH at [facility] Implant Right: Groin [employer] [id number] 01/19/2025 [id number] / [id number] Vascular Plug For Peripheral Vascular Occlusion 8mm - S0 - [id number] Implanted:Qty : 1 on 05/10/2023 by eXna Estrada MD MPH at [facility] Implant Right: Arterial Saenz [employer] [id number] 01/20/2028 9-AVP2-0 [id number] Insurance AETNA [facility] Advance Directives * Full Code (Latest Code Status on File) Date Activated Date Inactivated Comments 05/10/2023 12:13 PM 05/15/2023 6:14 PM Care Teams Xerox Machine Mechanic Relationship Specialty Start Date End Date Alivia Vieyra [address] [place] [address] [place] [address] PCP - General Internal Medicine 01/02/23
--- OUTSIDE RECORDS SUMMARY | 2024-05-03 12:22 | XMS_ITS | Clinical Summary ---
Author Organization [facility] Address [address] [place] [address] Care Team Providers Care Mica Plate Layer Name Role Phone Alivia Vieyra Primary Care Provider [phone] Allergies No known active allergies Medications chlorthalidone [...] this topic Medical Devices Implanted Type Area Machine Assembler Device Identifier Shelf Expiration Date Model / Serial / Lot System Closure And Repair Suture-Mediat ed Perclose Prostyle - S0 - [id number] Implanted:Qty : 1 on 05/10/2023 by Xena Estrada MD MPH at [facility] Implant Right: Groin [employer] [id number] 01/19/2025 [id number] / 0 / [id number] Vascular Plug For Peripheral Vascular Occlusion 8mm - S0 - [id number] Implanted:Qty : 1 on 05/10/2023 by Xena Estrada MD MPH at [facility] Implant Right: Arterial Saenz [employer] [id number] 01/20/2028 9-AVP2-0 [id number] Insurance AETNA [facility] Advance Directives * Full Code (Latest Code Status on File) Date Activated Date Inactivated Comments 05/10/2023 12:13 PM 05/15/2023 6:14 PM Care Teams Mica Plate Layer Relationship Specialty Start Date End Date Alivia Vieyra [address] [place] [address] [place] [address] PCP - General Internal Medicine 01/02/23
--- OUTSIDE RECORDS SUMMARY | 2024-05-03 12:22 | XMS_ITS | Encounter Summary ---
Author Organization [facility] Address [address] [place] [address] Care Team Providers Care Collection Card Clerk Name Role Phone Alivia Vieyra Primary Care Provider Encounter Details Date Type Department Care Team (Late st Contact Info) Description 01/27/2023 Lab Requisition [facility] [address] [place] [address] Enedelia Ortiz MD [address] [place] [id number] Social History Tobacco Use Types Packs/Day Years [...] of this encounter Procedures * Due to [place] law, this organization might not be sharing negative HIV tests. Procedure Name Priority Date/Time Associated Diagnosis Comments TISSUE EXAM Routine 01/27/2023 2:06 PM EST documented in this encounter Results * Due to [place] law, this organization might not be sharing negative HIV tests. * Tissue Exam (01/27/2023 2:06 PM EST) Final Diagnosis Review of Outside Slides Received from [facility] Labeled [id number] Procedure Date 04/21/2022: Right Kidney, Upper Pole Mass, Needle Core Biopsy: - CLEAR CELL RENAL CELL CARCINOMA, WHO/ISUP NUCLEAR GRADE 1-2 IN THIS SPECIMEN. [facility] MANUAL 01/30/2023 9:22 AM EST [facility] at 0922 EST Clinical History RIght renal upper pole mass [facility] 01/30/2023 9:22 AM EST [facility] Gross Consult Client Facility: [facility] Slide Identificatio n: [id number] Number of Glass Slides Received: 3 Number of Blocks Received: 0 Client Pathologist: Susanne Hogan Accompanying Report Received: Yes [facility] MANUAL 01/30/2023 9:22 AM EST [facility] Embedded Images [facility] MANUAL 01/30/2023 9:22 AM EST [facility] Resulting Agency Case was signed out at [facility], Department of Pathology, [facility] [id number] [facility] MANUAL 01/30/2023 9:22 AM EST [facility] Report Header Surgical Pathology Report ? Case: [id number] ? Authorizing Provider: ??Enedelia Ortiz MD ?Collected: ? 01/27/2023 1406 ? Ordering Location: ? [facility] ? Received: ?01/27/2023 1407 ? [facility] ? Pathologist: ? Enedelia Pop MD ? Specimen: ?Kidney, Right, Upper Pole Mass ? 01/30/2023 9:22 AM EST [facility] Tissue Entire right kidney / Unknown 01/27/2023 2:06 PM EST 01/27/2023 2:07 PM EST us Enedelia Ortiz MD LAB PATHOLOGY/CYTOLOGY [place] Final Result [facility] [address] [place] [address], documented in this encounter Visit Diagnoses Not on filedocumented in this encounter Care Teams Collection Card Clerk Relationship Specialty Start Date End Date Alivia Vieyra [address] [place] [address] [place] [address] PCP - General Internal Medicine 01/02/23 documented as of this encounter
--- OUTSIDE RECORDS SUMMARY | 2024-05-03 12:22 | XMS_ITS | Encounter Summary ---
Author Organization [facility] Address [address] [place] [address] Care Team Providers Care Foreign Language Stenographer Name Role Phone Alivia Vieyra Primary Care Provider [phone] Encounter Details Date Type Department Care Team (Late st Contact Info) Description 02/23/2023 Orders Only [facility] Nuclear Medicine [address] [place] [address] [phone] Jayme Ga MD [address] [place] [address] [phone] Social History Tobacco Use Types Packs/Day Years [...] on filedocumented in this encounter Care Teams Foreign Language Stenographer Relationship Specialty Start Date End Date Alivia Vieyra [address] [place] [address] [place] [phone] PCP - General Internal Medicine 01/02/23 documented as of this encounter
--- OUTSIDE RECORDS SUMMARY | 2024-05-03 12:22 | XMS_ITS | Clinical Summary ---
Author Organization [facility] Address [address] [place] [address] Care Team Providers Care Winding Inspector Name Role Phone Cynthia Greenberg MD Primary Care Provider [phone] Allergies No known active allergies Medications Medication [...] age to complete this topic Care Teams Winding Inspector Relationship Specialty Start Date End Date Cynthia Greenberg MD PCP - General Internal Medicine 06/09/17
--- OUTSIDE RECORDS SUMMARY | 2024-05-03 12:22 | XMS_ITS | Encounter Summary ---
Author Organization [facility] Address [address] [place] [address] Care Team Providers Care Plug Cutter Name Role Phone Alivia Vieyra Primary Care Provider [phone] Encounter Details Date Type Department Care Team (Late st Contact Info) Description 04/14/2023 Orders Only [facility] Interventional Radiology [address] [place], [place] [phone] Jose Alejandro Perez MD [address] [place], [place] [phone] Social History Tobacco Use Types Packs/Day Years [...] on filedocumented in this encounter Care Teams Plug Cutter Relationship Specialty Start Date End Date Alivia Vieyra [address] [place] [address] [place] [phone] PCP - General Internal Medicine 01/02/23 documented as of this encounter
--- OUTSIDE RECORDS SUMMARY | 2024-05-03 12:22 | XMS_ITS | Encounter Summary ---
Author Organization [facility] Address [address] [place] [address] Care Team Providers Care C D Stripper Name Role Phone Alivia Vieyra Primary Care Provider [phone] Encounter Details Date Type Department Care Team (Late st Contact Info) Description 01/24/2023 Orders Only [facility] Interventional Radiology [address] [place] [address] [phone] Jayme Ga MD [address] [place], [place] [phone] Social History Tobacco Use Types Packs/Day Years [...] on filedocumented in this encounter Care Teams C D Stripper Relationship Specialty Start Date End Date Alivia Vieyra [address] [place] [address] [place] [phone] PCP - General Internal Medicine 01/02/23 documented as of this encounter
== END 2024-05-03 09:18 | disposition home or self-care (01) ==
LOC: HO.LAB 09:17
PROVIDERS: PCP Internal Medicine; Visit Provider Urology
DX: N39.0 Urinary tract infection, site not specified (principal)
CPT/HCPCS: 81003; 87086

== ENCOUNTER 2024-05-03 09:17 | Outpatient (AMB) | payer MEDICARE, MEDICAID, SELFPAY ==
--- NOTE | 2024-05-03 09:19 | MHC.OFFVIS ---
Intake Visit Reasons: Swollen right testicle Intake Note: Patient presents to office today for swollen right testicle Urology Medication:Tamsulosin (not working),Finasteride,Sildenafil Antibiotic Allergy:none Blood Thinner:none Strap Buckler Machine Required: No Allergies No Known Allergies [No Known Allergies*] Allergy (Verified 05/03/24 09:21) HPI Comments Details: 05/03/24-- History of Present Illness The patient is a 64-year-old male presenting with a swollen right testicle. He has a significant past medical history of renal cell carcinoma, status post-nephrectomy. The swelling in the testicle was a recent development and has not been experienced by the patient in the past. On evaluation, the presence of pus drainage from the inferior aspect of the left hemiscrotum was noted. An immediate office procedure was performed, involving incision and drainage of the site. Skin preparation with iodoform and the use of an 11 blade scalpel was undertaken, followed by gauze application to manage the continuous drainage. The patient has been advised to change the gauze as required. For infection management, Ciprofloxacin 500 mg has been prescribed to be taken twice daily over a period of 7 days. To investigate further, a scrotal ultrasound was ordered. Follow-up with the urology nurse is planned in 5 days to reassess the healing process. Urinary Symptoms Review Review of Systems - Integumentary: Reports swelling of the right testicle - Lymphatic: Reports pus drainage from left hemiscrotum Const All systems reviewed & are unremarkable except as noted in HPI and below Reports no additional complaints Eyes Reports no additional complaints ENT Reports no additional complaints Card Reports no additional complaints Resp Reports no additional complaints GI Reports no additional complaints Reports as per HPI Musc Reports no additional complaints Skin/Breast Reports system reviewed and no additional complaints, except as documented Neuro Reports no additional complaints Psych Reports no additional complaints Endo Reports no additional complaints Pj/Lymph Reports no additional complaints Aller/Immun Reports no additional complaints Physical Exam General: Healthy appearing, no acute distress and well developed Orientation and consciousness: Patient oriented x3 Head: Yes normocephalic and Yes atraumatic Eyes: Conjunctivae normal Neck: Yes normal visual inspection Chest: Normal inspection of the chest Respiratory: Normal respiratory effort GI: Normal to inspection : Extremities: Skin: Neurology: Patient oriented x3 Psych: Appearance grossly normal. Normal affect Results Plan The patient was evaluated for swelling of the right testicle, with findings indicating pus drainage from the left hemiscrotum. Immediate incision and drainage were performed, with skin preparation and application of gauze for managing drainage. Ciprofloxacin 500 mg was prescribed to be taken twice daily for 7 days to treat potential infection. A scrotal ultrasound is scheduled to further investigate the condition. Follow-up care has been organized with the urology nursing team in 5 days for reassessment of the healing process. Patient was informed and verbally consented to the use of an ambient scribe for clinic note documentation during this visit. Discussion Notes During the visit, I discussed the diagnosis and management options with the patient, focusing on the unexpected pus drainage from the left hemiscrotum. An immediate office intervention included incision and drainage, and I thoroughly explained the procedure, its benefits, potential risks, and alternatives, ensuring the patient gave informed consent. The patient consented to a prescription of Ciprofloxacin 500 mg twice daily for 7 days, as well as undergoing a scrotal ultrasound for further evaluation. I outlined the follow-up plan to reassess the site in 5 days, advising the importance of monitoring the healing process and adherence to the treatment protocol. Patient Instructions - Take Ciprofloxacin 500 mg twice daily for 7 days, as prescribed. - Change gauze on the incision site as needed for drainage control. - Arrange and attend follow-up appointment with the urology nurse in 5 days to evaluate healing progress. - Observe for any signs of increased pain, redness, swelling, or fever and seek medical attention if these develop. - Attend the scheduled scrotal ultrasound for further assessment. 03/15/24--Dick is a pleasant male. He is a patient of Dr. Pat. 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 - has autoimmune disease with psoriatic arthritis Cystoscopy shows neoadjuvant vessels around the bladder neck. No lesions within the bladder. 09/12 recent imaging with known positive nodularity. Initial evaluation of imaging normal Six month follow-up repeat imaging 07/13 continues with adjuvant chemotherapy with Dr. Acosta Plan for repeat staging CT chest and abdomen in 2 months Recommend use of binder during activity 05/13 Debulking nephrectomy - after neoadjuvant chemotherapy and down staging Renal cancer restaging 12/12: CT ADRENAL GLANDS AND KIDNEYS: There is interval decrease in size in the right adrenal nodule. This measures 5 x 10 mm axial image 70 series 4 compared to 1.2 x 1.8 cm most recent July 2022 exam. Low-attenuation or cystic mass in the upper pole of the right kidney not appreciably changed in size measuring 2.5 cm. This extends centrally into the right renal collecting system which does not appear appreciably changed. There is still of thrombus in the right renal vein extending into the IVC 11/[address] : THORAX: No tracer avid lung nodule on either side, Previously documented right renal mass as well as local disease extension into the right renal vein and inferior vena cava shows interval improvement on this nondiagnostic noncontrast CT study 08/12 - good response to chemotherapy on initial restaging Chest: Interval decrease in size and number of pulmonary nodules 50% reduction. - Abdomen and pelvis: Interval decrease in right adrenal mass and right renal mass. Interval decrease in right renal vein and IVC thrombus in and enhancement. 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 04/14 CT chest - bilateral multiple pulmonary nodules largest measuring 1.1 cm in the right lower lobe, suspicious for metastatic disease.? Heterogenous enhancement of IVC, questionable for thrombus.? 04/14 Bone scan negative for metastatic disease. Chemotherapy initiated with Dr. Acosta - 06/12 - on combination regimen with cabozantinib and nivolumab Background of immune disease of psoriasis in had been on immune modifying medications PFSH Medical History Renal cancer Incarcerated umbilical hernia (01/09/23) Kidney cancer, primary, with metastasis from kidney to other site Depression Psoriatic arthritis BPH (benign prostatic hyperplasia) Elevated cholesterol HTN (hypertension) Surgical History S/P laparoscopic cholecystectomy History of laparoscopic cholecystectomy (01/09/23) H/O colonoscopy Hx of hernia repair Family History Mother Colon cancer Father Prostate cancer Social History Household Members: Family Housing: House Are you a primary healthcare administration intern to a significant other at home: No Do you presently have visiting nurse or other home services: No Alcohol intake: former Patient Tobacco Use Status: Former Tobacco user Tobacco use type: Cigarette service: Yes Current occupational status: retired Results AMB Urinalysis, Automated UA Leukoctes 0 Diane/uL Last Edit by Brionna Bell on 05/03/24 10:57 UA Nitrite Negative Last Edit by Brionna Bell on 05/03/24 10:57 UA Urobilinogen 3.5 mg/dL Last Edit by Brionna Bell on 05/03/24 10:57 UA Protein 1.0 mg/dL Last Edit by Brionna Bell on 05/03/24 10:57 UA pH 6.0 Last Edit by Brionna Bell on 05/03/24 10:57 UA Blood 10 Prabhjot/uL Last Edit by Brionna Bell on 05/03/24 10:57 UA Specific [place] 1.020 Last Edit by Brionna Bell on 05/03/24 10:57 UA Ketone Negative Last Edit by Brionna Bell on 05/03/24 10:57 UA Bilirubin 0 mg/dL Last Edit by Brionna Bell on 05/03/24 10:57 UA Glucose 0 mg/dL Last Edit by Brionna Bell on 05/03/24 10:57 Assessment & Plan Assessment & Plan (1) Scrotal abscess: Code(s): N49.2 - Inflammatory disorders of scrotum Category: Medical (2) Scrotal abscess: Code(s): N49.2 - Inflammatory disorders of scrotum Category: Medical Orders: Orders US scrotum Today N49.2 - Inflammatory disorders of scrotum AMB Office Procedure Misc Today N49.2 - Inflammatory disorders of scrotum AMB Urinalysis Automated Today Z13.9 - Encounter for screening, unspecified Urine Culture Today N39.0 - Urinary tract infection, site not specified Medications: New ciprofloxacin HCl 500 mg PO BID 14 tabs 0RF 7 days Discontinued azithromycin Take 2 tablets today and 1 daily for 4 days Discontinued Reason: Patient no longer taking 250 mg PO DAILY 6 tabs 0RF Coding Diagnoses Scrotal abscess N49.2
--- OUTSIDE RECORDS SUMMARY | 2024-05-03 10:06 | XMS_ITS | Clinical Summary ---
Author Organization [employer] [facility] Address [address] [place] [address] Care Team Providers Care Health Analyst Name Role Phone Cynthia Greenberg MD Primary Care Provider [phone] Allergies No known active allergies Medications Medication [...] age to complete this topic Care Teams Health Analyst Relationship Specialty Start Date End Date Cynthia Greenberg MD PCP - General Internal Medicine 06/09/17
--- OUTSIDE RECORDS SUMMARY | 2024-05-03 10:06 | XMS_ITS ---
Author Organization [facility] Address [address] [place] [address] Care Team Providers Care Law Instructor Name Role Phone Alivia Pat Primary Care Provider Unavailab Kimberli Cordova [phone] Encounters Encounter Location Date Provider Diagnosis [address] [address] 04/19/2024 Kimberli Yancey Plan Of Treatment Next Appt Details Provider Name:Kimberli neville, 05/28/2024 02:30:00 PM, [address] [place] [address], [phone], Progress Notes * Dick COFFEYDOB:1960 (64 yo M)Acc No.[id number]:04/19/2024 Progress Note Patient:?Dick COFFEY Provider:?Kimberli Yancey DPM :1960???Age:64 Y???Sex:Male Constantine e:04/19/2024 Address:[address] [place] [phone] Pcp:Alivia Pat Subjective: * Chief Complaints: * ??? * Medical History:? Objective: * Vitals:? Assessment: Plan: * Treatment: * Images: * The named appointment provid er may or may not be the originator of this progress note, and it is not deemed complete until electronically signed by the appointment provider. Sign off status: Pending * Provider:?Kimberli Yancey DPM Date:? Generated for Josie swain/Demetris/Maria Del Carmen on:?05/03/2024 10:06 AM EDT
--- OUTSIDE RECORDS SUMMARY | 2024-05-03 10:06 | XMS_ITS | Encounter Summary ---
Author Organization [facility] Address [address] [place] [address] Care Team Providers Care Outdoor Pursuits Instructor Name Role Phone Alivia Vieyra Primary Care Provider [phone] Encounter Details Date Type Department Care Team (Late st Contact Info) Description 01/24/2023 Orders Only [facility] Interventional Radiology [address] [place] [address] [phone] Jayme aG MD [address] [place], [place] [id number] Social History Tobacco Use Types Packs/Day Years [...] on filedocumented in this encounter Care Teams Outdoor Pursuits Instructor Relationship Specialty Start Date End Date Alivia Vieyra [address] [place] [address] [place] [phone] PCP - General Internal Medicine 01/02/23 documented as of this encounter
--- OUTSIDE RECORDS SUMMARY | 2024-05-03 10:06 | XMS_ITS | Encounter Summary ---
Author Organization [facility] Address [address] [place] [address] Care Team Providers Care Fashion Design Professor Name Role Phone Alivia Vieyra Primary Care Provider [phone] Encounter Details Date Type Department Care Team (Late st Contact Info) Description 01/27/2023 Lab Requisition [facility] [address] [place] [address] Enedelia Ortiz MD [address] [place] [id number] Social History Tobacco Use Types Packs/Day Years [...] of this encounter Procedures * Due to [place] Bro[place] law, this organization might not be sharing negative HIV tests. Procedure Name Priority Date/Time Associated Diagnosis Comments TISSUE EXAM Routine 01/27/2023 2:06 PM EST documented in this encounter Results * Due to [place] Bro[place] law, this organization might not be sharing negative HIV tests. * Tissue Exam (01/27/2023 2:06 PM EST) Final Diagnosis Review of Outside Slides Received from [facility] Labeled [id number] Procedure Date 04/21/2022: Right Kidney, Upper Pole Mass, Needle Core Biopsy: - CLEAR CELL RENAL CELL CARCINOMA, WHO/ISUP NUCLEAR GRADE 1-2 IN THIS SPECIMEN. [facility] MANUAL 01/30/2023 9:22 AM EST [facility] at 0922 EST Clinical History RIght renal upper pole mass [facility] 01/30/2023 9:22 AM EST [facility] Gross Consult Client Facility: [facility] Slide Identificatio n: [id number] Number of Glass Slides Received: 3 Number of Blocks Received: 0 Client Pathologist: Susanne Hogan Accompanying Report Received: Yes [facility] MANUAL 01/30/2023 9:22 AM EST [facility] Embedded Images [facility] MANUAL 01/30/2023 9:22 AM EST [facility] Resulting Agency Case was signed out at [facility], Department of Pathology, [facility] [id number] [facility] MANUAL 01/30/2023 9:22 AM EST [facility] Report Header Surgical Pathology Report ? Case: [id number] ? Authorizing Provider: ??Enedelia Ortiz MD ?Collected: ? 01/27/2023 1406 ? Ordering Location: ? [facility] ? Received: ?01/27/2023 1407 ? [facility] ? Pathologist: ? Enedelia Pop MD ? Specimen: ?Kidney, Right, Upper Pole Mass ? 01/30/2023 9:22 AM EST [facility] Tissue Entire right kidney / Unknown 01/27/2023 2:06 PM EST 01/27/2023 2:07 PM EST us Enedelia Ortiz MD LAB PATHOLOGY/CYTOLOGY [place] Final Result [facility] [address] [place] [address], documented in this encounter Visit Diagnoses Not on filedocumented in this encounter Care Teams Fashion Design Professor Relationship Specialty Start Date End Date Alivia Vieyra [address] [place] [address] [place] [phone] PCP - General Internal Medicine 01/02/23 documented as of this encounter
--- OUTSIDE RECORDS SUMMARY | 2024-05-03 10:06 | XMS_ITS ---
Author Organization [facility] Address [address] [place] [address] Care Team Providers Care Telephone Lineman Name Role Phone Alivia Pat Primary Care Provider Unavailab Kimberli Cordova [phone] Roa Encounters Encounter Location Date Provider Diagnosis [address] [address] 04/09/2024 Kimberli Yancey Plan Of Treatment Next Appt Details Provider Name:Kimberli neville, 05/28/2024 02:30:00 PM, [address] [place] [address], [phone], Progress Notes * Dick COFFEYDOB:1960 (64 yo M)Acc No.[id number]:04/09/2024 Progress Note Patient:?Dick COFFEY Provider:?Kimberli Yancey DPM :1960???Age:64 Y???Sex:Male Constantine e:04/09/2024 Address:[address] [place] [phone] Pcp:Alivia Pat Subjective: * Chief Complaints: * ???1. Dr Roa. * Medical History:? Objective: * Vitals:? Assessment: Plan: * Treatment: * Images: * The named appointment provid er may or may not be the originator of this progress note, and it is not deemed complete until electronically signed by the appointment provider. Sign off status: Pending * Provider:Kimberly Yancey DPM Date:? Generated for Josie swain/Demetris/Maria Del Carmen on:?05/03/2024 10:06 AM EDT
--- OUTSIDE RECORDS SUMMARY | 2024-05-03 10:06 | XMS_ITS | Encounter Summary ---
Author Organization [facility] Address [address] [place] [address] Care Team Providers Care Office Professional Name Role Phone Alivia Vieyra Primary Care Provider [phone] Encounter Details Date Type Department Care Team (Late st Contact Info) Description 02/23/2023 Orders Only [facility] Nuclear Medicine [address] [place] [address] [phone] Jayme Ga MD [address] [place] [address] [phone] Social History Tobacco Use Types Packs/Day Years [...] on filedocumented in this encounter Care Teams Office Professional Relationship Specialty Start Date End Date Alivia Vieyra [address] [place] [address] [place] [phone] PCP - General Internal Medicine 01/02/23 documented as of this encounter
--- OUTSIDE RECORDS SUMMARY | 2024-05-03 10:06 | XMS_ITS | Referral Summary ---
Author Organization [facility] Address [address] [place] [address] Care Team Providers Care Cash Reconciliation Specialist Name Role Phone Alivia Vieyra Primary Care Provider [phone] Allergies No known active allergies Medications chlorthalidone [...] on file Medical Devices Implanted Type Area Joint Cleaning Machine Operator Device Identifier Shelf Expiration Date Model / Serial / Lot System Closure And Repair Suture-Mediat ed Perclose Prostyle - S0 - [id number] Implanted:Qty : 1 on 05/10/2023 by Xena Estrada MD MPH at [facility] Implant Right: Groin [employer] [id number] 01/19/2025 [id number] Vascular Plug For Peripheral Vascular Occlusion 8mm - S0 - [id number] Implanted:Qty : 1 on 05/10/2023 by Xena Estrada MD MPH at [facility] Implant Right: Arterial [address] [employer] [id number] 01/20/2028 [id number] Insurance [employer] [facility] Advance Directives * Full Code (Latest Code Status on File) Date Activated Date Inactivated Comments 05/10/2023 12:13 PM 05/15/2023 6:14 PM Care Teams Cash Reconciliation Specialist Relationship Specialty Start Date End Date Alivia Vieyra [address] [place] [address] [place] [phone] PCP - General Internal Medicine 01/02/23
--- OUTSIDE RECORDS SUMMARY | 2024-05-03 10:06 | XMS_ITS | Patient Health Record ---
Author Organization [facility] Address [address] [place] [address] Care Team Providers Care Livestock Haulier Name Role Phone Alivia Pat Primary Care Provider Unavailab Kimberli Cordova Unavailable [phone] Allergies No Known Allergies Reason For Referral [...] 01/09/2024 Encounters Encounter Location Date Provider Diagnosis [facility] [address] [place] [address] 07/04/2023 Kimberli Perica Tinea unguium B35.1 ; Pain in right toe(s) M79.674 and Pain in left toe(s) M79.[address] [address] 10/10/2023 Kimberli Perica Tinea unguium B35.1 ; Pain in right toe(s) M79.674 and Pain in left toe(s) M79.[address] [address] 01/09/2024 Kimberli Perica Tinea unguium B35.1 ; Tinea pedis of both feet B35.3 ; Pain in right toe(s) M79.674 and Pain in left toe(s) M79.[address] [address] 06/23/2023 Kimberli Perica [address] [address] 06/23/2023 Kimberli Perica [address] [address] 03/19/2024 Kimberli Yancey Assessments Encounter Date Diagnosis (ICD Code) Assessment [...] Pain in left toe(s) (ICD-10 - M79.675) 10/10/2023 Pain in left toe(s) (ICD-10 - M79.675) 01/09/2024 Pain in left toe(s) (ICD-10 - M79.675) Plan Of Treatment Next Appt Details Provider Name:Kimberli neville, 05/28/2024 02:30:00 PM, [address] [place] [address], [phone], Insurance Providers Payer Name Payer Address Payer Phone Subscriber Number Group Number Insured Name Patient Relationship to Insured Coverage Start Date Coverage End Date [employer] Medicare Open [address] [place] [address] [id number] Colon, Dick Self - patient is the insured Medical (General) History Medical History History ICD Code Arthritis Cancer High blood pressure Psoriasis/eczema Surgical History Surgery Date(Month/Year) Gall bladder removal 03/15 kidney surgery 05/10
--- OUTSIDE RECORDS SUMMARY | 2024-05-03 10:06 | XMS_ITS ---
Author Organization [facility] Address [address] [place] [address] Care Team Providers Care Hadoop Application Developer Name Role Phone Alivia Vieyra Primary Care Provider [phone] Active Problems Problem Noted Date Diagnosed Date Aftercare following surgery of the circulatory s ystem 05/19/2023 Renal cell cancer, right 05/10/2023 Gross hematuria 01/24/2023 History of kidney cancer 01/24/2023 Prostate hyperplasia, benign localized, without urinary obstruction 06/09/2017 Current Treatment and Therapy Plans No current plan information found. Past Treatment and Therapy Plans No past plan information found. Lifetime Dose Tracking * Chemical Lifetime Dose Automatic Entry Manual Entr y TotalDLP 247 mGy 247 mGy 0 mGy UUDI325 4.2 mSv 4.2 mSv 0 mSv CTDIvol Max 8 mGy 8 mGy 0 mGy CTDIvol Min 8 mGy 8 mGy 0 mGy Radiation - mGy 93.1 mGy 0 mGy 93.1 mGy
--- OUTSIDE RECORDS SUMMARY | 2024-05-03 10:06 | XMS_ITS ---
Author Organization [facility] Address [address] [place] [address] Care Team Providers Care Filler Sifter Machine Name Role Phone Anitajosé manuel Alivia Primary Care Provider Unavailab Kimberli Cordova Unavailable [phone] REASON FOR VISIT rs from 04/19/24 Encounters Encounter Location Date Provider Diagnosis [address] [address] 03/19/2024 Kimberli Yancey Plan Of Treatment Next Appt Details Provider Name:Kimberli neville, 05/28/2024 02:30:00 PM, [address] [place] [address], [phone], Progress Notes * FACUNDO KimberlyrayDOB:1960 (63 yo M)Acc No.[id number]:03/19/2024 Patient:?Dick COFFEY :1960???Age:63 Y???Sex:Male Address:[address] [place] [phone] * true * Date:? Generated for Printi ng/Jeang/eTransmitting on:?05/03/2024 10:06 AM EDT
--- OUTSIDE RECORDS SUMMARY | 2024-05-03 10:06 | XMS_ITS | Clinical Summary ---
Author Organization [facility] Address [address] [place] [address] Care Team Providers Care Blending Tank Helper Name Role Phone Alivia Vieyra Primary Care Provider [phone] Allergies No known active allergies Medications chlorthalidone [...] Colonoscopy 1958 FOBT / Fit Test 1958 Hepatitis C Screening 1960 Sigmoidoscopy 1960 Abdominal Aortic Aneurysm (AAA) Screening 2023 COVID-19 Vaccine ( season) 2023 12/06/2022, 01/27/2022, 08/31/2021, Additional history exists Influenza Vaccine (#1) 2023 , 01/27/2022, 12/23/2020, Additional history exists Alcohol/Substance Use Screening 02/21/2024 Depression Screening and Follow-Up 02/21/2024 Health Care Proxy Review 02/21/2024 Social Drivers of Health Annual Screening 02/21/2024 Pneumococcal Vaccine: 50+ Years (3 of 3 - PPSV23, PCV20 or PCV21) 06/03/2027 06/02/2022, 02/15/2019 DTaP,Tdap,and Td Vaccines (3 - Td or Tdap) 12/06/2032 12/06/2022, 12/20/2013 Zoster Vaccines Completed 08/26/2021, 06/0 07/2021, 05/27/2021 RSV Vaccine (60+ years old and patients) Completed 12/06/2022 Hepatitis B Vaccines Aged Out No long er eligible based on patient's age to complete this topic Medical Devices Implanted Type Area Automation Technologist Device Identifier Shelf Expiration Date Model / Serial / Lot System Closure And Repair Suture-Mediat ed Perclose Prostyle - S0 - [id number] Implanted:Qty : 1 on 05/10/2023 by Xena Estrada MD MPH at [facility] Implant Right: Groin [employer] [id number] 01/19/2025 [id number] / 0 / [id number] Vascular Plug For Peripheral Vascular Occlusion 8mm - S0 - [id number] Implanted:Qty : 1 on 05/10/2023 by Xena Estrada MD MPH at [facility] Implant Right: Arterial Sa[employer] [id number] 01/20/2028 9-AVP2-0 [id number] Insurance AETNA [facility] Advance Directives * Full Code (Latest Code Status on File) Date Activated Date Inactivated Comments 05/10/2023 12:13 PM 05/15/2023 6:14 PM Care Teams Blending Tank Helper Relationship Specialty Start Date End Date Alivia Vieyra [address] [place] [address] [place] [address] PCP - General Internal Medicine 01/02/23
--- OUTSIDE RECORDS SUMMARY | 2024-05-03 10:06 | XMS_ITS | Encounter Summary ---
Author Organization [facility] Address [address] [place] [address] Care Team Providers Care Flanging Roll Operator Name Role Phone Alivia Vieyra Primary Care Provider [phone] Encounter Details Date Type Department Care Team (Late st Contact Info) Description 04/14/2023 Orders Only [facility] Interventional Radiology [address] [place], [place] [phone] Jose Alejandro Perez MD [address] [place], [place] [phone] Social History Tobacco Use Types Packs/Day Years [...] on filedocumented in this encounter Care Teams Flanging Roll Operator Relationship Specialty Start Date End Date Alivia Vieyra [address] [place] [address] [place] [address] PCP - General Internal Medicine 01/02/23 documented as of this encounter
--- OUTSIDE RECORDS SUMMARY | 2024-05-03 10:07 | XMS_ITS | Patient Health Record ---
Author Organization [facility] Address [address] [place] [address] Care Team Providers Care Water Quality Manager Name Role Phone Alivia Pat Primary Care Provider Unavailab Bob Yu Jr Allergies No Known Allergies Reason For Referral [...] SureClick 50 MG/ML Subcutaneous for 28 Active Immunizations Vaccine Route Administration Date Status Comme nts Influenza Unknown 10/21/2020 Administered Social History Tobacco Use: Social History Observation Description Date Details (start date - stop date) Former Smoker NA - NA Tobacco Use/Smoking Question Answer Notes Patient is [...] drinks (1 point) Points 3 Interpretation Negative Problems Problem Type SNOMED Code ICD Code Onset Dates Problem Status W/U Status Risk Notes Problem 640181730 Colon cancer screening (Z12.11) Active confirmed Problem 576067897 Encounter for other preprocedural examination (Z01.818) Active confirmed Problem 738684455 Long-term use of aspirin therapy (Z79.82) Active confirmed Problem 130309826 FH: colon polyps (Z83.71) Active confirmed Plan Of Treatment Future Test Test Name Order Date COLONOSCOPY 09/02/2021 Insurance Providers Payer Name Payer Address Payer Phone Subscriber Number Group Number Insured Name Patient Relationship to Insured Coverage Start Date Coverage End Date [facility] [address] [place], [place] [phone] [id number] COLON COLON, JOSÉ Self - patient is the insured Medical (General) History Medical History History ICD Code hypertension hyperlipidemia benign prostatic hyperplasia without low er urinary tract symptoms Psoriatic arthritis Depression Surgical History Surgery Date(Month/Year) hernia
== END 2024-05-03 10:33 | disposition home or self-care (01) ==
PROVIDERS: PCP Internal Medicine; Visit Provider Urology
DX: Z13.9 Encounter for screening, unspecified (principal)

== ENCOUNTER → 2024-05-08 11:17 | Outpatient (BNVA) | payer MEDICARE, SELFPAY | PROVIDERS: PCP Internal Medicine; Visit Provider Urology ==

== ENCOUNTER 2024-05-14 12:50 | Outpatient (AMB) | payer MEDICARE, SELFPAY ==
--- NOTE | 2024-05-14 13:09 | A.OFFVIS_ITS ---
Intake Visit Reasons: Testicle Abscess Intake Note: Patient is present for TESTICLE ABSCESS Urology Medication:FINASTERIDE,SILDENAFIL Antibiotic Allergy:NONE Blood Thinner:NONE Systems Project Manager Required: No Allergies No Known Allergies [No Known Allergies*] Allergy (Verified 05/14/24 13:12) HPI Comments Details: Dick is a pleasant male. He is a patient of Dr. Pat. 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 - has autoimmune disease with psoriatic arthritis Cystoscopy shows neoadjuvant vessels around the bladder neck. No lesions within the bladder. 09/12 recent imaging with known positive nodularity. Initial evaluation of imaging normal Six month follow-up repeat imaging 07/13 continues with adjuvant chemotherapy with Dr. Acosta Plan for repeat staging CT chest and abdomen in 2 months Recommend use of binder during activity 05/13 Debulking nephrectomy - after neoadjuvant chemotherapy and down staging Renal cancer restaging 12/12: CT ADRENAL GLANDS AND KIDNEYS: There is interval decrease in size in the right adrenal nodule. This measures 5 x 10 mm axial image 70 series 4 compared to 1.2 x 1.8 cm most recent July 2022 exam. Low-attenuation or cystic mass in the upper pole of the right kidney not appreciably changed in size measuring 2.5 cm. This extends centrally into the right renal collecting system which does not appear appreciably changed. There is still of thrombus in the right renal vein extending into the IVC 11/[address] : THORAX: No tracer avid lung nodule on either side, Previously documented right renal mass as well as local disease extension into the right renal vein and inferior vena cava shows interval improvement on this nondiagnostic noncontrast CT study 08/12 - good response to chemotherapy on initial restaging Chest: Interval decrease in size and number of pulmonary nodules 50% reduction. - Abdomen and pelvis: Interval decrease in right adrenal mass and right renal mass. Interval decrease in right renal vein and IVC thrombus in and enhancement. 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 04/14 CT chest - bilateral multiple pulmonary nodules largest measuring 1.1 cm in the right lower lobe, suspicious for metastatic disease.? Heterogenous enhancement of IVC, questionable for thrombus.? 04/14 Bone scan negative for metastatic disease. Chemotherapy initiated with Dr. Acosta - 06/12 - on combination regimen with cabozantinib and nivolumab Background of immune disease of psoriasis in had been on immune modifying medications PFSH Medical History (Updated 05/07/24 @ 09:58 by Darius Mccartney MD) Kidney cancer, primary, with metastasis from kidney to other site Renal cancer Incarcerated umbilical hernia (01/09/23) Depression Psoriatic arthritis BPH (benign prostatic hyperplasia) Elevated cholesterol HTN (hypertension) Surgical History S/P laparoscopic cholecystectomy History of laparoscopic cholecystectomy (01/09/23) H/O colonoscopy Hx of hernia repair Family History Mother Colon cancer Father Prostate cancer Social History Household Members: Family Housing: House Are you a primary career education teacher to a significant other at home: No Do you presently have visiting nurse or other home services: No Alcohol intake: former Patient Tobacco Use Status: Former Tobacco user Tobacco use type: Cigarette service: Yes Current occupational status: retired Office Procedures I&D Drain Details: 3 scrotal wall abcesses each approximately 1 cm Betadine swab Infiltrated with local anesthetic Opened with snap and drained Betadine placed inside area Dressing CPT 57669 All charges added?: Additional procedure code (CPT) needed (02500) Office Meds lidocaine 1 %-epinephrine 1:100,000 injection solution Performing Provider: Darius Mccartney MD [facility] Documented (not given) by: Darius Mccartney MD on 05/15/24 08:31 Dose Route Admin Location Dispensed Lot Number Expiration Date ND Associate Producer 5 mL subcut mL Assessment & Plan Assessment & Plan (1) Scrotal abscess: Code(s): N49.2 - Inflammatory disorders of scrotum Category: Medical Plan Drainage Antibiotics Orders: Orders AMB Incision & Drainage 05/14/24 N49.2 - Inflammatory disorders of scrotum Medications: New sulfamethoxazole-trimethoprim 800-160 mg (Bactrim DS) 1 tab PO BID 7 days 14 tabs 0RF N39.0 - Urinary tract infection, site not specified, N49.2 - Inflammatory disorders of scrotum lidocaine-epinephrine 1 %-1:100,000 5 mL subcut ONCE 10 mL 0RF N49.2 - Inflammatory disorders of scrotum Patient Instructions: This note is constructed using voice recognition software. While every effort has been made to ensure accuracy school age program associate errors may have been included. Imaging studies, laboratory and physical exam results were discussed and reviewed in detail. No major barriers to patient understanding were identified. An opportunity to ask questions regarding the treatment plan was provided. All questions were answered. The patient expressed understanding and agreement with the above treatment plan. The patient is aware they should contact our office by phone for worsening of their current condition or the appearance of new urologic symptoms. Compliance is encouraged with any medications and followup testing that is ordered. It is a privilege to participate in the urologic care of your patient. If you have any questions or concerns regarding treatment for the above conditions, or other urologic issues, please do not hesitate to contact me. The office telephone contact is [phone]. Sincerely, Dr Darius Mccartney MD, [facility] - Urology Compassionate Specialist Care for the Genitourinary System Coding Level of Care Code Est Pt Level 3 (23909) Complex EM visit Add On G2211 Diagnoses Scrotal abscess N49.2
--- OUTSIDE RECORDS SUMMARY | 2024-05-14 15:32 | XMS_ITS | Clinical Summary ---
Author Organization [facility] Address [address] [place] [address] Care Team Providers Care Hand Spring Repairer Helper Name Role Phone Alivia Vieyra Primary Care Provider [phone] Allergies No known active allergies Medications chlorthalidone [...] topic Medical Devices Implanted Type Area Health Teacher Device Identifier Shelf Expiration Date Model / Serial / Lot System Closure And Repair Suture-Mediat ed Perclose Prostyle - S0 - [id number] Implanted:Qty : 1 on 05/10/2023 by Xena Estrada MD MPH at [facility] Implant Right: Groin [employer] [id number] 01/19/2025 [id number] / 0 / [id number] Vascular Plug For Peripheral Vascular Occlusion 8mm - S0 - [id number] Implanted:Qty : 1 on 05/10/2023 by Xena Estrada MD MPH at [facility] Implant Right: Arterial Saenz [employer] [id number] 01/20/2028 9-AVP2-0 [id number] Insurance AETNA [facility] Advance Directives * Full Code (Latest Code Status on File) Date Activated Date Inactivated Comments 05/10/2023 12:13 PM 05/15/2023 6:14 PM Care Teams Hand Spring Repairer Helper Relationship Specialty Start Date End Date Alivia Vieyra [address] [place] [address] [place] [address] PCP - General Internal Medicine 01/02/23
--- OUTSIDE RECORDS SUMMARY | 2024-05-14 15:32 | XMS_ITS | Patient Health Record ---
Author Organization [facility] Address [address] [place] [address] Care Team Providers Care Youth Teacher Name Role Phone Alivia Pat Primary Care Provider Unavailab Kimberli Cordova Unavailable [phone] Allergies No Known Allergies Reason For Referral [...] 01/09/2024 Encounters Encounter Location Date Provider Diagnosis [facility] [address] [place] [address] 07/04/2023 Kimberli Perica Tinea unguium B35.1 ; Pain in right toe(s) M79.674 and Pain in left toe(s) M79.[address] [address] 10/10/2023 Kimberli Perica Tinea unguium B35.1 ; Pain in right toe(s) M79.674 and Pain in left toe(s) M79.[address] [address] 01/09/2024 Kimberli Perica Tinea unguium B35.1 ; Tinea pedis of both feet B35.3 ; Pain in right toe(s) M79.674 and Pain in left toe(s) M79.[address] [address] 06/23/2023 Kimberli Perica [address] [address] 06/23/2023 Kimberli Perica [address] [address] 03/19/2024 Kimberli Yancey Assessments Encounter Date Diagnosis [...] Details Provider Name:Kimberli neville, 05/28/2024 02:30:00 PM, [address] [place] [address], [phone], Insurance Providers Payer Name Payer Address Payer Phone Subscriber Number Group Number Insured Name Patient Relationship to Insured Coverage Start Date Coverage End Date A[employer] Medicare Open [address] [place] [address] [id number] Colon, Dick Self - patient is the insured Medical (General) History Medical History History ICD Code Arthritis Cancer High blood pressure Psoriasis/eczema Surgical History Surgery Date(Month/Year) Gall bladder removal 03/15 kidney surgery 05/10
--- OUTSIDE RECORDS SUMMARY | 2024-05-14 15:32 | XMS_ITS | Encounter Summary ---
Author Organization [facility] Address [address] [place] [address] Care Team Providers Care Divinity Professor Name Role Phone Alivia Vieyra Primary Care Provider [phone] Encounter Details Date Type Department Care Team (Late st Contact Info) Description 01/27/2023 Lab Requisition [facility] [address] [place] [address] Enedelia Ortiz MD [address] [place] [address] Social History Tobacco Use Types Packs/Day Years [...] this encounter Procedures * Due to [place] [employer] [employer] law, this organization might not be sharing negative HIV tests. Procedure Name Priority Date/Time Associated Diagnosis Comments TISSUE EXAM Routine 01/27/2023 2:06 PM EST documented in this encounter Results * Due to [place] [employer] [employer] law, this organization might not be sharing negative HIV tests. * Tissue Exam (01/27/2023 2:06 PM EST) Final Diagnosis Review of Outside Slides Received from [facility] Labeled [id number] Procedure Date 04/21/2022: Right Kidney, Upper Pole Mass, Needle Core Biopsy: - CLEAR CELL RENAL CELL CARCINOMA, WHO/ISUP NUCLEAR GRADE 1-2 IN THIS SPECIMEN. [facility] MANUAL 01/30/2023 9:22 AM EST [facility] at 0922 EST Clinical History RIght renal upper pole mass [facility] MANUAL 01/30/2023 9:22 AM EST [facility] Gross Consult Client Facility: [facility] Slide Identificatio n: [id number] Number of Glass Slides Received: 3 Number of Blocks Received: 0 Client Pathologist: Susanne Hogan Accompanying Report Received: Yes [facility] MANUAL 01/30/2023 9:22 AM EST [employer] Embedded Images [facility] MANUAL 01/30/2023 9:22 AM EST [facility] Resulting Agency Case was signed out at [facility], Department of Pathology, [facility] [id number] [facility] MANUAL 01/30/2023 9:22 AM EST [facility] Report Header Surgical Pathology Report ? Case: [id number] ? Authorizing Provider: ??Enedelia Ortiz MD ?Collected: ? 01/27/2023 1406 ? Ordering Location: ? [facility] ? Received: ?01/27/2023 1407 ? [facility] ? Pathologist: ? Enedelia Pop MD ? Specimen: ?Kidney, Right, Upper Pole Mass ? 01/30/2023 9:22 AM EST [facility] Tissue Entire right kidney / Unknown 01/27/2023 2:06 PM EST 01/27/2023 2:07 PM EST us Enedelia Ortiz MD LAB PATHOLOGY/CYTOLOGY [place] Final Result [facility] [address] [place] [address], documented in this encounter Visit Diagnoses Not on filedocumented in this encounter Care Teams Divinity Professor Relationship Specialty Start Date End Date Alivia Vieyra [address] [place] [address] [place] [address] PCP - General Internal Medicine 01/02/23 documented as of this encounter
--- OUTSIDE RECORDS SUMMARY | 2024-05-14 15:32 | XMS_ITS ---
Author Organization [facility] Address [address] [place] [address] Care Team Providers Care Salt Refiner Name Role Phone Alivia Vieyra Primary Care Provider [phone] Active Problems Problem Noted Date Diagnosed Date [...] TotalDLP 247 mGy 247 mGy 0 mGy [id number] 4.2 mSv 4.2 mSv 0 mSv CTDIvol Max 8 mGy 8 mGy 0 mGy CTDIvol Min 8 mGy 8 mGy 0 mGy Radiation - mGy 93.1 mGy 0 mGy 93.1 mGy
--- OUTSIDE RECORDS SUMMARY | 2024-05-14 15:32 | XMS_ITS | Referral Summary ---
Author Organization [facility] Address [address] [place] [address] Care Team Providers Care Aircraft Air Conditioning Mechanic Name Role Phone Alivia Vieyra Primary Care Provider Allergies No known active allergies Medications chlorthalidone [...] on file Medical Devices Implanted Type Area Bean Dumper Device Identifier Shelf Expiration Date Model / Serial / Lot System Closure And Repair Suture-Mediat ed Perclose Prostyle - S0 - [id number] Implanted:Qty : 1 on 05/10/2023 by Xena Estrada MD MPH at [facility] Implant Right: Groin [employer] [id number] 01/19/2025 [id number] / [id number] Vascular Plug For Peripheral Vascular Occlusion 8mm - S0 - [id number] Implanted:Qty : 1 on 05/10/2023 by Xena Estrada MD MPH at [facility] Implant Right: Arterial [employer] [id number] 01/20/2028 [id number]-[id number] Insurance AETNA [facility] Advance Directives * Full Code (Latest Code Status on File) Date Activated Date Inactivated Comments 05/10/2023 12:13 PM 05/15/2023 6:14 PM Care Teams Aircraft Air Conditioning Mechanic Relationship Specialty Start Date End Date Alivia Vieyra [address] [place] [address] [place] [phone] PCP - General Internal Medicine 01/02/23
--- OUTSIDE RECORDS SUMMARY | 2024-05-14 15:32 | XMS_ITS | Encounter Summary ---
Author Organization [facility] Address [address] [place] [address] Care Team Providers Care Advertising Strategist Name Role Phone Alivia Vieyra Primary Care Provider [phone] Encounter Details Date Type Department Care Team (Late st Contact Info) Description 01/24/2023 Orders Only [facility] Interventional Radiology [address] [place] [phone] Jayme Ga MD [address] [place], [place] [phone] Social History Tobacco Use Types Packs/Day Years [...] on filedocumented in this encounter Care Teams Advertising Strategist Relationship Specialty Start Date End Date Alivia Vieyra [address] [place] [address] [place] [phone] PCP - General Internal Medicine 01/02/23 documented as of this encounter
--- OUTSIDE RECORDS SUMMARY | 2024-05-14 15:33 | XMS_ITS | Encounter Summary ---
Author Organization [facility] Address [address] [place] [address] Care Team Providers Care Brazer Production Line Name Role Phone Alivia Vieyra Primary Care Provider [phone] Encounter Details Date Type Department Care Team (Late st Contact Info) Description 02/23/2023 Orders Only [facility] Nuclear Medicine [address] [place] [address] [phone] Jayme Ga MD [address] [place] [phone] Social History Tobacco Use Types Packs/Day Years [...] on filedocumented in this encounter Care Teams Brazer Production Line Relationship Specialty Start Date End Date Alivia Vieyra [address] [place] [address] [place] [phone] PCP - General Internal Medicine 01/02/23 documented as of this encounter
--- OUTSIDE RECORDS SUMMARY | 2024-05-14 15:33 | XMS_ITS | Patient Health Record ---
Author Organization [facility] Address [address] [place] [address] Care Team Providers Care Hooker Inspector Name Role Phone Alivia Pat Primary Care [...] Problem Status W/U Status Risk Notes Problem [id number] Colon cancer screening (Z12.11) Active confirmed Problem [id number] Encounter for other preprocedural examination (Z01.818) Active confirmed Problem [id number] Long-term use of aspirin therapy (Z79.82) Active confirmed Problem [id number] FH: colon polyps (Z83.71) Active confirmed Plan Of Treatment Future Test Test Name Order Date COLONOSCOPY 09/02/2021 Insurance Providers Payer Name Payer Address Payer Phone Subscriber Number Group Number Insured Name Patient Relationship to Insured Coverage Start Date Coverage End Date [facility] [address] [place], [place] [id number] COLON COLON, JOSÉ Self - patient is the insured Medical (General) History Medical History History ICD Code hypertension hyperlipidemia benign prostatic hyperplasia without low er urinary tract symptoms Psoriatic arthritis Depression Surgical History Surgery Date(Month/Year) hernia
--- OUTSIDE RECORDS SUMMARY | 2024-05-14 15:33 | XMS_ITS ---
Author Organization [facility] Address [address] [place] [phone] Care Team Providers Care Traveling Accountant Name Role Phone Alivia Pat Primary Care Provider Unavailab Kimberli Cordova [phone] Roa Encounters Encounter Location Date Provider Diagnosis [address] [address] 04/09/2024 Kimberli Yancey Plan Of Treatment Next Appt Details Provider Name:Kimberli neville, 05/28/2024 02:30:00 PM, [address] [place] [address], [phone], Progress Notes * Dick COFFEYDOB:1960 (64 yo M)Acc No.[id number]:04/09/2024 Progress Note Patient:?Dick COFFEY Provider:?Kimberli Yancey DPM :1960???Age:64 Y???Sex:Male Constantine e:04/09/2024 Address:[address] [place] [phone] Pcp:Alivia Pat Subjective: * Chief Complaints: * [...] Date:? Generated for Josie swain/Demetris/Maria Del Carmen on:?05/14/2024 03:32 PM EDT
--- OUTSIDE RECORDS SUMMARY | 2024-05-14 15:33 | XMS_ITS | Encounter Summary ---
Author Organization [facility] Address [address] [place] [address] Care Team Providers Care Breakdown Worker Name Role Phone Alivia Vieyra Primary Care Provider [phone] Encounter Details Date Type Department Care Team (Late st Contact Info) Description 04/14/2023 Orders Only [facility] Interventional Radiology [address] [place], [place] [phone] Jose Alejandro Perez MD [address] [place], [place] [phone] Social History Tobacco Use Types Packs/Day Years [...] on filedocumented in this encounter Care Teams Breakdown Worker Relationship Specialty Start Date End Date Alivia Vieyra [address] [place] [address] [place] [phone] PCP - General Internal Medicine 01/02/23 documented as of this encounter
--- OUTSIDE RECORDS SUMMARY | 2024-05-14 15:33 | XMS_ITS ---
Author Organization [facility] Address [address] [place] [address] Care Team Providers Care Motor Pool Driver Name Role Phone Alivia Pat Primary Care Provider Unavailab Kimberli Cordova [phone] Encounters Encounter Location Date Provider Diagnosis [address] [address] 04/19/2024 Kimberli Yancey Plan Of Treatment Next Appt Details Provider Name:Kimberli neville, 05/28/2024 02:30:00 PM, [address] [place] [address], [phone], Progress Notes * Dick COFFEYDOB:1960 (64 yo M)Acc No.[id number]:04/19/2024 Progress Note Patient:?Dick COFFEY Provider:?Kimberli Yancey DPM :1960???Age:64 Y???Sex:Male Constantine e:04/19/2024 Address:[address] [place] [phone] Pcp:Alivia Pat Subjective: * Chief Complaints: * [...]
--- OUTSIDE RECORDS SUMMARY | 2024-05-14 15:33 | XMS_ITS ---
Author Organization [facility] Address [address] [place] [address] Care Team Providers Care Corporate Licensed Broker Name Role Phone Anitajosé manuel Alivia Primary Care Provider Unavailab Kimberli Cordova Unavailable [phone] REASON FOR VISIT rs from 04/19/24 Encounters Encounter Location Date Provider Diagnosis [address] [address] 03/19/2024 Kimberli Yancey Plan Of Treatment Next Appt Details Provider Name:Kimberli neville, 05/28/2024 02:30:00 PM, [address] [place] [address], [phone], Progress Notes * FACUNDO KimberlyrayDOB:1960 (63 yo M)Acc No.[id number]:03/19/2024 Patient:?Dick COFFEY :1960???Age:63 Y???Sex:Male Address:[address] [place] [address] * true * Date:? Generated for Printi ng/Faflacog/eTransmitting on:?05/14/2024 03:32 PM EDT
--- OUTSIDE RECORDS SUMMARY | 2024-05-14 15:33 | XMS_ITS | Clinical Summary ---
Author Organization [facility] Address [address] [place] [address] Care Team Providers Care Line Repairer Tower Name Role Phone Cynthia Greenberg MD Primary Care Provider [phone] Allergies No known active allergies Medications Medication [...] age to complete this topic Care Teams Line Repairer Tower Relationship Specialty Start Date End Date Cynthia Greenberg MD PCP - General Internal Medicine 06/09/17
== END 2024-05-14 13:55 | disposition home or self-care (01) ==
LOC: HO.HUSH 12:51
PROVIDERS: PCP Internal Medicine; Visit Provider Urology
DX: N49.2 Inflammatory disorders of scrotum (principal)
CPT/HCPCS: 99213; G2211

== ENCOUNTER → 2024-05-14 12:50 | Outpatient (BNVA) | payer MEDICARE, SELFPAY | PROVIDERS: PCP Internal Medicine; Visit Provider Urology | DX: N49.2 Inflammatory disorders of scrotum (principal) | CPT/HCPCS: 99212 ==

== ENCOUNTER 2024-05-17 11:20 | Outpatient (REF) | payer MEDICARE, SELFPAY ==
--- NOTE | ~2024-05-17 | US_ITS ---
EXAMINATION: US SCROTUM HISTORY: N49.2 - Inflammatory disorders of scrotum. COMPARISON: There are no prior studies for comparison. FINDINGS: Real-time grayscale ultrasound imaging of the scrotum was performed. Color and spectral Doppler analysis was also performed. RIGHT TESTICLE: The right testis measures 4.6 x 2.2 x 3.1 cm and demonstrates normal homogeneous echotexture. No masses are seen. The right testis demonstrates normal arterial and venous color Doppler and spectral waveforms. RIGHT EPIDIDYMIS: Normal in size, shape, and vascularity. LEFT TESTICLE: The left testis measures 4.7 x 2.1 x 2.8 cm and demonstrates normal homogeneous echotexture. There is a 2 mm cyst of the tunica. No solid masses are seen. The left testis demonstrates normal arterial and venous color Doppler and spectral waveforms. LEFT EPIDIDYMIS: Epididymal head cysts are noted measuring 10 x 7 x 8 mm and 6 x 5 x 7 mm. VARICOCELE: There is a small left varicocele. HYDROCELE: No significant hydrocele is seen. OTHER COMMENTS: There is diffuse scrotal skin thickening and hypervascularity, suggestive of cellulitis. US/US scrotum IMPRESSION: Diffuse scrotal skin thickening and hypervascularity, suggestive of cellulitis. No evidence of epididymitis or orchitis. Electronically signed by: Jony Lorenz MD 05/17/2024 12:34 PM EDT
== END 2024-05-17 11:21 | disposition home or self-care (01) ==
LOC: HO.HMGCX 11:20
PROVIDERS: PCP Internal Medicine; Visit Provider Urology
DX: N49.2 Inflammatory disorders of scrotum (principal)
CPT/HCPCS: 76870

== ENCOUNTER → 2024-05-17 11:22 | Outpatient (BNV) | payer MEDICARE, SELFPAY | PROVIDERS: PCP Internal Medicine; Visit Provider Radiology Diagnostic Radiology | DX: N49.2 Inflammatory disorders of scrotum (principal) | CPT/HCPCS: 76870; 93976 ==

== ENCOUNTER 2024-05-22 16:29 | Outpatient (AMB) | payer MEDICARE, SELFPAY ==
--- NOTE | 2024-05-22 13:14 | MHC.OFFVIS ---
Intake Visit Reasons: US follow up Allergies No Known Allergies [No Known Allergies*] Allergy (Verified 07/02/24 10:31) HPI Comments Details: 05/22/24-- FU scrotal abscess, s/p I &D on 05/03/24 and 05/14/24. Discussed 05/17/24-- scrotal US - no persistent abscess collection remaining. Pt is completeing Abx Cont scheduled FU with Dr. Mccartney for renal cancer. 05/03/24--64-year-old male presenting with a swollen right testicle. He has a significant past medical history of renal cell carcinoma, status post-nephrectomy. The swelling in the testicle was a recent development and has not been experienced by the patient in the past. On evaluation, the presence of pus drainage from the inferior aspect of the left hemiscrotum was noted. An immediate office procedure was performed, involving incision and drainage of the site. Skin preparation with iodoform and the use of an 11 blade scalpel was undertaken, followed by gauze application to manage the continuous drainage. The patient has been advised to change the gauze as required. For infection management, Ciprofloxacin 500 mg has been prescribed to be taken twice daily over a period of 7 days. To investigate further, a scrotal ultrasound was ordered. Follow-up with the urology nurse is planned in 5 days to reassess the healing process. 03/15/24--Dick is a pleasant male. He is a patient of Dr. Pat. 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 - has autoimmune disease with psoriatic arthritis Cystoscopy shows neoadjuvant vessels around the bladder neck. No lesions within the bladder. 09/12 recent imaging with known positive nodularity. Initial evaluation of imaging normal Six month follow-up repeat imaging 07/13 continues with adjuvant chemotherapy with Dr. Acosta Plan for repeat staging CT chest and abdomen in 2 months Recommend use of binder during activity 05/13 Debulking nephrectomy - after neoadjuvant chemotherapy and down staging Renal cancer restaging 12/12: CT ADRENAL GLANDS AND KIDNEYS: There is interval decrease in size in the right adrenal nodule. This measures 5 x 10 mm axial image 70 series 4 compared to 1.2 x 1.8 cm most recent July 2022 exam. Low-attenuation or cystic mass in the upper pole of the right kidney not appreciably changed in size measuring 2.5 cm. This extends centrally into the right renal collecting system which does not appear appreciably changed. There is still of thrombus in the right renal vein extending into the IVC 11/[address] : THORAX: No tracer avid lung nodule on either side, Previously documented right renal mass as well as local disease extension into the right renal vein and inferior vena cava shows interval improvement on this nondiagnostic noncontrast CT study 08/12 - good response to chemotherapy on initial restaging Chest: Interval decrease in size and number of pulmonary nodules 50% reduction. - Abdomen and pelvis: Interval decrease in right adrenal mass and right renal mass. Interval decrease in right renal vein and IVC thrombus in and enhancement. 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 04/14 CT chest - bilateral multiple pulmonary nodules largest measuring 1.1 cm in the right lower lobe, suspicious for metastatic disease.? Heterogenous enhancement of IVC, questionable for thrombus.? 04/14 Bone scan negative for metastatic disease. Chemotherapy initiated with Dr. Acosta - 06/12 - on combination regimen with cabozantinib and nivolumab Background of immune disease of psoriasis in had been on immune modifying medications [facility] Medical History (Updated 07/18/24 @ 11:08 by Brenda Acosta MD) Kidney cancer, primary, with metastasis from kidney to other site Renal cancer Incarcerated umbilical hernia (01/09/23) Depression Psoriatic arthritis BPH (benign prostatic hyperplasia) Elevated cholesterol HTN (hypertension) Surgical History S/P laparoscopic cholecystectomy History of laparoscopic cholecystectomy (01/09/23) H/O colonoscopy Hx of hernia repair Family History Mother Colon cancer Father Prostate cancer Social History Household Members: Family Housing: House Are you a primary rn progressive care to a significant other at home: No Do you presently have visiting nurse or other home services: No Alcohol intake: former Patient Tobacco Use Status: Former Tobacco user Tobacco use type: Cigarette service: Yes Current occupational status: retired Review of Systems Const All systems reviewed & are unremarkable except as noted in HPI and below Reports no additional complaints Eyes Reports no additional complaints ENT Reports no additional complaints Card Reports no additional complaints Resp Reports no additional complaints GI Reports no additional complaints Reports as per HPI Musc Reports no additional complaints Skin/Breast Reports system reviewed and no additional complaints, except as documented Neuro Reports no additional complaints Psych Reports no additional complaints Endo Reports no additional complaints Pj/Lymph Reports no additional complaints Aller/Immun Reports no additional complaints Telehealth Telehealth Telehealth Platform: [facility] Location of provider rendering services: practice address Location of patient: address on file Patient Identification confirmed using: Name, : Yes Telehealth method: voice only Patient verbally consented to treatment: Yes Patient verbally consented to billing insurance company: Yes Patient informed of any privacy concerns related to visit: Yes Minutes spent on Phone/Video with Pt.: 13 Results Reviewed Results Reviewed: Date of Service: 05/17/24 EXAMINATION: US SCROTUM HISTORY: N49.2 - Inflammatory disorders of scrotum. COMPARISON: There are no prior studies for comparison. FINDINGS: Real-time grayscale ultrasound imaging of the scrotum was performed. Color and spectral Doppler analysis was also performed. RIGHT TESTICLE: The right testis measures 4.6 x 2.2 x 3.1 cm and demonstrates normal homogeneous echotexture. No masses are seen. The right testis demonstrates normal arterial and venous color Doppler and spectral waveforms. RIGHT EPIDIDYMIS: Normal in size, shape, and vascularity. LEFT TESTICLE: The left testis measures 4.7 x 2.1 x 2.8 cm and demonstrates normal homogeneous echotexture. There is a 2 mm cyst of the tunica. No solid masses are seen. The left testis demonstrates normal arterial and venous color Doppler and spectral waveforms. LEFT EPIDIDYMIS: Epididymal head cysts are noted measuring 10 x 7 x 8 mm and 6 x 5 x 7 mm. VARICOCELE: There is a small left varicocele. HYDROCELE: No significant hydrocele is seen. OTHER COMMENTS: There is diffuse scrotal skin thickening and hypervascularity, suggestive of cellulitis. IMPRESSION: Diffuse scrotal skin thickening and hypervascularity, suggestive of cellulitis. No evidence of epididymitis or orchitis. Assessment & Plan Assessment & Plan (1) Scrotal abscess: Code(s): N49.2 - Inflammatory disorders of scrotum Category: Medical (2) Renal cancer: Comment: Right upper pole extension into IVC Code(s): C64.9 - Malignant neoplasm of unspecified kidney, except renal pelvis Category: Medical Plan Followed by Dr Mccartney for renal cancer FU with me for scrotal abscess, collection drained x2. Pt states he is doing better. Patient Instructions: The patient had an opportunity to ask questions regarding treatment plan. The patient expressed understanding and agreement with the above treatment plan. The patient is aware they should contact our office by phone for worsening of their current condition or the appearance of new symptoms. Compliance is encouraged with any medications and followup testing that is ordered. It is a privilege to be allowed the opportunity to participate in the urologic care of your patient. If you have any questions or concerns regarding treatment for the above conditions please do not hesitate to contact me. The office telephone contact is [phone]. This note is constructed in part using voice recognition software. While every effort has been made to ensure accuracy provider enrollment specialist errors may have been included. Yours sincerely, Rabia Lim MD Coding Level of Care Code Tele Est Pt Level 3 (93097) Diagnoses Scrotal abscess N49.2 Renal cancer C64.9
--- OUTSIDE RECORDS SUMMARY | 2024-05-22 18:05 | XMS_ITS ---
Author Organization [facility] Address [address] [place] [address] Care Team Providers Care Central Service Supply Distributor Name Role Phone Alivia Vieyra Primary Care Provider [phone] Active Problems Problem Noted Date Diagnosed Date [...] TotalDLP 247 mGy 247 mGy 0 mGy [id number] 4.2 mSv 4.2 mSv 0 mSv CTDIvol Max 8 mGy 8 mGy 0 mGy CTDIvol Min 8 mGy 8 mGy 0 mGy Radiation - mGy 93.1 mGy 0 mGy 93.1 mGy
--- OUTSIDE RECORDS SUMMARY | 2024-05-22 18:06 | XMS_ITS | Patient Health Record ---
Author Organization [facility] Address [address] [place] [address] Care Team Providers Care Early Childhood Special Educator Name Role Phone Alivia Pat Primary Care Provider Unavailab Bob Yu Jr [phone] Allergies No Known Allergies Reason For Referral [...] Problem Status W/U Status Risk Notes Problem [id number] Colon cancer screening (Z12.11) Active confirmed Problem [id number] Encounter for other preprocedural examination (Z01.818) Active confirmed Problem 104653749 Long-term use of aspirin therapy (Z79.82) Active confirmed Problem [id number] FH: colon polyps (Z83.71) Active confirmed Plan Of Treatment Future Test Test Name Order Date COLONOSCOPY 09/02/2021 Insurance Providers Payer Name Payer Address Payer Phone Subscriber Number Group Number Insured Name Patient Relationship to Insured Coverage Start Date Coverage End Date [facility] [address] [place], [place] [id number] COLON COLON, JOSÉ Self - patient is the insured Medical (General) History Medical History History ICD Code hypertension hyperlipidemia benign prostatic hyperplasia without low er urinary tract symptoms Psoriatic arthritis Depression Surgical History Surgery Date(Month/Year) hernia
--- OUTSIDE RECORDS SUMMARY | 2024-05-22 18:06 | XMS_ITS | Referral Summary ---
Author Organization [facility] Address [address] [place] [address] Care Team Providers Care Boat Deckhand Name Role Phone Alivia Vieyra Primary Care Provider [phone] Allergies No known active allergies Medications chlorthalidone [...] on file Medical Devices Implanted Type Area Camera Repair Technician Device Identifier Shelf Expiration Date Model / Serial / Lot System Closure And Repair Suture-Mediat ed Perclose Prostyle - S0 - [id number] Implanted:Qty : 1 on 05/10/2023 by Xena Estrada MD MPH at [facility] Implant Right: Groin [employer] [id number] 01/19/2025 64255-30 / [id number] Vascular Plug For Peripheral Vascular Occlusion 8mm - S0 - [id number] Implanted:Qty : 1 on 05/10/2023 by Xena Estrada MD MPH at [facility] Implant Right: Arterial [address] [employer] [id number] 01/20/2028 9-AVP2-0 [id number] Insurance AETNA [facility] Advance Directives * Full Code (Latest Code Status on File) Date Activated Date Inactivated Comments 05/10/2023 12:13 PM 05/15/2023 6:14 PM Care Teams Boat Deckhand Relationship Specialty Start Date End Date Alivia Vieyra [address] [place] [address] [place] [address] PCP - General Internal Medicine 01/02/23
--- OUTSIDE RECORDS SUMMARY | 2024-05-22 18:06 | XMS_ITS | Patient Health Record ---
Author Organization [facility] Address [address] [place] [address] Care Team Providers Care First Line Production Supervisor Name Role Phone Alivia Pat Primary Care Provider Unavailab Kimberli Cordova Unavailable [phone] Allergies No Known Allergies Reason For Referral [...] 01/09/2024 Encounters Encounter Location Date Provider Diagnosis [facility] [address] [place] [address] 07/04/2023 Kimberli Perica Tinea unguium B35.1 ; Pain in right toe(s) M79.674 and Pain in left toe(s) M79.[address] [address] 10/10/2023 Kimberli Perica Tinea unguium B35.1 ; Pain in right toe(s) M79.674 and Pain in left toe(s) M79.[address] [address] 01/09/2024 Kimberli Perica Tinea unguium B35.1 ; Tinea pedis of both feet B35.3 ; Pain in right toe(s) M79.674 and Pain in left toe(s) M79.[address] [address] 06/23/2023 Kimberli Perica [address] [address] 06/23/2023 Kimberli Perica [address] [address] 03/19/2024 Kimberli Yancey Assessments Encounter Date Diagnosis [...] Details Provider Name:Kimberli neville, 05/28/2024 02:30:00 PM, [address] [place] [address], [phone], Insurance Providers Payer Name Payer Address Payer Phone Subscriber Number Group Number Insured Name Patient Relationship to Insured Coverage Start Date Coverage End Date [employer] Medicare Open [address] [place] [address] [id number] Colon, Dick Self - patient is the insured Medical (General) History Medical History History ICD Code Arthritis Cancer High blood pressure Psoriasis/eczema Surgical History Surgery Date(Month/Year) Gall bladder removal 03/15 kidney surgery 05/10
--- OUTSIDE RECORDS SUMMARY | 2024-05-22 18:06 | XMS_ITS | Encounter Summary ---
Author Organization [facility] Address [address] [place] [address] Care Team Providers Care Shower Maid Name Role Phone Alivia Vieyra Primary Care Provider [phone] Encounter Details Date Type Department Care Team (Late st Contact Info) Description 02/23/2023 Orders Only [facility] Nuclear Medicine [address] [place] [address] [phone] Jayme Ga MD [address] [place] [address] [phone] Social History Tobacco Use Types Packs/Day Years [...] on filedocumented in this encounter Care Teams Shower Maid Relationship Specialty Start Date End Date Alivia Vieyra [address] [place] [address] [place] [address] PCP - General Internal Medicine 01/02/23 documented as of this encounter
--- OUTSIDE RECORDS SUMMARY | 2024-05-22 18:06 | XMS_ITS | Clinical Summary ---
Author Organization [facility] Address [address] [place] [address] Care Team Providers Care Marsh Buggy Operator Name Role Phone Alivia Vieyra Primary [...] 2023 12/06/2022, 01/27/2022, 08/31/2021, Additional history exists Alcohol/Substance Use Screening 02/21/2024 Depression Screening and Follow-Up 02/21/2024 Health Care Proxy Review 02/21/2024 Social Drivers of Health Annual Screening 02/21/2024 Influenza Vaccine (Season Ended) 2024 12/06/2022, 01/27/2022, 12/23/2020, Additional history exists Pneumococcal Vaccine: 50+ Years (3 of 3 [...] this topic Medical Devices Implanted Type Area Mental Health Professional Device Identifier Shelf Expiration Date Model / Serial / Lot System Closure And Repair Suture-Mediat ed Perclose Prostyle - S0 - [id number] Implanted:Qty : 1 on 05/10/2023 by Xena Estrada MD MPH at [facility] Implant Right: Groin [employer] [id number] 01/19/2025 59700-20 / 0 / [id number] Vascular Plug For Peripheral Vascular Occlusion 8mm - S0 - [id number] Implanted:Qty : 1 on 05/10/2023 by Xena Estrada MD MPH at [facility] Implant Right: Arterial Sa[address] [employer] [id number] 01/20/2028 9-AVP2-0 [id number] Insurance AETNA [facility] Advance Directives * Full Code (Latest Code Status on File) Date Activated Date Inactivated Comments 05/10/2023 12:13 PM 05/15/2023 6:14 PM Care Teams Marsh Buggy Operator Relationship Specialty Start Date End Date Alivia Vieyra [address] [place] [address] [place] [address] PCP - General Internal Medicine 01/02/23
--- OUTSIDE RECORDS SUMMARY | 2024-05-22 18:06 | XMS_ITS ---
Author Organization [facility] Address [address] [place] [address] Care Team Providers Care Credit Control Clerk Name Role Phone Bi Alivia Primary Care Provider Unavailab Kimberli Cordova Unavailable [phone] REASON FOR VISIT rs from 04/19/24 Encounters Encounter Location Date Provider Diagnosis [address] [address] 03/19/2024 Kimberli Yancey Plan Of Treatment Next Appt Details Provider Name:Kimberli neville, 05/28/2024 02:30:00 PM, [address] [place] [address], [phone], Progress Notes * FACUNDO KimberlyrayDOB:1960 (63 yo M)Acc No.[id number]:03/19/2024 Patient:?Dick COFFEY :1960???Age:63 Y???Sex:Male Address:[address] [place] [address] * true * Date:? Generated for Printi ng/Jeang/eTransmitting on:?05/22/2024 06:05 PM EDT
--- OUTSIDE RECORDS SUMMARY | 2024-05-22 18:06 | XMS_ITS | Encounter Summary ---
Author Organization [facility] Address [address] [place] [address] Care Team Providers Care Trial Court Judge Name Role Phone Alivia Vieyra Primary Care Provider [phone] Encounter Details Date Type Department Care Team (Late st Contact Info) Description 01/27/2023 Lab Requisition [facility] [address] [place] [address] Enedelia Ortiz MD [address] [place] [address] Social History Tobacco Use Types Packs/Day Years [...] of this encounter Procedures * Due to [place] TwentyFeet law, this organization might not be sharing negative HIV tests. Procedure Name Priority Date/Time Associated Diagnosis Comments TISSUE EXAM Routine 01/27/2023 2:06 PM EST documented in this encounter Results * Due to [place] TwentyFeet law, this organization might not be sharing negative HIV tests. 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 [facility] MANUAL 01/30/2023 9:22 AM EST [facility] at 0922 EST Clinical History RIght renal upper pole mass [facility] 01/30/2023 9:22 AM EST [facility] Gross Consult Client Facility: [facility] Slide Identificatio n: [id number] Number of Glass Slides Received: 3 Number of Blocks Received: 0 Client Pathologist: Susanne Hogan Accompanying Report Received: Yes [facility] MANUAL 01/30/2023 9:22 AM EST [facility] Embedded Images [facility] MANUAL 01/30/2023 9:22 AM EST [employer] [facility] Resulting Agency Case was signed out at [facility], Department of Pathology, [facility] [id number] [facility] MANUAL 01/30/2023 9:22 AM EST [facility] Report Header Surgical Pathology Report ? Case: [id number] ? Authorizing Provider: ??Enedelia Ortiz MD ?Collected: ? 01/27/2023 1406 ? Ordering Location: ? [facility] ? Received: ?01/27/2023 1407 ? [facility] ? Pathologist: ? Enedelia Pop MD ? Specimen: ?Kidney, Right, Upper Pole Mass ? 01/30/2023 9:22 AM EST [email or web address] [facility] Tissue Entire right kidney / Unknown 01/27/2023 2:06 PM EST 01/27/2023 2:07 PM EST us Enedelia Ortiz MD LAB PATHOLOGY/CYTOLOGY [place] Final Result [facility] [address] [place] [address], documented in this encounter Visit Diagnoses Not on filedocumented in this encounter Care Teams Trial Court Judge Relationship Specialty Start Date End Date Alivia Vieyra [address] [place] [address] [place] [address] PCP - General Internal Medicine 01/02/23 documented as of this encounter
--- OUTSIDE RECORDS SUMMARY | 2024-05-22 18:06 | XMS_ITS | Encounter Summary ---
Author Organization [facility] Address [address] [place] [address] Care Team Providers Care Personnel Clerks Supervisor Name Role Phone Alivia Vieyra Primary Care Provider [phone] Encounter Details Date Type Department Care Team (Late st Contact Info) Description 01/24/2023 Orders Only [facility] Interventional Radiology [address] [place] [address] [phone] Jayme Ga MD [address] [place], [place] [phone] Social History Tobacco Use Types Packs/Day Years [...] on filedocumented in this encounter Care Teams Personnel Clerks Supervisor Relationship Specialty Start Date End Date Alivia Vieyra [address] [place] [address] [place] [address] PCP - General Internal Medicine 01/02/23 documented as of this encounter
--- OUTSIDE RECORDS SUMMARY | 2024-05-22 18:06 | XMS_ITS ---
Author Organization [facility] Address [address] [place] [address] Care Team Providers Care News Videotape Editor Name Role Phone Alivia Pat Primary Care Provider Unavailab Kimberli Cordova [phone] Encounters Encounter Location Date Provider Diagnosis [address] [address] 04/19/2024 Kimberli Yancey Plan Of Treatment Next Appt Details Provider Name:Kimberli neville, 05/28/2024 02:30:00 PM, [address] [place] [address], [phone], Progress Notes * Dick COFFEYDOB:1960 (64 yo M)Acc No.[id number]:04/19/2024 Progress Note Patient:?Dick COFFEY Provider:?Kimberli Yancey DPM :1960???Age:64 Y???Sex:Male Constantine e:04/19/2024 Address:[address] [place] [phone] Pcp:Alivia Pat Subjective: * Chief Complaints: * [...] Date:? Generated for Josie swain/Demetris/Maria Del Carmen on:?05/22/2024 06:05 PM EDT
--- OUTSIDE RECORDS SUMMARY | 2024-05-22 18:06 | XMS_ITS | Encounter Summary ---
Author Organization [facility] Address [address] [place] [address] Care Team Providers Care Gauge And Weigh Machine Adjuster Name Role Phone Alivia Vieyra Primary Care Provider Encounter Details Date Type Department Care Team (Late st Contact Info) Description 04/14/2023 Orders Only [facility] Interventional Radiology [address] [place], [place] [phone] Jose Alejandro Perez MD [address] [place], [place] [phone] Social History Tobacco Use Types Packs/Day Years [...] on filedocumented in this encounter Care Teams Gauge And Weigh Machine Adjuster Relationship Specialty Start Date End Date Alivia Vieyra [address] [place] [address] [place] [address] PCP - General Internal Medicine 01/02/23 documented as of this encounter
--- OUTSIDE RECORDS SUMMARY | 2024-05-22 18:06 | XMS_ITS ---
Author Organization [facility] Address [address] [place] [address] Care Team Providers Care Health Sciences Program Coordinator Name Role Phone Alivia Pat Primary Care Provider Unavailab Kimberli Cordova [phone] Roa Encounters Encounter Location Date Provider Diagnosis [address] [address] 04/09/2024 Kimberli Yancey Plan Of Treatment Next Appt Details Provider Name:Kimberli neville, 05/28/2024 02:30:00 PM, [address] [place] [address], [phone], Progress Notes * Dick COFFEYDOB:1960 (64 yo M)Acc No.[id number]:04/09/2024 Progress Note Patient:?Dick COFFEY Provider:?Kimberli Yancey DPM :1960???Age:64 Y???Sex:Male Constantine e:04/09/2024 Address:[address] [place] [address] Pcp:Alivia Pat Subjective: * Chief Complaints: * [...] Generated for Josie swain/Demetris/Maria Del Carmen on:?05/22/2024 06:06 PM EDT
--- OUTSIDE RECORDS SUMMARY | 2024-05-22 18:06 | XMS_ITS | Clinical Summary ---
Author Organization [facility] Address [address] [place] [address] Care Team Providers Care Manager Sterile Name Role Phone Cynthia Greenberg MD Primary Care Provider [phone] Allergies No known active allergies Medications Medication [...] age to complete this topic Care Teams Manager Sterile Relationship Specialty Start Date End Date Cynthia Greenberg MD PCP - General Internal Medicine 06/09/17
== END 2024-05-22 16:45 | disposition home or self-care (01) ==
LOC: HO.HUSH 16:29
PROVIDERS: PCP Internal Medicine; Visit Provider Urology
DX: N49.2 Inflammatory disorders of scrotum (principal); C64.9 Malignant neoplasm of unspecified kidney, except renal pelvis
CPT/HCPCS: 99213

== ENCOUNTER 2024-06-18 09:46 | Outpatient (REF) | payer MEDICARE, MEDICAID, SELFPAY ==
--- NOTE | ~2024-06-18 | PE_ITS ---
EXAMINATION: FLUORINE-18 FDG PET/CT SCAN CLINICAL INFORMATION: Right kidney cancer restaging. TECHNIQUE: 58 minutes following the intravenous administration of 16.5 mCi of fluorine 18 FDG, images from the skull base to proximal thigh were obtained using a combined PET/CT scanner with CT scan based attenuation correction. No oral or intravenous contrast was administered. Transverse, coronal, sagittal, and volume reconstruction projections were obtained. The patient's blood glucose as determined by a finger stick, was 90 mg/dL immediately prior to injection. The radiotracer was injected intravenously through right antecubital vein, without any complications. Total CT exam dose-length product 717 mGy-cm. * These CT images were obtained using dose optimization techniques as appropriate, variously including the following: Automated exposure control * Adjustment of mA and/or kV according to patient size (this includes techniques or standardized protocols for targeted exams where dose is matched to indication/reason for exam; i.e. extremities or head) * Use of iterative reconstruction technique COMPARISON: CT chest, abdomen and pelvis 03/11/2024 FINDINGS: HEAD AND NECK: No abnormal radiotracer uptake. No large intracranial hemorrhage, acute territorial infarct or significant shift of midline structures. CHEST: Ports and Devices: There is a right ventricle inserted port with its tip in distal SVC. The heart and lies along the right anterior chest wall. Lungs: No abnormal radiotracer uptake. Pleura: No significant pleural effusion. Lymph Nodes: No tracer-avid mediastinal, hilar or internal mammary or axillary lymphadenopathy. Mediastinum: There is no significant pericardial effusion/thickening. Moderate coronary artery calcifications are present. Breasts/Chest Wall: No abnormal radiotracer uptake. ABDOMEN/PELVIS: Liver/Biliary System: No focal tracer-avid liver lesion. The gallbladder has been removed with a surgical gus in place. A small hypodensity in the gallbladder fossa measuring 1.6 cm likely small seroma. It is not metabolically active It is stable to previous study. Pancreas: Normal.No pancreatic ductal dilatation seen. Spleen: No abnormal radiotracer uptake. No evidence of splenomegaly. Adrenal Glands: Left adrenal gland is unremarkable. The right adrenal gland is not visualized likely removed with kidney] Kidneys: There is a right nephrectomy changes with no metabolically active focus seen in the right renal fossa or retroperitoneum. No abnormal metabolic activity seen in left kidney. CT images of left kidney are unremarkable. No radiopaque calculi or hydronephrosis punctate calcification seen in renal sinus likely vascular. Bowel: There is no significant bowel dilatation to suggest obstruction. Mild constipation Lymph Nodes: No abnormal metabolic activity seen in the retroperitoneum or mesenteric lymph nodes. No abnormal lymph nodes seen on CT either. Right retroperitoneal gus are visualized from previous nephrectomy changes. Pelvic Organs: The urinary bladder is underdistended. MUSCULOSKELETAL: Mild DJD lower cervical and lumbar spine. There is moderate ventral spondylosis mid dorsal spine. No aggressive lytic or sclerotic process seen. VASCULAR: Unremarkable PET/PET CT fusion skull to thigh IMPRESSION: There is no abnormal metabolic activity seen in right renal fossa, retroperitoneum or anywhere else to suspect any metastatic disease. Post cholecystectomy, nephrectomy and likely right adrenalectomy changes are present and unchanged. Small hypodensities in the gallbladder fossa question old seroma, stable. Moderate coronary artery disease. Electronically signed by: Joe Barcenas MD 06/20/2024 07:37 AM EDT
--- OUTSIDE RECORDS SUMMARY | 2024-06-18 10:53 | XMS_ITS | Encounter Summary ---
Author Organization [facility] Address [address] [place] [address] Care Team Providers Care Sharepoint Engineer Name Role Phone Alivia Vieyra Primary Care Provider [phone] Encounter Details Date Type Department Care Team (Late st Contact Info) Description 01/24/2023 Orders Only [facility] Interventional Radiology [address] [place] [address] [phone] Jayme Ga MD [address] [place], [place] [phone] Social History Tobacco Use Types Packs/Day Years [...] on filedocumented in this encounter Care Teams Sharepoint Engineer Relationship Specialty Start Date End Date Alivia Vieyra [address] [place] [address] [place] [address] PCP - General Internal Medicine 01/02/23 documented as of this encounter
--- OUTSIDE RECORDS SUMMARY | 2024-06-18 10:53 | XMS_ITS ---
Author Organization [facility] Address [address] [place] [address] Care Team Providers Care Table Games Shift Manager Name Role Phone Alivia Vieyra Primary Care Provider [phone] Active Problems Problem Noted Date Diagnosed Date [...] TotalDLP 247 mGy 247 mGy 0 mGy [id number] 4.2 mSv 4.2 mSv 0 mSv CTDIvol Max 8 mGy 8 mGy 0 mGy CTDIvol Min 8 mGy 8 mGy 0 mGy Radiation - mGy 93.1 mGy 0 mGy 93.1 mGy
--- OUTSIDE RECORDS SUMMARY | 2024-06-18 10:53 | XMS_ITS | Clinical Summary ---
Author Organization [facility] Address [address] [place] [address] Care Team Providers Care Neuropsychologist Name Role Phone Cynthia Greenberg MD Primary [...] age to complete this topic Care Teams Neuropsychologist Relationship Specialty Start Date End Date Cynthia Greenberg MD PCP - General Internal Medicine 06/09/17
--- OUTSIDE RECORDS SUMMARY | 2024-06-18 10:53 | XMS_ITS | Encounter Summary ---
Author Organization [facility] Address [address] [place] [address] Care Team Providers Care Recruiter Coordinator Name Role Phone Alivia Vieyra Primary Care Provider [phone] Encounter Details Date Type Department Care Team (Late st Contact Info) Description 01/27/2023 Lab Requisition [facility] [address] [place] [address] Enedelia Ortiz MD [address] [place] [address] Social History Tobacco Use Types Packs/Day Years [...] of this encounter Procedures * Due to [place] law, this organization might not be sharing negative HIV tests. Procedure Name Priority Date/Time Associated Diagnosis Comments TISSUE EXAM Routine 01/27/2023 2:06 PM EST documented in this encounter Results * Due to [place] law, this organization might not be sharing negative HIV tests. 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 [facility] MANUAL 01/30/2023 9:22 AM EST [facility] [facility] at 0922 EST Clinical History RIght renal upper pole mass [facility] MANUAL 01/30/2023 9:22 AM EST [facility] Gross Consult Client Facility: [facility] Slide Identificatio n: [id number] Number of Glass Slides Received: 3 Number of Blocks Received: 0 Client Pathologist: Susanne Hogan Accompanying Report Received: Yes [facility] MANUAL 01/30/2023 9:22 AM EST [employer] [facility] Embedded Images [facility] MANUAL 01/30/2023 9:22 AM EST [employer] [facility] Resulting Agency Case was signed out at [facility], Department of Pathology, [facility] [id number] [facility] MANUAL 01/30/2023 9:22 AM EST [facility] [facility] Report Header Surgical Pathology Report ? Case: [id number] ? Authorizing Provider: ??Enedeila Ortiz MD ?Collected: ? 01/27/2023 1406 ? Ordering Location: ? [facility] ? Received: ?01/27/2023 1407 ? [facility] ? Pathologist: ? Enedelia Pop MD ? Specimen: ?Kidney, Right, Upper Pole Mass ? 01/30/2023 9:22 AM EST [employer] [facility] Tissue Entire right kidney / Unknown 01/27/2023 2:06 PM EST 01/27/2023 2:07 PM EST us Enedelia Ortiz MD LAB PATHOLOGY/CYTOLOGY [place] Final Result [facility] [address] [place] [address], documented in this encounter Visit Diagnoses Not on filedocumented in this encounter Care Teams Recruiter Coordinator Relationship Specialty Start Date End Date Alivia Vieyra [address] [place] [address] [place] [address] PCP - General Internal Medicine 01/02/23 documented as of this encounter
--- OUTSIDE RECORDS SUMMARY | 2024-06-18 10:53 | XMS_ITS | Clinical Summary ---
Author Organization [facility] Address [address] [place] [address] Care Team Providers Care Sagger Soak Name Role Phone Alivia Vieyra Primary Care Provider [phone] Allergies No known active allergies Medications chlorthalidone [...] 1960 Hepatitis C Screening 1960 Sigmoidoscopy 1960 COVID-19 Vaccine ( season) 2023 12/06/2022, 01/27/2022, [...] this topic Medical Devices Implanted Type Area Counter Control Operator Device Identifier Shelf Expiration Date Model / Serial / Lot System Closure And Repair Suture-Mediat ed Perclose Prostyle - S0 - [id number] Implanted:Qty : 1 on 05/10/2023 by Xena Estrada MD MPH at [facility] Implant Right: Groin [employer] [id number] 01/19/2025 62636-53 / 0 / [id number] Vascular Plug For Peripheral Vascular Occlusion 8mm - S0 - [id number] Implanted:Qty : 1 on 05/10/2023 by Xena Estrada MD MPH at [facility] Implant Right: Arterial [employer] [id number] 01/20/2028 9-AVP2-0 [id number] Insurance AET[employer] M[employer] Advance Directives * Full Code (Latest Code Status on File) Date Activated Date Inactivated Comments 05/10/2023 12:13 PM 05/15/2023 6:14 PM Care Teams Sagger Soak Relationship Specialty Start Date End Date Alivia Vieyra [address] [place] [address] [place] [phone] (work) PCP - General Internal Medicine 01/02/23
--- OUTSIDE RECORDS SUMMARY | 2024-06-18 10:53 | XMS_ITS | Patient Health Record ---
Author Organization [facility] Address [address] [place] [address] Care Team Providers Care Billet Straightener Name Role Phone Alivia Pat Primary Care Provider Unavailab Kimberli Cordova Unavailable [phone] Allergies No Known Allergies Reason For Referral No Information Medications Medication SIG (Take, Route, Frequency, Duration) Notes Start Date End Date Status amLODIPine Besylate 10 MG Oral for 90 Active Chemo-therapy Active Metoprolol Succinate ER 100 MG Oral for 90 Active Lisinopril 40 MG Oral for 90 A ctive Cabometyx 20 MG Oral for 30 Ac tive Ciclopirox Olamine 0.77 % 1 application Externally Twice a day for 30 days Active Social History Tobacco Use: Social History Observation Description Date Details (start date - stop date) Never Smoker NA - NA Tobacco use other than smoking: Question Answer Notes Are you an other tobacco user? No Tobacco Control (Standard) Question Answer Notes Tobacco use: Nonsmoker Additional Findings: Tobacco non-user Current no nsmoker AUDIT-C (Standard) Question Answer Notes Did you have a drink containing alcohol in the p ast year? No Points 0 Interpretation Negative Vital Signs Blood pressure diastolic 79 mm Hg 05/28/2024 Height 5ft 9in in 05/28/2024 Blood pressure systolic 139 mm Hg 05/28/2024 Weight 179 lbs 05/28/2024 BMI 26.43 kg/m2 05/28/2024 Encounters Encounter Location Date Provider Diagnosis [facility] [address] [place] [address] 07/04/2023 Kimberli Perica Tinea unguium B35.1 ; Pain in right toe(s) M79.674 and Pain in left toe(s) M79.[address] [address] 10/10/2023 Kimberli Perica Tinea unguium B35.1 ; Pain in right toe(s) M79.674 and Pain in left toe(s) M79.[address] [address] 01/09/2024 Kimberli Perica Tinea unguium B35.1 ; Tinea pedis of both feet B35.3 ; Pain in right toe(s) M79.674 and Pain in left toe(s) M79.[address] [address] 05/28/2024 Kimberli Perica Tinea unguium B35.1 ; Pain in right toe(s) M79.674 and Pain in left toe(s) M79.[address] [address] 06/23/2023 Kimberli Perica [address] [address] 06/23/2023 Kimberli Perica [address] [address] 03/19/2024 Kimberli Yancey Assessments Encounter Date Diagnosis (ICD Code) Assessment Notes Treatment Notes Treatment Clinical Notes Section Notes 07/04/2023 Tinea unguium (ICD-10 - B35.1) 07/04/2023 Pain in right toe(s) (ICD-10 - M79.674) 10/10/2023 Tinea unguium (ICD-10 - B35.1) 01/09/2024 Tinea unguium (ICD-10 - B35.1) 01/09/2024 Tinea pedis of both feet (ICD-10 - B35.3) 05/28/2024 Tinea unguium (ICD-10 - B35.1) 05/28/2024 Pain in right toe(s) (ICD-10 - M79.674) 01/09/2024 Pain in right toe(s) (ICD-10 - M79.674) 05/28/2024 Pain in left toe(s) (ICD-10 - M79.675) 10/10/2023 Pain in right toe(s) (ICD-10 - M79.674) 07/04/2023 Pain in left toe(s) (ICD-10 - M79.675) 10/10/2023 Pain in left toe(s) (ICD-10 - M79.675) 01/09/2024 Pain in left toe(s) (ICD-10 - M79.675) Plan Of Treatment Next Appt Details Provider Name:Kimberli neville, 09/06/2024 10:00:00 AM, [address] [place] [address], [phone], Insurance Providers Payer Name Payer Address Payer Phone Subscriber Number Group Number Insured Name Patient Relationship to Insured Coverage Start Date Coverage End Date [employer] Medicare Open [address] [place] [address] [id number] Colon, Dick Self - patient is the insured Medical (General) History Medical History History ICD Code Arthritis Cancer High blood pressure Psoriasis/eczema Surgical History Surgery Date(Month/Year) Gall bladder removal 03/15 kidney surgery 05/10
--- OUTSIDE RECORDS SUMMARY | 2024-06-18 10:53 | XMS_ITS | Referral Summary ---
Author Organization [facility] Address [address] [place] [address] Care Team Providers Care Quality Improvement Engineer Name Role Phone Alivia Vieyra Primary Care Provider [phone] Allergies No known active allergies Medications chlorthalidone [...] on file Medical Devices Implanted Type Area Ibm Bpm Developer Device Identifier Shelf Expiration Date Model / Serial / Lot System Closure And Repair Suture-Mediat ed Perclose Prostyle - S0 - [id number] Implanted:Qty : 1 on 05/10/2023 by Xena Estrada MD MPH at [facility] Implant Right: Groin [employer] [id number] 01/19/2025 [id number] / [id number] Vascular Plug For Peripheral Vascular Occlusion 8mm - S0 - [id number] Implanted:Qty : 1 on 05/10/2023 by Xena Estrada MD MPH at [facility] Implant Right: Arterial [address] [employer] [id number] 01/20/2028 [id number] Insurance [employer] [facility] Advance Directives * Full Code (Latest Code Status on File) Date Activated Date Inactivated Comments 05/10/2023 12:13 PM 05/15/2023 6:14 PM Care Teams Quality Improvement Engineer Relationship Specialty Start Date End Date Alivia Vieyra [address] [place] [address] [place] [address] PCP - General Internal Medicine 01/02/23
--- OUTSIDE RECORDS SUMMARY | 2024-06-18 10:54 | XMS_ITS | Encounter Summary ---
Author Organization [facility] Address [address] [place] [address] Care Team Providers Care Dental Technician Instructor Name Role Phone Alivia Vieyra Primary Care Provider [phone] Encounter Details Date Type Department Care Team (Late st Contact Info) Description 02/23/2023 Orders Only [facility] Nuclear Medicine [address] [place] [address] [phone] Jayme Ga MD [address] [place] [address] [phone] Social History Tobacco Use Types Packs/Day Years [...] on filedocumented in this encounter Care Teams Dental Technician Instructor Relationship Specialty Start Date End Date Alivia Vieyra [address] [place] [address] [place] [address] PCP - General Internal Medicine 01/02/23 documented as of this encounter
--- OUTSIDE RECORDS SUMMARY | 2024-06-18 10:54 | XMS_ITS ---
Author Organization [facility] Address [address] [place] [address] Care Team Providers Care Travel Journalist Name Role Phone Diegoradu Alivia Primary Care Provider Unavailab Kimberli Cordova Unavailable [phone] Allergies No Known Allergies REASON FOR VISIT Painful nail(s) aggrevated by shoes causing difficulty standing/walking Medications Medication SIG (Take, Route, Frequency, Duration) Notes Start Date End Date Status amLODIPine Besylate 10 MG Oral for 90 Active Metoprolol Succinate ER 100 MG Oral [...] No Points 0 Interpretation Negative Vital Signs Height 5ft 9in in 05/28/2024 Weight 179 lbs 05/28/2024 BMI 26.43 kg/m2 05/28/2024 Blood pressure systolic 139 mm Hg 05/29/19 25 Blood pressure diastolic 79 mm Hg 025 Encounters Encounter Location Date Provider Diagnosis [facility] [address] [address] 05/28/2024 Kimberli Yancey Tinea unguium B35.1 ; Pain in right toe(s) M79.674 and Pain in left toe(s) M79.675 Assessments Encounter Date Diagnosis (ICD Code) Assessment Notes Treatment Notes Treatment Clinical Notes Section Notes 05/28/2024 Tinea unguium (ICD-10 - B35.1) 05/28/2024 Pain in right toe(s) (ICD-10 - M79.674) 05/28/2024 Pain in left toe(s) (ICD-10 - M79.675) Plan Of Treatment Next Appt Details Follow Up: 3 Months, Reason: Provider Name:Kimberli neville, 09/06/2024 10:00:00 AM, [address] [place] [address], [phone], Procedure Notes * Category Sub-Category Detail Notes Debride Nail 6-10 Nail debridement Due to the cl inical pathology outlined in the exam findings, performance of this nail treatment is medically necessary as its management by an unskilled/untrained nonprofessional would put this patients foot and overall health at risk. Therefore, debridement to affected nail(s), as described in exam ( TA, T1, T2, T3, T4, T5, T6, T7, T8, T9, ), was performed exclusively by the physician of record to reduce/remove overall nail length, girth, thickness, subungual debris, and necrotic tissue, by manual and/or electrical means through the use of a nail nipper and/or dremel-type grinder setup operator, to a more viable healthy nail plate or bed tissue 6-10 nails in total. Silver nitrate was used for any petechial bleeding as necessary. Definitive antifungal treatment options, both pharmaceutical and surgical, have been reviewed and discussed with the patient. The patient solely prefers the use of intermittent/as needed professional debridement services for their nail condition and understands the need for additional periodic treatments to maintain effectiveness in symptomatic relief - 33367 Progress Notes * Dick COFFEYDOB:1960 (64 yo M)Acc No.[id number]:05/28/2024 Progress Note Patient:?COLON, Dick Provider:?Kimberli Yancey DPM :1960???Age:64 Y???Sex:Male Constantine e:05/28/2024 Address:[address] [place], [place] [address] Pcp:Alivia Pat Subjective: * Chief Complaints: * ???Painful nail(s) aggrevate d by shoes causing difficulty standing/walking * HPI: ???Painful Nails:?Pt States Last PCP Visit:?Date:?03/07/2024 * ROS:?General/Constitutional:?Nausea?denies.?Vomiting?denies.?Hunger Thirst?denies.?Loss appetite?denies.?Chills?denies.?Fatigue?denies.?Fever?denies.?Night Sweats?denies.?Unexplained weight loss?denies.?Unexplained [...] emors?denies.? * Medical History:? * Surgical History:?Sandra puentes er removal 03/15kidney surgery 05/10 * Hospitalization/Major Diagno stic Procedure:?Denies Past Hospitalization * Family History:?Mother: dece ased, diagnosed with Other malignant neoplasm of unspecified site, Family history of arthritis.?Father: , foot problems, diagnosed with Unspecified essential hypertension, Unspecified heart disease, Unspecified cerebral artery occlusion with cerebral infarction, Family history of arthritis, Diabetic - NIDDM.? * Social History:?Tobacco Use:?Tobacco use other than smoking?Are you an other tobacco user??No ?Tobacco Control (Standard)?Tobacco use:?Nonsmoker ?Additional Findings: Tobacco non-user?Current nonsmoker ???Drugs/Alcohol:?Drugs?Have you used drugs other than those for medical reasons in the past 12 months??No ???Miscellaneous:?Caffeine: yes, frequency:, 1-2 cups per day. ?Children: yes, 3. ?Exercise: no. ?Marital status: single, partner. ?Occupation: retired- [employer]. ???Drug/Alcohol:?AUDIT-C (Standard)?Did you have a drink containing alcohol in the past year??No ?Points?0 ?Interpretation?Negative * Medications:?TakingChemo-the rapy amLODIPine Besylate 10 MG Tablet Oral Lisinopril 40 MG Tablet Oral Metoprolol Succinate ER 100 MG Tablet Extended Release 24 Hour Oral Ciclopirox Olamine 0.77 % Cream 1 application Externally Twice a day Cabometyx 20 MG Tablet Oral Medication List reviewed and reconciled with the patientTaking Chemo-therapy Taking amLODIPine Besylate 10 MG Tablet Oral Taking Lisinopril 40 MG Tablet Oral Taking Metoprolol Succinate ER 100 MG Tablet Extended Release 24 Hour Oral Taking Ciclopirox Olamine 0.77 % Cream 1 application Externally Twice a day Taking Cabometyx 20 MG Tablet Oral Medication List reviewed and reconciled with the patient * Allergies:?N.K.D.A.yes[Aller gies Verified] Objective: * Vitals:?Ht: 5ft 9in, Wt:179, BMI:26.43, Shoe size: 9, BP:139/79mm Hg, Ht-cm: 175.26 cm, Wt-k.19 kg. * Examination: ???Nails: ?NAILS are:?Elongated, overgrown, dystrophic, lytic, greater than 3mm thick, discolored and friable with crumbly malodorous subungual debris, with pain on palpation , TA, T1, T2, T3, T4, T5, T6, T7, T8, T9.? Assessment: * Assessment: 1.?Tinea unguium - B35.1 (Pr imary)???2.?Pain in right toe(s) - M79.674???3.?Pain in left toe(s) - M79.675??? Plan: * Treatment: * Procedures:?Debride Nail 6-10:?Nail debridement?Due to the clinical pathology outlined in the exam findings, performance of this nail treatment is medically necessary as its management by an unskilled/untrained nonprofessional would put this patients foot and overall health at risk. Therefore, debridement to affected nail(s), as described in exam ( TA, T1, T2, T3, T4, T5, T6, T7, T8, T9, ), was performed exclusively by the physician of record to reduce/remove overall nail length, girth, thickness, subungual debris, and necrotic tissue, by manual and/or electrical means through the use of a nail nipper and/or dremel-type grinder setup operator, to a more viable healthy nail plate or bed tissue 6- 10 nails in total. Silver nitrate was used for any petechial bleeding as necessary. Definitive antifungal treatment options, both pharmaceutical and surgical, have been reviewed and discussed with the patient. The patient solely prefers the use of intermittent/as needed professional debridement services for their nail condition and understands the need for additional periodic treatments to maintain effectiveness in symptomatic relief - 36574.? * Procedure Codes:?43407 DEBRI DE NAIL, 6 OR MORE, Modifiers: XS * Follow Up:?3 Months * Images: * Sign off status: Completed true * Provider:Kimberly Yancey DPM Date:?09/2024 Generated for Josie swain/Demetris/Maria Del Carmen on:?06/18/2024 10:53 AM EDT History and Physical Notes * HPI (History of Present Illness) Category Sub-Category Detail Notes Category Not es Painful Nails Pt States Last PCP Visit: Date:: 03/07/2024 Examination Category Sub-Category Detail Notes Category Not es Nails NAILS are: Elongated, overg rown, dystrophic, lytic, greater than 3mm thick, discolored and friable with crumbly malodorous subungual debris, with pain on palpation , TA, T1, T2, T3, T4, T5, T6, T7, T8, T9
--- OUTSIDE RECORDS SUMMARY | 2024-06-18 10:54 | XMS_ITS ---
Author Organization [facility] Address [address] [place] [address] Care Team Providers Care Surgery Aid Name Role Phone Alivia Pat Primary Care Provider Unavailab Kimberli Cordova [phone] Encounters Encounter Location Date Provider Diagnosis [address] [address] 04/19/2024 Kimberli Yancey Plan Of Treatment Next Appt Details Provider Name:Kimberli neville, 09/06/2024 10:00:00 AM, [address] [place] [address], [phone], Progress Notes * Dick COFFEYDOB:1960 (64 yo M)Acc No.[id number]:04/19/2024 Progress Note Patient:?Dick COFFEY Provider:?Kimberli Yancey DPM :1960???Age:64 Y???Sex:Male Constantine e:04/19/2024 Address:[address] [place] [address] Pcp:Alivia Pat Subjective: * Chief Complaints: * [...] Date:? Generated for Josie swain/Demetris/Maria Del Carmen on:?06/18/2024 10:53 AM EDT
--- OUTSIDE RECORDS SUMMARY | 2024-06-18 10:54 | XMS_ITS ---
Author Organization [facility] Address [address] [place] [address] Care Team Providers Care Sports Apparel Internship Name Role Phone Alivia Pat Primary Care Provider Unavailab Kimberli Cordova Unavailable [phone] Roa Encounters Encounter Location Date Provider Diagnosis [address] [address] 04/09/2024 Kimberli Yancey Plan Of Treatment Next Appt Details Provider Name:Kimberli neville, 09/06/2024 10:00:00 AM, [address] [place] [address], [phone], Progress Notes * Dick COFFEYDOB:1960 (64 yo M)Acc No.[id number]:04/09/2024 Progress Note Patient:?Dick COFFEY Provider:?Kimberli Yancey DPM :1960???Age:64 Y???Sex:Male Constantine e:04/09/2024 Address:[address] [place] [address] Pcp:Alivia Pat Subjective: * Chief Complaints: * [...] Generated for Josie swain/Demetris/Maria Del Carmen on:?06/18/2024 10:54 AM EDT
--- OUTSIDE RECORDS SUMMARY | 2024-06-18 10:54 | XMS_ITS | Encounter Summary ---
Author Organization [facility] Address [address] [place] [address] Care Team Providers Care Overcoiler Name Role Phone Alivia Vieyra Primary Care Provider [phone] Encounter Details Date Type Department Care Team (Late st Contact Info) Description 04/14/2023 Orders Only [facility] Interventional Radiology [address] [place], [place] [phone] Jose Alejandro Perez MD [address] [place], [place] [phone] Social History Tobacco Use Types Packs/Day Years [...] on filedocumented in this encounter Care Teams Overcoiler Relationship Specialty Start Date End Date Alivai Vieyra [address] [place] [address] [place] [phone] PCP - General Internal Medicine 01/02/23 documented as of this encounter
== END 2024-06-18 09:47 | disposition home or self-care (01) ==
LOC: HO.PET 09:46
PROVIDERS: PCP Internal Medicine; Visit Provider Internal Medicine
DX: Z13.89 Encounter for screening for other disorder (principal)

== ENCOUNTER 2024-07-02 10:16 | Outpatient (AMB) | payer MEDICARE, MEDICAID, SELFPAY ==
--- NOTE | 2024-07-02 10:24 | A.OFFVIS_ITS ---
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 Patient reports that he has had ongoing locking and catching of the left middle finger for about two years now. He has had previous injections that were helpful but only for about a month, he has also completed physical therapy. He explains that he had to stop the injections due to chemotherapy. Allergies No Known Allergies [No Known Allergies*] Allergy (Verified 07/02/24 10:31) HPI HPI HOUSEHOLD APPLIANCE REPAIRER- Trigger Finger Pain: Details: Dick is a 64 year old right hand dominant male who presents today as a new patient with complaints of right ring finger locking and catching. Patient r eports that he has had ongoing locking and catching of the left middle finger for about two years now. He has had previous injections that were helpful but only for about a month, he has also completed physical therapy. He explains that he had to stop the injections due to chemotherapy. [facility] Medical History (Updated 07/02/24 @ 13:26 by MICHELLE Campos) Kidney cancer, primary, with metastasis from kidney to other site Renal cancer Incarcerated umbilical hernia (01/09/23) Depression Psoriatic arthritis BPH (benign prostatic hyperplasia) Elevated cholesterol HTN (hypertension) Surgical History S/P laparoscopic cholecystectomy History of laparoscopic cholecystectomy (01/09/23) H/O colonoscopy Hx of hernia repair Family History Mother Colon cancer Father Prostate cancer Social History Household Members: Family Housing: House Are you a primary insurance healthcare consultant to a significant other at home: No Do you presently have visiting nurse or other home services: No Alcohol intake: former Patient Tobacco Use Status: Former Tobacco user Tobacco use type: Cigarette service: Yes Current occupational status: retired Review of Systems Const All systems reviewed & are unremarkable except as noted in HPI and below Physical Exam Extrem Other: Patient is alert, oriented, and in no acute distress. Neuro: Normal sensation of the tips of all digits of the right hand at this time Vascular: Cap refill brisk Pain: Tenderness to palpation of the A1 zarina of the right middle finger No other tenderness to palpation noted Pain associated with locking and catching of the right middle finger ROM: There is visible and palpable locking and catching of the right middle finger Skin: No lacerations or abrasions. General: No ecchymosis, erythema, or evidence of infection. Psych: Appears grossly normal Affect normal Attitude cooperative Assessment & Plan Assessment & Plan (1) Trigger finger, right middle finger: Code(s): M65.331 - Trigger finger, right middle finger Category: Medical Plan 1. Trigger finger, right middle finger Has had multiple injections at past clinic Injections had to stop due to chemotherapy Patient is educated about this condition Patient is educated about the typical treatment course At this time, patient is informed that I can not give an injection as I am unsure if it will interact with any of his chemotherapy drugs Patient is also informed that surgical intervention is not possible while the patient is on active chemotherapy Workload sent to Dr. Acosta to determine if steroid injection is indeed safe with his chemotherapy medications Patient will follow-up for next available appointment with Dr. Goff to discuss if any further treatment option is available to him, sooner with any acute concerns Coding Level of Care Code New Pt Level 3 (05380) Diagnoses Trigger finger, right middle finger M65.331
--- OUTSIDE RECORDS SUMMARY | 2024-07-02 11:23 | XMS_ITS ---
Author Organization [facility] Address [address] [place] [address] Care Team Providers Care Offbearer Sewer Pipe Name Role Phone Alivia Vieyra Primary Care Provider [phone] Active Problems Problem Noted Date Diagnosed Date [...] TotalDLP 247 mGy 247 mGy 0 mGy [id number] 4.2 mSv 4.2 mSv 0 mSv CTDIvol Max 8 mGy 8 mGy 0 mGy CTDIvol Min 8 mGy 8 mGy 0 mGy Radiation - mGy 93.1 mGy 0 mGy 93.1 mGy
--- OUTSIDE RECORDS SUMMARY | 2024-07-02 11:24 | XMS_ITS ---
Author Organization [facility] Address [address] [place] [address] Care Team Providers Care Academic Affairs Specialist Name Role Phone Diegoradu Alivia Primary Care Provider Unavailab Kimberli Cordova Unavailable [phone] Allergies No Known Allergies REASON FOR VISIT [...] Encounter Location Date Provider Diagnosis [facility] [address] [address] 05/28/2024 Kimberli Yancey Tinea unguium B35.1 ; [...] Reason: Provider Name:Kimberli neville, 09/06/2024 10:00:00 AM, [address] [place] [address], [phone], Procedure Notes * Category Sub-Category Detail Notes [...] use of a nail nipper and/or dremel-type facing grinder, to a more viable healthy nail plate [...] to maintain effectiveness in symptomatic relief - 54858 Progress Notes * Dick COFFEYDOB:1960 (64 yo M)Acc No.[id number]:05/28/2024 Progress Note Patient:?COLON, Dick Provider:?Kimberli Yancey DPM :1960???Age:64 Y???Sex:Male Constantine e:05/28/2024 Address:[address] [place], [place] [address] Pcp:Alivia Pat Subjective: * Chief Complaints: * [...] use of a nail nipper and/or dremel-type facing grinder, to a more viable healthy nail plate [...] to maintain effectiveness in symptomatic relief - 41381.? * Procedure Codes:?06598 DEBRI DE NAIL, 6 OR MORE, Modifiers: XS * Follow Up:?3 Months * Images: * Sign off status: Completed true * Provider:?Kimberli Yancey DPM Date:?09/2024 Generated for Josie swain/Demteris/Maria Del Carmen on:?07/02/2024 11:23 AM EDT History and Physical Notes * [...]
--- OUTSIDE RECORDS SUMMARY | 2024-07-02 11:24 | XMS_ITS ---
Author Organization [facility] Address [address] [place] [address] Care Team Providers Care Rebar Fabricator Name Role Phone Alivia Pat Primary Care Provider Unavailab Kimberli Cordova Unavailable [phone] Roa Encounters Encounter Location Date Provider Diagnosis [address] [address] 04/09/2024 Kimberli Yancey Plan Of Treatment Next Appt Details Provider Name:Kimberli neville, 09/06/2024 10:00:00 AM, [address] [place] [address], [phone], Progress Notes * Stacie COFFEYashDOB:1960 (64 yo M)Acc No.[id number]:04/09/2024 Progress Note Patient:?Dick COFFEY Provider:?Kimberli Yancey DPM :1960???Age:64 Y???Sex:Male Constantine e:04/09/2024 Address:[address] [place] [phone] Pcp:Alivia Pat Subjective: * Chief Complaints: * [...] Date:? Generated for Josie swain/Demetris/Maria Del Carmen on:?07/02/2024 11:24 AM EDT
--- OUTSIDE RECORDS SUMMARY | 2024-07-02 11:24 | XMS_ITS | Encounter Summary ---
Author Organization [facility] Address [address] [place] [address] Care Team Providers Care Commercial Real Estate Broker Name Role Phone Alivia Vieyra Primary Care Provider [phone] Encounter Details Date Type Department Care Team (Late st Contact Info) Description 04/14/2023 Orders Only [facility] Interventional Radiology [address] [place], [place] [phone] Jose Alejandro Perez MD [address] [place], [place] [phone] Social History Tobacco Use Types Packs/Day Years [...] on filedocumented in this encounter Care Teams Commercial Real Estate Broker Relationship Specialty Start Date End Date Alivia Vieyra [address] [place] [address] [place] [address] PCP - General Internal Medicine 01/02/23 documented as of this encounter
--- OUTSIDE RECORDS SUMMARY | 2024-07-02 11:24 | XMS_ITS | Referral Summary ---
Author Organization [facility] Address [address] [place] [address] Care Team Providers Care Mix Crusher Operator Name Role Phone Alivia Vieyra Primary Care Provider [phone] Allergies No known active allergies Medications chlorthalidone [...] on file Medical Devices Implanted Type Area [place]iedown Operator Device Identifier Shelf Expiration Date Model / Serial / Lot System Closure And Repair Suture-Mediat ed Perclose Prostyle - S0 - [id number] Implanted:Qty : 1 on 05/10/2023 by Xena Estrada MD MPH at [facility] Implant Right: Groin [employer] [id number] 01/19/2025 [id number] / [id number] Vascular Plug For Peripheral Vascular Occlusion 8mm - S0 - [id number] Implanted:Qty : 1 on 05/10/2023 by Xena Estrada MD MPH at [facility] Implant Right: Arterial [address] [employer] [id number] 01/20/2028 9-AVP2-0 [id number] Insurance AETNA [facility] Advance Directives * Full Code (Latest Code Status on File) Date Activated Date Inactivated Comments 05/10/2023 12:13 PM 05/15/2023 6:14 PM Care Teams Mix Crusher Operator Relationship Specialty Start Date End Date Alivia Vieyra [address] [place] [address] [place] [address] PCP - General Internal Medicine 01/02/23
--- OUTSIDE RECORDS SUMMARY | 2024-07-02 11:24 | XMS_ITS | Patient Health Record ---
Author Organization [facility] Address [address] [place] [address] Care Team Providers Care Surgical Scrub Tech Name Role Phone Alivia Pat Primary Care Provider Unavailab Kimberli Cordova Unavailable [phone] Allergies No Known Allergies Reason For Referral [...] 05/28/2024 Encounters Encounter Location Date Provider Diagnosis [facility] [address] [place] [address] 07/04/2023 Kimberli Perica Tinea unguium B35.1 ; Pain in right toe(s) M79.674 and Pain in left toe(s) M79.[address] [address] 10/10/2023 Kimberli Perica Tinea unguium B35.1 ; Pain in right toe(s) M79.674 and Pain in left toe(s) M79.[address] [address] 01/09/2024 Kimberli Perica Tinea unguium B35.1 ; Tinea pedis of both feet B35.3 ; Pain in right toe(s) M79.674 and Pain in left toe(s) M79.[address] [address] 05/28/2024 Kimberli Perica Tinea unguium B35.1 ; Pain in right toe(s) M79.674 and Pain in left toe(s) M79.[address] [address] 03/19/2024 Kimberli Perica Assessments Encounter Date Diagnosis (ICD [...] Details Provider Name:Kimberli neville, 09/06/2024 10:00:00 AM, [address] [place], [address], Insurance Providers Payer Name Payer Address Payer Phone Subscriber Number Group Number Insured Name Patient Relationship to Insured Coverage Start Date Coverage End Date A[employer] Medicare Open [address] [place] [address] [id number] Colon, Dick Self - patient is the insured Medical (General) History Medical History History ICD Code Arthritis Cancer High blood pressure Psoriasis/eczema Surgical History Surgery Date(Month/Year) Gall bladder removal 03/15 kidney surgery 05/10
--- OUTSIDE RECORDS SUMMARY | 2024-07-02 11:24 | XMS_ITS | Patient Health Record ---
Author Organization [facility] Address [address] [place] [address] Care Team Providers Care Roof Painter Name Role Phone Alivia Pat Primary Care Provider Unavailab Bob Yu Jr Unavailable [phone] Allergies No Known Allergies Reason For Referral [...] Problem Status W/U Status Risk Notes Problem 476447652 Colon cancer screening (Z12.11) Active confirmed Problem 319752913 Encounter for other preprocedural examination (Z01.818) Active confirmed Problem 739688353 Long-term use of aspirin therapy (Z79.82) Active confirmed Problem 811858483 FH: colon polyps (Z83.71) Active confirmed Plan Of Treatment Future Test Test Name Order Date COLONOSCOPY 09/02/2021 Next Appt Details Provider Name:Bob brown , 09/02/2024 10:20:00 AM, [address] [place] [address], [facility], [place], [address], Insurance Providers Payer Name Payer Address Payer Phone Subscriber Number Group Number Insured Name Patient Relationship to Insured Coverage Start Date Coverage End Date [facility] [address] [place], [place] [id number] COLON COLON, JOSÉ Self - patient is the insured Medical (General) History Medical History History ICD Code hypertension hyperlipidemia benign prostatic hyperplasia without low er urinary tract symptoms Psoriatic arthritis Depression Surgical History Surgery Date(Month/Year) hernia
--- OUTSIDE RECORDS SUMMARY | 2024-07-02 11:24 | XMS_ITS ---
Author Organization [facility] Address [address] [place] [address] Care Team Providers Care Vocational Rehabilitation Counselor Name Role Phone Alivia Pat Primary Care Provider Unavailab Kimberli Cordova [phone] Encounters Encounter Location Date Provider Diagnosis [address] [address] 04/19/2024 Kimberli Yancey Plan Of Treatment Next Appt Details Provider Name:Kimberli neville, 09/06/2024 10:00:00 AM, [address] [place] [address], [phone], Progress Notes * Dick COFFEYDOB:1960 (64 yo M)Acc No.[id number]:04/19/2024 Progress Note Patient:?Dick COFFEY Provider:?Kimberli Yancey DPM :1960???Age:64 Y???Sex:Male Constantine e:04/19/2024 Address:[address] [place] [address] Pcp:Alivia Pat Subjective: * Chief Complaints: * [...] Generated for Josie swain/Demetris/Maria Del Carmen on:?07/02/2024 11:23 AM EDT
--- OUTSIDE RECORDS SUMMARY | 2024-07-02 11:24 | XMS_ITS | Clinical Summary ---
Author Organization [facility] Address [address] [place] [address] Care Team Providers Care Animal Care Giver Name Role Phone Alivia Vieyra Primary Care Provider [phone] Allergies No known active allergies Medications chlorthalidone [...] this topic Medical Devices Implanted Type Area Patient Monitor Device Identifier Shelf Expiration Date Model / Serial / Lot System Closure And Repair Suture-Mediat ed Perclose Prostyle - S0 - [id number] Implanted:Qty : 1 on 05/10/2023 by Xena Estrada MD MPH at [facility] Implant Right: Groin [employer] [id number] 01/19/2025 [id number] / 0 / [id number] Vascular Plug For Peripheral Vascular Occlusion 8mm - S0 - [id number] Implanted:Qty : 1 on 05/10/2023 by Xena Estrada MD MPH at [facility] Implant Right: Arterial [employer] [id number] 01/20/2028 9-AVP2-0 [id number] Insurance AETNA [facility] Advance Directives * Full Code (Latest Code Status on File) Date Activated Date Inactivated Comments 05/10/2023 12:13 PM 05/15/2023 6:14 PM Care Teams Animal Care Giver Relationship Specialty Start Date End Date Alivia Vieyra [address] [place] [address] [place] [address] (work) PCP - General Internal Medicine 01/02/23
--- OUTSIDE RECORDS SUMMARY | 2024-07-02 11:24 | XMS_ITS | Clinical Summary ---
Author Organization [facility] Address [address] [place] [address] Care Team Providers Care Award Machine Operator Name Role Phone Cynthia Greenberg MD Primary Care Provider [phone] Allergies No known active allergies Medications Medication [...] age to complete this topic Care Teams Award Machine Operator Relationship Specialty Start Date End Date Cynthia Greenberg MD PCP - General Internal Medicine 06/09/17
--- OUTSIDE RECORDS SUMMARY | 2024-07-02 11:24 | XMS_ITS | Encounter Summary ---
Author Organization [facility] Address [address] [place] [address] Care Team Providers Care Rug Cleaner Name Role Phone Alivia Vieyra Primary Care Provider [phone] Encounter Details Date Type Department Care Team (Late st Contact Info) Description 02/23/2023 Orders Only [facility] Nuclear Medicine [address] [place] [phone] Jayme Ga MD [address] [place] [phone] Social History Tobacco Use Types Packs/Day Years [...] on filedocumented in this encounter Care Teams Rug Cleaner Relationship Specialty Start Date End Date Alivia Vieyra [address] [place] [address] [place] [address] PCP - General Internal Medicine 01/02/23 documented as of this encounter
--- OUTSIDE RECORDS SUMMARY | 2024-07-02 11:24 | XMS_ITS | Encounter Summary ---
Author Organization [facility] Address [address] [place] [address] Care Team Providers Care Pedal Assembler Name Role Phone Alivia Vieyra Primary Care Provider [phone] Encounter Details Date Type Department Care Team (Late st Contact Info) Description 01/24/2023 Orders Only [facility] Interventional Radiology [address] [place] [phone] Jayme Ga MD [address] [place], [place] [phone] Social History Tobacco Use Types Packs/Day Years [...] on filedocumented in this encounter Care Teams Pedal Assembler Relationship Specialty Start Date End Date Alivia Vieyra [address] [place] [address] [place] [address] PCP - General Internal Medicine 01/02/23 documented as of this encounter
--- OUTSIDE RECORDS SUMMARY | 2024-07-02 11:24 | XMS_ITS | Encounter Summary ---
Author Organization [facility] Address [address] [place] [address] Care Team Providers Care Gravity Prospecting Operator Helper Name Role Phone Alivia Vieyra Primary Care Provider [phone] Encounter Details Date Type Department Care Team (Late st Contact Info) Description 01/27/2023 Lab Requisition [facility] [address] [place] [address] Enedelia Ortiz MD [address] [place] [address] Social History Tobacco Use Types Packs/Day Years [...] of this encounter Procedures * Due to [place] dooyoo law, this organization might not be sharing negative HIV tests. Procedure Name Priority Date/Time Associated Diagnosis Comments TISSUE EXAM Routine 01/27/2023 2:06 PM EST documented in this encounter Results * Due to [place] dooyoo law, this organization might not be sharing negative HIV tests. * Tissue Exam (01/27/2023 2:06 PM EST) Final Diagnosis Review of Outside Slides Received from [facility] Labeled [id number] Procedure Date 04/21/2022: Right Kidney, Upper Pole Mass, Needle Core Biopsy: - CLEAR CELL RENAL CELL CARCINOMA, WHO/ISUP NUCLEAR GRADE 1-2 IN THIS SPECIMEN. [facility] MANUAL 01/30/2023 9:22 AM EST [facility] at 0922 EST Clinical History RIght renal upper pole mass [facility] 01/30/2023 9:22 AM EST [facility] Gross Consult Client Facility: [facility] Slide Identificatio n: [id number] Number of Glass Slides Received: 3 Number of Blocks Received: 0 Client Pathologist: Susanne Hogan Accompanying Report Received: Yes [facility] MANUAL 01/30/2023 9:22 AM EST [facility] Embedded Images [facility] MANUAL 01/30/2023 9:22 AM EST [facility] Resulting Agency Case was signed out at [facility], Department of Pathology, [facility] [id number] [facility] MANUAL 01/30/2023 9:22 AM EST [facility] Report Header Surgical Pathology Report ? Case: [id number] ? Authorizing Provider: ??Enedelia Ortiz MD ?Collected: ? 01/27/2023 1406 ? Ordering Location: ? [facility] ? Received: ?01/27/2023 1407 ? [facility] ? Pathologist: ? Enedelia Pop MD ? Specimen: ?Kidney, Right, Upper Pole Mass ? 01/30/2023 9:22 AM EST [facility] LAB[facility] Tissue Entire right kidney / Unknown 01/27/2023 2:06 PM EST 01/27/2023 2:07 PM EST us Enedelia Ortiz MD LAB PATHOLOGY/CYTOLOGY [place] Final Result [facility] [address] [place] [address], documented in this encounter Visit Diagnoses Not on filedocumented in this encounter Care Teams Gravity Prospecting Operator Helper Relationship Specialty Start Date End Date Alivia Vieyra [address] [place] [address] [place] [address] PCP - General Internal Medicine 01/02/23 documented as of this encounter
== END 2024-07-02 10:44 | disposition home or self-care (01) ==
LOC: HO.HOS 10:17
PROVIDERS: PCP Internal Medicine
DX: M65.331 Trigger finger, right middle finger (principal)
CPT/HCPCS: 99203

== ENCOUNTER → 2024-07-02 10:16 | Outpatient (BNVA) | payer MEDICARE, MEDICAID, SELFPAY | PROVIDERS: PCP Internal Medicine | DX: M65.331 Trigger finger, right middle finger (principal) | CPT/HCPCS: 99202 ==

== ENCOUNTER 2024-07-18 11:47 | Outpatient (REF) | payer MEDICARE, MEDICAID, SELFPAY ==
--- NOTE | ~2024-07-18 | XR_ITS ---
CLINICAL HISTORY: ? bowel obstruction --- Additional Notes or Special Instructions: Abdominal pain an d distention 1 view abdomen Comparison: None Findings: No pneumoperitoneum or pneumatosis. There are calcified pelvic phleboliths. No other abnormal calcifications. No acute fractures. IMPRESSION: The bowel gas pattern is within normal limits This document has been electronically signed by: Sandip Su MD on 07/19/2024 09:38:58
--- OUTSIDE RECORDS SUMMARY | 2024-07-18 12:01 | XMS_ITS ---
Author Organization [facility] Address [address] [place] [address] Care Team Providers Care Electronics Engineer Name Role Phone Alivia Vieyra Primary Care Provider [phone] Active Problems Problem Noted Date Diagnosed Date [...] TotalDLP 247 mGy 247 mGy 0 mGy [id number] 4.2 mSv 4.2 mSv 0 mSv CTDIvol Max 8 mGy 8 mGy 0 mGy CTDIvol Min 8 mGy 8 mGy 0 mGy Radiation - mGy 93.1 mGy 0 mGy 93.1 mGy
== END 2024-07-18 11:48 | disposition home or self-care (01) ==
LOC: HO.XRAY 11:47
PROVIDERS: Visit Provider Internal Medicine
DX: C64.9 Malignant neoplasm of unspecified kidney, except renal pelvis (principal)
CPT/HCPCS: 74018

== ENCOUNTER → 2024-07-18 11:54 | Outpatient (BNV) | payer MEDICARE, MEDICAID, SELFPAY | PROVIDERS: Visit Provider Specialist | DX: I87.8 Other specified disorders of veins (principal) | CPT/HCPCS: 74018 ==

== ENCOUNTER 2024-07-31 09:09 | Outpatient (REF) | payer MEDICARE, MEDICAID, SELFPAY ==
--- OUTSIDE RECORDS SUMMARY | 2024-07-31 09:42 | XMS_ITS ---
Author Organization [facility] Address [address] [place] [address] Care Team Providers Care Sterile Supply Technician Name Role Phone Alivia Vieyra Primary Care Provider [phone] Active Problems Problem Noted Date Diagnosed Date [...] TotalDLP 247 mGy 247 mGy 0 mGy [id number] 4.2 mSv 4.2 mSv 0 mSv CTDIvol Max 8 mGy 8 mGy 0 mGy CTDIvol Min 8 mGy 8 mGy 0 mGy Radiation - mGy 93.1 mGy 0 mGy 93.1 mGy
[2024-07-31 10:50] LABS: Vitamin B12 560 pg/mL (200-900)
== END 2024-07-31 09:10 | disposition home or self-care (01) ==
LOC: HO.LAB 09:09
PROVIDERS: Psychiatry & Neurology Neurology; PCP Internal Medicine; Visit Provider Internal Medicine
DX: F01.50 Vascular dementia, unspecified severity, without behavioral disturbance, psychotic disturbance, mood disturbance, and anxiety (principal)
CPT/HCPCS: 36415; 82607

== ENCOUNTER 2024-08-06 13:22 | Outpatient (AMB) | payer MEDICARE, MEDICAID, SELFPAY ==
--- NOTE | 2024-08-06 14:09 | A.OFFVIS_ITS ---
Vital Signs 08/06/24 14:20 Height 5 ft 9 in Weight 171 lb BMI 25.2 Intake Visit Reasons: OV-discuss RT MF trigger Intake Note: Dick is a 64 year old right hand dominant male presents today for a follow up of his right middle finger. At his last visit with Manuel patient explained he has hx of trigger injections however he has to discontinue due to his chemotherapy. Patient is here to discuss surgical intervention. Allergies No Known Allergies [No Known Allergies*] Allergy (Verified 08/06/24 14:26) HPI HPI OV-discuss RT MF trigger: Details: Dick is a 64 year old right hand dominant man who presents for a left middle finger trigger finger. He complains of painful locking & catching of his left middle finger. He has stiffness and says he has not been moving his finger when he uses his hand. He has a Hx of trigger fingers & multiple injections in the past. He is undergoing Chemotherapy for his renal cell cancer and is unsure if he can have a repeat injection or proceed with surgery at this time. He would like to discuss his options. His says he has stopped his chemotherapy infusions, and the oral medication for ~3-4 weeks at this time. He evidently was having some liver difficulties. 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 Renal cancer Incarcerated umbilical hernia (01/09/23) Depression Psoriatic arthritis BPH (benign prostatic hyperplasia) Elevated cholesterol HTN (hypertension) Surgical History S/P laparoscopic cholecystectomy History of laparoscopic cholecystectomy (01/09/23) H/O colonoscopy Hx of hernia repair Family History Mother Colon cancer Father Prostate cancer Social History Household Members: Family Housing: House Are you a primary adult care provider to a significant other at home: No Do you presently have visiting nurse or other home services: No Alcohol intake: former Patient Tobacco Use Status: Former Tobacco user Tobacco use type: Cigarette service: Yes Current occupational status: retired Review of Systems Const All systems reviewed & are unremarkable except as noted in HPI and below Physical Exam Vital Signs: BMI result Body Mass Index 25.2 Const General: cooperative, healthy appearing and no acute distress Orientation/consciousness: patient oriented x3 HEENT Head: Yes normocephalic and Yes atraumatic Eyes EOM: EOMs intact bilaterally Resp Effort & Inspection: normal respiratory effort and able to speak in complete sentences Cardio Jugular venous distension: no JVD Skin General skin exam: turgor normal Rashes: no rashes Neuro General: patient oriented x3 Extrem Other: Evaluation of Left Upper Extremity: The patient is alert, oriented, and in no acute distress Neuro: Median, Ulnar, Radial nerves motor and sensory intact and sensation is normal to the tips of all digits Vascular: Cap refill brisk ROM: He has a flexion contracture of the left middle finger We worked on ROM exercises today in clinic Before leaving clinic he could get his hand flat on the table and bring his middle finger closed to a weak fist Visible & palpable locking & catching of the left middle finger Tender over the left middle finger a1 zarina Skin: No lacerations or abrasions. General: No Ecchymosis. No Erythema or evidence of infection. Psych Appearance: grossly normal Affect: normal affect Attitude: cooperative Assessment & Plan Assessment & Plan (1) Trigger finger, left middle finger: Code(s): M65.332 - Trigger finger, left middle finger Category: Medical (2) Kidney cancer, primary, with metastasis from kidney to other site: Code(s): C64.9 - Malignant neoplasm of unspecified kidney, except renal pelvis Category: Medical (3) Renal cancer: Comment: Right upper pole extension into IVC Code(s): C64.9 - Malignant neoplasm of unspecified kidney, except renal pelvis Category: Medical Plan Assessment & Plan: 1. Left middle finger trigger finger Hx of multiple injections at an outside clinic in the past I educated him about this condition I discussed operative and non-operative treatment options. He is currently undergoing Chemotherapy, though the treatment is on hold at this time The patient would like to proceed with surgery. He needs to be off his Chemotherapy medication for at least 3 weeks prior to surgery, and he needs to hold his medication until his first post-op appointment 2 weeks after surgery He expressed understanding. His will double check the last date of his medication and contact the clinic if he is able to proceed with surgery The risks and benefits of operative treatment were discussed with the patient and the patient wishes to proceed with surgery. These risks include, but are not limited to risk of damage to blood vessels, nerves, tendons, infection, recurrence, incomplete relief of preoperative symptoms, persistent pain, possible need for further surgery and the risks associated with regional blocks and anesthesia. The plan is to take the patient to the operating room sometime on 08/08/24 for the following procedures: 1. Left middle finger trigger release, under local All of the preoperative paperwork including the consent was reviewed today. All the patient's questions were answered. The patient understands that they will be contacted by our baseball glove stuffer soon to schedule this procedure If we are unable to squeeze him in this , then we will get him in shortly after I return from being out of town, trying to take advantage of his break from his chemotherapy medications. He denies Diabetes, blood thinners, asthma, heart issues he has Renal cancer & a mass in his lungs. He has currently stopped his cabozantinib about 3-4 weeks ago, which is his Chemotherapy medication. Scribed for Maritza Goff MD by Reggie Guidry, medical technologist clinical, on 08/06/24 at 2:50 PM, EST. 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
[2024-08-06 14:20] VITALS: BMI 25.2
--- OUTSIDE RECORDS SUMMARY | 2024-08-06 15:14 | XMS_ITS ---
Author Organization [facility] Address [address] [place] [address] Care Team Providers Care Funnel Setter Name Role Phone Alivia Vieyra Primary Care Provider [phone] Active Problems Problem Noted Date Diagnosed Date [...] TotalDLP 247 mGy 247 mGy 0 mGy [id number] 4.2 mSv 4.2 mSv 0 mSv CTDIvol Max 8 mGy 8 mGy 0 mGy CTDIvol Min 8 mGy 8 mGy 0 mGy Radiation - mGy 93.1 mGy 0 mGy 93.1 mGy
== END 2024-08-06 15:02 | disposition home or self-care (01) ==
LOC: HO.HOS 13:23
PROVIDERS: PCP Internal Medicine; Visit Provider Orthopaedic Surgery
DX: M65.332 Trigger finger, left middle finger (principal); C64.9 Malignant neoplasm of unspecified kidney, except renal pelvis
CPT/HCPCS: 99214

== ENCOUNTER → 2024-08-06 13:22 | Outpatient (BNVA) | payer MEDICARE, MEDICAID, SELFPAY | PROVIDERS: PCP Internal Medicine; Visit Provider Orthopaedic Surgery | DX: M65.332 Trigger finger, left middle finger (principal); C64.9 Malignant neoplasm of unspecified kidney, except renal pelvis | CPT/HCPCS: 99212 ==

== ENCOUNTER → 2024-08-09 09:02 | Outpatient (BNV) | payer MEDICARE, MEDICAID, SELFPAY | PROVIDERS: PCP Internal Medicine; Visit Provider Radiology Diagnostic Radiology | DX: R90.82 White matter disease, unspecified (principal) | CPT/HCPCS: 70551 ==

== ENCOUNTER 2024-08-09 09:33 | Outpatient (REF) | payer MEDICARE, MEDICAID, SELFPAY ==
--- NOTE | ~2024-08-09 | MR_ITS ---
EXAMINATION: MR BRAIN WITHOUT CONTRAST CLINICAL INFORMATION: Vascular dementia. History of right renal cancer. COMPARISON: None available. TECHNIQUE: MRI of the brain was obtained using routine sequences without contrast. FINDINGS: Limited by patient's motion artifact. No restricted diffusion. No acute intracranial hemorrhage, mass effect, midline shift, hydrocephalus or herniation. Bilateral multifocal patchy and confluent subcortical deep white matter and deep periventricular white matter hyperintense T2 FLAIR signal involving centrum semiovale and hernandez radiata. There is a dolichoectatic morphology pattern of the left vertebral vascular system resulting in ventral deformity of the right mid lester. Numerous old lacunar infarcts with a cribriform pattern involving basal ganglia. 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 Starks-white matter differentiation is normal. Prominence of the extra-axial CSF spaces cerebral sulci and ventricles. Flow-void signal within the main vessels demonstrates absence the and the distal petrous cavernous supraclinoid segments of the right ICA.. Sellar/suprasellar region demonstrated no gross masses or signal abnormality. Craniocervical junction demonstrates normal position of the cerebellar tonsils. Polypoid mucosal thickening, paranasal sinuses. Dextroconvex nasal septum deviation. MR/MR head/brain wo con IMPRESSION: Extensive White matter disease and numerous old lacunar infarcts likely related to small vessel occlusive disease. 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 No acute stroke/nonhemorrhagic ischemia. Electronically signed by: Norman Fowler MD 08/09/2024 10:44 AM EDT
--- OUTSIDE RECORDS SUMMARY | 2024-08-09 09:48 | XMS_ITS ---
Author Organization [facility] Address [address] [place] [address] Care Team Providers Care Inspector Floor Name Role Phone Alivia Vieyra Primary Care Provider [phone] Active Problems Problem Noted Date Diagnosed Date [...] TotalDLP 247 mGy 247 mGy 0 mGy [id number] 4.2 mSv 4.2 mSv 0 mSv CTDIvol Max 8 mGy 8 mGy 0 mGy CTDIvol Min 8 mGy 8 mGy 0 mGy Radiation - mGy 93.1 mGy 0 mGy 93.1 mGy
== END 2024-08-09 09:34 | disposition home or self-care (01) ==
LOC: HO.MRI 09:33
PROVIDERS: PCP Internal Medicine; Visit Provider Psychiatry & Neurology Neurology
DX: F01.50 Vascular dementia, unspecified severity, without behavioral disturbance, psychotic disturbance, mood disturbance, and anxiety (principal)
CPT/HCPCS: 70551

== ENCOUNTER 2024-08-22 15:31 | Outpatient (REF) | payer MEDICARE, MEDICAID, SELFPAY ==
--- NOTE | ~2024-08-22 | US_ITS ---
EXAMINATION: US ABDOMEN LIMITED CLINICAL INFORMATION: Right upper quadrant pain COMPARISON: None available. TECHNIQUE: Real-time imaging of the right upper quadrant abdominal viscera. FINDINGS: PANCREAS: Visualized portions are unremarkable. LIVER: The liver is normal in size Measures 12.3 cm and length. The liver contour is normal. Parenchymal echogenicity is slightly increased. No focal hepatic lesion. There is no intrahepatic biliary duct dilatation seen. GALLBLADDER: The gallbladder is physiologically distended without evidence of stones, sludge, polyps, wall thickening or pericholecystic fluid. COMMON BILE DUCT: Normal in caliber measuring 0.16 cm in diameter. RIGHT KIDNEY: Right kidney has been surgically removed. FREE FLUID: None. US/US abdomen limited IMPRESSION: Slightly echogenic liver without focal lesion. Visualized pancreas, gallbladder and CBD is unremarkable. Electronically signed by: Joe Barcenas MD 08/22/2024 04:39 PM EDT
--- OUTSIDE RECORDS SUMMARY | 2024-08-22 15:33 | XMS_ITS ---
Author Organization [facility] Address [address] [place] [address] Care Team Providers Care Clinical Nurse Manager Name Role Phone Alivia Vieyra Primary Care Provider [phone] Active Problems Problem Noted Date Diagnosed Date [...] TotalDLP 247 mGy 247 mGy 0 mGy [id number] 4.2 mSv 4.2 mSv 0 mSv CTDIvol Max 8 mGy 8 mGy 0 mGy CTDIvol Min 8 mGy 8 mGy 0 mGy Radiation - mGy 93.1 mGy 0 mGy 93.1 mGy
--- OUTSIDE RECORDS SUMMARY | 2024-08-22 15:33 | XMS_ITS | Patient Health Record ---
Author Organization [facility] Address [address] [place] [address] Care Team Providers Care Programmer Operator Numerical Control Name Role Phone Alivia Pat Primary Care Provider UnavailKimberli Savage Unavailable [phone] Allergies No Known Allergies Reason For Referral No Information Medications Medication SIG (Take, Route, Frequency, Duration) Notes Start Date End Date Status amLODIPine Besylate 10 MG Oral; Duration: 90 Active Chemo-therapy Active Metoprolol Succinate ER 100 MG Oral; Duration: 90 Active Lisinopril 40 MG Oral; Duration: 90 Active Cabometyx 20 MG Oral; Duration: 30 Active Ciclopirox Olamine 0.77 % 1 application Externally Twice a day; Duration: 30 days Active Social History Tobacco Use: [...] 05/28/2024 Encounters Encounter Location Date Provider Diagnosis [facility] [address] [place] [address] 10/10/2023 Kimberli Yancey Tinea unguium B35.1 ; Pain in right toe(s) M79.674 and Pain in left toe(s) M79.[address] [address] 01/09/2024 Kimberli Yancey Tinea unguium B35.1 ; Tinea pedis of both feet B35.3 ; Pain in right toe(s) M79.674 and Pain in left toe(s) M79.[address] [address] 05/28/2024 Kimberli Sancheza Tinea unguium B35.1 ; Pain in right toe(s) M79.674 and Pain in left toe(s) M79.[address] [address] 03/19/2024 Kimberli Yancey Assessments Encounter Date Diagnosis (ICD Code) Assessment Notes Treatment Notes Treatment Clinical Notes Section Notes 10/10/2023 Tinea unguium (ICD-10 - B35.1) 01/09/2024 [...] Provider Name:Kimberli neville, 09/06/2024 10:00:00 AM, [address] [place], [address], Insurance Providers Payer Name Payer Address Payer Phone Subscriber Number Group Number Insured Name Patient Relationship to Insured Coverage Start Date Coverage End Date [employer] Medicare Open [address] [place] [address] [id number] Colon, Dick Self - patient is the insured Medical (General) History Medical History History ICD Code Arthritis Cancer High blood pressure Psoriasis/eczema Surgical History Surgery Date(Month/Year) Gall bladder removal 03/15 kidney surgery 05/10
--- OUTSIDE RECORDS SUMMARY | 2024-08-22 15:33 | XMS_ITS | Clinical Summary ---
Author Organization [facility] Address [address] [place] [address] Care Team Providers Care Scrap Sawyer Name Role Phone Cynthia Greenberg MD Primary Care Provider [phone] Allergies No known active allergies Medications Medication [...] of 1 - PCV) 2023 Influenza Vaccine (Season Ended) 2024 RSV Adult > 60+ Yrs or Pregn ant (1 - 1-dose 75+ series) 2033 Hepatitis B Vaccines Aged Out No long er eligible based on patient's age to complete this topic RSV Ped < 20 months Aged Out No longe r eligible based on patient's age to complete this topic Care Teams Scrap Sawyer Relationship Specialty Start Date End Date Cynthia Greenberg MD PCP - General Internal Medicine 06/09/17
--- OUTSIDE RECORDS SUMMARY | 2024-08-22 15:34 | XMS_ITS | Patient Health Record ---
Author Organization [facility] Address [address] [place] [address] Care Team Providers Care Nude Model Name Role Phone Alivia Pat Primary Care [...] Problem Status W/U Status Risk Notes Problem 937150282 Colon cancer screening (Z12.11) Active confirmed Problem 846464680 Encounter for other preprocedural examination (Z01.818) Active confirmed Problem 371676934 Long-term use of aspirin therapy (Z79.82) Active confirmed Problem 804715074 FH: colon polyps (Z83.71) Active confirmed Plan Of Treatment Future Test Test Name Order Date COLONOSCOPY 09/02/2021 Next Appt Details Provider Name:Bob brown , 09/02/2024 10:20:00 AM, [address] [place] [address], [facility], [place], [address], Insurance Providers Payer Name Payer Address Payer Phone Subscriber Number Group Number Insured Name Patient Relationship to Insured Coverage Start Date Coverage End Date [facility] [address] [place], [place] [id number] COLON COLON, JOSÉ Self - patient is the insured Medical (General) History Medical History History ICD Code hypertension hyperlipidemia benign prostatic hyperplasia without low er urinary tract symptoms Psoriatic arthritis Depression Surgical History Surgery Date(Month/Year) hernia
== END 2024-08-22 15:32 | disposition home or self-care (01) ==
LOC: HO.US 15:31
PROVIDERS: PCP Internal Medicine; Visit Provider Internal Medicine
DX: R10.11 Right upper quadrant pain (principal)
CPT/HCPCS: 76705

== ENCOUNTER → 2024-08-22 15:33 | Outpatient (BNV) | payer MEDICARE, MEDICAID, SELFPAY | PROVIDERS: PCP Internal Medicine; Visit Provider Radiology Diagnostic Radiology | DX: R10.11 Right upper quadrant pain (principal) | CPT/HCPCS: 76705 ==

== ENCOUNTER 2024-09-04 07:20 | Day surgery (SDC) | payer MEDICARE, MEDICAID, SELFPAY ==
--- OUTSIDE RECORDS SUMMARY | 2024-08-08 08:03 | XMS_ITS ---
Author Organization [facility] Address [address] [place] [address] Care Team Providers Care Broomcorn Sorter Name Role Phone Alivia Vieyra Primary Care Provider [phone] Active Problems Problem Noted Date Diagnosed Date [...] TotalDLP 247 mGy 247 mGy 0 mGy [id number] 4.2 mSv 4.2 mSv 0 mSv CTDIvol Max 8 mGy 8 mGy 0 mGy CTDIvol Min 8 mGy 8 mGy 0 mGy Radiation - mGy 93.1 mGy 0 mGy 93.1 mGy
[2024-09-04 08:31] VITALS: BP 126/75; PULSE 86; RESP 15; TEMP 36.8; O2SAT 99; BMI 26.4
--- NOTE | 2024-09-04 08:36 | MHC.SHP ---
Pre-Procedural Eval Section A - 24 Hr Update-Section A only Date of Service: 09/04/24 The patient is an INPATIENT: No Changes since office visit: No Cold of Flu in the past 2 weeks, No New Medical Problems, No Changes in Medication and No Patient answered all questions The patient has been examined within 24 hours of the surgical procedure. The History & Physical has been completed within 30 days and I have reviewed it.: Yes Section B - Complete if H&P > 30 days Chief Complaint: Trigger finger, left middle finger Allergies: Allergies Allergy/AdvReac Type Severity Reaction Status Date / Time No Known Allergies (No Known Allergy Verified 08/06/24 14:26 Allergies*) Plan Diagnosis/Plan: Unchanged I have reviewed the history and physical and performed a pertinent physical examination on my patient. No changes have occurred unless specified. Time Spent With Patient Time: Total time managing care of this patient today ____ minutes.
--- NOTE | 2024-09-04 08:36 | W.PM.OPN ---
Operative Note Operative Note Date of Service: 09/04/24 Narrative: Operative Note Preop diagnosis: 1. Left middle finger Trigger finger Postop diagnosis: Same Procedure: 1. Left middle finger A1 zarina release Surgeon: Maritza Goff MD Acetylene Torch Solderer: None Anesthesia: local block using 1% lidocaine with epinephrine Findings: No locking or catching after A1 zarina release EBL: Less than 5 mL Tourniquet time: None Specimens: None Complications: None Disposition: Brought to recovery room in stable condition Plan: Follow-up for 10-14 days for wound check and suture removal Indications: The patient is 64 years old, with a left middle finger trigger finger that has been unresponsive to nonoperative management. The risks and benefits of operative treatment including but not limited to risk of damage to blood vessels, nerves, tendons, infection, persistent pain, persistent symptoms, recurrence or possible need for additional surgery were discussed with the patient and the patient wishes to proceed with surgery. Procedure: Once consent was obtained a local block was performed in the preop area using a combination of 1% lidocaine with epinephrine. The patient was then brought back to the operating suite and placed on the operative table in supine position. The left upper extremity was prepped and draped in a standard surgical fashion. Once assured that we had a good block, a 1.5 cm oblique incision was made centered over the A1 zarina of the left middle finger . The incision was made through the skin to the subcutaneous tissues using a #15 blade. Careful dissection was made down to the level of the A1 zarina using tenotomy scissors, with care being taken to protect the nearby neurovascular structures. A longitudinal incision was made in the A1 zarina 1st using a #15 blade, then using tenotomy scissors under direct visualization. The A1 zarina was noted to be thickened. Following our A1 zarina release, we no longer saw any locking or catching of the digit with flexion and extension. Once satisfied with our A1 zarina release the wound was copiously irrigated with normal saline and hemostasis was obtained with a brief period of local pressure. The skin edges were reapproximated with some 5.0 nylon suture material and a sterile dressing was applied. The patient appears to have tolerated the procedure well and with no complications. All digits were well vascularized at the conclusion of the case.
[2024-09-04 12:19] VITALS: BP 139/89; PULSE 76; RESP 16; O2SAT 98
== END 2024-09-04 12:21 | disposition home or self-care (01) ==
PROVIDERS: PCP Internal Medicine; Visit Provider Orthopaedic Surgery
PROC: (CPT 26055; principal; 2024-09-04 09:10)
DX: M65.332 Trigger finger, left middle finger (principal); C64.9 Malignant neoplasm of unspecified kidney, except renal pelvis; I10 Essential (primary) hypertension; E78.00 Pure hypercholesterolemia, unspecified; L40.50 Arthropathic psoriasis, unspecified; F32.A Depression, unspecified; Z79.899 Other long term (current) drug therapy; Z98.890 Other specified postprocedural states; Z87.891 Personal history of nicotine dependence
CPT/HCPCS: 26055; J2003; J2004

== ENCOUNTER → 2024-09-04 07:20 | Outpatient (BNV) | payer MEDICARE, MEDICAID, SELFPAY | PROVIDERS: PCP Internal Medicine; Visit Provider Orthopaedic Surgery | DX: M65.332 Trigger finger, left middle finger (principal) | CPT/HCPCS: 26055 ==

== ENCOUNTER 2024-09-18 09:03 | Outpatient (AMB) | payer MEDICARE, MEDICAID, SELFPAY ==
--- NOTE | 2024-09-18 09:10 | MHC.OFFVIS ---
Intake Visit Reasons: 6m/UA Intake Note: Patient is present for 6m/UA Urology Medication:SILDENAFIL Antibiotic Allergy:NONE Blood Thinner:NONE Publicity Writer Required: No Allergies No Known Allergies (No Known Allergies*) Allergy (Verified 09/18/24 09:12) HPI Comments Details: Dick is a pleasant male. He is a patient of Dr. Pat. 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 Just restarted. Abdominal ultrasound normal. 05/22/24-- FU scrotal abscess, s/p I &D on 05/03/24 and 05/14/24. Discussed 05/17/24-- scrotal US - no persistent abscess collection remaining. Pt is completeing Abx PET-CT negative south activity 05/03/24--swollen right testicle required drainage 03/15/24--CT scan chest and abdomen with minimal disease. 11 mm nodes within thorax. 10/13 Here for cystoscopy for hematuria He resumed cabozantinib 20 mg once a day from 07/10/2023. - has autoimmune disease with psoriatic arthritis Cystoscopy shows neoadjuvant vessels around the bladder neck. No lesions within the bladder. 09/12 recent imaging with known positive nodularity. Initial evaluation of imaging normal Six month follow-up repeat imaging 07/13 continues with adjuvant chemotherapy with Dr. Acosta Plan for repeat staging CT chest and abdomen in 2 months Recommend use of binder during activity 05/13 Debulking nephrectomy - after neoadjuvant chemotherapy and down staging Renal cancer restaging 12/12: CT ADRENAL GLANDS AND KIDNEYS: There is interval decrease in size in the right adrenal nodule. This measures 5 x 10 mm axial image 70 series 4 compared to 1.2 x 1.8 cm most recent July 2022 exam. Low-attenuation or cystic mass in the upper pole of the right kidney not appreciably changed in size measuring 2.5 cm. This extends centrally into the right renal collecting system which does not appear appreciably changed. There is still of thrombus in the right renal vein extending into the IVC 11/[address] : THORAX: No tracer avid lung nodule on either side, Previously documented right renal mass as well as local disease extension into the right renal vein and inferior vena cava shows interval improvement on this nondiagnostic noncontrast CT study 08/12 - good response to chemotherapy on initial restaging Chest: Interval decrease in size and number of pulmonary nodules 50% reduction. - Abdomen and pelvis: Interval decrease in right adrenal mass and right renal mass. Interval decrease in right renal vein and IVC thrombus in and enhancement. 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 04/14 CT chest - bilateral multiple pulmonary nodules largest measuring 1.1 cm in the right lower lobe, suspicious for metastatic disease.? Heterogenous enhancement of IVC, questionable for thrombus.? 04/14 Bone scan negative for metastatic disease. Chemotherapy initiated with Dr. Acosta - 06/12 - on combination regimen with cabozantinib and nivolumab Background of immune disease of psoriasis in had been on immune modifying medications [facility] Medical History (Updated 09/16/24 @ 10:16 by Brenda Acosta MD) Multifactorial dementia Vascular dementia Cerebral microvascular disease Kidney cancer, primary, with metastasis from kidney to other site Renal cancer Incarcerated umbilical hernia (01/09/23) Depression Psoriatic arthritis BPH (benign prostatic hyperplasia) Elevated cholesterol HTN (hypertension) Surgical History S/P laparoscopic cholecystectomy History of laparoscopic cholecystectomy (01/09/23) H/O colonoscopy Hx of hernia repair Family History Mother Colon cancer Father Prostate cancer Social History Household Members: Family Housing: House Are you a primary memory care program resident to a significant other at home: No Do you presently have visiting nurse or other home services: No Alcohol intake: former Patient Tobacco Use Status: Former Tobacco user Tobacco use type: Cigarette service: Yes Current occupational status: retired Review of Systems Const Denies chills and Denies fever(s) Card Reports no additional complaints and Denies syncope Resp Denies cough GI Denies abdominal pain and Denies heartburn Reports as per HPI and Denies change in libido Neuro Denies syncope Psych Denies change in libido Endo Denies change in libido Physical Exam Const General: cooperative, healthy appearing, comfortable and no acute distress Orientation/consciousness: patient oriented x3 HEENT Face and sinus: Yes normal facial exam Mouth: moist mucous membranes Neck Neck: Yes normal visual inspection, Yes full ROM and Yes trachea midline Chest Chest palpation & inspection: normal inspection of the chest Resp Effort & Inspection: normal respiratory effort, able to speak in complete sentences and no respiratory distress GI Inspection: Yes normal to inspection Back/Spine/Pelvis Cervical Spine: normal cervical lordosis Thoracic/Lumbar Spine: thoracic and lumbar spine normal to inspection Skin General skin exam: no rashes or lesions noted Neuro General: patient oriented x3, gait normal, tone normal and moves all extremities Extrem General: Yes normal to inspection and Yes capillary refill normal Assessment & Plan Assessment & Plan (1) Renal cancer: Comment: Right upper pole extension into IVC Code(s): C64.9 - Malignant neoplasm of unspecified kidney, except renal pelvis Category: Medical (2) BPH loc w urin obs/LUTS: Code(s): N40.1 - Benign prostatic hyperplasia with lower urinary tract symptoms Category: Medical Plan Six-month follow-up check PSA Orders: Orders Prostate Specific Antigen 6 Months N40.1 - Benign prostatic hyperplasia with lower urinary tract symptoms Medications: Changed From finasteride 1 tab PO DAILY N40.1 - Benign prostatic hyperplasia with lower urinary tract symptoms To finasteride 5 mg PO DAILY 90 tabs 1RF 90 days N40.1 - Benign prostatic hyperplasia with lower urinary tract symptoms Patient Instructions: This note is constructed using voice recognition software. While every effort has been made to ensure accuracy dentures lab technician errors may have been included. Imaging studies, laboratory and physical exam results were discussed and reviewed in detail. No major barriers to patient understanding were identified. An opportunity to ask questions regarding the treatment plan was provided. All questions were answered. The patient expressed understanding and agreement with the above treatment plan. The patient is aware they should contact our office by phone for worsening of their current condition or the appearance of new urologic symptoms. Compliance is encouraged with any medications and followup testing that is ordered. It is a privilege to participate in the urologic care of your patient. If you have any questions or concerns regarding treatment for the above conditions, or other urologic issues, please do not hesitate to contact me. The office telephone contact is [phone]. Sincerely, Dr Darius Mccartney MD, [facility] - Urology Compassionate Specialist Care for the Genitourinary System Coding Level of Care Code Est Pt Level 4 (43883) Complex EM visit Add On G2211 Diagnoses Renal cancer C64.9 BPH loc w urin obs/LUTS N40.1
--- OUTSIDE RECORDS SUMMARY | 2024-09-18 09:29 | XMS_ITS | Patient Health Record ---
Author Organization [facility] Address [address] [place] [address] Care Team Providers Care Parachute Supervisor Name Role Phone Alivia Pat Primary [...] Problem Status W/U Status Risk Notes Problem 277848578 Colon cancer screening (Z12.11) Active confirmed Problem 220983562 Encounter for other preprocedural examination (Z01.818) Active confirmed Problem 375340661 Long-term use of aspirin therapy (Z79.82) Active confirmed Problem 351392940 FH: colon polyps (Z83.71) Active confirmed Problem History of adenomatous polyp of colon (642098230) History of adenomatous polyp of colon (Z86.0101) Active confirmed Vital Signs Temperature 97.3 degrees Fahrenheit 09/02/2024 Blood pressure diastolic 01 mm Hg 09/02/2024 Height 69 in 09/02/2024 Blood pressure systolic 001 mm Hg 09/02/2024 Weight 174.4 lbs 09/02/2024 BMI 25.75 kg/m2 09/02/2024 Encounters Encounter Location Date Provider Diagnosis [facility] [address] [place] [address] 09/02/2024 Bob Markham Jr Colon cancer screening [...] Provider Name:Bob brown , 10/08/2024 09:10:00 AM, [address] [place] [address] , [place], [place], [phone], Insurance Providers Payer Name Payer Address Payer Phone Subscriber Number Group Number Insured Name Patient Relationship to Insured Coverage Start Date Coverage End Date [facility] [address] [place], [place] [id number] COLON COLON, JOSÉ Self - patient is the insured 4 [facility] [address] [place] [address] [id number] COLON COLON, JOSÉ Self - patient [...]
--- OUTSIDE RECORDS SUMMARY | 2024-09-18 09:29 | XMS_ITS | Patient Health Record ---
Author Organization [facility] Address [address] [place] [address] Care Team Providers Care Slot Machine Floor Person Name Role Phone Alivia Pat Primary Care Provider UnavailKimberli Savage Unavailable [phone] Allergies No Known Allergies Reason For Referral No Information Medications Medication SIG (Take, Route, Frequency, Duration) Notes Start Date End Date Status Lisinopril 40 MG Oral; Duration: 90 Active Metoprolol Succinate ER 100 MG Oral; Duration: 90 Active Chemo-therapy Not-Ta precious amLODIPine Besylate 10 MG Oral; Duration: 90 Active Ciclopirox Olamine 0.77 % 1 application Externally Twice a day; Duration: 30 days Active Ketoconazole 2 % 1 application Apply a thin layer to externally to feet, even between toes Twice a day; Duration: 30 days Active Cabometyx 20 MG Oral; Duration: 30 Active Immunizations Vaccine Route Administration Date Status Comme nts Influenza Unknown 10/22/2023 Administered Social History Tobacco Use: Social History [...] Signs Blood pressure diastolic 79 mm Hg 09/06/2024 Height 5ft9in in 09/06/2024 Blood pressure systolic 128 mm Hg 09/06/2024 Weight 179 lbs 09/06/2024 BMI 26.43 kg/m2 09/06/2024 Encounters Encounter Location Date Provider Diagnosis [address] [address] 10/10/2023 Kimberli Perica Tinea unguium B35.1 ; Pain in right toe(s) M79.674 and Pain in left toe(s) M79.[address] [address] 01/09/2024 Kimberli Perica Tinea unguium B35.1 ; Tinea pedis of both feet B35.3 ; Pain in right toe(s) M79.674 and Pain in left toe(s) M79.[address] [address] 05/28/2024 Kimberli Perica Tinea unguium B35.1 ; Pain in right toe(s) M79.674 and Pain in left toe(s) M79.[address] [address] 09/06/2024 Kimberli Perica Tinea unguium B35.1 ; Tinea pedis of both feet B35.3 ; Pain in right toe(s) M79.674 and Pain in left toe(s) M79.[address] [address] 03/19/2024 Kimberli Perica Assessments Encounter Date Diagnosis (ICD Code) Assessment Notes Treatment Notes Treatment Clinical Notes Section Notes 10/10/2023 Tinea unguium (ICD-10 - B35.1) 01/09/2024 Tinea unguium (ICD-10 - B35.1) 01/09/2024 Tinea pedis of both feet (ICD-10 - B35.3) 05/28/2024 Tinea unguium (ICD-10 - B35.1) 05/28/2024 Pain in right toe(s) (ICD-10 - M79.674) 09/06/2024 Tinea unguium (ICD-10 - B35.1) 09/06/2024 Tinea pedis of both feet (ICD-10 - B35.3) Patient Educated with: ATHELETE .pdf (ATHELETE .pdf) 01/09/2024 Pain in right toe(s) (ICD-10 - M79.674) 09/06/2024 Pain in right toe(s) (ICD-10 - M79.674) 05/28/2024 Pain in left toe(s) (ICD-10 - M79.675) 10/10/2023 Pain in right toe(s) (ICD-10 - M79.674) 10/10/2023 Pain in left toe(s) (ICD-10 - M79.675) 01/09/2024 Pain in left toe(s) (ICD-10 - M79.675) 09/06/2024 Pain in left toe(s) (ICD-10 - M79.675) Plan Of Treatment Next Appt Details Provider Name:Kimberli neville, 12/06/2024 12:30:00 PM, [address] [place] [address], [phone], Insurance Providers Payer Name Payer Address Payer Phone Subscriber Number Group Number Insured Name Patient Relationship to Insured Coverage Start Date Coverage End Date [employer] Medicare Open [address] [place] [address] [phone] [id number] Colon, Dick Self - patient is the insured Medical (General) History Medical History History ICD Code Arthritis Cancer High blood pressure Psoriasis/eczema Surgical History Surgery Date(Month/Year) Gall bladder removal 03/15 kidney surgery 05/10 hand surgery, finger release 09/04/24
--- OUTSIDE RECORDS SUMMARY | 2024-09-18 09:29 | XMS_ITS | Clinical Summary ---
Author Organization [facility] Address [address] [place] [address] Care Team Providers Care Cleaner Housekeeping Name Role Phone Cynthia Greenberg MD Primary Care Provider [phone] Allergies No known active allergies Medications Medication [...] age to complete this topic Care Teams Cleaner Housekeeping Relationship Specialty Start Date End Date Cynthia Greenberg MD PCP - General Internal Medicine 06/09/17
--- OUTSIDE RECORDS SUMMARY | 2024-09-18 09:29 | XMS_ITS ---
Author Organization [facility] Address [address] [place] [address] Care Team Providers Care Butcher Chicken And Fish Name Role Phone Alivia Vieyra Primary Care Provider [phone] Active Problems Problem Noted Date Diagnosed Date [...] TotalDLP 247 mGy 247 mGy 0 mGy [id number] 4.2 mSv 4.2 mSv 0 mSv CTDIvol Max 8 mGy 8 mGy 0 mGy CTDIvol Min 8 mGy 8 mGy 0 mGy Radiation - mGy 93.1 mGy 0 mGy 93.1 mGy
== END 2024-09-18 09:55 | disposition home or self-care (01) ==
LOC: HO.HUSH 09:04
PROVIDERS: PCP Internal Medicine; Visit Provider Urology
DX: C64.9 Malignant neoplasm of unspecified kidney, except renal pelvis (principal); N40.1 Benign prostatic hyperplasia with lower urinary tract symptoms
CPT/HCPCS: 99214; G2211

== ENCOUNTER → 2024-09-18 09:03 | Outpatient (BNVA) | payer MEDICARE, MEDICAID, SELFPAY | PROVIDERS: PCP Internal Medicine; Visit Provider Urology | DX: M65.332 Trigger finger, left middle finger (principal); N40.1 Benign prostatic hyperplasia with lower urinary tract symptoms; C64.1 Malignant neoplasm of right kidney, except renal pelvis | CPT/HCPCS: 99212 ==

== ENCOUNTER 2024-09-18 09:38 | Outpatient (AMB) | payer MEDICARE, MEDICAID, SELFPAY ==
--- NOTE | 2024-09-18 09:58 | MHC.OFFVIS ---
Vital Signs 09/18/24 10:18 Height 5 ft 9 in Weight 174 lb BMI 25.7 Handedness Right Intake Visit Reasons: PO LT MF Trigger Release 09/04/24 AR Intake Note: Dick is a 64 year old right hand dominant male who presents today post-operatively status post left middle finger trigger release performed 09/04/[address] Maritza Goff. Patient reports redness, swelling and pain on the palm area near his incision site. He has complaint of increased pain and cramping in the left hand 2nd and 3rd digits. Sutures removed in office and steri strips applied. Allergies No Known Allergies (No Known Allergies*) Allergy (Verified 09/18/24 10:18) HPI HPI PO LT MF Trigger Release 09/04/24 AR: Details: Dick is a 64 year old right hand dominant male who presents today post-operatively status post left middle finger trigger release performed 09/04/[address] Maritza Goff. Patient reports redness, swelling and pain on the palm area near his incision site. He has complaint of increased pain and cramping in the left hand 2nd and 3rd digits. No further catching of the left middle finger noted Sutures removed in office and steri strips applied. [facility] Medical History Multifactorial dementia Vascular dementia Cerebral microvascular disease Kidney cancer, primary, with metastasis from kidney to other site Renal cancer Incarcerated umbilical hernia (01/09/23) Depression Psoriatic arthritis BPH (benign prostatic hyperplasia) Elevated cholesterol HTN (hypertension) Surgical History S/P laparoscopic cholecystectomy History of laparoscopic cholecystectomy (01/09/23) H/O colonoscopy Hx of hernia repair Family History Mother Colon cancer Father Prostate cancer Social History Household Members: Family Housing: House Are you a primary rn care transition to a significant other at home: No Do you presently have visiting nurse or other home services: No Alcohol intake: former Patient Tobacco Use Status: Former Tobacco user Tobacco use type: Cigarette service: Yes Current occupational status: retired Review of Systems Const All systems reviewed & are unremarkable except as noted in HPI and below Physical Exam Vital Signs: BMI result Body Mass Index 25.7 Extrem Other: Patient is alert, oriented, and in no acute distress. Neuro: Normal sensation of the tips of all digits of the left hand at this time Vascular: Cap refill brisk Pain: No tenderness to palpation about the incision site over A1 zarina of the left middle finger Some discomfort with range of motion of the left hand, improved from prior to surgery ROM: No further visible or palpable locking or catching of the left middle finger Patient is able to make a closed fist and extend all digits of the left hand fully and without difficulty Skin: Well approximated and well healing incision of the A1 zarina of the left middle finger No lacerations or abrasions. General: Some very mild erythema noted around the incision site, appears consistent with suture abscess but could be very mild cellulitis No ecchymosis, or other evidence of infection. Psych: Appears grossly normal Affect normal Attitude cooperative Assessment & Plan Assessment & Plan (1) Trigger finger, left middle finger: Code(s): M65.332 - Trigger finger, left middle finger Category: Medical Plan 1. Status post left middle finger trigger release DOS 09/04/2024 Patient is educated about this condition appears to be recovering well postoperatively Patient is educated about the typical recovery course At this time, out of an abundance of caution, patient is provided with a one-week course of Augmentin for very very mild superficial redness around incision site No acute follow-up as necessary, however if the patient notices this redness worsening, or develops pain, discharge, or other signs of infection, he should call us for re-evaluation Patient is amenable to this plan Follow-up as needed Medications: New amoxicillin-pot clavulanate 875-125 mg 1 tab PO BID 14 tabs 0RF 7 days Coding Level of Care Code Global (82145) Diagnoses Trigger finger, left middle finger M65.332
[2024-09-18 10:18] VITALS: BMI 25.7
== END 2024-09-18 10:38 | disposition home or self-care (01) ==
LOC: HO.HOS 09:39
PROVIDERS: PCP Internal Medicine
DX: M65.332 Trigger finger, left middle finger (principal)
CPT/HCPCS: 99024

== ENCOUNTER 2024-09-23 13:17 | Outpatient (AMB) | payer MEDICARE, MEDICAID, SELFPAY ==
--- NOTE | 2024-09-23 13:34 | MHC.OFFVIS ---
Intake Visit Reasons: after MRI Allergies No Known Allergies (No Known Allergies*) Allergy (Verified 09/18/24 10:18) HPI Comments Details: 64 years old man with chronic hypertension, migraine, and renal cell cancer was seen for cognitive difficulties. His MRI of brain in 2011 revealed significant microvascular disease and he was diagnosed with vascular dementia. [facility] Medical History (Updated 09/23/24 @ 13:44 by Latonya Toledo MD) Multifactorial dementia Vascular dementia Cerebral microvascular disease Kidney cancer, primary, with metastasis from kidney to other site Renal cancer Incarcerated umbilical hernia (01/09/23) Depression Psoriatic arthritis BPH (benign prostatic hyperplasia) Elevated cholesterol HTN (hypertension) Surgical History S/P laparoscopic cholecystectomy History of laparoscopic cholecystectomy (01/09/23) H/O colonoscopy Hx of hernia repair Family History Mother Colon cancer Father Prostate cancer Social History Household Members: Family Housing: House Are you a primary child adolescent care to a significant other at home: No Do you presently have visiting nurse or other home services: No Alcohol intake: former Patient Tobacco Use Status: Former Tobacco user Tobacco use type: Cigarette service: Yes Current occupational status: retired Review of Systems Const Details: Constitutional:?No fever, chills, fatigue, weight loss, or night sweats. HEENT:?No headache, vision changes, hearing loss, nasal congestion, sore throat. Psychiatric:?No anxiety, depression, mood swings, sleep disturbance, or hallucinations. Endocrine:?No heat/cold intolerance, polydipsia, polyuria, or hair/skin changes. Hematologic/Lymphatic:?No easy bruising, bleeding, or lymphadenopathy. Integumentary (Skin):?No rash, lesions, itching, or color changes. ? Physical Exam Neuro Other: Mental Status: Alert and oriented to person, place, and time. Normal attention. Normal spontaneous speech, fluency, and comprehension. CN II: Visual bravo full to confrontation, visual acuity intact. CN III, IV, : Pupils equal, round, reactive to light and accommodation. Extraocular movements are normal. CN V: Facial sensation is normal. CN VII: Facial movements symmetrical. CN VIII: Hearing intact to bedside conversation is normal. CN IX, X: Palate elevates symmetrically. CN XI: Shoulder shrug and head turn symmetrical. CN XII: Tongue midline without atrophy or fasciculations. Extrapyramidal: Full facial expressions and blinking. No rigidity. Movements are appropriate with no tremor or abnormality. Speech: Normal; no dysarthria or tremor. Assessment & Plan Assessment & Plan (1) Vascular dementia: Comment: MRI brain WO at [facility] in July 2024: Severe MVD, probably occluded R ICA, dolichoectatic left vertebral MRI brain WO in 2011: MVD Code(s): F01.50 - Vascular dementia, unspecified severity, without behavioral disturbance, psychotic disturbance, mood disturbance, and anxiety Category: Medical Qualifiers: Dementia severity: mild Dementia behavioral or psychological symptom: with anxiety Qualified Code(s): F01.A4 - Vascular dementia, mild, with anxiety (2) Cerebral microvascular disease: Code(s): I67.89 - Other cerebrovascular disease Category: Medical (3) Carotid arterial disease: Code(s): I77.9 - Disorder of arteries and arterioles, unspecified Category: Medical Qualifiers: Carotid artery disease type: stenosis Laterality: right Qualified Code(s): I65.21 - Occlusion and stenosis of right carotid artery Plan Impression: a: Vascular dementia from small vessel ischemic disease related to HTN b: Extensive cerebral microvascular disease c: R carotid stenosis or occlusion Rec: a: Baby aspirin daily b: BP control c: Sertraline 25mg a day d: Carotid US Orders: Orders US carotid duplex BI Today I65.21 - Occlusion and stenosis of right carotid artery Medications: New sertraline 25 mg PO DAILY 90 tabs 1RF Coding Level of Care Code Est Pt Level 4 (93855) Diagnoses Mild vascular dementia with anxiety F01.A4 Dementia severity: mild Dementia behavioral or psychological symptom: with anxiety Cerebral microvascular disease I67.89 Stenosis of right carotid artery I65.21 Carotid artery disease type: stenosis Laterality: right
--- OUTSIDE RECORDS SUMMARY | 2024-09-23 13:34 | XMS_ITS | Patient Health Record ---
Author Organization [facility] Address [address] [place] [address] Care Team Providers Care Hot Metal Charger Name Role Phone Alivia Pat Primary Care Provider Unavailab Bob Yu Jr [phone] Allergies No Known Allergies Reason For Referral [...] Problem Status W/U Status Risk Notes Problem 691175433 Colon cancer screening (Z12.11) Active confirmed Problem 554172896 Encounter for other preprocedural examination (Z01.818) Active confirmed Problem 831461077 Long-term use of aspirin therapy (Z79.82) Active confirmed Problem 710659661 FH: colon polyps (Z83.71) Active confirmed Problem History of adenomatous polyp of colon (091148514) History of adenomatous polyp of colon (Z86.0101) Active confirmed Vital Signs Temperature 97.3 degrees Fahrenheit 09/02/2024 Blood pressure diastolic 01 mm Hg 09/02/2024 Height 69 in 09/02/2024 Blood pressure systolic 001 mm Hg 09/02/2024 Weight 174.4 lbs 09/02/2024 BMI 25.75 kg/m2 09/02/2024 Encounters Encounter Location Date Provider Diagnosis [facility] [address] [place] [address] 09/02/2024 Bob Markham Jr Colon cancer screening [...] Provider Name:Bob brown , 10/08/2024 09:10:00 AM, [address] [place] [address] , [place], [place], [phone], Insurance Providers Payer Name Payer Address Payer Phone Subscriber Number Group Number Insured Name Patient Relationship to Insured Coverage Start Date Coverage End Date [facility] [address] [place], [place] [id number] COLON COLON, JOSÉ Self - patient is the insured 4 [facility]ICAID [facility] [address] [place] [address] [id number] COLON COLON, JOSÉ Self - patient [...]
--- OUTSIDE RECORDS SUMMARY | 2024-09-23 13:34 | XMS_ITS | Clinical Summary ---
Author Organization [employer] [facility] Address [address] [place] [address] Care Team Providers Care Finish Specialist Name Role Phone Cynthia Greenberg MD Primary [...] age to complete this topic Care Teams Finish Specialist Relationship Specialty Start Date End Date Cynthia Greenberg MD PCP - General Internal Medicine 06/09/17
--- OUTSIDE RECORDS SUMMARY | 2024-09-23 13:34 | XMS_ITS ---
Author Organization [facility] Address [address] [place] [address] Care Team Providers Care Dexigraph Operator Name Role Phone Alivia Vieyra Primary Care Provider [phone] Active Problems Problem Noted Date Diagnosed Date [...] TotalDLP 247 mGy 247 mGy 0 mGy [id number] 4.2 mSv 4.2 mSv 0 mSv CTDIvol Max 8 mGy 8 mGy 0 mGy CTDIvol Min 8 mGy 8 mGy 0 mGy Radiation - mGy 93.1 mGy 0 mGy 93.1 mGy
--- OUTSIDE RECORDS SUMMARY | 2024-09-23 13:34 | XMS_ITS | Patient Health Record ---
Author Organization [facility] Address [address] [place] [address] Care Team Providers Care Aspnet Developer Name Role Phone Alivia Pat Primary Care Provider UnavailKimberli Savage Unavailable [phone] Allergies No Known Allergies Reason For Referral [...] 09/06/2024 Encounters Encounter Location Date Provider Diagnosis [address] [address] 10/10/2023 Kimberli Perica Tinea unguium B35.1 ; Pain in right toe(s) M79.674 and Pain in left toe(s) M79.[address] [address] 01/09/2024 Kimberli Perica Tinea unguium B35.1 ; Tinea pedis of both feet B35.3 ; Pain in right toe(s) M79.674 and Pain in left toe(s) M79.[address] [address] 05/28/2024 Kimberli Perica Tinea unguium B35.1 ; Pain in right toe(s) M79.674 and Pain in left toe(s) M79.[address] [address] 09/06/2024 Kimberli Perica Tinea unguium B35.1 ; Tinea pedis of both feet B35.3 ; Pain in right toe(s) M79.674 and Pain in left toe(s) M79.[address] [address] 03/19/2024 Kimberli Perica Assessments Encounter Date Diagnosis [...] Details Provider Name:Kimberli neville, 12/06/2024 12:30:00 PM, [address] [place] [address], [phone], Insurance Providers Payer Name Payer Address Payer Phone Subscriber Number Group Number Insured Name Patient Relationship to Insured Coverage Start Date Coverage End Date [employer] Medicare Open [address] [place] [address] [phone] [id number] Colon, Dick Self - patient is the insured Medical (General) History Medical History History ICD Code Arthritis Cancer High blood pressure Psoriasis/eczema Surgical History Surgery Date(Month/Year) Gall bladder removal 03/15 kidney surgery 05/10 hand surgery, finger release 09/04/24
== END 2024-09-23 13:47 | disposition home or self-care (01) ==
LOC: HO.HSM 13:18
PROVIDERS: PCP Internal Medicine; Visit Provider Psychiatry & Neurology Neurology
DX: F01.A4 Vascular dementia, mild, with anxiety (principal); I67.89 Other cerebrovascular disease; I65.21 Occlusion and stenosis of right carotid artery
CPT/HCPCS: 99214

== ENCOUNTER → 2024-09-23 13:17 | Outpatient (BNVA) | payer MEDICARE, MEDICAID, SELFPAY | PROVIDERS: PCP Internal Medicine; Visit Provider Psychiatry & Neurology Neurology | DX: Z71.2 Person consulting for explanation of examination or test findings (principal); F01.A4 Vascular dementia, mild, with anxiety; I67.89 Other cerebrovascular disease; I65.21 Occlusion and stenosis of right carotid artery | CPT/HCPCS: 99212 ==

== ENCOUNTER 2024-10-08 07:45 | Day surgery (SDC) | payer MEDICARE, MEDICAID, SELFPAY ==
--- OUTSIDE RECORDS SUMMARY | 2024-09-02 15:28 | XMS_ITS ---
Author Organization [facility] Address [address] [place] [address] Care Team Providers Care Yarn Carrier Name Role Phone Aliiva Vieyra Primary Care Provider [phone] Active Problems Problem Noted Date Diagnosed Date [...] TotalDLP 247 mGy 247 mGy 0 mGy [id number] 4.2 mSv 4.2 mSv 0 mSv CTDIvol Max 8 mGy 8 mGy 0 mGy CTDIvol Min 8 mGy 8 mGy 0 mGy Radiation - mGy 93.1 mGy 0 mGy 93.1 mGy
--- OUTSIDE RECORDS SUMMARY | 2024-09-02 15:29 | XMS_ITS | Clinical Summary ---
Author Organization [facility] Address [address] [place] [address] Care Team Providers Care Electronics Engineering Technician Name Role Phone Cynthia Greenberg MD Primary Care Provider [phone] Allergies No known active allergies Medications Medication [...] 1 - PCV) 2023 Influenza Vaccine (#1) 2024 RSV Adult > 60+ Yrs or Pregn ant (1 - 1-dose 75+ series) 2033 Hepatitis B Vaccines Aged Out No long er eligible based on patient's age to complete this topic RSV Ped < 20 months Aged Out No longe r eligible based on patient's age to complete this topic Care Teams Electronics Engineering Technician Relationship Specialty Start Date End Date Cynthia Greenberg MD PCP - General Internal Medicine 06/09/17
--- OUTSIDE RECORDS SUMMARY | 2024-09-02 15:29 | XMS_ITS | Patient Health Record ---
Author Organization [facility] Address [address] [place] [address] Care Team Providers Care Business Services Specialist Sales Name Role Phone Alivia Pat Primary Care Provider Unavailab Bob Yu Jr Allergies No Known Allergies Reason For Referral No Information Medications Medication SIG (Take, Route, Frequency, Duration) Notes Start Date End Date Status Sertraline HCl 100 MG 1 tablet Orally On ce a day for 30 day(s) Active Sertraline HCl 25 MG TAKE 1 TABLET BY MO UTH DAILY Oral for 30 Days Active amLODIPine Besylate 10 MG TAKE 1 TABLET BY MOUTH DAILY Oral for 90 Days Active Lisinopril 40 MG TAKE 1 TABLET BY ALMA TH DAILY Oral for 90 Days Active Sildenafil Citrate 100 MG TAKE 1 TABLET BY MOUTH TWICE A WEEK Oral for 28 Days Active Chlorthalidone 50 MG Oral for 90 Active Metoprolol Succinate ER 100 MG TAKE 1 TABLET BY MOUTH DAILY Oral for 90 Active amLODIPine Besylate 10 MG Oral for 90 Active Lisinopril 40 MG Oral for 90 A ctive Tamsulosin HCl 0.4 MG Oral for 90 Active Cabozantinib(100MG Daily Dose) 80 & 20 MG as directed Orally 09/02/2024 Activ e Finasteride 5 MG TAKE 1 TABLET BY ALMA TH EVERY DAY Oral for 90 Active Rosuvastatin Calcium 40 MG 1 tablet Oral ly Once a day for 30 day(s) 09/02/2024 Active Tamsulosin HCl 0.4 MG TAKE 2 CAPSULES BY MOUTH AT BEDTIME Oral for 90 Days Active Immunizations Vaccine Route Administration Date Status Comme nts Influenza Unknown 10/21/2020 Administered Influenza Unknown 12/12/2023 Administered Social History Tobacco Use: Social History Observation Description Date Details (start date - stop date) Former Smoker NA - NA Tobacco Use/Smoking Question Answer Notes Patient is a former smoker How long has it been since you last smoked? > 10 years AUDIT-C (Standard) Question Answer Notes Did you have a drink contain ing alcohol in the past year? Yes How often did you have a dri nk containing alcohol in the past year? Monthly or less (1 point) How many drinks did you have on a typical day when you were drinking in the past year? 1 or 2 drinks (0 point) How often did you have six o r more drinks on one occasion in the past year? Never (0 point) Points 1 Interpretation Negative Problems Problem Type SNOMED Code ICD Code Onset Dates Problem Status W/U Status Risk Notes Problem 370109490 Colon cancer screening (Z12.11) Active confirmed Problem 441717551 Encounter for other preprocedural examination (Z01.818) Active confirmed Problem 283452919 Long-term use of aspirin therapy (Z79.82) Active confirmed Problem 544327209 FH: colon polyps (Z83.71) Active confirmed Problem History of adenomatous polyp of colon (753208279) History of adenomatous polyp of colon (Z86.0101) Active confirmed Vital Signs Temperature 97.3 degrees Fahrenheit 09/02/2024 Blood pressure diastolic 01 mm Hg 09/02/2024 Height 69 in 09/02/2024 Blood pressure systolic 001 mm Hg 09/02/2024 Weight 174.4 lbs 09/02/2024 BMI 25.75 kg/m2 09/02/2024 Encounters Encounter Location Date Provider Diagnosis [facility] [address] [place] [address] 09/02/2024 Bob Markham Jr Colon cancer screening Z12.11 ; Encounter for other preprocedural examination Z01.818 and History of adenomatous polyp of colon Z86.0101 Assessments Encounter Date Diagnosis (ICD Code) Assessment Notes Treatment Notes Treatment Clinical Notes Section Notes 09/02/2024 Colon cancer screening (ICD-10 - Z12.11) We discussed colonoscopy today. We discussed risks and benefits of the procedure today. He understands these and agrees to proceed. He will have a 2-day prep because of the limitations at his last bowel prep. 09/02/2024 Encounter for other preprocedural examination (ICD-10 - Z01.818) We discussed colonoscopy today. We discussed risks and benefits of the procedure today. He understands these and agrees to proceed. He will have a 2-day prep because of the limitations at his last bowel prep. 09/02/2024 History of adenomatous polyp of colon (ICD-10 - Z86.0101) We discussed colonoscopy today. We discussed risks and benefits of the procedure today. He understands these and agrees to proceed. He will have a 2-day prep because of the limitations at his last bowel prep. Plan Of Treatment Future Test Test Name Order Date COLONOSCOPY 09/02/2021 COLONOSCOPY 09/02/2024 Next Appt Details Provider Name:Bob brown , 10/08/2024 09:10:00 AM, [address] [place] [address] , [place], [place], [id number], Insurance Providers Payer Name Payer Address Payer Phone Subscriber Number Group Number Insured Name Patient Relationship to Insured Coverage Start Date Coverage End Date [facility] [address] [place], [place] [id number] COLON COLON, JOSÉ Self - patient is the insured 4 [facility] [address] [place] [address] [id number] COLON COLON, JOSÉ Self - patient is the insured 4 Medical (General) History Medical History History ICD Code hypertension hyperlipidemia benign prostatic hyperplasia without low er urinary tract symptoms Psoriatic arthritis Depression Metastatic renal cell carcin marry, 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 Subsequent treatment with Cabozantinib, stopped last month. Colonoscopy 11/11 multiple polyps, 3-year follow-up due to prep limitations Surgical History Surgery Date(Month/Year) Right nephrectomy for renal cell carcino ma 05/13 Cholecystectomy and repair of umbilical hernia 01/12 hernia
--- OUTSIDE RECORDS SUMMARY | 2024-09-02 15:29 | XMS_ITS | Patient Health Record ---
Author Organization [facility] Address [address] [place] [address] Care Team Providers Care Sanding Machine Tender Name Role Phone Alivia Pat Primary Care Provider UnavailKimberli Savage Unavailable [phone] Allergies No Known Allergies Reason For Referral [...] 05/28/2024 Encounters Encounter Location Date Provider Diagnosis [facility] [address] [place] [address] 10/10/2023 Kimberli Yancey Tinea unguium B35.1 ; Pain in right toe(s) M79.674 and Pain in left toe(s) M79.[address] [address] 01/09/2024 Kimberli Yancey Tinea unguium B35.1 ; Tinea pedis of both feet B35.3 ; Pain in right toe(s) M79.674 and Pain in left toe(s) M79.[address] [address] 05/28/2024 Kimberli Sancheza Tinea unguium B35.1 ; Pain in right toe(s) M79.674 and Pain in left toe(s) M79.[address] [address] 03/19/2024 Kimberli Yancey Assessments Encounter Date Diagnosis (ICD Code) Assessment Notes Treatment Notes Treatment Clinical Notes Section Notes 10/10/2023 Tinea unguium (ICD-10 - B35.1) 05/28/2024 Tinea unguium (ICD-10 - B35.1) 05/28/2024 Pain in right toe(s) (ICD-10 - M79.674) 01/09/2024 Tinea unguium (ICD-10 - B35.1) 01/09/2024 [...] Next Appt Details Provider Name:Kimberli neville, 09/06/2024 12:30:00 PM, [address] [place], [address], Insurance Providers Payer Name Payer Address Payer Phone Subscriber Number Group Number Insured Name Patient Relationship to Insured Coverage Start Date Coverage End Date [employer] Medicare Open [address] [place] [address] [id number] Colon, Dick Self - patient is the insured Medical (General) History Medical History History ICD Code Arthritis Cancer High blood pressure Psoriasis/eczema Surgical History Surgery Date(Month/Year) Gall bladder removal 03/15 kidney surgery 05/10
[2024-10-08 08:17] VITALS: BMI 24.5
[2024-10-08 08:26] VITALS: BP 172/98; PULSE 83; RESP 16; TEMP 36.5; O2SAT 97
[2024-10-08] MEDS: Lactated Ringers 1,000 ML 100 ML IVCONT (08:27)
--- NOTE | 2024-10-08 09:21 | HO.ANESPROP2 ---
[facility] Active Problems Active Problems: All Active Problems (Updated 09/23/24 @ 13:44 by Latonya Toledo MD) Carotid arterial disease (Acute) Cerebral microvascular disease (Acute) Vascular dementia (Acute) Trigger finger, left middle finger (Acute) Kidney cancer, primary, with metastasis from kidney to other site (Acute) Scrotal abscess (Acute) Lesion of lung (Acute) Renal cancer (Chronic) Hematuria (Acute) Renal mass (Acute) BPH loc w urin obs/LUTS (Acute) Past Medical History Medical History Multifactorial dementia Vascular dementia Cerebral microvascular disease Kidney cancer, primary, with metastasis from kidney to other site Renal cancer Incarcerated umbilical hernia (01/09/23) Depression Psoriatic arthritis BPH (benign prostatic hyperplasia) Elevated cholesterol HTN (hypertension) Family History Family History Mother Colon cancer Father Prostate cancer Family history of problems with anesthesia: No Surgical History Surgical History S/P laparoscopic cholecystectomy History of laparoscopic cholecystectomy (01/09/23) H/O colonoscopy Hx of hernia repair History of Problems with Anesthesia: No Social History Social History Household Members: Family Housing: House Are you a primary medical care administrator to a significant other at home: No Do you presently have visiting nurse or other home services: No Alcohol intake: former Patient Tobacco Use Status: Former Tobacco user Tobacco use type: Cigarette Use of substances other than those prescribed or required for medical reasons: No Advance Directives: No Advance Directives Information Provided: Yes service: Yes Current occupational status: retired [employer] Allergies Allergy/AdvReac Type Severity Reaction Status Date / Time No Known Allergies (No Known Allergy Verified 09/18/24 10:18 Allergies*) Active Medications: Current Medications Lactated Ringer's (Lr) 1,000 mls @ 100 mls/hr IVCONT .Q10H RADU Last Admin: 10/08/24 08:27 Dose: 100 mls/hr Home Medications ?Medication ?Instructions ?Recorded ?Confirmed ?Last Taken ?Type amlodipine 10 mg tablet 1 tab PO DAILY 10/28/21 08/19/24 01/07/23 History 10 chlorthalidone 50 mg tablet 1 tab PO DAILY 10/28/21 08/19/24 01/07/23 History metoprolol succinate 100 mg 1 tab PO DAILY 10/28/21 08/19/24 01/07/23 History tablet,extended release 24 hr lisinopril 40 mg tablet 40 mg PO DAILY 02/17/22 08/19/24 10/08/24 04:30 History rosuvastatin 40 mg tablet 40 mg PO DAILY 02/17/22 08/19/24 01/07/23 History multivitamin 1 tab PO DAILY 01/08/23 08/19/24 01/07/23 History diphenhydramine HCl 25 mg capsule 25 mg PO TID PRN Rash 03/28/23 08/19/24 Unknown History sildenafil 50 mg tablet 50 mg PO 2XW 07/14/23 08/19/24 Unknown History tamsulosin 0.4 mg capsule 0.8 mg PO BEDTIME 09/18/24 Unknown History Exam Height,Weight and Vital Signs: Height 5 ft 9 in Weight 75.2 kg Last Vital Signs Temp 97.7 F 10/08/24 08:26 Pulse 83 10/08/24 08:26 Resp 16 10/08/24 08:26 BP 172/98 H 10/08/24 08:26 Pulse Ox 97 10/08/24 08:26 O2 Del Method Room Air 10/08/24 08:26 Airway Mallampati Class: III TM Dist: >3cm Neck ROM: Full Partial: Upper and Lower Loose/Missing/Broken Teeth: Yes, Upper and Lower Heart: RRR Lungs: CTA Assessment and Plan Assessment Anesthesia Assessment: Anesthesia Plan Discussed and Chart Reviewed Final Anesthetic Review Family History of Problems with Anesthesia: No History of Problems with Anesthesia: No NPO: Yes ASA Class: III Final Preanesthetic Review: Meds/Allgs Chart Reviewed, Consent Obtained/Reviewed and Anes Risks/Benef Reviewed Patient Risk: Intermediate Procedure Risk: Low Anesthetic Plan Anesthetic Plan: MAC: Disposition: Standard PACU
--- NOTE | 2024-10-08 09:54 | MHC.SHP ---
Pre-Procedural Eval Section A - 24 Hr Update-Section A only Date of Service: 10/08/24 The patient is an INPATIENT: No Changes since office visit: No Cold of Flu in the past 2 weeks, No New Medical Problems, No Changes in Medication and No Patient answered all questions The patient has been examined within 24 hours of the surgical procedure. The History & Physical has been completed within 30 days and I have reviewed it.: Yes Section B - Complete if H&P > 30 days Chief Complaint: screening Allergies: Allergies Allergy/AdvReac Type Severity Reaction Status Date / Time No Known Allergies (No Known Allergy Verified 09/18/24 10:18 Allergies*) Plan I have reviewed the history and physical and performed a pertinent physical examination on my patient. No changes have occurred unless specified. Time Spent With Patient Time: Total time managing care of this patient today ____ minutes.
[2024-10-08 10:25] VITALS: BP 127/79; PULSE 67; RESP 16; TEMP 36.2; O2SAT 99
[2024-10-08 10:40] VITALS: BP 145/91; PULSE 71; RESP 16; TEMP 36.4; O2SAT 97
--- NOTE | 2024-10-08 10:56 | OP_ITS ---
DATE OF SERVICE: 10/08/2024 SURGEON: Bob Markham MD INDICATIONS: Colon cancer screening. PREOPERATIVE DIAGNOSIS: POSTOPERATIVE DIAGNOSIS: PROCEDURE PERFORMED: Colonoscopy to the terminal ileum. ESTIMATED BLOOD LOSS: COMPLICATIONS: ANESTHESIA: Monitored anesthesia care. ASSISTANTS: SPECIMENS: DESCRIPTION OF PROCEDURE: A history and physical was performed. The risks and benefits of procedure explained to the patient. Informed consent was obtained. The patient was placed in the left lateral decubitus position. A digital rectal exam was performed and was found to be normal. The Olympus pediatric video colonoscope was introduced into the rectum and advanced to the cecum. The cecum was identified by transillumination, palpation, and identification of ileocecal valve. Examination was performed, and the scope was removed. He tolerated the procedure well and was taken to recovery area in stable condition. FINDINGS: The terminal ileum was examined and appeared normal. The visualized colonic mucosa was normal. The quality of the prep was good. There was minimal sigmoid diverticulosis. No polyps were identified. Retroflexed examination showed moderate-sized internal hemorrhoids. IMPRESSION: Normal colonoscopy. RECOMMENDATION: 1. Followup as needed. 2. Repeat colonoscopy is recommended in 10 years for average-risk individuals. MD FANY Berry/PADMINI / [phone]
== END 2024-10-08 11:13 | disposition home or self-care (01) ==
PROVIDERS: PCP Internal Medicine; Visit Provider Internal Medicine Gastroenterology
PROC: 0DJD8ZZ Inspection of Lower Intestinal Tract, Via Natural or Artificial Opening Endoscopic (ICD-10-PCS; CPT 45378; principal; 2024-10-08 09:20)
DX: Z12.11 Encounter for screening for malignant neoplasm of colon (principal); K57.30 Diverticulosis of large intestine without perforation or abscess without bleeding; K64.8 Other hemorrhoids; Z86.0101 Personal history of adenomatous and serrated colon polyps; Z80.0 Family history of malignant neoplasm of digestive organs; Z83.719 Family history of colon polyps, unspecified; I10 Essential (primary) hypertension; E78.5 Hyperlipidemia, unspecified; Z87.891 Personal history of nicotine dependence; Z79.02 Long term (current) use of antithrombotics/antiplatelets; Z79.899 Other long term (current) drug therapy
CPT/HCPCS: G0105; J2003; J2704

== ENCOUNTER 2024-10-22 08:40 | Outpatient (REF) | payer MEDICARE, MEDICAID, SELFPAY ==
--- OUTSIDE RECORDS SUMMARY | 2024-04-09 07:00 | XMS_ITS ---
Author Organization [facility] Address [address] [place] [address] Care Team Providers Care Residential Sales Name Role Phone Alivia Pat Primary Care Provider Unavailab Kimberli Cordova Unavailable [phone] Roa Encounters Encounter Location Date Provider Diagnosis [address] [address] 04/09/2024 Kimberli Yancey Plan Of Treatment Next Appt Details Provider Name:Kimberli neville, 12/06/2024 12:30:00 PM, [address] [place] [address], [phone], Progress Notes * Dick COFFEYDOB:1960 (64 yo M)Acc No.[id number]:04/09/2024 Progress Note Patient: Dick RED Provider: Ana Yancey DPM :1960 A ge:64 Y S ex:Male Date:04/09/2024 Address:[address] [place] [phone] Pcp:Alivia Pat Subjective: * Chief Complaints: * [address] Roa. * Medical History: Objective: * Vitals: Assessment: Plan: * Treatment: * Images: * The named appointment provid er may or may not be the originator of this progress note, and it is not deemed complete until electronically signed by the appointment provider. Sign off status: Pending * Provider: Ana Yancey DPM Date: 0 04/09/2024 Generated for Josie swain/Demetris/Maria Del Carmen on: 10/22/2024 09:28 AM EDT
--- OUTSIDE RECORDS SUMMARY | 2024-04-19 08:45 | XMS_ITS ---
Author Organization [facility] Address [address] [place] [address] Care Team Providers Care Horse Breaker Name Role Phone Alivia Pat Primary Care Provider Unavailab Kimberli Cordova Unavailable [phone] Encounters Encounter Location Date Provider Diagnosis [address] [address] 04/19/2024 Kimberli Yancey Plan Of Treatment Next Appt Details Provider Name:Kimberli neville, 12/06/2024 12:30:00 PM, [address] [place] [address], [phone], Progress Notes * FACUNDODickDOB:1960 (64 yo M)Acc No.[id number]:04/19/2024 Progress Note Patient: Dick RED Provider: Ana Yancey DPM :1960 A ge:64 Y S ex:Male Date:04/19/2024 Address:[address] [place] [address] Pcp:Alivia Pat Subjective: * Chief Complaints: * * Medical History: Objective: * Vitals: Assessment: Plan: * Treatment: * Images: * The named appointment provid er may or may not be the originator of this progress note, and it is not deemed complete until electronically signed by the appointment provider. Sign off status: Pending * Provider: Ana Yancey DPM Date: 0 04/19/2024 Generated for Josie swain/Demetris/Maria Del Carmen on: 0 10/22/2024 09:28 AM EDT
--- OUTSIDE RECORDS SUMMARY | 2024-10-08 05:20 | XMS_ITS ---
Author Organization [facility] Address [address] [place] [address] Care Team Providers Care Galley Boy Name Role Phone Alivia Pat Primary Care Provider Unavailab Bob Yu Jr [phone] REASON FOR VISIT screening Encounters Encounter Location Date Provider Diagnosis [facility] Outpatient [address] [place] [id number] 10/08/2024 Bob Markham Jr Plan Of Treatment No Information Progress Notes * COLON COLONJOSÉDOB:[birth year] (64 yo M)Acc No.[id number]:10/08/2024 COLON WITH MAC Patient: JOSÉ KANG Provider: Carito Markham MD :1960 A ge:64 Y S ex:Male Date:10/08/2024 Address:[address] [place], [place] [phone] Pcp:Alivia Pat Subjective: * Chief Complaints: * 1 . Screening. * Medical History: Objective: * Vitals: Assessment: Plan: * Treatment: * * The named appointment provid er may or may not be the originator of this progress note, and it is not deemed complete until electronically signed by the appointment provider. Sign off status: Pending * Provider: Carito Markham MD Date: 0 10/08/2024 Generated for Josie swain/Demetris/eTransmitting on: 0 10/22/2024 09:28 AM EDT
--- OUTSIDE RECORDS SUMMARY | 2024-10-22 09:28 | XMS_ITS | Patient Health Record ---
Author Organization [facility] Address [address] [place] [address] Care Team Providers Care Sql Analyst Name Role Phone Alivia Pat Primary Care Provider UnavailKimberli Savage Unavailable [phone] Allergies No Known Allergies Reason For Referral [...] 09/06/2024 Encounters Encounter Location Date Provider Diagnosis [address] [phone] 01/09/2024 Kimberli Perica Tinea unguium B35.1 ; Tinea pedis of both feet B35.3 ; Pain in right toe(s) M79.674 and Pain in left toe(s) M79.[address] [address] 05/28/2024 Kimberli Perica Tinea unguium B35.1 ; Pain in right toe(s) M79.674 and Pain in left toe(s) M79.[address] [address] 09/06/2024 Kimberli Perica Tinea unguium B35.1 ; Tinea pedis of both feet B35.3 ; Pain in right toe(s) M79.674 and Pain in left toe(s) M79.[address] [address] 03/19/2024 Kimberli Perica Assessments Encounter Date Diagnosis [...] Details Provider Name:Kimberli neville, 12/06/2024 12:30:00 PM, [address] [place] [address], [phone], Insurance Providers Payer Name Payer Address Payer Phone Subscriber Number Group Number Insured Name Patient Relationship to Insured Coverage Start Date Coverage End Date [employer] Medicare Open [address] [place] [address] [id number] Colon, Dick Self - patient is the insured Medical (General) History Medical History History ICD Code Arthritis Cancer High blood pressure Psoriasis/eczema Surgical History Surgery Date(Month/Year) Gall bladder removal 03/15 kidney surgery 05/10 hand surgery, finger release 09/04/24
--- OUTSIDE RECORDS SUMMARY | 2024-10-22 09:28 | XMS_ITS | Encounter Summary ---
Author Organization [facility] Address [address] [place] [address] Care Team Providers Care Hospital Education Coordinator Name Role Phone Alivia Vieyra Primary Care Provider [phone] Encounter Details Date Type Department Care Team (Late st Contact Info) Description 01/24/2023 Orders Only [facility] Interventional Radiology [address] [place] [phone] Jayme Ga MD [address] [place] [phone] Social History Tobacco Use Types Packs/Day Years [...] on filedocumented in this encounter Care Teams Hospital Education Coordinator Relationship Specialty Start Date End Date Alivia Vieyra [address] [place] [address] [place] [phone] PCP - General Internal Medicine 01/02/23 documented as of this encounter
--- OUTSIDE RECORDS SUMMARY | 2024-10-22 09:28 | XMS_ITS | Encounter Summary ---
Author Organization [facility] Address [address] [place] [address] Care Team Providers Care Leader Tier Name Role Phone Alivia Vieyra Primary Care Provider [phone] Encounter Details Date Type Department Care Team (Late st Contact Info) Description 01/27/2023 Lab Requisition [facility] [address] [place] [address] Enedelia Ortiz MD [address] [place] [phone] Social History Tobacco Use Types Packs/Day Years [...] of this encounter Procedures * Due to [place] [employer] [facility] law, this organization might not be sharing negative HIV tests. Procedure Name Priority Date/Time Associated Diagnosis Comments TISSUE EXAM Routine 01/27/2023 2:06 PM EST documented in this encounter Results * Due to [place] [employer] [facility] law, this organization might not be sharing negative HIV tests. * Tissue Exam (01/27/2023 2:06 PM EST) Final Diagnosis Review of Outside Slides Received from [facility] Labeled [id number] Procedure Date 04/21/2022: Right Kidney, Upper Pole Mass, Needle Core Biopsy: - CLEAR CELL RENAL CELL CARCINOMA, WHO/ISUP NUCLEAR GRADE 1-2 IN THIS SPECIMEN. [facility] 01/30/2023 9:22 AM EST [facility] at 0922 EST Clinical History RIght renal upper pole mass [facility] 01/30/2023 9:22 AM EST [facility] Gross Consult Client Facility: [facility] Slide Identificatio n: [id number] Number of Glass Slides Received: 3 Number of Blocks Received: 0 Client Pathologist: Susanne Hogan Accompanying Report Received: Yes [facility] MANUAL 01/30/2023 9:22 AM EST [facility] Embedded Images [facility] 01/30/2023 9:22 AM EST [facility] Resulting Agency Case was signed out at [facility], Department of Pathology, [facility] [id number] [facility] 01/30/2023 9:22 AM EST [facility] Report Header Surgical Pathology Report Case: [id number] Authorizing Provider: Enedelia Ortiz MD Collected: 01/27/2023 1406 Ordering Location: [facility] Received: 01/27/2023 1407 [place] [facility] Pathologist: Enedelia Pop MD Specimen: Kidney, Right, Upper Pole Mass 01/30/2023 9:22 AM EST [facility] Tissue Entire right kidney / Unknown 01/27/2023 2:06 PM EST 01/27/2023 2:07 PM EST us Enedelia Ortiz MD LAB PATHOLOGY/CYTOLOGY ORDE JAYA Final Result [facility] [address] documented in this encounter Visit Diagnoses Not on filedocumented in this encounter Care Teams Leader Tier Relationship Specialty Start Date End Date Alivia Vieyra [address] [place] [address] PCP - General Internal Medicine 01/02/23 documented as of this encounter
--- OUTSIDE RECORDS SUMMARY | 2024-10-22 09:28 | XMS_ITS | Clinical Summary ---
Author Organization [facility] Address [address] [place] [address] Care Team Providers Care Cover Stripper Name Role Phone Cynthia Greenberg MD Primary Care Provider [phone] Allergies No known active allergies Medications Medication [...] age to complete this topic Care Teams Cover Stripper Relationship Specialty Start Date End Date Cynthia Greenberg MD PCP - General Internal Medicine 06/09/17
--- OUTSIDE RECORDS SUMMARY | 2024-10-22 09:28 | XMS_ITS | Clinical Summary ---
Author Organization [facility] Address [address] [place] [address] Care Team Providers Care Steel Tester Name Role Phone Alivia Vieyra Primary Care [...] 74 05/23/2023 9:54 AM EDT Temperature 37 C (98.6 F) 05/19/2023 2:49 PM EDT Respiratory Rate 16 [...] of Health Annual Screening 02/21/2024 Influenza Vaccine (#1) 2024 , 01/27/2022, 12/23/2020, Additional history exists Pneumococcal Vaccine: 50+ Years (3 of 3 - PCV20 or PCV21) 06/03/2027 06/02/2022, 02/15/2019 DTaP,Tdap,and Td Vaccines (3 - Td or Tdap) 12/06/2032 12/06/2022, 12/20/2013 Zoster Vaccines Completed 08/26/2021, 06/0 07/2021, 05/27/2021 RSV Vaccine (60+ years old and patients) Completed 12/06/2022 Hepatitis B Vaccines Aged Out No long er eligible based on patient's age to complete this topic Medical Devices Implanted Type Area Steam Shovel Engineer Device Identifier Shelf Expiration Date Model / Serial / Lot System Closure And Repair Suture-Mediat ed Perclose Prostyle - S0 - [id number] Implanted:Qty : 1 on 05/10/2023 by Xena Estrada MD MPH at [facility] Implant Right: Groin [employer] [id number] 01/19/2025 [id number] / 0 / [id number] Vascular Plug For Peripheral Vascular Occlusion 8mm - S0 - [id number] Implanted:Qty : 1 on 05/10/2023 by Xena Estrada MD MPH at [facility] Implant Right: Arterial [address] [employer] [id number] 01/20/2028 9-AVP2-0 [id number] [facility] [place] [facility] [place] [address] AETNA [facility] Advance Directives * Full Code (Latest Code Status on File) Date Activated Date Inactivated Comments 05/10/2023 12:13 PM 05/15/2023 6:14 PM Care Teams Steel Tester Relationship Specialty Start Date End Date Alivia Vieyra [address] [place] [address] [place] [address] PCP - General Internal Medicine 01/02/23
--- OUTSIDE RECORDS SUMMARY | 2024-10-22 09:28 | XMS_ITS | Encounter Summary ---
Author Organization [facility] Address [address] [place] [address] Care Team Providers Care Mill Representative Name Role Phone Alivia Vieyra Primary Care Provider [phone] Encounter Details Date Type Department Care Team (Late st Contact Info) Description 04/14/2023 Orders Only [facility] Interventional Radiology [address] [place], [place] [phone] Jose Alejandro Perez MD [address] [place], [place] [phone] Social History Tobacco Use Types Packs/Day Years [...] on filedocumented in this encounter Care Teams Mill Representative Relationship Specialty Start Date End Date Alivia Vieyra [address] [place] [address] [place] [address] PCP - General Internal Medicine 01/02/23 documented as of this encounter
--- OUTSIDE RECORDS SUMMARY | 2024-10-22 09:28 | XMS_ITS ---
Author Organization [facility] Address [address] [place] [address] Care Team Providers Care Sorter Packer Name Role Phone Alivia Vieyra Primary Care Provider [phone] Active Problems Problem Noted Date Diagnosed Date [...] Lifetime Dose Automatic Entry Manual Entr y Fluoro Time 4.7 minutes 0 minutes 4.7 minutes TotalDLP 247 mGy 247 mGy 0 mGy [id number] 4.2 mSv 4.2 mSv 0 mSv CTDIvol Max 8 mGy 8 mGy 0 mGy CTDIvol Min 8 mGy 8 mGy 0 mGy Radiation - mGy 93.1 mGy 0 mGy 93.1 mGy Dose Area Product 24.3 Gy-cm2 0 Gy-cm2 24.3 Gy-cm 2
--- OUTSIDE RECORDS SUMMARY | 2024-10-22 09:29 | XMS_ITS | Patient Health Record ---
Author Organization [facility] Address [address] [place] [address] Care Team Providers Care Waistline Joiner Lockstitch Name Role Phone Alivia Pat Primary Care [...] Problem Status W/U Status Risk Notes Problem [id number] Colon cancer screening (Z12.11) Active confirmed Problem 228437813 Encounter for other preprocedural examination (Z01.818) Active confirmed Problem 113940357 Long-term use of aspirin therapy (Z79.82) Active confirmed Problem 256220871 FH: colon polyps (Z83.71) Active confirmed Problem History of adenomatous polyp of colon (828483563) History of adenomatous polyp of colon (Z86.0101) Active confirmed Vital Signs Temperature 97.3 degrees Fahrenheit 09/02/2024 Blood pressure diastolic 01 mm Hg 09/02/2024 Height 69 in 09/02/2024 Blood pressure systolic 001 mm Hg 09/02/2024 Weight 174.4 lbs 09/02/2024 BMI 25.75 kg/m2 09/02/2024 Encounters Encounter Location Date Provider Diagnosis [facility] [address], [place] [id number] 10/08/2024 Bob Markham Jr [facility] [address] [place] [address] 09/02/2024 Bob Markham Jr Colon cancer screening [...] Name Order Date COLONOSCOPY 09/02/2021 COLONOSCOPY 09/02/2024 Insurance Providers Payer Name Payer Address Payer Phone Subscriber Number Group Number Insured Name Patient Relationship to Insured Coverage Start Date Coverage End Date [facility] [address] [place], [place] [id number] COLON COLON, JOSÉ Self - patient is the insured 4 MEDICAID OF [employer] [address] [place] [address] [id number] COLON COLON, JOSÉ Self - patient [...] Date(Month/Year) 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
--- OUTSIDE RECORDS SUMMARY | 2024-10-22 09:29 | XMS_ITS | Encounter Summary ---
Author Organization [facility] Address [address] [place] [address] Care Team Providers Care Automatic Fancy Machine Operator Name Role Phone Alivia Vieyra Primary Care Provider [phone] Encounter Details Date Type Department Care Team (Late st Contact Info) Description 02/23/2023 Orders Only [facility] Nuclear Medicine [address] [place] [address] Jayme Ga MD [address] [place] [phone] Social History Tobacco Use Types Packs/Day Years [...] on filedocumented in this encounter Care Teams Automatic Fancy Machine Operator Relationship Specialty Start Date End Date Alivia Vieyra [address] [place] [address] [place] [address] PCP - General Internal Medicine 01/02/23 documented as of this encounter
[2024-10-22 09:42] LABS: Alanine Aminotransferase 47 U/L (0-40); Albumin Level 4.5 g/dL (3.5-5.0); Alkaline Phosphatase 84 U/L (39-117); Anion Gap 11 (12-20); Aspartate Amino Transferase 42 U/L (5-37); Blood Urea Nitrogen 15 mg/dL (9-16); Calcium 9.0 mg/dL (8.4-10.2); Carbon Dioxide 29 mmol/L (22-29); Chloride 105 mmol/L (96-108); Estimated Glomerular Filt Rate 56; Potassium 3.9 mmol/L (3.3-5.1); Sodium 141 mmol/L (135-145); Total Protein 7.3 g/dL (6.5-8.0)
== END 2024-10-22 08:41 | disposition home or self-care (01) ==
LOC: HO.LAB 08:40
PROVIDERS: PCP Internal Medicine; Visit Provider Internal Medicine
DX: C64.1 Malignant neoplasm of right kidney, except renal pelvis (principal); E78.00 Pure hypercholesterolemia, unspecified; I12.9 Hypertensive chronic kidney disease with stage 1 through stage 4 chronic kidney disease, or unspecified chronic kidney disease; N18.9 Chronic kidney disease, unspecified; M65.341 Trigger finger, right ring finger; R74.01 Elevation of levels of liver transaminase levels; Z86.0101 Personal history of adenomatous and serrated colon polyps
CPT/HCPCS: 36415; 80053

== ENCOUNTER 2024-11-01 13:22 | Outpatient (REF) | payer MEDICARE, MEDICAID, SELFPAY ==
--- OUTSIDE RECORDS SUMMARY | 2024-04-09 07:00 | XMS_ITS ---
Author Organization [facility] Address [address] [place] [address] Care Team Providers Care Data Warehousing Specialist Name Role Phone Alivia Pat Primary Care Provider Unavailab Kimberli Cordova Unavailable [phone] Roa Encounters Encounter Location Date Provider Diagnosis [address] [address] 04/09/2024 Kimberli Yancey Plan Of Treatment Next Appt Details Provider Name:Kimberli neville, 12/06/2024 12:30:00 PM, [address] [place] [address], [phone], Progress Notes * Dick COFFEYDOB:1960 (64 yo M)Acc No.[id number]:04/09/2024 Progress Note Patient: Dick RED Provider: Ana Yancey DPM :1960 A ge:64 Y S ex:Male Date:04/09/2024 Address:[address] [place] [address] Pcp:Alivia Pat Subjective: * Chief Complaints: * [...] DPM Date: 0 04/09/2024 Generated for Josie Rosales on: 0 11/01/2024 04:02 PM EDT
--- OUTSIDE RECORDS SUMMARY | 2024-04-19 08:45 | XMS_ITS ---
Author Organization [facility] Address [address] [place] [address] Care Team Providers Care Inside Tester Name Role Phone Alivia Pat Primary Care Provider Unavailab Kimberli Cordova Unavailable [phone] Encounters Encounter Location Date Provider Diagnosis [address] [address] 04/19/2024 Kimberli Yancey Plan Of Treatment Next Appt Details Provider Name:Kimberli neville, 12/06/2024 12:30:00 PM, [address] [place] [address], [phone], Progress Notes * FACUNDODickDOB:1960 (64 yo M)Acc No.[id number]:04/19/2024 Progress Note Patient: Dick RED Provider: Ana Yancey DPM :1960 A ge:64 Y S ex:Male Date:04/19/2024 Address:[address] [place] [phone] Pcp:Alivia Pat Subjective: * Chief Complaints: * [...] DPM Date: 0 04/19/2024 Generated for Josie Garcia/Maria Del Carmen on: 0 11/01/2024 04:02 PM EDT
--- NOTE | 2024-10-07 12:57 | HO.ANESPROP2 ---
HPI - Anesthesia Eval Consult details Narrative: 64 yr old male for colonoscopy Kidney cancer: on cabozantinib H/O vascular dementia Right carotid artery occlusion: carotid US ordered at 09/23/24 visit with neurology, Dr. Toledo s/p cholecystectomy with GA, ETT 7.5 in 2022 [facility] Active Problems Active Problems: All Active Problems Carotid arterial disease (Acute) Cerebral microvascular disease (Acute) Vascular dementia (Acute) Trigger finger, left middle finger (Acute) Kidney cancer, primary, with metastasis from kidney to other site (Acute) Scrotal abscess (Acute) Lesion of lung (Acute) Renal cancer (Chronic) Hematuria (Acute) Renal mass (Acute) BPH loc w urin obs/LUTS (Acute) Past Medical History Medical History Multifactorial dementia Vascular dementia Cerebral microvascular disease Kidney cancer, primary, with metastasis from kidney to other site Renal cancer Incarcerated umbilical hernia (01/09/23) Depression Psoriatic arthritis BPH (benign prostatic hyperplasia) Elevated cholesterol HTN (hypertension) Family History Family History Mother Colon cancer Father Prostate cancer Family history of problems with anesthesia: No Surgical History Surgical History S/P laparoscopic cholecystectomy History of laparoscopic cholecystectomy (01/09/23) H/O colonoscopy Hx of hernia repair History of Problems with Anesthesia: No Social History Social History Household Members: Family Housing: House Are you a primary child care lead teacher to a significant other at home: No Do you presently have visiting nurse or other home services: No Alcohol intake: former Patient Tobacco Use Status: Former Tobacco user Tobacco use type: Cigarette service: Yes Current occupational status: retired Meds Allergies Allergy/AdvReac Type Severity Reaction Status Date / Time No Known Allergies (No Known Allergy Verified 09/18/24 10:18 Allergies*) Home Medications ?Medication ?Instructions ?Recorded ?Confirmed ?Last Taken ?Type amlodipine 10 mg tablet 1 tab PO DAILY 10/28/21 08/19/24 01/07/23 History 10 chlorthalidone 50 mg tablet 1 tab PO DAILY 10/28/21 08/19/24 01/07/23 History metoprolol succinate 100 mg 1 tab PO DAILY 10/28/21 08/19/24 01/07/23 History tablet,extended release 24 hr lisinopril 40 mg tablet 40 mg PO DAILY 02/17/22 08/19/24 10/08/24 04:30 History rosuvastatin 40 mg tablet 40 mg PO DAILY 02/17/22 08/19/24 01/07/23 History multivitamin 1 tab PO DAILY 01/08/23 08/19/24 01/07/23 History diphenhydramine HCl 25 mg capsule 25 mg PO TID PRN Rash 03/28/23 08/19/24 Unknown History sildenafil 50 mg tablet 50 mg PO 2XW 07/14/23 08/19/24 Unknown History tamsulosin 0.4 mg capsule 0.8 mg PO BEDTIME 09/18/24 Unknown History Exam Pertinent Lab Results Pertinent Lab Results: Laboratory Tests 09/16/24 10:50 WBC 6.0 RBC 4.05 L Hgb 14.3 Hct 41.7 L Plt Count 164 Sodium 141 Potassium 4.2 Creatinine 1.45 H Narrative Narrative: Brain MRI 07/2024 IMPRESSION: Extensive White matter disease and numerous old lacunar infarcts likely related to small vessel occlusive disease. 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 No acute stroke/nonhemorrhagic ischemia. Assessment and Plan Final Anesthetic Review Family History of Problems with Anesthesia: No History of Problems with Anesthesia: No
--- OUTSIDE RECORDS SUMMARY | 2024-10-08 05:20 | XMS_ITS ---
Author Organization [facility] Address [address] [place] [address] Care Team Providers Care Fuel Cell Engineer Name Role Phone Alivia Pat Primary Care Provider Unavailab Bob Yu Jr [phone] REASON FOR VISIT screening Encounters Encounter Location Date Provider Diagnosis [facility] Outpatient [address] [place] [id number] 10/08/2024 Bob Markham Jr Plan Of Treatment No Information Progress Notes * COLON COLONJOSÉDOB:[birth year] (64 yo M)Acc No.[id number]:10/08/2024 COLON WITH MAC Patient: JOSÉ KANG Provider: Carito Markham MD :1960 A ge:64 Y S ex:Male Date:10/08/2024 Address:[address] [place], [place] [phone] Pcp:Alivia Pat Subjective: * Chief Complaints: * [...] 10/08/2024 Generated for Josie swain/Demetris/eTransmitting on: 0 11/01/2024 04:02 PM EDT
--- NOTE | ~2024-11-01 | US_ITS ---
EXAMINATION: BILATERAL CAROTID ULTRASOUND WITH DOPPLER HISTORY: I65.21 - Occlusion and stenosis of right carotid artery COMPARISON: There are no prior studies available for comparison. TECHNIQUE: Real time and Color and Spectral doppler ultrasonography of the carotid and vertebral arteries was performed in multiple planes. FINDINGS: No significant plaque is seen in the internal carotid arteries. The right common carotid artery bifurcation appears extremely high in the neck. The right internal carotid artery is not identified. VERTEBRAL FLOW DIRECTION: Antegrade bilaterally. PEAK SYSTOLIC VELOCITIES (in cm/sec): RIGHT: CCA: Prox: 85.6 Dist: 88.5 ICA: Prox: Not seen Mid: Not seen Dist: Not seen ICA/CCA Ratio: n/a ECA: Not seen Peak ICA end diastolic velocity (EDV): n/a LEFT: CCA: Prox: 87.4 Dist: 76.2 ICA: Prox: 55.4 Mid: 65.5 Dist: 60.9 ICA/CCA Ratio: 0.75 ECA: 115 Peak ICA end diastolic velocity (EDV): 26.7 US/US carotid duplex BI IMPRESSION: 1. The right common carotid artery bifurcation is extremely high in the neck and the right internal carotid artery is not visualized. If imaging of the right carotid system is desired, CTA or MRA is recommended. 2. No significant stenosis of the left internal carotid artery. Electronically signed by: Jony Lorenz MD 11/01/2024 02:11 PM EDT
--- OUTSIDE RECORDS SUMMARY | 2024-11-01 16:02 | XMS_ITS | Encounter Summary ---
Author Organization [facility] Address [address] [place] [address] Care Team Providers Care Synthetic Staple Extruder Name Role Phone Alivia Vieyra Primary Care Provider [phone] Encounter Details Date Type Department Care Team (Late st Contact Info) Description 04/14/2023 Orders Only [facility] Interventional Radiology [address] [place], [place] [phone] Jose Alejandro Perez MD [address] [place], [place] [phone] Social History Tobacco Use Types Packs/Day Years [...] on filedocumented in this encounter Care Teams Synthetic Staple Extruder Relationship Specialty Start Date End Date Alivia Vieyra [address] [place] [address] [place] [address] PCP - General Internal Medicine 01/02/23 documented as of this encounter
--- OUTSIDE RECORDS SUMMARY | 2024-11-01 16:02 | XMS_ITS | Clinical Summary ---
Author Organization [facility] Address [address] [place] [address] Care Team Providers Care Hairspring Setter Name Role Phone Alivia Vieyra Primary Care Provider [phone] Allergies No known active allergies Medications chlorthalidone [...] 1960 Hepatitis C Screening 1960 Sigmoidoscopy 1960 Alcohol/Substance Use Screening 02/21/2024 Depression Screening and Follow-Up 02/21/2024 Health Care Proxy Review 02/21/2024 Social Drivers of Health Annual Screening 02/21/2024 COVID-19 Vaccine ( season) 2024 12/06/2022, 01/27/2022, 08/31/2021, Additional history exists Influenza Vaccine (#1) 2024 , 01/27/2022, 12/23/2020, [...] this topic Medical Devices Implanted Type Area Bb Shot Packer Device Identifier Shelf Expiration Date Model / Serial / Lot System Closure And Repair Suture-Mediat ed Perclose Prostyle - S0 - [id number] Implanted:Qty : 1 on 05/10/2023 by Xena Estrada MD MPH at [facility] Implant Right: Groin [employer] [id number] 01/19/2025 [id number] / 0 / [id number] Vascular Plug For Peripheral Vascular Occlusion 8mm - S0 - [id number] Implanted:Qty : 1 on 05/10/2023 by Xena Estrada MD MPH at [facility] Implant Right: Arterial Saenz [address] [employer] [id number] 01/20/2028 9-AVP2-0 [id number] [facility] [place] [address] AETNA [facility] Advance Directives * Full Code (Latest Code Status on File) Date Activated Date Inactivated Comments 05/10/2023 12:13 PM 05/15/2023 6:14 PM Care Teams Hairspring Setter Relationship Specialty Start Date End Date Alivia Vieyra [address] [place] [address] [place] [address] PCP - General Internal Medicine 01/02/23
--- OUTSIDE RECORDS SUMMARY | 2024-11-01 16:02 | XMS_ITS ---
Author Organization [facility] Address [address] [place] [address] Care Team Providers Care Bridge Maintainer Name Role Phone Alivia Vieyra Primary Care Provider [phone] Active Problems Problem Noted Date Diagnosed Date [...] TotalDLP 247 mGy 247 mGy 0 mGy [id number] 4.2 mSv 4.2 mSv 0 mSv CTDIvol Max 8 mGy 8 mGy 0 mGy CTDIvol Min 8 mGy 8 mGy 0 mGy Radiation - mGy 93.1 mGy 0 mGy 93.1 mGy Dose Area Product 24.3 Gy-cm2 0 Gy-cm2 24.3 Gy-cm 2
--- OUTSIDE RECORDS SUMMARY | 2024-11-01 16:02 | XMS_ITS | Patient Health Record ---
Author Organization [facility] Address [address] [place] [address] Care Team Providers Care Ski Patrol Officer Name Role Phone Alivia Pat Primary Care Provider UnavailKimberli Savage Unavailable [phone] Allergies No Known Allergies Reason For Referral [...] 09/06/2024 Encounters Encounter Location Date Provider Diagnosis [address] [address] 01/09/2024 Kimberli Perica Tinea unguium B35.1 ; Tinea pedis of both feet B35.3 ; Pain in right toe(s) M79.674 and Pain in left toe(s) M79.[address] [address] 05/28/2024 Kimberli Perica Tinea unguium B35.1 ; Pain in right toe(s) M79.674 and Pain in left toe(s) M79.[address] [address] 09/06/2024 Kimberli Perica Tinea unguium B35.1 ; Tinea pedis of both feet B35.3 ; Pain in right toe(s) M79.674 and Pain in left toe(s) M79.[address] [address] 03/19/2024 Kimberli Perica Assessments Encounter Date Diagnosis [...] Details Provider Name:Kimberli neville, 12/06/2024 12:30:00 PM, [address] [place] [address], [phone], Insurance Providers Payer Name Payer Address Payer Phone Subscriber Number Group Number Insured Name Patient Relationship to Insured Coverage Start Date Coverage End Date A[employer] Medicare Open [address] [place] [address] [phone] [id number] Colon, Dick Self - patient is the insured Medical (General) History Medical History History ICD Code Arthritis Cancer High blood pressure Psoriasis/eczema Surgical History Surgery Date(Month/Year) Gall bladder removal 03/15 kidney surgery 05/10 hand surgery, finger release 09/04/24
--- OUTSIDE RECORDS SUMMARY | 2024-11-01 16:02 | XMS_ITS | Encounter Summary ---
Author Organization [facility] Address [address] [place] [address] Care Team Providers Care Career Placement Services Counselor Name Role Phone Alivia Vieyra Primary Care Provider [phone] Encounter Details Date Type Department Care Team (Late st Contact Info) Description 01/27/2023 Lab Requisition [facility] [address] [place] [address] Enedelia Ortiz MD [address] [place] [address] Social History Tobacco Use Types Packs/Day Years [...] encounter Procedures * Due to [place] CIRQY law, this organization might not be sharing negative HIV tests. Procedure Name Priority Date/Time Associated Diagnosis Comments TISSUE EXAM Routine 01/27/2023 2:06 PM EST documented in this encounter Results * Due to [place] CIRQY law, this organization might not be sharing negative HIV tests. 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 [facility] 01/30/2023 9:22 AM EST [facility] at 0922 EST Clinical History RIght renal upper pole mass [facility] 01/30/2023 9:22 AM EST [facility] Gross Consult Client Facility: [facility] Slide Identificatio n: [id number] Number of Glass Slides Received: 3 Number of Blocks Received: 0 Client Pathologist: Susanne Hogan Accompanying Report Received: Yes [facility]UAL 01/30/2023 9:22 AM EST [facility] Embedded Images [facility] 01/30/2023 9:22 AM EST [facility] Resulting Agency Case was signed out at [facility], Department of Pathology, [facility] [id number] [facility] 01/30/2023 9:22 AM EST [facility] Report Header Surgical Pathology Report Case: [id number] Authorizing Provider: Enedelia Ortiz MD Collected: 01/27/2023 1406 Ordering Location: [facility] Received: 01/27/2023 1407 [facility] Pathologist: Enedelia Pop MD Specimen: Kidney, Right, Upper Pole Mass 01/30/2023 9:22 AM EST [facility] Tissue Entire right kidney / Unknown 01/27/2023 2:06 PM EST 01/27/2023 2:07 PM EST us Enedelia Ortiz MD LAB PATHOLOGY/CYTOLOGY ORDE JAYA Final Result [facility] [address] documented in this encounter Visit Diagnoses Not on filedocumented in this encounter Care Teams Career Placement Services Counselor Relationship Specialty Start Date End Date Alivia Vieyra [address] [place] [address] PCP - General Internal Medicine 01/02/23 documented as of this encounter
--- OUTSIDE RECORDS SUMMARY | 2024-11-01 16:02 | XMS_ITS | Encounter Summary ---
Author Organization [facility] Address [address] [place] [address] Care Team Providers Care Ship Carpenter Name Role Phone Alivia Vieyra Primary Care Provider [phone] Encounter Details Date Type Department Care Team (Late st Contact Info) Description 01/24/2023 Orders Only [facility] Interventional Radiology [address] [place] [phone] Jayme Ga MD [address] [place] [phone] Social History Tobacco Use Types Packs/Day Years [...] on filedocumented in this encounter Care Teams Ship Carpenter Relationship Specialty Start Date End Date Alivia Vieyra [address] [place] [address] [place] [phone] PCP - General Internal Medicine 01/02/23 documented as of this encounter
--- OUTSIDE RECORDS SUMMARY | 2024-11-01 16:02 | XMS_ITS | Clinical Summary ---
Author Organization [facility] Address [address] [place] [address] Care Team Providers Care Acting Manager Name Role Phone Cynthia Greenberg MD Primary Care Provider [phone] Allergies No known active allergies Medications Medication [...] age to complete this topic Care Teams Acting Manager Relationship Specialty Start Date End Date Cynthia Greenberg MD PCP - General Internal Medicine 06/09/17
--- OUTSIDE RECORDS SUMMARY | 2024-11-01 16:03 | XMS_ITS | Patient Health Record ---
Author Organization [facility] Address [address] [place] [address] Care Team Providers Care Arborist Climber Name Role Phone Alivia Pat Primary Care [...] Problem Status W/U Status Risk Notes Problem 984493803 Colon cancer screening (Z12.11) Active confirmed Problem 755679356 Encounter for other preprocedural examination (Z01.818) Active confirmed Problem 470294494 Long-term use of aspirin therapy (Z79.82) Active confirmed Problem 132110532 FH: colon polyps (Z83.71) Active confirmed Problem History of adenomatous polyp of colon (632711755) History of adenomatous polyp of colon (Z86.0101) Active confirmed Vital Signs Temperature 97.3 degrees Fahrenheit 09/02/2024 Blood pressure diastolic 01 mm Hg 09/02/2024 Height 69 in 09/02/2024 Blood pressure systolic 001 mm Hg 09/02/2024 Weight 174.4 lbs 09/02/2024 BMI 25.75 kg/m2 09/02/2024 Encounters Encounter Location Date Provider Diagnosis [facility] [address] [place], [place] [id number] 10/08/2024 Bob Markham Jr [facility] [address] [place] [address] 09/02/2024 Bob Markham Jr Colon cancer screening [...] Insured Coverage Start Date Coverage End Date [facility] [address] [place], [place] [id number] COLON COLON, JOSÉ Self - patient is the insured 4 MEDICAID OF [employer] [address] [place] [address] [id number] COLON COLON, JOSÉ Self - patient [...] Date(Month/Year) 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
--- OUTSIDE RECORDS SUMMARY | 2024-11-01 16:03 | XMS_ITS | Encounter Summary ---
Author Organization [facility] Address [address] [place] [address] Care Team Providers Care Elastic Tape Inserter Name Role Phone Alivia Vieyra Primary Care Provider [phone] Encounter Details Date Type Department Care Team (Late st Contact Info) Description 02/23/2023 Orders Only [facility] Nuclear Medicine [address] [place] [address] Jayme Ga MD [address] [place] [address] [phone] Social History Tobacco Use Types Packs/Day Years [...] on filedocumented in this encounter Care Teams Elastic Tape Inserter Relationship Specialty Start Date End Date Alivia Vieyra [address] [place] [address] [place] [phone] PCP - General Internal Medicine 01/02/23 documented as of this encounter
== END 2024-11-01 13:23 | disposition home or self-care (01) ==
LOC: HO.HMGCX 13:22
PROVIDERS: PCP Internal Medicine; Visit Provider Psychiatry & Neurology Neurology
DX: I65.21 Occlusion and stenosis of right carotid artery (principal)
CPT/HCPCS: 93880

== ENCOUNTER → 2024-11-01 13:34 | Outpatient (BNV) | payer MEDICARE, MEDICAID, SELFPAY | PROVIDERS: PCP Internal Medicine; Visit Provider Radiology Diagnostic Radiology | DX: I65.21 Occlusion and stenosis of right carotid artery (principal) | CPT/HCPCS: 93880 ==

== ENCOUNTER 2024-11-13 10:37 | Outpatient (REF) | payer MEDICARE, MEDICAID, SELFPAY ==
--- OUTSIDE RECORDS SUMMARY | 2024-04-09 07:00 | XMS_ITS ---
Author Organization [facility] Address [address] [place] [address] Care Team Providers Care High Speed Printer Operator Name Role Phone Alivia Pat Primary Care Provider Unavailab Kimberli Cordova Unavailable [phone] Roa Encounters Encounter Location Date Provider Diagnosis [address] [address] 04/09/2024 Kimberli Yancey Plan Of Treatment Next Appt Details Provider Name:Kimberli neville, 12/06/2024 12:30:00 PM, [address] [place] [address], [phone], Progress Notes * Dick COFFEYDOB:1960 (64 yo M)Acc No.[id number]:04/09/2024 Progress Note Patient: Dick RED Provider: Ana Yancey DPM :1960 A ge:64 Y S ex:Male Date:04/09/2024 Address:[address] [place] [phone] Pcp:Alivia Pat Subjective: * Chief Complaints: * [...] Generated for Josie swain/Demetris/Maria Del Carmen on: 0 11/13/2024 01:13 PM EDT
--- OUTSIDE RECORDS SUMMARY | 2024-04-19 08:45 | XMS_ITS ---
Author Organization [facility] Address [address] [place] [address] Care Team Providers Care Field Examiner Name Role Phone Alivia Pat Primary Care Provider Unavailab Kimberli Cordova Unavailable [phone] Encounters Encounter Location Date Provider Diagnosis [address] [address] 04/19/2024 Kimberli Yancey Plan Of Treatment Next Appt Details Provider Name:Kimberli neville, 12/06/2024 12:30:00 PM, [address] [place] [address], [phone], Progress Notes * FACUNDODickDOB:1960 (64 yo M)Acc No.[id number]:04/19/2024 Progress Note Patient: Dick RED Provider: Ana Yancye DPM :1960 A ge:64 Y S ex:Male Date:04/19/2024 Address:[address] [place] [address] Pcp:Alivia Pat Subjective: * Chief Complaints: * [...]
--- OUTSIDE RECORDS SUMMARY | 2024-10-08 05:20 | XMS_ITS ---
Author Organization [facility] Address [address] [place] [address] Care Team Providers Care Radio Officer Name Role Phone Alivia Pat Primary Care Provider Unavailab Bob Yu Jr [phone] REASON FOR VISIT screening Encounters Encounter Location Date Provider Diagnosis [facility] Outpatient [address] [place] [phone] 10/08/2024 Bob Markham Jr Plan Of Treatment No Information Progress Notes * COLON COLONJOSÉDOB:[birth year] (64 yo M)Acc No.[id number]:10/08/2024 COLON WITH MAC Patient: JOSÉ KANG Provider: Carito Markham MD :1960 A ge:64 Y S ex:Male Date:10/08/2024 Address:[address] [place], [place] [phone] Pcp:Alivia Pat Subjective: * Chief Complaints: * [...] 10/08/2024 Generated for Josie swain/Demetris/eTransmitting on: 0 11/13/2024 01:13 PM EDT
--- NOTE | ~2024-11-13 | FL_ITS ---
EXAMINATION: XR PORT INJECTION WITH RADIOLOGICAL SUPERVISION AND INTERPRETATION CLINICAL INFORMATION: Right Chest Port - No Blood Return COMPARISON: None available. TECHNIQUE/FINDINGS: Consent was obtained. Timeout was performed. The right chest port was identified using palpation and fluoroscopy. It sits appropriately in the port pocket. The overlying skin was cleansed, anesthetized with 1% lidocaine, and accessed with a standard port needle. The port was noted to flush normally, however would not aspirate. Subsequently, 5 mL of Isovue 300 contrast was administered, and the port was observed under fluoroscopic control. There appears to be a fibrin sheath on the tip of the catheter, preventing blood return. The port is otherwise intact, without additional complication. The port was then heparin locked as per standard protocol, and the needle was withdrawn. Patient tolerated the procedure well. There were no immediate complications. Fluoroscopic Time: 19 seconds. 1 fluoroscopic cine run obtained. DAP: 254.4 uGym2 FL/FL cva device check w fluoro IMPRESSION: 1. Fibrin sheath surrounding the tip of a right-sided chest port. Electronically signed by: Jadon Ashford MD 11/13/2024 12:08 PM EDT
[2024-11-13] MEDS: Lidocaine HCl 1 % MPF 30 ML VIAL 5 ML INTRAARTIC (11:52)
[2024-11-13] MEDS: iohexoL 300 MG/ML 50 ML INFUS..BTL INTRAARTIC (11:55)
--- OUTSIDE RECORDS SUMMARY | 2024-11-13 13:13 | XMS_ITS | Clinical Summary ---
Author Organization [facility] Address [address] [place] [address] Care Team Providers Care Crab Picker Name Role Phone Alivia Vieyra Primary Care Provider [phone] Allergies No known active allergies Medications chlorthalidone [...] this topic Medical Devices Implanted Type Area Retention Representative Device Identifier Shelf Expiration Date Model / Serial / Lot System Closure And Repair Suture-Mediat ed Perclose Prostyle - S0 - [id number] Implanted:Qty : 1 on 05/10/2023 by Xena Estrada MD MPH at [facility] Implant Right: Groin [employer] [id number] 01/19/2025 29850-82 / 0 / [id number] Vascular Plug For Peripheral Vascular Occlusion 8mm - S0 - [id number] Implanted:Qty : 1 on 05/10/2023 by Xena Estrada MD MPH at [facility] Implant Right: Arterial Sa[address] [employer] [id number] 01/20/2028 9-AVP2-0 [id number] [facility] [place] [place] [id number] AETNA [facility] Advance Directives * Full Code (Latest Code Status on File) Date Activated Date Inactivated Comments 05/10/2023 12:13 PM 05/15/2023 6:14 PM Care Teams Crab Picker Relationship Specialty Start Date End Date Alivia Vieyra [address] [place] [address] [place] [phone] PCP - General Internal Medicine 01/02/23
--- OUTSIDE RECORDS SUMMARY | 2024-11-13 13:13 | XMS_ITS | Clinical Summary ---
Author Organization [employer] [facility] Address [address] [place] [address] Care Team Providers Care Ethanol Quality Leader Name Role Phone Cynthia Greenberg MD Primary Care Provider [phone] Allergies No known active allergies Medications Medication [...] age to complete this topic Care Teams Ethanol Quality Leader Relationship Specialty Start Date End Date Cynthia Greenberg MD PCP - General Internal Medicine 06/09/17
--- OUTSIDE RECORDS SUMMARY | 2024-11-13 13:13 | XMS_ITS | Patient Health Record ---
Author Organization [facility] Address [address] [place] [address] Care Team Providers Care Drop Wire Stringer Name Role Phone Alivia Pat Primary Care Provider UnavailKimberli Savage Unavailable [phone] Allergies No Known Allergies Reason For Referral [...] 09/06/2024 Encounters Encounter Location Date Provider Diagnosis [address] [address] 01/09/2024 Kimberli Perica Tinea unguium B35.1 ; Tinea pedis of both feet B35.3 ; Pain in right toe(s) M79.674 and Pain in left toe(s) M79.[address] [address] 05/28/2024 Kimberli Perica Tinea unguium B35.1 ; Pain in right toe(s) M79.674 and Pain in left toe(s) M79.[address] [address] 09/06/2024 Kimberli Perica Tinea unguium B35.1 ; Tinea pedis of both feet B35.3 ; Pain in right toe(s) M79.674 and Pain in left toe(s) M79.[address] [address] 03/19/2024 Kimberli Perica Assessments Encounter Date Diagnosis [...] Details Provider Name:Kimberli neville, 12/06/2024 12:30:00 PM, [address] [place] [address], [phone], Insurance Providers Payer Name Payer Address Payer Phone Subscriber Number Group Number Insured Name Patient Relationship to Insured Coverage Start Date Coverage End Date [employer] Medicare Open [address] [place] [address] [id number] Colon, Dick Self - patient is the insured Medical (General) History Medical History History ICD Code Arthritis Cancer High blood pressure Psoriasis/eczema Surgical History Surgery Date(Month/Year) Gall bladder removal 03/15 kidney surgery 05/10 hand surgery, finger release 09/04/24
--- OUTSIDE RECORDS SUMMARY | 2024-11-13 13:13 | XMS_ITS | Encounter Summary ---
Author Organization [facility] Address [address] [place] [address] Care Team Providers Care Sales Data Analyst Name Role Phone Alivia Vieyra Primary Care Provider [phone] Encounter Details Date Type Department Care Team (Late st Contact Info) Description 04/14/2023 Orders Only [facility] Interventional Radiology [address] [place], [place] [phone] Jose Alejandro Perez MD [address] [place], [place] [phone] Social History Tobacco Use Types Packs/Day Years [...] on filedocumented in this encounter Care Teams Sales Data Analyst Relationship Specialty Start Date End Date Alivia Vieyra [address] [place] [address] [place] [address] PCP - General Internal Medicine 01/02/23 documented as of this encounter
--- OUTSIDE RECORDS SUMMARY | 2024-11-13 13:13 | XMS_ITS | Encounter Summary ---
Author Organization [facility] Address [address] [place] [address] Care Team Providers Care English Lecturer Name Role Phone Alivia Vieyra Primary Care Provider [phone] Encounter Details Date Type Department Care Team (Late st Contact Info) Description 01/27/2023 Lab Requisition [facility] Three Lab [address] [place] [address] Enedelia Ortiz MD [address] [place] [phone] Social History Tobacco Use Types Packs/Day Years [...] of this encounter Procedures * Due to [place] youmag law, this organization might not be sharing negative HIV tests. Procedure Name Priority Date/Time Associated Diagnosis Comments TISSUE EXAM Routine 01/27/2023 2:06 PM EST documented in this encounter Results * Due to [place] youmag law, this organization might not be sharing negative HIV tests. 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 [facility] 01/30/2023 9:22 AM EST [facility] at 0922 EST Clinical History RIght renal upper pole mass [facility] 01/30/2023 9:22 AM EST [facility] Gross Consult Client Facility: [facility] Slide Identificatio n: [id number] Number of Glass Slides Received: 3 Number of Blocks Received: 0 Client Pathologist: Susanne Hogan Accompanying Report Received: Yes [facility] MANUAL 01/30/2023 9:22 AM EST [facility] Embedded Images [facility] 01/30/2023 9:22 AM EST [facility] Resulting Agency Case was signed out at [facility], Department of Pathology, [facility] [id number] [facility] 01/30/2023 9:22 AM EST [facility] Report Header Surgical Pathology Report Case: [id number] Authorizing Provider: Enedelia Ortiz MD Collected: 01/27/2023 1406 [facility] Received: 01/27/2023 1407 [facility] Pathologist: Enedelia Pop MD Specimen: Kidney, Right, Upper Pole Mass 01/30/2023 9:22 AM EST [facility] Tissue Entire right kidney / Unknown 01/27/2023 2:06 PM EST 01/27/2023 2:07 PM EST us Enedelia Ortiz MD LAB PATHOLOGY/CYTOLOGY ORDE JAYA Final Result [facility] [address] documented in this encounter Visit Diagnoses Not on filedocumented in this encounter Care Teams English Lecturer Relationship Specialty Start Date End Date Alivia Vieyra [address] [place] [address] PCP - General Internal Medicine 01/02/23 documented as of this encounter
--- OUTSIDE RECORDS SUMMARY | 2024-11-13 13:13 | XMS_ITS ---
Author Organization [facility] Address [address] [place] [address] Care Team Providers Care Patient Consumer Marketer Name Role Phone Azalia Alivia Primary Care Provider [phone] Active Problems Problem Noted Date Diagnosed Date [...] TotalDLP 247 mGy 247 mGy 0 mGy [id number] 4.2 mSv 4.2 mSv 0 mSv CTDIvol Max 8 mGy 8 mGy 0 mGy CTDIvol Min 8 mGy 8 mGy 0 mGy Radiation - mGy 93.1 mGy 0 mGy 93.1 mGy Dose Area Product 24.3 Gy-cm2 0 Gy-cm2 24.3 Gy-cm 2
--- OUTSIDE RECORDS SUMMARY | 2024-11-13 13:13 | XMS_ITS | Encounter Summary ---
Author Organization [facility] Address [address] [place] [address] Care Team Providers Care Piano Professor Name Role Phone Alivia Vieyra Primary Care Provider [phone] Encounter Details Date Type Department Care Team (Late st Contact Info) Description 01/24/2023 Orders Only [facility] Interventional Radiology [address] [place] [phone] Jayme Ga MD [address] [place] [phone] Social History Tobacco Use Types Packs/Day Years [...] on filedocumented in this encounter Care Teams Piano Professor Relationship Specialty Start Date End Date Alivia Vieyra [address] [place] [address] [place] [address] PCP - General Internal Medicine 01/02/23 documented as of this encounter
--- OUTSIDE RECORDS SUMMARY | 2024-11-13 13:14 | XMS_ITS | Encounter Summary ---
Author Organization [facility] Address [address] [place] [address] Care Team Providers Care Honing Machine Operator Semiautomatic Name Role Phone Alivia Vieyra Primary Care Provider [phone] Encounter Details Date Type Department Care Team (Late st Contact Info) Description 02/23/2023 Orders Only [facility] Nuclear Medicine [address] [place] [address] Jayme Ga MD [address] [place] [address] [phone] Social History Tobacco Use Types Packs/Day Years [...] on filedocumented in this encounter Care Teams Honing Machine Operator Semiautomatic Relationship Specialty Start Date End Date Alivia Vieyra [address] [place] [address] [place] [address] PCP - General Internal Medicine 01/02/23 documented as of this encounter
--- OUTSIDE RECORDS SUMMARY | 2024-11-13 13:14 | XMS_ITS | Patient Health Record ---
Author Organization [facility] Address [address] [place] [address] Care Team Providers Care Chief Operations Officer Name Role Phone Alivia Pat Primary [...] Problem Status W/U Status Risk Notes Problem 305771200 Colon cancer screening (Z12.11) Active confirmed Problem 585265457 Encounter for other preprocedural examination (Z01.818) Active confirmed Problem 643690849 Long-term use of aspirin therapy (Z79.82) Active confirmed Problem 408122097 FH: colon polyps (Z83.71) Active confirmed Problem History of adenomatous polyp of colon (526670461) History of adenomatous polyp of colon (Z86.0101) Active confirmed Vital Signs Temperature 97.3 degrees Fahrenheit 09/02/2024 Blood pressure diastolic 01 mm Hg 09/02/2024 Height 69 in 09/02/2024 Blood pressure systolic 001 mm Hg 09/02/2024 Weight 174.4 lbs 09/02/2024 BMI 25.75 kg/m2 09/02/2024 Encounters Encounter Location Date Provider Diagnosis [facility] [address], [place] [phone] 10/08/2024 Bob Markham Jr [facility] [address] [place] [address] 09/02/2024 Bob Markham Jr Colon cancer screening [...] Insured Coverage Start Date Coverage End Date [facility] [address] [place], [place] [id number] COLON COLON, JOSÉ Self - patient is the insured 4 [place] [address] [place] [address] [phone] [id number] COLON COLON, JOSÉ Self - patient [...] Date(Month/Year) 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
== END 2024-11-13 10:38 | disposition home or self-care (01) ==
LOC: HO.XRAY 10:37
PROVIDERS: PCP Internal Medicine; Visit Provider Nurse Practitioner Family
DX: Z46.89 Encounter for fitting and adjustment of other specified devices (principal); C64.9 Malignant neoplasm of unspecified kidney, except renal pelvis
CPT/HCPCS: 36598; J2003; Q9967

== ENCOUNTER → 2024-11-13 10:38 | Outpatient (BNV) | payer MEDICARE, MEDICAID, SELFPAY | PROVIDERS: PCP Internal Medicine; Visit Provider Radiology Diagnostic Radiology | DX: T82.594A Other mechanical complication of infusion catheter, initial encounter (principal); Z45.2 Encounter for adjustment and management of vascular access device | CPT/HCPCS: 36598 ==

== ENCOUNTER 2024-12-16 11:55 | Outpatient (AMB) | payer MEDICARE, MEDICAID, SELFPAY ==
--- OUTSIDE RECORDS SUMMARY | 2024-04-09 07:00 | XMS_ITS ---
Author Organization [facility] Address [address] [place] [address] Care Team Providers Care Marine Specialist Name Role Phone Alivia Pat Primary Care Provider Unavailab Kimberli Cordova Unavailable [phone] Roa Encounters Encounter Location Date Provider Diagnosis [address] [address] 04/09/2024 Kimberli Yancey Plan Of Treatment Next Appt Details Provider Name:Kimberli neville, 03/28/2025 10:00:00 AM, [address] [place] [address], [phone], Progress Notes * Dick COFFEYDOB:1960 (64 yo M)Acc No.[id number]:04/09/2024 Progress Note Patient: Dick RED Provider: Ana Yancey DPM :1960 A ge:64 Y S ex:Male Date:04/09/2024 Address:[address] [place] [address] Pcp:Alivia Pat Subjective: * Chief Complaints: * [...] DPM Date: 0 04/09/2024 Generated for Josie Garcia/Maria Del Carmen on: 03:21 PM EDT
--- OUTSIDE RECORDS SUMMARY | 2024-04-19 08:45 | XMS_ITS ---
Author Organization [facility] Address [address] [place] [address] Care Team Providers Care Clerical Administrator Name Role Phone Alivia Pat Primary Care Provider Unavailab Kimberli Cordova Unavailable [phone] Encounters Encounter Location Date Provider Diagnosis [address] [address] 04/19/2024 Kimberli Yancey Plan Of Treatment Next Appt Details Provider Name:Kimberli neville, 03/28/2025 10:00:00 AM, [address] [place] [address], [phone], Progress Notes * FACUNDODickDOB:1960 (64 yo M)Acc No.[id number]:04/19/2024 Progress Note Patient: Dick RED Provider: Ana Yancey DPM :1960 A ge:64 Y S ex:Male Date:04/19/2024 Address:[address] [place] [phone] Pcp:Alivia Pat Subjective: * Chief Complaints: * [...] Generated for Josie swain/Demetris/Maria Del Carmen on: 1 03:21 PM EDT
--- OUTSIDE RECORDS SUMMARY | 2024-10-08 05:20 | XMS_ITS ---
Author Organization [facility] Address [address] [place] [phone] Care Team Providers Care Telecommunications Professional Name Role Phone Alivia Pat Primary Care Provider Unavailab Bob Yu Jr [phone] REASON FOR VISIT screening Encounters Encounter Location Date Provider Diagnosis [facility] Outpatient [address] [place] [phone] 10/08/2024 Bob Markham Jr Plan Of Treatment No Information Progress Notes * COLON COLONJOSÉDOB:[birth year] (64 yo M)Acc No.[id number]:10/08/2024 COLON WITH MAC Patient: JOSÉ KANG Provider: Carito Markham MD :1960 A ge:64 Y S ex:Male Date:10/08/2024 Address:[address] [place], [place] [phone] Pcp:Alivia Pat Subjective: * Chief Complaints: * [...] MD Date: 0 10/08/2024 Generated for Josie swain/Demetris/Chatasmitting on: 1 03:21 PM EDT
--- OUTSIDE RECORDS SUMMARY | 2024-11-27 09:15 | XMS_ITS ---
Author Organization [facility] Address [address] [place] [address] Care Team Providers Care Internet Sourcer Name Role Phone Alivia Pat Primary Care Provider Unavailab Kimberli Cordova Unavailable [phone] Roa Encounters Encounter Location Date Provider Diagnosis [address] [address] 11/27/2024 Kimberli Yancey Plan Of Treatment Next Appt Details Provider Name:Kimberli neville, 03/28/2025 10:00:00 AM, [address] [place] [address], [phone], Progress Notes * Dick COFFEYDOB:1960 (64 yo M)Acc No.[id number]:11/27/2024 Progress Note Patient: Dick RED Provider: Ana Yancey DPM :1960 A ge:64 Y S ex:Male Date:11/27/2024 Address:[address] [place] [phone] Pcp:Alivia Pat Subjective: * Chief Complaints: * [address] Roa. * Medical History: Objective: * Vitals: Assessment: Plan: * Treatment: * Images: * The named appointment provid er may or may not be the originator of this progress note, and it is not deemed complete until electronically signed by the appointment provider. Sign off status: Pending * Provider: Ana Yancey DPM Date: Generated for Josie Rosales on: 03:21 PM EDT
--- OUTSIDE RECORDS SUMMARY | 2024-12-06 08:30 | XMS_ITS ---
Author Organization [facility] Address [address] [place] [address] Care Team Providers Care Consumer Attorney Name Role Phone Alivia Pat Primary Care Provider Unavailab Kimberli Cordova Unavailable [phone] Roa Encounters Encounter Location Date Provider Diagnosis [address] [address] 12/06/2024 Kimberli Yancey Plan Of Treatment Next Appt Details Provider Name:Kimberli neville, 03/28/2025 10:00:00 AM, [address] [place] [address], [phone], Progress Notes * Dick COFFEYDOB:1960 (64 yo M)Acc No.[id number]:12/06/2024 Progress Note Patient: Dick RED Provider: Ana Yancey DPM :1960 A ge:64 Y S ex:Male Date:12/06/2024 Address:[address] [place] [phone] Pcp:Alivia Pat Subjective: * Chief Complaints: * [...] Ana Yancey DPM Date: Generated for Josie Garcia/Maria Del Carmen on: 03:22 PM EDT
--- NOTE | 2024-12-16 12:17 | A.OFFVIS_ITS ---
Intake Visit Reasons: 2 m for carotid stenosis Allergies No Known Allergies (No Known Allergies*) Allergy (Verified 09/18/24 10:18) HPI Comments Details: 64 years old man with chronic hypertension, migraine, and renal cell cancer was seen for cognitive difficulties. His MRI of brain in 2011 revealed significant microvascular disease and he was diagnosed with vascular dementia. He was doing better after taking sertraline. No further stroke-like symptoms. His carotid ultrasound revealed no significant problem on left side but on the right side common carotid artery was branching very high and internal carotid artery could not be seen. [facility] Medical History Multifactorial dementia Vascular dementia Cerebral microvascular disease Kidney cancer, primary, with metastasis from kidney to other site Renal cancer Incarcerated umbilical hernia (01/09/23) Depression Psoriatic arthritis BPH (benign prostatic hyperplasia) Elevated cholesterol HTN (hypertension) Surgical History S/P laparoscopic cholecystectomy History of laparoscopic cholecystectomy (01/09/23) H/O colonoscopy Hx of hernia repair Family History Mother Colon cancer Father Prostate cancer Social History Household Members: Family Housing: House Are you a primary rn complex care to a significant other at home: No Do you presently have visiting nurse or other home services: No Alcohol intake: former Patient Tobacco Use Status: Former Tobacco user Tobacco use type: Cigarette service: Yes Current occupational status: retired Physical Exam Neuro Other: Mental Status: Alert and oriented to person, place, and time. Normal attention. Normal spontaneous speech, fluency, and comprehension. Cranial Nerves: CN II: Visual bravo full to confrontation, visual acuity intact. CN III, IV, : Pupils equal, round, reactive to light and accommodation. Extraocular movements are normal. CN V: Facial sensation is normal. CN VII: Facial movements symmetrical. CN VIII: Hearing intact to bedside conversation is normal. CN IX, X: Palate elevates symmetrically. CN XI: Shoulder shrug and head turn symmetrical. CN XII: Tongue midline without atrophy or fasciculations. Extrapyramidal: Full facial expressions and blinking. No rigidity. Movements are appropriate with no tremor or abnormality. Speech: Normal; no dysarthria or tremor. Assessment & Plan Assessment & Plan (1) Vascular dementia: Comment: NICS at [facility] in Oct 2024: L is ok, R CCA is high and ICA is not visible. CCA is ok. MRI brain WO at [facility] in July 2024: Severe MVD, probably occluded R ICA, dolichoectatic left vertebral MRI brain WO in 2012: MVD Code(s): F01.50 - Vascular dementia, unspecified severity, without behavioral disturbance, psychotic disturbance, mood disturbance, and anxiety Category: Medical Qualifiers: Dementia severity: mild Dementia behavioral or psychological symptom: with anxiety Qualified Code(s): F01.A4 - Vascular dementia, mild, with anxiety (2) Cerebral microvascular disease: Code(s): I67.89 - Other cerebrovascular disease Category: Medical (3) Carotid arterial disease: Code(s): I77.9 - Disorder of arteries and arterioles, unspecified Category: Medical Qualifiers: Carotid artery disease type: stenosis Laterality: right Qualified Code(s): I65.21 - Occlusion and stenosis of right carotid artery Plan Impression: a: Vascular dementia from small vessel ischemic disease related to HTN b: Extensive cerebral microvascular disease c: R carotid stenosis or occlusion Rec: a: Baby aspirin daily b: BP control c: Sertraline 25mg a day d: CTA neck and brain Orders: Orders CT angio head neck Today I65.21 - Occlusion and stenosis of right carotid artery Coding Level of Care Code Est Pt Level 4 (90595) Diagnoses Mild vascular dementia with anxiety F01.A4 Dementia severity: mild Dementia behavioral or psychological symptom: with anxiety Cerebral microvascular disease I67.89 Stenosis of right carotid artery I65.21 Carotid artery disease type: stenosis Laterality: right
--- OUTSIDE RECORDS SUMMARY | 2024-12-16 15:20 | XMS_ITS | Encounter Summary ---
Author Organization [facility] Address [address] [place] [address] Care Team Providers Care Microsoft Exchange Administrator Name Role Phone Alivia Vieyra Primary Care Provider Encounter Details Date Type Department Care Team (Late st Contact Info) Description 01/24/2023 Orders Only [facility] Interventional Radiology [address] [place] [address] [phone] Jayme Ga MD [address] [place] [phone] Social History Tobacco Use Types Packs/Day Years [...] on filedocumented in this encounter Care Teams Microsoft Exchange Administrator Relationship Specialty Start Date End Date Alivia Vieyra [address] [place] [address] [place] [phone] PCP - General Internal Medicine 01/02/23 documented as of this encounter
--- OUTSIDE RECORDS SUMMARY | 2024-12-16 15:20 | XMS_ITS ---
Author Organization [facility] Address [address] [place] [address] Care Team Providers Care Fractionation Plant Supervisor Name Role Phone Alivia Vieyra Primary Care Provider [phone] Active Problems Problem Noted Date Diagnosed Date [...] TotalDLP 247 mGy 247 mGy 0 mGy [id number] 4.2 mSv 4.2 mSv 0 mSv CTDIvol Max 8 mGy 8 mGy 0 mGy CTDIvol Min 8 mGy 8 mGy 0 mGy Radiation - mGy 93.1 mGy 0 mGy 93.1 mGy Dose Area Product 24.3 Gy-cm2 0 Gy-cm2 24.3 Gy-cm 2
--- OUTSIDE RECORDS SUMMARY | 2024-12-16 15:21 | XMS_ITS | Encounter Summary ---
Author Organization [facility] Address [address] [place] [address] Care Team Providers Care Senior Technologist Name Role Phone Alivia Vieyra Primary Care Provider [phone] Encounter Details Date Type Department Care Team (Late st Contact Info) Description 01/27/2023 Lab Requisition [facility] [address] [place] [address] Enedelia Ortiz MD [address] [place] [phone] Social History Tobacco Use Types Packs/Day Years [...] encounter Procedures * Due to [place] Ciafo law, this organization might not be sharing negative HIV tests. Procedure Name Priority Date/Time Associated Diagnosis Comments TISSUE EXAM Routine 01/27/2023 2:06 PM EST documented in this encounter Results * Due to [place] Cia[place] law, this organization might not be sharing negative HIV tests. * Tissue Exam (01/27/2023 2:06 PM EST) Final Diagnosis Review of Outside Slides Received from [facility] Labeled [id number] Procedure Date 04/21/2022: Right Kidney, Upper Pole Mass, Needle Core Biopsy: - CLEAR CELL RENAL CELL CARCINOMA, WHO/ISUP NUCLEAR GRADE 1-2 IN THIS SPECIMEN. [facility] 01/30/2023 9:22 AM EST [facility] at 0922 EST Clinical History RIght renal upper pole mass [facility] 01/30/2023 9:22 AM EST [facility] Gross Consult Client Facility: [facility] Slide Identificatio n: [id number] Number of Glass Slides Received: 3 Number of Blocks Received: 0 Client Pathologist: Susanne Hogan Accompanying Report Received: Yes [facility] MANUAL 01/30/2023 9:22 AM EST [facility] Embedded Images [facility] 01/30/2023 9:22 AM EST [facility] Resulting Agency Case was signed out at [facility], Department of Pathology, [facility] [id number] [facility] MAN[facility] 01/30/2023 9:22 AM EST [facility] Report Header Surgical Pathology Report Case: [id number] Authorizing Provider: Enedelia Ortiz MD Collected: 01/27/2023 1406 Ordering Location: [facility] Received: 01/27/2023 1407 [facility] Pathologist: Enedelia Pop MD Specimen: Kidney, Right, Upper Pole Mass 01/30/2023 9:22 AM EST [facility] Tissue Entire right kidney / Unknown 01/27/2023 2:06 PM EST 01/27/2023 2:07 PM EST us Enedelia Ortiz MD LAB PATHOLOGY/CYTOLOGY ORDE JAYA Final Result [email or web address] [address] documented in this encounter Visit Diagnoses Not on filedocumented in this encounter Care Teams Senior Technologist Relationship Specialty Start Date End Date Alivia Vieyra [address] [place] [address] PCP - General Internal Medicine 01/02/23 documented as of this encounter
--- OUTSIDE RECORDS SUMMARY | 2024-12-16 15:21 | XMS_ITS | Clinical Summary ---
Author Organization [facility] Address [address] [place] [address] Phone Care Team Providers Care Director Speech And Hearing Name Role Phone Pamella Luna MD Primary Care Provider Encounters Date Type Department Care Team Description 12/03/2024 11:16 AM EDT - 12/03/2024 11:59 PM EDT Hospital Encounter [facility] PET Scan [address] [place] [address] Malignant neoplasm of unspecified kidney, except renal pelvis (CMS/HCC V24, CMS/HCC V28); Malignant neoplasm of right kidney, except renal pelvis (CMS/HCC V24, CMS/HCC V28) Discharge Disposition: Home or Self Care from Last 3 Months Social History Tobacco Use Types Packs/Day Years Used Date Smoking Tobacco: Never Assessed Sex and Gender Information Value Date Recorded Sex Assigned at Not on file Legal Sex Male 1:55 PM EST Gender Identity Not on file Sexual Orientation Not on file Plan of Treatment Health Maintenance Due Date Last Done Comments Colorectal Cancer Screening: Colonoscopy 1960 Abdominal Aortic Aneurysm (AAA) Screen 06/15/2022 Cholesterol Screening (Lipid Panel) 06/15/2022 Hepatitis C Screening 06/15/2022 Hypertension/CHF/CAD Annual BMP Blood Test 06/15/2022 Medicare Annual Wellness Visit 06/15/2022 Social Influencers of Health Screening 06/15/2022 Falls Risk Assessment 2023 Depression Screening 02/21/2024 COVID-19 Vaccine (10 - Mixed Product risk season) 2024 12/26/2023, 12/06/2022, 01/27/2022, Additional history exists Influenza Vaccine (#1) 2024 , 01/27/2022, 12/23/2020, Additional history exists Pneumococcal Vaccine: 50+ Years (3 of 3 - PCV20 or PCV21) 06/03/2027 06/02/2022, 02/15/2019 DTaP,Tdap,and Td Vaccines (4 - Td or Tdap) 01/03/2034 01/04/2024, 12/06/2022, 12/20/2013 Zoster Vaccines Completed 08/26/2021, 0607/2021, 05/27/2021 RSV Immunization Adult Patients Completed 12/06/2022 HIB Vaccines Aged Out No longer eligi ble based on patient's age to complete this topic HPV Vaccines Aged Out No longer eligi ble based on patient's age to complete this topic Hepatitis A Vaccines Aged Out No long er eligible based on patient's age to complete this topic Hepatitis B Vaccines Aged Out No long er eligible based on patient's age to complete this topic IPV Vaccines Aged Out No longer eligi ble based on patient's age to complete this topic MMR Vaccines Aged Out No longer eligi ble based on patient's age to complete this topic Meningococcal ACWY Vaccine Aged Out N o longer eligible based on patient's age to complete this topic Meningococcal B Vaccine Aged Out No l onger eligible based on patient's age to complete this topic RSV Immunization Patients Under 20 months Aged Out No longer eligible based on patient's age to complete this topic Varicella Vaccines Aged Out No longer eligible based on patient's age to complete this topic Procedures Procedure Name Priority Date/Time Associated Diagnosis Comments PET CT SKULL TO MID THIGH SUBSEQUENT Routine 12/03/2024 1:44 PM EDT Malignant neoplasm of unspecified kidney, except renal pelvis ([facility]/HCC V24, [facility]/HCC V28) Malignant neoplasm of right kidney, except renal pelvis (CMS/HCC V24, CMS/HCC V28) from Last 3 Months Results * PET CT Skull to Mid Thigh Subsequent (12/03/2024 1:44 PM EDT) Anatomical Region Laterality Modality Body Radiographic Violet ging 12/03/2024 5:46 PM EDT Impressions 12/03/2024 5:55 PM EDT Impression: No evidence of metastatic disease. -------- FINAL REPORT -------- Dictated By: Young Mullen Dictated Date: 12/03/2024 17:46 ET Assigned Physician: Young Mullen Reviewed and Electronically Signed By: Young Mullen Signed Date: 12/03/2024 17:55 ET Workstation ID: [id number] Transcribed By: Self Edit Transcribed Date: 12/03/2024 17:46 ET Narrative 12/03/2024 5:[address] Scan CLINICAL HISTORY: RIGHT UPPER POLE KIDNEY CANCER . Technique: The patient received an intravenous injection of fluorine 18 fluorodeoxyglucose. After a short delay a whole body PET scan was obtained from the skull through midthighs. Additionally a low dose, unenhanced CT scan was acquired for attenuation correction and anatomic localization. The CT portion of the examination was done strictly for attenuation correction and is not a true diagnostic CT examination. Total DLP: 676 mGy/cm Blood glucose level in mg/dl: 108 FDG dose in mCi: 12.4 Comparison: Findings: Head and Neck: No hypermetabolic abnormality. Chest: No hypermetabolic abnormality. Coronary artery calcifications. Right chest wall port. Abdomen and Pelvis: No hypermetabolic abnormality.Right nephrectomy. Uptake in the right main colon presumably physiologic. There is fluid in the ascending colon which can be seen in the setting of enteritis. Musculoskeletal: No hypermetabolic abnormality. Procedure Note Young Mullen MD - 12/03/[address] Scan CLINICAL HISTORY: RIGHT UPPER POLE KIDNEY CANCER . Technique: The patient received an intravenous injection of fluorine 18fluorodeoxyglucose. After a short delay a whole body PET scan wasobtained from the skull through midthighs. Additionally a low dose,unenhanced CT scan was acquired for attenuation correction and anatomiclocalization. The CT portion of the examination was done strictly forattenuation correction and is not a true diagnostic CT examination. TotalDLP: 676 mGy/cm Blood glucose level in mg/dl: 108 FDG dose in mCi: 12.4 Comparison: Findings: Head and Neck: No hypermetabolic abnormality. Chest: No hypermetabolic abnormality. Coronary artery calcifications.Right chest wall port. Abdomen and Pelvis: No hypermetabolic abnormality.Right nephrectomy.Uptake in the right main colon presumably physiologic. There is fluid inthe ascending colon which can be seen in the setting of enteritis. Musculoskeletal: No hypermetabolic abnormality. IMPRESSION: Impression: No evidence of metastatic disease. -------- FINAL REPORT -------- Dictated By: Young Mullen Dictated Date: 12/03/2024 17:46 ET Assigned Physician: Young Mullen Reviewed and Electronically Signed By: Young Mullen Signed Date: 12/03/2024 17:55 ET Workstation ID: [id number] Transcribed By: Self Edit Transcribed Date: 12/03/2024 17:46 ET Brenda Acosta MD IMG NM PROCEDURES Final Result from Last 3 Months Insurance [employer] MEDICARE ADVANTAGE Care Teams Director Speech And Hearing Relationship Specialty Start Date End Date Pamella Luna MD PCP - General Internal Medicine 02/24/16
--- OUTSIDE RECORDS SUMMARY | 2024-12-16 15:21 | XMS_ITS | Clinical Summary ---
Author Organization [email or web address] [facility] Address [address] [place] [address] Care Team Providers Care Cook Ship Name Role Phone Cynthia Greenberg MD Primary Care Provider [phone] Allergies No known active allergies Medications Medication [...] age to complete this topic Care Teams Cook Ship Relationship Specialty Start Date End Date Cynthia Greenberg MD PCP - General Internal Medicine 06/09/17
--- OUTSIDE RECORDS SUMMARY | 2024-12-16 15:21 | XMS_ITS | Patient Health Record ---
Author Organization [facility] Address [address] [place] [address] Care Team Providers Care Geology Instructor Name Role Phone Alivia Pat Primary Care Provider UnavailKimberli Savage Unavailable [phone] Allergies No Known Allergies Reason For Referral No Information Medications Medication SIG (Take, Route, Frequency, Duration) Notes Start Date End Date Status Chemo-therapy Not-Ta precious Metoprolol Succinate ER 100 MG Oral; Duration: 90 Not-Takin g Ketoconazole 2 % 1 application Apply a thin layer to externally to feet, even between toes Twice a day; Duration: 30 days Active Cabometyx 20 MG Oral; Duration: 30 Active Ciclopirox Olamine 0.77 % 1 application Externally Twice a day; Duration: 30 days Active Lisinopril 40 MG Oral; Duration: 90 Active amLODIPine Besylate 10 MG Oral; Duration: 90 Active Immunizations Vaccine Route Administration Date Status [...] Interpretation Negative Vital Signs Blood pressure diastolic 70 mm Hg 11/29/2024 Height 5ft 9in in 11/29/2024 Blood pressure systolic 128 mm Hg 11/29/2024 Weight 180 lbs 11/29/2024 BMI 26.58 kg/m2 11/29/2024 Encounters Encounter Location Date Provider Diagnosis [address] [address] 01/09/2024 Kimberli Perica Tinea unguium B35.1 ; Tinea pedis of both feet B35.3 ; Pain in right toe(s) M79.674 and Pain in left toe(s) M79.[address] [address] 05/28/2024 Kimberli Perica Tinea unguium B35.1 ; Pain in right toe(s) M79.674 and Pain in left toe(s) M79.[address] [address] 09/06/2024 Kimberli Perica Tinea unguium B35.1 ; Tinea pedis of both feet B35.3 ; Pain in right toe(s) M79.674 and Pain in left toe(s) M79.[address] [address] 11/29/2024 Kimberli Perica Tinea unguium B35.1 ; Tinea pedis of both feet B35.3 ; Pain in right toe(s) M79.674 and Pain in left toe(s) M79.[address] [address] 03/19/2024 Kimberli Perica Assessments Encounter Date Diagnosis [...] Patient Educated with: ATHELETE .pdf (ATHELETE .pdf) 11/29/2024 Tinea unguium (ICD-10 - B35.1) 11/29/2024 Tinea pedis of both feet (ICD-10 - B35.3) 11/29/2024 Pain in right toe(s) (ICD-10 - M79.674) 01/09/2024 Pain in right toe(s) (ICD-10 - M79.674) 09/06/2024 Pain in right toe(s) (ICD-10 - M79.674) 05/28/2024 Pain in left toe(s) (ICD-10 - M79.675) 01/09/2024 Pain in left toe(s) (ICD-10 - M79.675) 09/06/2024 Pain in left toe(s) (ICD-10 - M79.675) 11/29/2024 Pain in left toe(s) (ICD-10 - M79.675) Plan Of Treatment Next Appt Details Provider Name:Kimberli neville, 03/28/2025 10:00:00 AM, [address] [place] [address], [place], [address], Insurance Providers Payer Name Payer Address Payer Phone Subscriber Number Group Number Insured Name Patient Relationship to Insured Coverage Start Date Coverage End Date [employer] Medicare Open [address] [place] [address] [phone] [id number] Colon, Dick Self - patient is the insured Medical (General) History Medical History History ICD Code Arthritis Cancer High blood pressure Psoriasis/eczema Surgical History Surgery Date(Month/Year) Gall bladder removal 03/15 kidney surgery 05/10 hand surgery, finger release 09/04/24
--- OUTSIDE RECORDS SUMMARY | 2024-12-16 15:21 | XMS_ITS | Encounter Summary ---
Author Organization [facility] Address [address] [place] [address] Care Team Providers Care Windsurfing Instructor Name Role Phone Alivia Vieyra Primary Care Provider [phone] Encounter Details Date Type Department Care Team (Late st Contact Info) Description 04/14/2023 Orders Only [facility] Interventional Radiology [address], [place] [phone] Jose Alejandro Perez MD [address] [place], [place] [phone] Social History Tobacco Use Types Packs/Day Years [...] on filedocumented in this encounter Care Teams Windsurfing Instructor Relationship Specialty Start Date End Date Alivia Vieyra [address] [place] [address] [place] [phone] PCP - General Internal Medicine 01/02/23 documented as of this encounter
--- OUTSIDE RECORDS SUMMARY | 2024-12-16 15:21 | XMS_ITS | Clinical Summary ---
Author Organization [facility] Address [address] [place] [address] Care Team Providers Care Claim Manager Name Role Phone Alivia Vieyra Primary [...] this topic Medical Devices Implanted Type Area Hydraulic Jack Adjuster Device Identifier Shelf Expiration Date Model / Serial / Lot System Closure And Repair Suture-Mediat ed Perclose Prostyle - S0 - [id number] Implanted:Qty : 1 on 05/10/2023 by Xena Estrada MD MPH at [facility] Implant Right: Groin [employer] [id number] 01/19/2025 [id number] / 0 / [id number] Vascular Plug For Peripheral Vascular Occlusion 8mm - S0 - [id number] Implanted:Qty : 1 on 05/10/2023 by Xena Estrada MD MPH at [facility] Implant Right: Arterial [address] [employer] [id number] 01/20/2028 [id number] [facility] [place] [address] [employer]NA [facility] Advance Directives * Full Code (Latest Code Status on File) Date Activated Date Inactivated Comments 05/10/2023 12:13 PM 05/15/2023 6:14 PM Care Teams Claim Manager Relationship Specialty Start Date End Date Alivia Vieyra [address] [place] [address] [place] [phone] PCP - General Internal Medicine 01/02/23
--- OUTSIDE RECORDS SUMMARY | 2024-12-16 15:22 | XMS_ITS | Patient Health Record ---
Author Organization [facility] Address [address] [place] [address] Care Team Providers Care Employee Health Nurse Name Role Phone Alivia Pat Primary Care Provider UnavailBob Nguyễn Jr [phone] Allergies No Known Allergies Reason For Referral No Information Medications Medication SIG (Take, Route, Frequency, Duration) Notes Start Date End Date Status Sertraline HCl 100 MG 1 tablet Orally On ce a day; Duration: 30 day(s) Active Sertraline HCl 25 MG TAKE 1 TABLET BY MO UTH DAILY Oral; Duration: 30 Days Active amLODIPine Besylate 10 MG TAKE 1 TABLET BY MOUTH DAILY Oral; Duration: 90 Days Active Lisinopril 40 MG TAKE 1 TABLET BY ALMA TH DAILY Oral; Duration: 90 Days Active Sildenafil Citrate 100 MG TAKE 1 TABLET BY MOUTH TWICE A WEEK Oral; Duration: 28 Days Active Chlorthalidone 50 MG Oral; Duration: 90 Active Metoprolol Succinate ER 100 MG TAKE 1 TABLET BY MOUTH DAILY Oral; Duration: 90 Active amLODIPine Besylate 10 MG Oral; Duration: 90 Active Lisinopril 40 MG Oral; Duration: 90 Active Tamsulosin HCl 0.4 MG Oral; Duration: 90 Active Cabozantinib(100MG Daily Dose) 80 & 20 MG as directed Orally 09/02/2024 Activ e Finasteride 5 MG TAKE 1 TABLET BY ALMA TH EVERY DAY Oral; Duration: 90 Active Rosuvastatin Calcium 40 MG 1 tablet Oral ly Once a day; Duration: 30 day(s) 09/02/2024 Active Tamsulosin HCl 0.4 MG TAKE 2 CAPSULES BY MOUTH AT BEDTIME Oral; Duration: 90 Days Active Immunizations Vaccine Route Administration [...] Problem Status W/U Status Risk Notes Problem Colon cancer screening (163198909) Colon cancer screening (Z12.11) Active confirmed Problem Pre-procedure evaluation check (572038224) Encounter for other preprocedural examination (Z01.818) Active confirmed Problem Long-term current use of antiplatelet drug (017997593491612 ) Long-term use of aspirin therapy (Z79.82) Active confirmed Problem Family history of polyp of colon (904961889) FH: colon polyps (Z83.71) Active confirmed Problem History of adenomatous polyp of colon (821304695) History of adenomatous polyp of colon (Z86.0101) Active confirmed Vital Signs Temperature 97.3 degrees Fahrenheit 09/02/2024 Blood pressure diastolic 01 mm Hg 09/02/2024 Height 69 in 09/02/2024 Blood pressure systolic 001 mm Hg 09/02/2024 Weight 174.4 lbs 09/02/2024 BMI 25.75 kg/m2 09/02/2024 Encounters Encounter Location Date Provider Diagnosis [facility] [place] [address], [place] [phone] 10/08/2024 Bob Markham Jr [facility] [address] [place] [address] 09/02/2024 Bob Markham Jr Colon cancer screening [...] Insured Coverage Start Date Coverage End Date [facility] [address] [place], [place] [id number] COLON COLON, JOSÉ Self - patient is the insured 4 MEDICAID OF [facility] [address] [place] [address] [id number] COLON COLON, JOSÉ Self - patient [...]
--- OUTSIDE RECORDS SUMMARY | 2024-12-16 15:22 | XMS_ITS | Encounter Summary ---
Author Organization [facility] Address [address] [place] [address] Care Team Providers Care Wood Ski Maker Name Role Phone Alivia Vieyra Primary Care Provider [phone] Encounter Details Date Type Department Care Team (Late st Contact Info) Description 02/23/2023 Orders Only [facility] Nuclear Medicine [address] [place] [phone] Jayme Ga MD [address] [place] [phone] Social History Tobacco Use Types Packs/Day Years [...] on filedocumented in this encounter Care Teams Wood Ski Maker Relationship Specialty Start Date End Date Alivia Vieyra [address] [place] [address] [place] [phone] PCP - General Internal Medicine 01/02/23 documented as of this encounter
== END 2024-12-16 12:25 | disposition home or self-care (01) ==
LOC: HO.HSM 11:55
PROVIDERS: PCP Internal Medicine; Visit Provider Psychiatry & Neurology Neurology
DX: F01.A4 Vascular dementia, mild, with anxiety (principal); I67.89 Other cerebrovascular disease; I65.21 Occlusion and stenosis of right carotid artery
CPT/HCPCS: 99214

== ENCOUNTER → 2024-12-16 11:55 | Outpatient (BNVA) | payer MEDICARE, MEDICAID, SELFPAY | PROVIDERS: PCP Internal Medicine; Visit Provider Psychiatry & Neurology Neurology | DX: I65.21 Occlusion and stenosis of right carotid artery (principal); I67.89 Other cerebrovascular disease; F01.A4 Vascular dementia, mild, with anxiety; C64.9 Malignant neoplasm of unspecified kidney, except renal pelvis | CPT/HCPCS: 99212 ==